=== PATIENT | female | born 1950 | race African-American/Black ===

== ENCOUNTER → 2018-06-29 | Outpatient (CLI) | payer MEDICARE, MEDICAID ==
[~2018-06-29] MED LIST: AMLO-511 PO; ASPI-825 PO; ATOR40TA28 PO; BENZ0.5T44 PO; BRIM15DR8 OU; BRINOS OU; DSS100 PO; GADOBUTROL 1 MMOL/ML 10 ML VIAL IVP ONE; HALO5TAB2 PO; LATA2.5D2 OU; LISI-662 PO; METO50 PO; OMEP20 PO; SUCR1TAB PO
== END | disposition home or self-care (01) ==
LOC: RADMN 09:57
PROVIDERS: ATTEND Legal Medicine
DX: I67.82 Cerebral ischemia (principal); J34.81 Nasal mucositis (ulcerative); J34.1 Cyst and mucocele of nose and nasal sinus; R90.82 White matter disease, unspecified; I70.0 Atherosclerosis of aorta; R76.11 Nonspecific reaction to tuberculin skin test without active tuberculosis; G93.40 Encephalopathy, unspecified
CPT/HCPCS: 70553; 71045; A9585

== ENCOUNTER 2018-08-16 13:02 | Emergency (ER) | payer MEDICARE, MEDICAID ==
[~2018-08-16] VITALS: Ht 160 cm; Wt 60.7 kg
[~2018-08-16 13:02] MED LIST changes: -GADOBUTROL 1 MMOL/ML 10 ML VIAL IVP ONE
[2018-08-16 13:38] LABS: GLUCOSE,POINT OF CARE 86 MG/DL (70-110)
[2018-08-16] MEDS ORDERED: AMOX25TA PO (13:43)
[2018-08-16] MEDS ORDERED: BUSP15 PO (13:43)
[2018-08-16] MEDS ORDERED: BENZ0.5T44 PO (13:43)
[2018-08-16] MEDS ORDERED: HALO5TAB2 PO (13:43)
[2018-08-16] MEDS ORDERED: KETOROLAC TROMETHAMINE 30 MG/ML VIAL IVP ONE (15:30)
[2018-08-16 15:52] LABS: BASOPHILS % (AUTO) 0.5 % (0.0-2.0); EOSINOPHILS % (AUTO) 0.3 % (1.0-6.0); HEMATOCRIT 34.1 % (36-46); HEMOGLOBIN 10.9 g/dL (12.0-16.0); LYMPHOCYTES # (AUTO) 1.3 K/uL (1.0-4.8); LYMPHOCYTES % (AUTO) 24.6 % (22.0-44.0); MEAN CORPUSCULAR HEMOGLOBIN 22.8 pg (26.0-34.0); MEAN CORPUSCULAR HGB CONC 31.9 G/dL (31.0-37.0); MEAN CORPUSCULAR VOLUME 71 fL (80-100); MONOCYTES # (AUTO) 0.7 K/uL (0.1-1.0); MONOCYTES % (AUTO) 13.6 % (2.0-9.0); NEUTROPHILS # (AUTO) 3.3 K/uL (1.8-7.7); PLATELET COUNT (AUTO) 393 K/uL (150-450); RED BLOOD CELL COUNT(AUTO) 4.77 MIL/uL (4.00-5.20); RED CELL DISTRIBUTION WIDTH 14.3 % (11.5-14.5)
[2018-08-16 16:01] LABS: ANION GAP 6 mmol/L (8-16); CALCIUM, TOTAL 9.3 mg/dL (8.8-10.5); CARBON DIOXIDE 29 mmol/L (22-29); CHLORIDE 103 mmol/L (98-107); CREATININE 0.74 mg/dL (0.60-1.30); GLOMERULAR FILTR. RATE CALC > 60 mL/min (>60); GLUCOSE,RANDOM 85 mg/dL (70-110); POTASSIUM 3.5 mmol/L (3.5-5.1); SODIUM SERUM 138 mmol/L (136-145); UREA NITROGEN, BLOOD 21 mg/dL (7-18)
[2018-08-16 16:06] LABS: PROTHROMBIN TIME 10.2 SEC (9.4-11.6)
[2018-08-16 16:24] LABS: ALANINE AMINOTRANSFERASE 26 U/L (12-78); ALBUMIN 3.1 g/dL (3.4-5.0); ALKALINE PHOSPHATASE 113 U/L (46-116); ASPARTATE AMINOTRANSFERASE 19 U/L (15-37); BILIRUBIN,TOTAL 0.3 mg/dL (0.1-1.0); CREATINE KINASE, TOTAL ONLY 75 U/L (26-192); LIPASE 140 U/L (73-393); TOTAL PROTEIN, SERUM 7.8 g/dL (6.4-8.2)
[2018-08-16 16:33] LABS: B-TYPE NATRIURETIC PEPTIDE 15 pg/mL (0-100)
[2018-08-16] MEDS ORDERED: SODIUM CHLORIDE 0.9% 1,000 ML IV ONE (16:45)
[2018-08-16] MEDS ORDERED: CloNIDine HCL 0.2 MG TABLET PO ONE (18:00)
[2018-08-16 19:08] LABS: APPEARANCE,URINE CLEAR (CLEAR); BILIRUBIN,URINE NEGATIVE (NEGATIVE); GLUCOSE, URINE (UA) NEGATIVE (NEGATIVE); KETONES,URINE NEGATIVE (NEGATIVE); LEUKOCYTE ESTERASE ,URINE NEGATIVE (NEGATIVE); NITRATE,URINE NEGATIVE (NEGATIVE); OCCULT BLOOD,URINE NEGATIVE (NEGATIVE); PROTEIN,URINE NEGATIVE (NEGATIVE); UROBILINOGEN,URINE 0.2 mg/dL (<=1.0)
[2018-08-16 20:11] VITALS: BP 158/97
== END 2018-08-16 20:36 | disposition home or self-care (01) ==
LOC: EMS 13:03
DX: E86.0 Dehydration (principal); J45.909 Unspecified asthma, uncomplicated; E11.9 Type 2 diabetes mellitus without complications; K21.9 Gastro-esophageal reflux disease without esophagitis; F32.9 Major depressive disorder, single episode, unspecified; I10 Essential (primary) hypertension; F20.9 Schizophrenia, unspecified; Z90.49 Acquired absence of other specified parts of digestive tract
CPT/HCPCS: 36415; 71045; 80053; 81003; 82550; 82962; 83690; 83880; 84484; 85025; 85610; 85730; 93005; 96361; 96374; 99285; J1885; J7030

== ENCOUNTER 2018-11-19 16:03 | Emergency (ER) | payer MEDICARE, OTHER ==
[~2018-11-19] VITALS: Ht 160 cm; Wt 68.2 kg
[~2018-11-19 16:03] MED LIST changes: -AMLO-511 PO; +AMOX25TA PO; -ASPI-825 PO; -ATOR40TA28 PO; -BRIM15DR8 OU; -BRINOS OU; +BUSP15 PO; -DSS100 PO; -LATA2.5D2 OU; -LISI-662 PO; -METO50 PO; -OMEP20 PO; -SUCR1TAB PO
[2018-11-19 16:29] LABS: GLUCOSE,POINT OF CARE 95 MG/DL (70-110)
[2018-11-19 18:22] LABS: BASOPHILS % (AUTO) 1.1 % (0.0-2.0); EOSINOPHILS % (AUTO) 2.5 % (1.0-6.0); HEMATOCRIT 33.9 % (36-46); HEMOGLOBIN 10.6 g/dL (12.0-16.0); LYMPHOCYTES # (AUTO) 1.6 K/uL (1.0-4.8); LYMPHOCYTES % (AUTO) 33.5 % (22.0-44.0); MEAN CORPUSCULAR HEMOGLOBIN 22.9 pg (26.0-34.0); MEAN CORPUSCULAR HGB CONC 31.1 G/dL (31.0-37.0); MEAN CORPUSCULAR VOLUME 74 fL (80-100); MONOCYTES # (AUTO) 0.5 K/uL (0.1-1.0); NEUTROPHILS # (AUTO) 2.5 K/uL (1.8-7.7); NEUTROPHILS % (AUTO) 51.9 % (40.0-70.0); PLATELET COUNT (AUTO) 326 K/uL (150-450); RED CELL DISTRIBUTION WIDTH 15.2 % (11.5-14.5)
[2018-11-19 18:36] LABS: ANION GAP 8 mmol/L (8-16); CALCIUM, TOTAL 9.2 mg/dL (8.8-10.5); CARBON DIOXIDE 27 mmol/L (22-29); CHLORIDE 106 mmol/L (98-107); CREATININE 0.83 mg/dL (0.60-1.30); GLOMERULAR FILTR. RATE CALC > 60 mL/min (>60); GLUCOSE,RANDOM 88 mg/dL (70-110); POTASSIUM 3.7 mmol/L (3.5-5.1); SODIUM SERUM 141 mmol/L (136-145); UREA NITROGEN, BLOOD 27 mg/dL (7-18)
[2018-11-19 18:41] LABS: ALANINE AMINOTRANSFERASE 17 U/L (12-78); ALBUMIN 3.4 g/dL (3.4-5.0); ALKALINE PHOSPHATASE 109 U/L (46-116); ASPARTATE AMINOTRANSFERASE 18 U/L (15-37); BILIRUBIN,TOTAL 0.2 mg/dL (0.1-1.0); TOTAL PROTEIN, SERUM 7.5 g/dL (6.4-8.2)
[2018-11-19] MEDS ORDERED: HALOPERIDOL 5 MG TABLET PO ONE (20:15)
[2018-11-19] MEDS ORDERED: BENZTROPINE MESYLATE 0.5 MG TABLET PO ONE (20:15)
[2018-11-19] MEDS ORDERED: KETOROLAC TROMETHAMINE 30 MG/ML VIAL IM ONE (20:15)
[2018-11-19 21:12] VITALS: BP 149/89
== END 2018-11-19 21:15 | disposition home or self-care (01) ==
LOC: EMS 16:06
DX: F32.9 Major depressive disorder, single episode, unspecified (principal); I11.9 Hypertensive heart disease without heart failure; F20.9 Schizophrenia, unspecified; F31.9 Bipolar disorder, unspecified; E11.9 Type 2 diabetes mellitus without complications; I20.9 Angina pectoris, unspecified; Z90.49 Acquired absence of other specified parts of digestive tract; Z90.89 Acquired absence of other organs; Z79.899 Other long term (current) drug therapy
CPT/HCPCS: 36415; 80053; 82962; 85025; 96372; 99284; G0480; J1885

== ENCOUNTER 2018-12-04 19:39 | Emergency (ER) | payer MEDICARE, OTHER ==
[~2018-12-04] VITALS: Ht 160 cm; Wt 58.6 kg
[2018-12-04] MEDS ORDERED: SODIUM CHLORIDE 0.9% 100 ML ONE (20:36)
[2018-12-04] MEDS ORDERED: IOVERSOL 350 MG/ML 150 ML VIAL ONE (20:37)
[2018-12-04 21:01] LABS: BASOPHILS % (AUTO) 1.1 % (0.0-2.0); EOSINOPHILS % (AUTO) 3.1 % (1.0-6.0); HEMATOCRIT 34.8 % (36-46); LYMPHOCYTES # (AUTO) 1.3 K/uL (1.0-4.8); LYMPHOCYTES % (AUTO) 20.5 % (22.0-44.0); MEAN CORPUSCULAR HEMOGLOBIN 23.3 pg (26.0-34.0); MEAN CORPUSCULAR HGB CONC 31.8 G/dL (31.0-37.0); MEAN CORPUSCULAR VOLUME 73 fL (80-100); MONOCYTES # (AUTO) 0.9 K/uL (0.1-1.0); MONOCYTES % (AUTO) 14.7 % (2.0-9.0); NEUTROPHILS # (AUTO) 3.8 K/uL (1.8-7.7); NEUTROPHILS % (AUTO) 60.6 % (40.0-70.0); PLATELET COUNT (AUTO) 310 K/uL (150-450); RED BLOOD CELL COUNT(AUTO) 4.74 MIL/uL (4.00-5.20); RED CELL DISTRIBUTION WIDTH 14.8 % (11.5-14.5)
[2018-12-04 21:09] LABS: ANION GAP 13 mmol/L (8-16); CALCIUM, TOTAL 9.6 mg/dL (8.8-10.5); CARBON DIOXIDE 25 mmol/L (22-29); CHLORIDE 104 mmol/L (98-107); CREATININE 0.83 mg/dL (0.60-1.30); GLOMERULAR FILTR. RATE CALC > 60 mL/min (>60); GLUCOSE,RANDOM 93 mg/dL (70-110); POTASSIUM 3.5 mmol/L (3.5-5.1); SODIUM SERUM 142 mmol/L (136-145); UREA NITROGEN, BLOOD 19 mg/dL (7-18)
[2018-12-04 21:13] LABS: PROTHROMBIN TIME 10.1 SEC (9.4-11.6)
[2018-12-04 21:17] LABS: ALANINE AMINOTRANSFERASE 18 U/L (12-78); ALBUMIN 3.3 g/dL (3.4-5.0); ALKALINE PHOSPHATASE 113 U/L (46-116); ASPARTATE AMINOTRANSFERASE 16 U/L (15-37); BILIRUBIN,TOTAL 0.4 mg/dL (0.1-1.0); CREATINE KINASE, TOTAL ONLY 75 U/L (26-192); TOTAL PROTEIN, SERUM 7.9 g/dL (6.4-8.2)
[2018-12-04 21:41] LABS: B-TYPE NATRIURETIC PEPTIDE 18 pg/mL (0-100)
[2018-12-04 21:58] LABS: D-DIMER 0.8 mg/L FEU (0.00-0.50)
[2018-12-04 23:15] VITALS: BP 163/85
== END 2018-12-04 23:34 | disposition home or self-care (01) ==
LOC: EMS 19:39
DX: M79.602 Pain in left arm (principal); F20.9 Schizophrenia, unspecified; J45.909 Unspecified asthma, uncomplicated; E11.9 Type 2 diabetes mellitus without complications; K21.9 Gastro-esophageal reflux disease without esophagitis; I10 Essential (primary) hypertension; Z85.3 Personal history of malignant neoplasm of breast; Z88.0 Allergy status to penicillin; Z90.49 Acquired absence of other specified parts of digestive tract
CPT/HCPCS: 36415; 71045; 71275; 80053; 82550; 83880; 84484; 85025; 85379; 85610; 93005; 99285; J7050; Q9967

== ENCOUNTER 2019-08-27 11:41 | Inpatient (IN) | payer MEDICARE, OTHER ==
[~2019-08-27] VITALS: Ht 160 cm; Wt 61.7 kg
[~2019-08-27 11:41] MED LIST changes: -AMOX25TA PO; -BUSP15 PO
[2019-08-27] MEDS ORDERED: UNABLE TO ASSESS PO (12:12)
[2019-08-27] MEDS ORDERED: IOVERSOL 320 MG/ML 100 ML VIAL ONE (12:16)
[2019-08-27] MEDS ORDERED: SODIUM CHLORIDE 0.9% 0 ML ONE (12:16)
[2019-08-27 12:43] LABS: BASOPHILS % (AUTO) 1.7 % (0.0-2.0); EOSINOPHILS % (AUTO) 1.2 % (1.0-6.0); HEMATOCRIT 37.3 % (36-46); HEMOGLOBIN 11.6 g/dL (12.0-16.0); LYMPHOCYTES # (AUTO) 1.2 K/uL (1.0-4.8); LYMPHOCYTES % (AUTO) 29.9 % (22.0-44.0); MEAN CORPUSCULAR HEMOGLOBIN 22.9 pg (26.0-34.0); MEAN CORPUSCULAR VOLUME 74 fL (80-100); MONOCYTES # (AUTO) 0.3 K/uL (0.1-1.0); NEUTROPHILS # (AUTO) 2.3 K/uL (1.8-7.7); NEUTROPHILS % (AUTO) 59.2 % (40.0-70.0); PLATELET COUNT (AUTO) 329 K/uL (150-450); RED BLOOD CELL COUNT(AUTO) 5.05 MIL/uL (4.00-5.20); RED CELL DISTRIBUTION WIDTH 15.1 % (11.5-14.5)
[2019-08-27] MEDS ORDERED: ASPIRIN 325 MG TABLET PO ONE (12:45)
[2019-08-27 12:55] LABS: ANION GAP 9 mmol/L (8-16); CARBON DIOXIDE 28 mmol/L (22-29); CHLORIDE 104 mmol/L (98-107); CREATININE 0.71 mg/dL (0.60-1.30); GLOMERULAR FILTR. RATE CALC > 60 mL/min (>60); GLUCOSE,RANDOM 95 mg/dL (70-110); POTASSIUM 3.6 mmol/L (3.5-5.1); SODIUM SERUM 141 mmol/L (136-145); UREA NITROGEN, BLOOD 25 mg/dL (7-18)
[2019-08-27 13:02] LABS: ALANINE AMINOTRANSFERASE 27 U/L (12-78); ALBUMIN 4.2 g/dL (3.4-5.0); ALKALINE PHOSPHATASE 140 U/L (46-116); ASPARTATE AMINOTRANSFERASE 24 U/L (15-37); BILIRUBIN,TOTAL 0.4 mg/dL (0.1-1.0); PROTHROMBIN TIME 9.9 SEC (9.4-11.6); TOTAL PROTEIN, SERUM 8.8 g/dL (6.4-8.2)
[2019-08-27] MEDS ORDERED: ONDANSETRON HCL 4 MG/2 ML VIAL IVP PRN ×2 (14:45→22:00)
[2019-08-27] MEDS ORDERED: ACETAMINOPHEN 325 MG TABLET PO PRN ×2 (14:45→22:00)
[2019-08-27] MEDS ORDERED: 0.9% SODIUM CHLORIDE 10 ML SYRINGE IVP PRN ×2 (14:45→22:00)
[2019-08-27 16:31] LABS: PLATELET MORPHOLOGY COMMENT LARGE PLTS PRESENT
[2019-08-27 18:21] LABS: APPEARANCE,URINE CLEAR (CLEAR); BILIRUBIN,URINE NEGATIVE (NEGATIVE); GLUCOSE, URINE (UA) NEGATIVE (NEGATIVE); KETONES,URINE NEGATIVE (NEGATIVE); LEUKOCYTE ESTERASE ,URINE NEGATIVE (NEGATIVE); NITRATE,URINE NEGATIVE (NEGATIVE); OCCULT BLOOD,URINE NEGATIVE (NEGATIVE); PROTEIN,URINE NEGATIVE (NEGATIVE); UROBILINOGEN,URINE 0.2 mg/dL (<=1.0)
[2019-08-27 18:27] LABS: AMPHET/METH SCREEN,URINE NEGATIVE (NEGATIVE); BARBITURATE SCREEN, URINE NEGATIVE (NEGATIVE); BENZODIAZEPINES SCREEN,URINE NEGATIVE (NEGATIVE); CANNABINOID SCREEN,URINE NEGATIVE (NEGATIVE); COCAINE SCREEN,URINE NEGATIVE (NEGATIVE); METHADONE SCREEN, URINE NEGATIVE (NEGATIVE); OPIATE SCREEN,URINE NEGATIVE (NEGATIVE)
[2019-08-27 18:31] LABS: PHENCYCLIDINE SCREEN,URINE NEGATIVE (NEGATIVE)
[2019-08-27 18:40] LABS: BACTERIA,URINE Rare /HPF (None Seen); RBC,URINE 0-2 /HPF (0-2); SQUAMOUS EPITHELIAL CELL,UR Few /LPF (None Seen); WBC,URINE 0-2 /HPF (0-5)
[2019-08-27] MEDS ORDERED: MAGNESIUM OXIDE 400 MG TABLET PO PRN (22:00)
[2019-08-27] MEDS: BENZTROPINE MESYLATE 0.5 MG TABLET PO SCH (22:00)
[2019-08-27] MEDS ORDERED: POTASSIUM CHLORIDE 20 MEQ ER TABLET PO PRN (22:00)
[2019-08-27] MEDS ORDERED: MAGNESIUM SULFATE 4 GM/WATER 100 ML IV PRN (22:00)
[2019-08-27] MEDS ORDERED: POTASSIUM CHL 10 MEQ/WATER 50 ML IV PRN (22:00)
[2019-08-27] MEDS ORDERED: ZOLPIDEM TARTRATE 5 MG TABLET PO PRN (22:00)
[2019-08-27] MEDS ORDERED: DEXTROSE 50%-WATER 25 GM/50 ML SYRINGE IVP PRN (22:00)
[2019-08-27] MEDS ORDERED: MAGNESIUM SULFATE 2 GM/WATER 50 ML IV PRN (22:00)
[2019-08-27] MEDS: HALOPERIDOL 5 MG TABLET PO SCH (22:00)
[2019-08-27 23:34] LABS: GLUCOSE,POINT OF CARE 102 MG/DL (70-110)
[2019-08-27] MEDS: HEPARIN SODIUM,PORCINE 5,000 UNITS/ML VIAL SQ SCH (23:54)
[2019-08-28 07:05] LABS: BASOPHILS % (AUTO) 1.4 % (0.0-2.0); EOSINOPHILS % (AUTO) 1.2 % (1.0-6.0); HEMATOCRIT 32.7 % (36-46); HEMOGLOBIN 10.7 g/dL (12.0-16.0); LYMPHOCYTES # (AUTO) 1.5 K/uL (1.0-4.8); LYMPHOCYTES % (AUTO) 36.1 % (22.0-44.0); MEAN CORPUSCULAR HEMOGLOBIN 23.8 pg (26.0-34.0); MEAN CORPUSCULAR HGB CONC 32.6 G/dL (31.0-37.0); MEAN CORPUSCULAR VOLUME 73 fL (80-100); MONOCYTES # (AUTO) 0.4 K/uL (0.1-1.0); MONOCYTES % (AUTO) 8.6 % (2.0-9.0); NEUTROPHILS # (AUTO) 2.2 K/uL (1.8-7.7); NEUTROPHILS % (AUTO) 52.7 % (40.0-70.0); PLATELET COUNT (AUTO) 296 K/uL (150-450); RED BLOOD CELL COUNT(AUTO) 4.48 MIL/uL (4.00-5.20); RED CELL DISTRIBUTION WIDTH 14.9 % (11.5-14.5)
[2019-08-28 07:07] LABS: ALANINE AMINOTRANSFERASE 21 U/L (12-78); ALBUMIN 3.5 g/dL (3.4-5.0); ALKALINE PHOSPHATASE 121 U/L (46-116); ANION GAP 8 mmol/L (8-16); ASPARTATE AMINOTRANSFERASE 19 U/L (15-37); BILIRUBIN,TOTAL 0.4 mg/dL (0.1-1.0); CALCIUM, TOTAL 9.1 mg/dL (8.8-10.5); CARBON DIOXIDE 28 mmol/L (22-29); CHLORIDE 107 mmol/L (98-107); CHOL/HDL RATIO 3.5 (3.9-5.7); CHOLESTEROL 205 mg/dL (131-200); CREATININE 0.64 mg/dL (0.60-1.30); GLOMERULAR FILTR. RATE CALC > 60 mL/min (>60); GLUCOSE,RANDOM 98 mg/dL (70-110); HDL CHOLESTEROL 58 mg/dL (40-60); LDL CHOL (CALC.) 123 mg/dL (0-130); POTASSIUM 3.7 mmol/L (3.5-5.1); SODIUM SERUM 143 mmol/L (136-145); TOTAL PROTEIN, SERUM 7.5 g/dL (6.4-8.2); TRIGLYCERIDES 121 mg/dL (15-150); UREA NITROGEN, BLOOD 19 mg/dL (7-18)
[2019-08-28 07:29] LABS: GLUCOSE,POINT OF CARE 87 MG/DL (70-110)
[2019-08-28 07:54] LABS: HEMOGLOBIN A1C 6.1 % (4.5-6.2)
[2019-08-28 09:29] VITALS: BP 157/91
[2019-08-28] MEDS: HEPARIN SODIUM,PORCINE 5,000 UNITS/ML VIAL SQ SCH ×2 (09:32→16:21)
[2019-08-28] MEDS: HALOPERIDOL 5 MG TABLET PO SCH ×2 (09:32→21:11)
[2019-08-28] MEDS: PANTOPRAZOLE SODIUM 40 MG DR TABLET PO SCH (09:32)
[2019-08-28] MEDS: DOCUSATE SODIUM 100 MG CAPSULE PO SCH ×2 (09:32→21:11)
[2019-08-28] MEDS: BENZTROPINE MESYLATE 0.5 MG TABLET PO SCH ×2 (09:32→21:11)
[2019-08-28 12:02] VITALS: BP 161/94
[2019-08-28 16:05] VITALS: BP 144/96
[2019-08-28 16:11] LABS: GLUCOMETER DEV NAME(LOC) 5S.1; GLUCOSE,POINT OF CARE 89 MG/DL (70-110)
[2019-08-28 18:27] LABS: GLUCOMETER DEV NAME(LOC) 5N.1; GLUCOSE,POINT OF CARE 101 MG/DL (70-110)
[2019-08-28 19:45] VITALS: BP 133/77
[2019-08-28] MEDS: INSULIN LISPRO 100 UNITS/ML SQ PRN (21:21)
[2019-08-29 00:05] VITALS: BP 129/64
[2019-08-29] MEDS: HEPARIN SODIUM,PORCINE 5,000 UNITS/ML VIAL SQ SCH ×4 (00:14→23:11)
[2019-08-29 04:30] VITALS: BP 117/74
[2019-08-29 06:36] LABS: BASOPHILS % (AUTO) 1.1 % (0.0-2.0); EOSINOPHILS % (AUTO) 1.8 % (1.0-6.0); HEMATOCRIT 32.6 % (36-46); HEMOGLOBIN 10.3 g/dL (12.0-16.0); LYMPHOCYTES # (AUTO) 1.6 K/uL (1.0-4.8); LYMPHOCYTES % (AUTO) 46.5 % (22.0-44.0); MEAN CORPUSCULAR HEMOGLOBIN 23.2 pg (26.0-34.0); MEAN CORPUSCULAR HGB CONC 31.7 G/dL (31.0-37.0); MEAN CORPUSCULAR VOLUME 73 fL (80-100); MONOCYTES # (AUTO) 0.4 K/uL (0.1-1.0); MONOCYTES % (AUTO) 10.5 % (2.0-9.0); NEUTROPHILS # (AUTO) 1.4 K/uL (1.8-7.7); NEUTROPHILS % (AUTO) 40.1 % (40.0-70.0); PLATELET COUNT (AUTO) 291 K/uL (150-450); RED BLOOD CELL COUNT(AUTO) 4.44 MIL/uL (4.00-5.20); RED CELL DISTRIBUTION WIDTH 14.7 % (11.5-14.5)
[2019-08-29 07:11] LABS: ANION GAP 10 mmol/L (8-16); CALCIUM, TOTAL 9.6 mg/dL (8.8-10.5); CARBON DIOXIDE 25 mmol/L (22-29); CHLORIDE 106 mmol/L (98-107); CREATININE 0.87 mg/dL (0.60-1.30); GLOMERULAR FILTR. RATE CALC > 60 mL/min (>60); GLUCOSE,RANDOM 92 mg/dL (70-110); POTASSIUM 3.5 mmol/L (3.5-5.1); SODIUM SERUM 141 mmol/L (136-145); UREA NITROGEN, BLOOD 22 mg/dL (7-18)
[2019-08-29 08:03] VITALS: BP 144/75
[2019-08-29] MEDS: PANTOPRAZOLE SODIUM 40 MG DR TABLET PO SCH (08:30)
[2019-08-29] MEDS: BENZTROPINE MESYLATE 0.5 MG TABLET PO SCH ×2 (08:30→20:03)
[2019-08-29] MEDS: HALOPERIDOL 5 MG TABLET PO SCH ×2 (08:30→20:03)
[2019-08-29] MEDS: DOCUSATE SODIUM 100 MG CAPSULE PO SCH ×2 (08:30→20:03)
[2019-08-29 08:39] LABS: GLUCOMETER DEV NAME(LOC) 5N.1; GLUCOSE,POINT OF CARE 113 MG/DL (70-110)
[2019-08-29 08:39] LABS: GLUCOMETER DEV NAME(LOC) 5S.1; GLUCOSE,POINT OF CARE 93 MG/DL (70-110)
[2019-08-29 11:26] VITALS: BP 134/87
[2019-08-29 15:32] LABS: GLUCOMETER DEV NAME(LOC) 5S.1; GLUCOSE,POINT OF CARE 96 MG/DL (70-110)
[2019-08-29 19:16] LABS: GLUCOMETER DEV NAME(LOC) 5N.1; GLUCOSE,POINT OF CARE 106 MG/DL (70-110)
[2019-08-29] MEDS: INSULIN LISPRO 100 UNITS/ML SQ PRN (20:11)
[2019-08-29 20:50] VITALS: BP 142/99
[2019-08-29 22:36] LABS: GLUCOMETER DEV NAME(LOC) 5S.1; GLUCOSE,POINT OF CARE 152 MG/DL (70-110)
[2019-08-30 00:25] VITALS: BP 115/72
[2019-08-30 04:32] VITALS: BP 142/93
[2019-08-30 07:07] VITALS: BP 132/82
[2019-08-30 09:00] VITALS: BP 132/82
[2019-08-30] MEDS: PANTOPRAZOLE SODIUM 40 MG DR TABLET PO SCH (09:00)
[2019-08-30] MEDS: DOCUSATE SODIUM 100 MG CAPSULE PO SCH (09:00)
[2019-08-30] MEDS: BENZTROPINE MESYLATE 0.5 MG TABLET PO SCH (09:00)
[2019-08-30] MEDS: HEPARIN SODIUM,PORCINE 5,000 UNITS/ML VIAL SQ SCH ×2 (09:00→16:00)
[2019-08-30] MEDS: HALOPERIDOL 5 MG TABLET PO SCH (09:00)
[2019-08-30] MEDS ORDERED: SIMV-259 PO (10:40)
[2019-08-30 11:32] VITALS: BP 138/75
[2019-08-30 12:27] LABS: GLUCOMETER DEV NAME(LOC) 5S.1; GLUCOSE,POINT OF CARE 101 MG/DL (70-110)
[2019-08-30 15:40] VITALS: BP 134/79
[2019-08-30 21:35] LABS: GLUCOMETER DEV NAME(LOC) 5S.1; GLUCOSE,POINT OF CARE 122 MG/DL (70-110)
== END 2019-08-30 18:05 | disposition home or self-care (01) | DRG 71 ==
LOC: EMS 11:42 → 5N 08-28 07:28
PROVIDERS: ADMIT Internal Medicine; ATTEND Internal Medicine
DX: G93.49 Other encephalopathy (principal); K92.2 Gastrointestinal hemorrhage, unspecified; E11.9 Type 2 diabetes mellitus without complications; F20.9 Schizophrenia, unspecified; J45.909 Unspecified asthma, uncomplicated; I20.9 Angina pectoris, unspecified; I10 Essential (primary) hypertension; K21.9 Gastro-esophageal reflux disease without esophagitis; F41.9 Anxiety disorder, unspecified; F32.9 Major depressive disorder, single episode, unspecified; D64.9 Anemia, unspecified; E78.5 Hyperlipidemia, unspecified; Z87.11 Personal history of peptic ulcer disease; Z90.49 Acquired absence of other specified parts of digestive tract; Z83.3 Family history of diabetes mellitus; Z82.49 Family history of ischemic heart disease and other diseases of the circulatory system; Z88.0 Allergy status to penicillin; Z98.51 Tubal ligation status; Z85.3 Personal history of malignant neoplasm of breast; Z98.41 Cataract extraction status, right eye
CPT/HCPCS: 70551; 83036; 83735; 86850; 86900; 86901; 93005; 93306; 93880; 97116; 97162; 97165; 97530; 97535; J1644; J7050

== ENCOUNTER 2019-08-31 15:26 | Emergency (ER) | payer MEDICARE, OTHER ==
[~2019-08-31] VITALS: Ht 162.6 cm; Wt 68.2 kg
[~2019-08-31 15:26] MED LIST changes: +SIMV-259 PO; +UNABLE TO ASSESS PO
[2019-08-31 17:49] LABS: BASOPHILS % (AUTO) 0.7 % (0.0-2.0); EOSINOPHILS % (AUTO) 1.8 % (1.0-6.0); HEMATOCRIT 32.7 % (36-46); HEMOGLOBIN 10.3 g/dL (12.0-16.0); LYMPHOCYTES # (AUTO) 1.5 K/uL (1.0-4.8); LYMPHOCYTES % (AUTO) 25.6 % (22.0-44.0); MEAN CORPUSCULAR HGB CONC 31.5 G/dL (31.0-37.0); MEAN CORPUSCULAR VOLUME 73 fL (80-100); MONOCYTES # (AUTO) 0.5 K/uL (0.1-1.0); NEUTROPHILS # (AUTO) 3.7 K/uL (1.8-7.7); NEUTROPHILS % (AUTO) 62.9 % (40.0-70.0); PLATELET COUNT (AUTO) 284 K/uL (150-450); RED BLOOD CELL COUNT(AUTO) 4.46 MIL/uL (4.00-5.20); RED CELL DISTRIBUTION WIDTH 14.8 % (11.5-14.5)
[2019-08-31 18:07] LABS: ANION GAP 5 mmol/L (8-16); CALCIUM, TOTAL 9.7 mg/dL (8.8-10.5); CARBON DIOXIDE 29 mmol/L (22-29); CHLORIDE 109 mmol/L (98-107); CREATININE 0.93 mg/dL (0.60-1.30); GLOMERULAR FILTR. RATE CALC > 60 mL/min (>60); GLUCOSE,RANDOM 108 mg/dL (70-110); POTASSIUM 4.2 mmol/L (3.5-5.1); SODIUM SERUM 143 mmol/L (136-145); UREA NITROGEN, BLOOD 26 mg/dL (7-18)
[2019-08-31 18:12] LABS: ALANINE AMINOTRANSFERASE 20 U/L (12-78); ALBUMIN 3.4 g/dL (3.4-5.0); ALKALINE PHOSPHATASE 121 U/L (46-116); ASPARTATE AMINOTRANSFERASE 16 U/L (15-37); BILIRUBIN,TOTAL 0.1 mg/dL (0.1-1.0); TOTAL PROTEIN, SERUM 7.3 g/dL (6.4-8.2)
[2019-08-31 18:43] VITALS: BP 140/90
[2019-08-31] MEDS ORDERED: BENZTROPINE MESYLATE 2 MG TABLET PO ONE (19:30)
[2019-08-31] MEDS ORDERED: LORazepam 2 MG TABLET PO ONE (19:30)
[2019-08-31] MEDS ORDERED: HALOPERIDOL 5 MG TABLET PO ONE (19:30)
== END 2019-08-31 20:56 | disposition home or self-care (01) ==
LOC: EMS 15:26
DX: F69 Unspecified disorder of adult personality and behavior (principal); E11.36 Type 2 diabetes mellitus with diabetic cataract; I10 Essential (primary) hypertension; I25.10 Atherosclerotic heart disease of native coronary artery without angina pectoris; J45.909 Unspecified asthma, uncomplicated; K21.9 Gastro-esophageal reflux disease without esophagitis; F32.9 Major depressive disorder, single episode, unspecified; F20.9 Schizophrenia, unspecified; F41.9 Anxiety disorder, unspecified; Z90.49 Acquired absence of other specified parts of digestive tract; Z98.890 Other specified postprocedural states; Z88.0 Allergy status to penicillin; Z88.8 Allergy status to other drugs, medicaments and biological substances; Z85.3 Personal history of malignant neoplasm of breast
CPT/HCPCS: 36415; 80053; 85025; 99284; G0480

== ENCOUNTER 2019-12-08 12:17 | Inpatient (IN) | payer MEDICARE, MEDICAID ==
[~2019-12-08] VITALS: Ht 160 cm; Wt 5.9 kg
[~2019-12-08 12:17] MED LIST changes: +AMLO5TAB9 PO; +ANAS1TAB50 PO; +AZIT-84 PO; -BENZ0.5T44 PO; +BUSP5TAB20 PO; +FERR-89 PO; -HALO5TAB2 PO; +LISI-662 PO; +QUET200T PO; -SIMV-259 PO; -UNABLE TO ASSESS PO
[2019-12-08 14:12] LABS: BASOPHILS % (AUTO) 1.7 % (0.0-2.0); EOSINOPHILS % (AUTO) 1.8 % (1.0-6.0); HEMATOCRIT 34.4 % (36-46); HEMOGLOBIN 10.9 g/dL (12.0-16.0); LYMPHOCYTES # (AUTO) 1.4 K/uL (1.0-4.8); LYMPHOCYTES % (AUTO) 32.1 % (22.0-44.0); MEAN CORPUSCULAR HEMOGLOBIN 23.2 pg (26.0-34.0); MEAN CORPUSCULAR HGB CONC 31.6 G/dL (31.0-37.0); MEAN CORPUSCULAR VOLUME 73 fL (80-100); MONOCYTES # (AUTO) 0.4 K/uL (0.1-1.0); MONOCYTES % (AUTO) 9.3 % (2.0-9.0); NEUTROPHILS # (AUTO) 2.3 K/uL (1.8-7.7); NEUTROPHILS % (AUTO) 55.1 % (40.0-70.0); PLATELET COUNT (AUTO) 299 K/uL (150-450); RED BLOOD CELL COUNT(AUTO) 4.69 MIL/uL (4.00-5.20); RED CELL DISTRIBUTION WIDTH 15.8 % (11.5-14.5)
[2019-12-08 14:49] LABS: ANION GAP 13 mmol/L (8-16); CALCIUM, TOTAL 9.8 mg/dL (8.8-10.5); CARBON DIOXIDE 21 mmol/L (22-29); CHLORIDE 103 mmol/L (98-107); CREATININE 0.84 mg/dL (0.60-1.30); GLOMERULAR FILTR. RATE CALC > 60 mL/min (>60); GLUCOSE,RANDOM 85 mg/dL (70-110); POTASSIUM 3.9 mmol/L (3.5-5.1); SODIUM SERUM 137 mmol/L (136-145); UREA NITROGEN, BLOOD 21 mg/dL (7-18)
[2019-12-08 14:56] LABS: ALANINE AMINOTRANSFERASE 17 U/L (12-78); ALBUMIN 4.1 g/dL (3.4-5.0); ALKALINE PHOSPHATASE 125 U/L (46-116); ASPARTATE AMINOTRANSFERASE 27 U/L (15-37); BILIRUBIN,TOTAL 0.6 mg/dL (0.1-1.0); TOTAL PROTEIN, SERUM 8.3 g/dL (6.4-8.2)
[2019-12-08] MEDS ORDERED: LORazepam 1 MG TABLET PO ONE (17:45)
[2019-12-08] MEDS ORDERED: QUEtiapine FUMARATE 100 MG TABLET PO PRN (18:30)
[2019-12-08] MEDS ORDERED: ZOLPIDEM TARTRATE 10 MG TABLET PO PRN (18:30)
[2019-12-08 19:21] LABS: AMPHET/METH SCREEN,URINE NEGATIVE (NEGATIVE); BARBITURATE SCREEN, URINE NEGATIVE (NEGATIVE); BENZODIAZEPINES SCREEN,URINE NEGATIVE (NEGATIVE); CANNABINOID SCREEN,URINE NEGATIVE (NEGATIVE); COCAINE SCREEN,URINE NEGATIVE (NEGATIVE); METHADONE SCREEN, URINE NEGATIVE (NEGATIVE); OPIATE SCREEN,URINE NEGATIVE (NEGATIVE)
[2019-12-08 19:23] LABS: APPEARANCE,URINE CLEAR (CLEAR); BILIRUBIN,URINE NEGATIVE (NEGATIVE); GLUCOSE, URINE (UA) NEGATIVE (NEGATIVE); KETONES,URINE TRACE mg/dL (NEGATIVE); LEUKOCYTE ESTERASE ,URINE SMALL (NEGATIVE); NITRATE,URINE NEGATIVE (NEGATIVE); OCCULT BLOOD,URINE NEGATIVE (NEGATIVE); PROTEIN,URINE NEGATIVE (NEGATIVE)
[2019-12-08 19:31] LABS: BACTERIA,URINE Many /HPF (None Seen); PHENCYCLIDINE SCREEN,URINE NEGATIVE (NEGATIVE); RBC,URINE None Seen /HPF (0-2); WBC,URINE 0-2 /HPF (0-5)
[2019-12-08 19:32] LABS: SQUAMOUS EPITHELIAL CELL,UR Few /LPF (None Seen)
[2019-12-08] MEDS: ARIPiprazole 5 MG TABLET PO SCH (20:52)
[2019-12-08] MEDS: TraZODone HCL 50 MG TABLET PO SCH (20:52)
[2019-12-08] MEDS: BusPIRone HCL 5 MG TABLET PO SCH (20:52)
[2019-12-08] MEDS: QUEtiapine FUMARATE 200 MG TABLET PO SCH (20:52)
[2019-12-08 21:53] VITALS: BP 153/100
[2019-12-09] MEDS: FERROUS SULFATE 325 MG EC TABLET PO SCH ×2 (06:45→16:34)
[2019-12-09] MEDS: TraZODone HCL 50 MG TABLET PO SCH (08:26)
[2019-12-09] MEDS: LISINOPRIL 20 MG TABLET PO SCH (08:26)
[2019-12-09] MEDS: BusPIRone HCL 5 MG TABLET PO SCH ×2 (08:26→16:06)
[2019-12-09] MEDS: ANASTROZOLE 1 MG TABLET PO SCH (08:27)
[2019-12-09] MEDS: AmLODIPine BESYLATE 5 MG TABLET PO SCH (08:29)
[2019-12-09 09:00] VITALS: BP 146/94
[2019-12-09] MEDS ORDERED: CloNIDine HCL 0.1 MG TABLET PO PRN (12:30)
[2019-12-09] MEDS ORDERED: ONDANSETRON HCL 4 MG TABLET PO PRN (12:30)
[2019-12-09] MEDS ORDERED: GuaiFENesin/D-METHORPHAN [SUGAR-FREE] 200-20MG/10 ML SYRUP UDCUP PO PRN (12:30)
[2019-12-09] MEDS ORDERED: MAGNESIUM HYDROXIDE SUSPENSION 30 ML UDCUP PO PRN (12:30)
[2019-12-09] MEDS ORDERED: DOCUSATE SODIUM 100 MG CAPSULE PO PRN (12:30)
[2019-12-09] MEDS ORDERED: LOPERAMIDE HCL 2 MG CAPSULE PO PRN (12:30)
[2019-12-09] MEDS ORDERED: NICOTINE 14 MG/24 HOUR PATCH TD PRN (12:30)
[2019-12-09] MEDS ORDERED: PETROLATUM,WHITE 28 GM JELLY TP PRN (12:30)
[2019-12-09] MEDS ORDERED: MAG HYDROX/AL HYDROX/SIMETH ES 30 ML SUSPENSION UDCUP PO PRN (12:30)
[2019-12-09] MEDS: LORazepam 1 MG TABLET PO PRN (14:33)
[2019-12-09] MEDS: CIPROFLOXACIN HCL 500 MG TABLET PO SCH (16:06)
[2019-12-09 16:45] VITALS: BP 125/87
[2019-12-09] MEDS: QUEtiapine FUMARATE 200 MG TABLET PO SCH (20:42)
[2019-12-09] MEDS: ARIPiprazole 5 MG TABLET PO SCH (20:42)
[2019-12-10] MEDS: FERROUS SULFATE 325 MG EC TABLET PO SCH ×2 (06:47→17:39)
[2019-12-10] MEDS: AmLODIPine BESYLATE 5 MG TABLET PO SCH (08:12)
[2019-12-10] MEDS: BusPIRone HCL 5 MG TABLET PO SCH ×2 (08:12→17:09)
[2019-12-10] MEDS: CIPROFLOXACIN HCL 500 MG TABLET PO SCH ×2 (08:13→17:08)
[2019-12-10] MEDS: ANASTROZOLE 1 MG TABLET PO SCH (08:13)
[2019-12-10] MEDS: LISINOPRIL 20 MG TABLET PO SCH (08:17)
[2019-12-10 09:00] VITALS: BP 144/93
[2019-12-10] MEDS: LORazepam 1 MG TABLET PO PRN (13:00)
[2019-12-10] MEDS: PHENAZOPYRIDINE HCL 200 MG TABLET PO SCH ×2 (13:26→17:09)
[2019-12-10 16:12] VITALS: BP 148/92
[2019-12-10] MEDS: ARIPiprazole 5 MG TABLET PO SCH (20:40)
[2019-12-10] MEDS: QUEtiapine FUMARATE 200 MG TABLET PO SCH (20:41)
[2019-12-10] MEDS: TraZODone HCL 50 MG TABLET PO SCH (20:41)
[2019-12-11] MEDS: FERROUS SULFATE 325 MG EC TABLET PO SCH ×2 (06:32→16:53)
[2019-12-11] MEDS: BusPIRone HCL 5 MG TABLET PO SCH ×2 (08:35→16:18)
[2019-12-11] MEDS: CIPROFLOXACIN HCL 500 MG TABLET PO SCH ×2 (08:35→16:18)
[2019-12-11] MEDS: PHENAZOPYRIDINE HCL 200 MG TABLET PO SCH ×2 (08:35→16:18)
[2019-12-11] MEDS: LISINOPRIL 20 MG TABLET PO SCH (08:35)
[2019-12-11] MEDS: ANASTROZOLE 1 MG TABLET PO SCH (08:36)
[2019-12-11] MEDS: AmLODIPine BESYLATE 5 MG TABLET PO SCH (08:36)
[2019-12-11 10:18] VITALS: BP 133/83
[2019-12-11 19:23] VITALS: BP 132/75
[2019-12-11] MEDS: ARIPiprazole 10 MG TABLET PO SCH (20:19)
[2019-12-11] MEDS: TraZODone HCL 50 MG TABLET PO SCH (20:19)
[2019-12-11] MEDS: QUEtiapine FUMARATE 100 MG TABLET PO SCH (20:20)
[2019-12-12 04:47] VITALS: BP 143/92
[2019-12-12] MEDS: FERROUS SULFATE 325 MG EC TABLET PO SCH ×2 (06:42→16:26)
[2019-12-12] MEDS: BusPIRone HCL 5 MG TABLET PO SCH ×2 (09:27→16:25)
[2019-12-12] MEDS: LISINOPRIL 20 MG TABLET PO SCH (09:27)
[2019-12-12] MEDS: PHENAZOPYRIDINE HCL 200 MG TABLET PO SCH ×2 (09:27→16:25)
[2019-12-12] MEDS: ANASTROZOLE 1 MG TABLET PO SCH (09:27)
[2019-12-12] MEDS: CIPROFLOXACIN HCL 500 MG TABLET PO SCH ×2 (09:27→16:25)
[2019-12-12] MEDS: AmLODIPine BESYLATE 5 MG TABLET PO SCH (09:27)
[2019-12-12 09:34] VITALS: BP 137/78
[2019-12-12 16:54] VITALS: BP 141/60
[2019-12-12] MEDS: QUEtiapine FUMARATE 100 MG TABLET PO SCH (20:08)
[2019-12-12] MEDS: ARIPiprazole 10 MG TABLET PO SCH (20:08)
[2019-12-12] MEDS: TraZODone HCL 50 MG TABLET PO SCH (20:08)
[2019-12-13 04:05] VITALS: BP 121/83
[2019-12-13] MEDS: IBUPROFEN 400 MG TABLET PO PRN (04:08)
[2019-12-13] MEDS: FERROUS SULFATE 325 MG EC TABLET PO SCH ×2 (06:47→18:47)
[2019-12-13 08:00] VITALS: BP 145/90
[2019-12-13] MEDS: CIPROFLOXACIN HCL 500 MG TABLET PO SCH ×2 (08:25→16:28)
[2019-12-13] MEDS: ANASTROZOLE 1 MG TABLET PO SCH (08:25)
[2019-12-13] MEDS: AmLODIPine BESYLATE 5 MG TABLET PO SCH (08:25)
[2019-12-13] MEDS: BusPIRone HCL 5 MG TABLET PO SCH ×2 (08:25→16:28)
[2019-12-13] MEDS: PHENAZOPYRIDINE HCL 200 MG TABLET PO SCH ×2 (08:25→16:28)
[2019-12-13] MEDS: LISINOPRIL 20 MG TABLET PO SCH (08:26)
[2019-12-13 19:25] VITALS: BP 139/78
[2019-12-13] MEDS: QUEtiapine FUMARATE 100 MG TABLET PO SCH (20:01)
[2019-12-13] MEDS: TraZODone HCL 50 MG TABLET PO SCH (20:01)
[2019-12-13] MEDS: ARIPiprazole 10 MG TABLET PO SCH (20:01)
[2019-12-14] MEDS: IBUPROFEN 400 MG TABLET PO PRN ×2 (02:08→23:48)
[2019-12-14 02:16] VITALS: BP 131/83
[2019-12-14] MEDS: FERROUS SULFATE 325 MG EC TABLET PO SCH ×2 (06:53→16:00)
[2019-12-14 08:00] VITALS: BP 142/91
[2019-12-14] MEDS: CIPROFLOXACIN HCL 500 MG TABLET PO SCH (08:08)
[2019-12-14] MEDS: AmLODIPine BESYLATE 5 MG TABLET PO SCH (08:08)
[2019-12-14] MEDS: BusPIRone HCL 5 MG TABLET PO SCH ×2 (08:08→16:00)
[2019-12-14] MEDS: PHENAZOPYRIDINE HCL 200 MG TABLET PO SCH ×2 (08:08→16:00)
[2019-12-14] MEDS: ANASTROZOLE 1 MG TABLET PO SCH (08:08)
[2019-12-14] MEDS: LISINOPRIL 20 MG TABLET PO SCH (08:09)
[2019-12-14] MEDS: ALBUTEROL SULFATE HFA 90 MCG/PUFF 8 GM INHALER IH PRN (11:41)
[2019-12-14 16:00] VITALS: BP 151/82
[2019-12-14] MEDS: TraZODone HCL 50 MG TABLET PO SCH (20:01)
[2019-12-14] MEDS: QUEtiapine FUMARATE 100 MG TABLET PO SCH (20:02)
[2019-12-14] MEDS: ARIPiprazole 10 MG TABLET PO SCH (20:02)
[2019-12-14 23:48] VITALS: BP 107/71
[2019-12-15] MEDS: FERROUS SULFATE 325 MG EC TABLET PO SCH ×2 (06:42→16:34)
[2019-12-15] MEDS: BusPIRone HCL 5 MG TABLET PO SCH ×2 (08:11→16:07)
[2019-12-15] MEDS: LISINOPRIL 20 MG TABLET PO SCH (08:11)
[2019-12-15] MEDS: AmLODIPine BESYLATE 5 MG TABLET PO SCH (08:11)
[2019-12-15] MEDS: PHENAZOPYRIDINE HCL 200 MG TABLET PO SCH (09:00)
[2019-12-15] MEDS: ANASTROZOLE 1 MG TABLET PO SCH (09:00)
[2019-12-15 09:23] VITALS: BP 158/89
[2019-12-15 16:00] VITALS: BP 149/86
[2019-12-15] MEDS: QUEtiapine FUMARATE 100 MG TABLET PO SCH (20:35)
[2019-12-15] MEDS: TraZODone HCL 50 MG TABLET PO SCH (20:35)
[2019-12-16 00:35] VITALS: BP 133/73
[2019-12-16] MEDS: IBUPROFEN 400 MG TABLET PO PRN ×2 (00:39→23:33)
[2019-12-16] MEDS: FERROUS SULFATE 325 MG EC TABLET PO SCH ×2 (06:52→16:45)
[2019-12-16 08:40] VITALS: BP 128/88
[2019-12-16] MEDS: ANASTROZOLE 1 MG TABLET PO SCH (08:44)
[2019-12-16] MEDS: LISINOPRIL 20 MG TABLET PO SCH (08:44)
[2019-12-16] MEDS: AmLODIPine BESYLATE 5 MG TABLET PO SCH (08:44)
[2019-12-16] MEDS: ARIPiprazole 15 MG TABLET PO SCH (08:44)
[2019-12-16] MEDS: BusPIRone HCL 5 MG TABLET PO SCH ×2 (08:44→16:45)
[2019-12-16 16:56] VITALS: BP 149/59
[2019-12-16] MEDS: TraZODone HCL 50 MG TABLET PO SCH (20:12)
[2019-12-16] MEDS: QUEtiapine FUMARATE 100 MG TABLET PO SCH (20:12)
[2019-12-17 00:05] VITALS: BP 132/66
[2019-12-17] MEDS: FERROUS SULFATE 325 MG EC TABLET PO SCH ×2 (06:47→16:35)
[2019-12-17 08:00] VITALS: BP 143/85
[2019-12-17] MEDS: ANASTROZOLE 1 MG TABLET PO SCH (08:19)
[2019-12-17] MEDS: AmLODIPine BESYLATE 5 MG TABLET PO SCH (08:19)
[2019-12-17] MEDS: LISINOPRIL 20 MG TABLET PO SCH (08:19)
[2019-12-17] MEDS: BusPIRone HCL 5 MG TABLET PO SCH ×2 (08:20→16:35)
[2019-12-17] MEDS: ARIPiprazole 15 MG TABLET PO SCH (08:20)
[2019-12-17] MEDS: ALBUTEROL SULFATE HFA 90 MCG/PUFF 8 GM INHALER IH PRN (14:45)
[2019-12-17 18:53] VITALS: BP 137/82
[2019-12-17] MEDS: QUEtiapine FUMARATE 100 MG TABLET PO SCH (20:11)
[2019-12-17] MEDS: TraZODone HCL 50 MG TABLET PO SCH (20:11)
[2019-12-18] MEDS: FERROUS SULFATE 325 MG EC TABLET PO SCH ×2 (06:35→16:59)
[2019-12-18] MEDS: LISINOPRIL 20 MG TABLET PO SCH (08:38)
[2019-12-18] MEDS: AmLODIPine BESYLATE 5 MG TABLET PO SCH (08:38)
[2019-12-18] MEDS: BusPIRone HCL 5 MG TABLET PO SCH ×2 (08:39→16:02)
[2019-12-18] MEDS: ARIPiprazole 15 MG TABLET PO SCH (08:39)
[2019-12-18] MEDS: ANASTROZOLE 1 MG TABLET PO SCH (08:40)
[2019-12-18 09:00] VITALS: BP 153/108
[2019-12-18] MEDS ORDERED: ARIPiprazole LAUROXIL ER SUSPENSION 662 MG/2.4 ML SYRINGE IM SCH (10:45)
[2019-12-18] MEDS ORDERED: ARIPiprazole LAUROXIL,SUBMICR. ER SUSPENSION 675 MG/2.4 ML SYRINGE IM ONE (10:45)
[2019-12-18 15:00] VITALS: BP 142/82
[2019-12-18 19:33] VITALS: BP 145/89
[2019-12-18] MEDS: TraZODone HCL 50 MG TABLET PO SCH (20:07)
[2019-12-19 00:42] VITALS: BP 146/94
[2019-12-19] MEDS: IBUPROFEN 400 MG TABLET PO PRN ×2 (00:46→21:11)
[2019-12-19] MEDS: FERROUS SULFATE 325 MG EC TABLET PO SCH ×2 (06:52→16:30)
[2019-12-19] MEDS: LISINOPRIL 20 MG TABLET PO SCH (08:39)
[2019-12-19] MEDS: BusPIRone HCL 5 MG TABLET PO SCH ×2 (08:39→16:30)
[2019-12-19] MEDS: AmLODIPine BESYLATE 5 MG TABLET PO SCH (08:39)
[2019-12-19] MEDS: ANASTROZOLE 1 MG TABLET PO SCH (08:40)
[2019-12-19] MEDS: ARIPiprazole 15 MG TABLET PO SCH (08:41)
[2019-12-19 09:34] VITALS: BP 134/98
[2019-12-19 16:24] VITALS: BP 102/65
[2019-12-19] MEDS: TraZODone HCL 50 MG TABLET PO SCH (20:20)
[2019-12-19 21:11] VITALS: BP 112/86
[2019-12-20 00:25] VITALS: BP 134/71
[2019-12-20] MEDS: ACETAMINOPHEN 325 MG TABLET PO PRN (00:28)
[2019-12-20] MEDS: FERROUS SULFATE 325 MG EC TABLET PO SCH ×2 (07:02→16:09)
[2019-12-20 08:00] VITALS: BP 139/93
[2019-12-20] MEDS: AmLODIPine BESYLATE 5 MG TABLET PO SCH (08:55)
[2019-12-20] MEDS: ANASTROZOLE 1 MG TABLET PO SCH (08:56)
[2019-12-20] MEDS: ARIPiprazole 15 MG TABLET PO SCH (08:56)
[2019-12-20] MEDS: BusPIRone HCL 5 MG TABLET PO SCH ×2 (08:56→16:09)
[2019-12-20] MEDS: LISINOPRIL 20 MG TABLET PO SCH (08:56)
[2019-12-20] MEDS: TraZODone HCL 50 MG TABLET PO SCH (20:17)
[2019-12-20 22:02] VITALS: BP 137/78
[2019-12-21] MEDS: ACETAMINOPHEN 325 MG TABLET PO PRN (05:11)
[2019-12-21 05:12] VITALS: BP 147/77
[2019-12-21] MEDS: FERROUS SULFATE 325 MG EC TABLET PO SCH ×2 (06:38→17:36)
[2019-12-21] MEDS: AmLODIPine BESYLATE 5 MG TABLET PO SCH (08:27)
[2019-12-21] MEDS: LISINOPRIL 20 MG TABLET PO SCH (08:27)
[2019-12-21] MEDS: BusPIRone HCL 5 MG TABLET PO SCH ×2 (08:27→17:36)
[2019-12-21] MEDS: ANASTROZOLE 1 MG TABLET PO SCH (08:27)
[2019-12-21 08:33] VITALS: BP 150/72
[2019-12-21] MEDS ORDERED: DENTURE ADHESIVE 68 GM CREAM DT PRN (14:30)
[2019-12-21 17:14] VITALS: BP 146/58
[2019-12-21] MEDS: TraZODone HCL 50 MG TABLET PO SCH (21:25)
[2019-12-22 02:09] VITALS: BP 139/89
[2019-12-22] MEDS: ACETAMINOPHEN 325 MG TABLET PO PRN (04:26)
[2019-12-22] MEDS: FERROUS SULFATE 325 MG EC TABLET PO SCH (07:24)
[2019-12-22 08:00] VITALS: BP 153/87
[2019-12-22 08:51] VITALS: BP 153/87
[2019-12-22] MEDS: AmLODIPine BESYLATE 5 MG TABLET PO SCH (10:34)
[2019-12-22] MEDS: LISINOPRIL 20 MG TABLET PO SCH (10:34)
[2019-12-22] MEDS: ANASTROZOLE 1 MG TABLET PO SCH (10:34)
[2019-12-22] MEDS: BusPIRone HCL 5 MG TABLET PO SCH (10:34)
[2019-12-22] MEDS ORDERED: ARIP662S IM (11:27)
[2019-12-22] MEDS ORDERED: BUSP5TAB20 PO (12:11)
[2019-12-22] MEDS ORDERED: TRAZ-252 PO (12:11)
== END 2019-12-22 13:00 | disposition home or self-care (01) | DRG 885 ==
LOC: EMS 15:07 → 3EX 18:22
DX: F20.0 Paranoid schizophrenia (principal); N39.0 Urinary tract infection, site not specified; D64.9 Anemia, unspecified; J44.9 Chronic obstructive pulmonary disease, unspecified; I10 Essential (primary) hypertension; M19.90 Unspecified osteoarthritis, unspecified site; F10.10 Alcohol abuse, uncomplicated; F12.10 Cannabis abuse, uncomplicated; E78.5 Hyperlipidemia, unspecified; H40.9 Unspecified glaucoma; F03.90 Unspecified dementia, unspecified severity, without behavioral disturbance, psychotic disturbance, mood disturbance, and anxiety; K21.9 Gastro-esophageal reflux disease without esophagitis; M81.0 Age-related osteoporosis without current pathological fracture; D72.819 Decreased white blood cell count, unspecified; Z79.899 Other long term (current) drug therapy; Z86.73 Personal history of transient ischemic attack (TIA), and cerebral infarction without residual deficits; Z88.0 Allergy status to penicillin; Z79.891 Long term (current) use of opiate analgesic
CPT/HCPCS: 87081; 87086; G0378; G0480; J3535

== ENCOUNTER 2020-01-05 19:39 | Emergency (ER) | payer MEDICARE, OTHER ==
[~2020-01-05] VITALS: Ht 160 cm; Wt 55.9 kg
[~2020-01-05 19:39] MED LIST changes: +ARIP662S IM; -AZIT-84 PO; -QUET200T PO; +TRAZ-252 PO
[2020-01-06 00:05] LABS: BASOPHILS % (AUTO) 2.4 % (0.0-2.0); EOSINOPHILS % (AUTO) 2.9 % (1.0-6.0); HEMATOCRIT 29.8 % (36-46); HEMOGLOBIN 9.3 g/dL (12.0-16.0); LYMPHOCYTES # (AUTO) 1.6 K/uL (1.0-4.8); LYMPHOCYTES % (AUTO) 30.1 % (22.0-44.0); MEAN CORPUSCULAR HEMOGLOBIN 23.3 pg (26.0-34.0); MEAN CORPUSCULAR HGB CONC 31.3 G/dL (31.0-37.0); MEAN CORPUSCULAR VOLUME 74 fL (80-100); MONOCYTES # (AUTO) 0.6 K/uL (0.1-1.0); MONOCYTES % (AUTO) 11.1 % (2.0-9.0); NEUTROPHILS # (AUTO) 2.9 K/uL (1.8-7.7); NEUTROPHILS % (AUTO) 53.5 % (40.0-70.0); PLATELET COUNT (AUTO) 299 K/uL (150-450); RED CELL DISTRIBUTION WIDTH 16.6 % (11.5-14.5)
[2020-01-06 00:23] LABS: ANION GAP 7 mmol/L (8-16); CARBON DIOXIDE 28 mmol/L (22-29); CHLORIDE 108 mmol/L (98-107); CREATININE 0.89 mg/dL (0.60-1.30); GLOMERULAR FILTR. RATE CALC > 60 mL/min (>60); GLUCOSE,RANDOM 103 mg/dL (70-110); POTASSIUM 3.3 mmol/L (3.5-5.1); SODIUM SERUM 143 mmol/L (136-145); UREA NITROGEN, BLOOD 25 mg/dL (7-18)
[2020-01-06 00:32] LABS: ALANINE AMINOTRANSFERASE 41 U/L (12-78); ALBUMIN 3.6 g/dL (3.4-5.0); ALKALINE PHOSPHATASE 121 U/L (46-116); ASPARTATE AMINOTRANSFERASE 28 U/L (15-37); BILIRUBIN,TOTAL 0.3 mg/dL (0.1-1.0); CREATINE KINASE, TOTAL ONLY 122 U/L (26-192); TOTAL PROTEIN, SERUM 7.5 g/dL (6.4-8.2)
[2020-01-06 00:46] LABS: APPEARANCE,URINE CLEAR (CLEAR); BILIRUBIN,URINE NEGATIVE (NEGATIVE); GLUCOSE, URINE (UA) NEGATIVE (NEGATIVE); KETONES,URINE NEGATIVE (NEGATIVE); LEUKOCYTE ESTERASE ,URINE MODERATE (NEGATIVE); NITRATE,URINE NEGATIVE (NEGATIVE); OCCULT BLOOD,URINE NEGATIVE (NEGATIVE); PH,URINE 5.5 (5.0-8.0); PROTEIN,URINE TRACE (NEGATIVE); UROBILINOGEN,URINE 0.2 mg/dL (<=1.0)
[2020-01-06 00:51] LABS: AMPHET/METH SCREEN,URINE NEGATIVE (NEGATIVE); BARBITURATE SCREEN, URINE NEGATIVE (NEGATIVE); BENZODIAZEPINES SCREEN,URINE NEGATIVE (NEGATIVE); CANNABINOID SCREEN,URINE NEGATIVE (NEGATIVE); COCAINE SCREEN,URINE NEGATIVE (NEGATIVE); METHADONE SCREEN, URINE NEGATIVE (NEGATIVE); OPIATE SCREEN,URINE NEGATIVE (NEGATIVE); PHENCYCLIDINE SCREEN,URINE NEGATIVE (NEGATIVE)
[2020-01-06 01:00] LABS: RBC,URINE None Seen /HPF (0-2)
[2020-01-06 01:01] LABS: BACTERIA,URINE Few /HPF (None Seen); SQUAMOUS EPITHELIAL CELL,UR Few /LPF (None Seen)
[2020-01-06] MEDS ORDERED: LORazepam 1 MG TABLET PO ONE (01:15)
[2020-01-06] MEDS ORDERED: NITROFURANTOIN/NITROFURAN MAC 100 MG CAPSULE [MACROBID] PO ONE (01:15)
[2020-01-06 01:45] VITALS: BP 132/90
[2020-01-06 02:57] LABS: GLUCOSE,POINT OF CARE 151 MG/DL (70-110)
== END 2020-01-06 02:02 | disposition home or self-care (01) ==
LOC: EMS 19:40
DX: F41.9 Anxiety disorder, unspecified (principal); N39.0 Urinary tract infection, site not specified; J45.909 Unspecified asthma, uncomplicated; F32.9 Major depressive disorder, single episode, unspecified; E11.9 Type 2 diabetes mellitus without complications; K21.9 Gastro-esophageal reflux disease without esophagitis; F20.9 Schizophrenia, unspecified; I10 Essential (primary) hypertension; Z90.89 Acquired absence of other organs; Z88.0 Allergy status to penicillin; Z88.8 Allergy status to other drugs, medicaments and biological substances; Z79.899 Other long term (current) drug therapy
CPT/HCPCS: 36415; 80053; 80307; 81001; 82550; 82962; 84484; 85025; 93005; 99284; G0480

== ENCOUNTER 2020-01-10 15:20 | Emergency (ER) | payer MEDICARE, OTHER ==
[~2020-01-10] VITALS: Ht 167.6 cm; Wt 72.7 kg
[2020-01-10 15:22] VITALS: BP 147/97
[2020-01-10 15:38] LABS: GLUCOSE,POINT OF CARE 118 MG/DL (70-110)
== END 2020-01-10 16:09 | disposition home or self-care (01) ==
LOC: EMS 15:25
DX: Z20.828 Contact with and (suspected) exposure to other viral communicable diseases (principal); I10 Essential (primary) hypertension; E11.9 Type 2 diabetes mellitus without complications; K21.9 Gastro-esophageal reflux disease without esophagitis; J45.909 Unspecified asthma, uncomplicated; F32.9 Major depressive disorder, single episode, unspecified; Z88.0 Allergy status to penicillin; Z88.8 Allergy status to other drugs, medicaments and biological substances; Z79.899 Other long term (current) drug therapy
CPT/HCPCS: 82962; 99283; U0003

== ENCOUNTER 2020-02-24 07:23 | Emergency (ER) | payer MEDICARE, OTHER ==
[~2020-02-24] VITALS: Ht 160 cm; Wt 54.5 kg
[~2020-02-24 07:23] MED LIST changes: +AMLO-257 PO; -AMLO5TAB9 PO
[2020-02-24 07:27] VITALS: BP 144/98
== END 2020-02-24 08:06 | disposition home or self-care (01) ==
LOC: EMS 07:25
DX: J40 Bronchitis, not specified as acute or chronic (principal); B34.9 Viral infection, unspecified; F41.9 Anxiety disorder, unspecified; J45.909 Unspecified asthma, uncomplicated; F32.9 Major depressive disorder, single episode, unspecified; E11.9 Type 2 diabetes mellitus without complications; K21.9 Gastro-esophageal reflux disease without esophagitis; I10 Essential (primary) hypertension; Z20.828 Contact with and (suspected) exposure to other viral communicable diseases; Z90.89 Acquired absence of other organs; Z88.0 Allergy status to penicillin; Z88.8 Allergy status to other drugs, medicaments and biological substances; Z79.899 Other long term (current) drug therapy
CPT/HCPCS: 99283; U0003

== ENCOUNTER 2020-02-26 08:37 | Emergency (ER) | payer MEDICARE, OTHER ==
[~2020-02-26] VITALS: Ht 157.5 cm; Wt 56.8 kg
[2020-02-26 08:39] VITALS: BP 140/85
[2020-02-26] MEDS ORDERED: IBUPROFEN 600 MG TABLET PO ONE (09:30)
== END 2020-02-26 10:00 | disposition home or self-care (01) ==
LOC: EMS 08:41
DX: N64.4 Mastodynia (principal); G89.29 Other chronic pain; J45.909 Unspecified asthma, uncomplicated; F41.9 Anxiety disorder, unspecified; F32.9 Major depressive disorder, single episode, unspecified; E11.9 Type 2 diabetes mellitus without complications; K21.9 Gastro-esophageal reflux disease without esophagitis; F20.9 Schizophrenia, unspecified; Z90.89 Acquired absence of other organs; Z85.3 Personal history of malignant neoplasm of breast; Z79.899 Other long term (current) drug therapy; Z88.0 Allergy status to penicillin; Z88.8 Allergy status to other drugs, medicaments and biological substances
CPT/HCPCS: Z7502; Z7610

== ENCOUNTER 2020-03-27 17:01 | Emergency (ER) | payer MEDICARE, OTHER ==
[~2020-03-27] VITALS: Ht 160 cm; Wt 60.2 kg
[2020-03-27 17:27] LABS: GLUCOSE,POINT OF CARE 113 MG/DL (70-110)
[2020-03-27 18:14] LABS: BASOPHILS % (AUTO) 1.4 % (0.0-2.0); EOSINOPHILS % (AUTO) 1.5 % (1.0-6.0); HEMATOCRIT 32.8 % (36-46); HEMOGLOBIN 10.2 g/dL (12.0-16.0); LYMPHOCYTES # (AUTO) 1.2 K/uL (1.0-4.8); LYMPHOCYTES % (AUTO) 24.2 % (22.0-44.0); MEAN CORPUSCULAR HGB CONC 31.2 G/dL (31.0-37.0); MEAN CORPUSCULAR VOLUME 74 fL (80-100); MONOCYTES # (AUTO) 0.6 K/uL (0.1-1.0); MONOCYTES % (AUTO) 12.9 % (2.0-9.0); NEUTROPHILS # (AUTO) 2.9 K/uL (1.8-7.7); PLATELET COUNT (AUTO) 310 K/uL (150-450); RED BLOOD CELL COUNT(AUTO) 4.46 MIL/uL (4.00-5.20); RED CELL DISTRIBUTION WIDTH 14.7 % (11.5-14.5)
[2020-03-27 18:40] LABS: PROTHROMBIN TIME 10.3 SEC (9.4-11.6)
[2020-03-27 18:56] LABS: ANION GAP 3 mmol/L (8-16); CALCIUM, TOTAL 8.9 mg/dL (8.8-10.5); CARBON DIOXIDE 31 mmol/L (22-29); CHLORIDE 108 mmol/L (98-107); CREATININE 0.93 mg/dL (0.60-1.30); GLOMERULAR FILTR. RATE CALC > 60 mL/min (>60); GLUCOSE,RANDOM 106 mg/dL (70-110); POTASSIUM 3.2 mmol/L (3.5-5.1); SODIUM SERUM 142 mmol/L (136-145); UREA NITROGEN, BLOOD 23 mg/dL (7-18)
[2020-03-27 18:58] LABS: B-TYPE NATRIURETIC PEPTIDE 56 pg/mL (0-100)
[2020-03-27] MEDS ORDERED: POTASSIUM CHLORIDE 20 MEQ ER TABLET PO ONE (19:15)
[2020-03-27] MEDS ORDERED: SODIUM CHLORIDE 0.9% 1,000 ML IV ONE (19:15)
[2020-03-27 19:18] LABS: ALANINE AMINOTRANSFERASE 63 U/L (12-78); ALBUMIN 3.1 g/dL (3.4-5.0); ALKALINE PHOSPHATASE 126 U/L (46-116); ASPARTATE AMINOTRANSFERASE 24 U/L (15-37); BILIRUBIN,TOTAL 0.4 mg/dL (0.1-1.0); CREATINE KINASE, TOTAL ONLY 204 U/L (26-192); TOTAL PROTEIN, SERUM 7.1 g/dL (6.4-8.2)
[2020-03-27 20:49] VITALS: BP 140/80
== END 2020-03-27 20:59 | disposition home or self-care (01) ==
LOC: EMS 17:03
DX: E86.0 Dehydration (principal); E87.6 Hypokalemia; J45.909 Unspecified asthma, uncomplicated; F32.9 Major depressive disorder, single episode, unspecified; E11.9 Type 2 diabetes mellitus without complications; K21.9 Gastro-esophageal reflux disease without esophagitis; Z88.0 Allergy status to penicillin; Z88.8 Allergy status to other drugs, medicaments and biological substances; Z79.899 Other long term (current) drug therapy
CPT/HCPCS: 36415; 71045; 80053; 82550; 82962; 83880; 84484; 85025; 85610; 85730; 93005; 99285; J7030

== ENCOUNTER 2020-04-22 10:11 | Emergency (ER) | payer MEDICARE, OTHER ==
[~2020-04-22] VITALS: Ht 165.1 cm; Wt 68.2 kg
[2020-04-22] MEDS ORDERED: ACETAMINOPHEN 500 MG TABLET PO ONE (11:15)
[2020-04-22 13:57] VITALS: BP 154/74
== END 2020-04-22 13:59 | disposition home or self-care (01) ==
LOC: EMS 10:16
DX: S30.0XXA Contusion of lower back and pelvis, initial encounter (principal); F41.9 Anxiety disorder, unspecified; F32.9 Major depressive disorder, single episode, unspecified; J45.909 Unspecified asthma, uncomplicated; E11.9 Type 2 diabetes mellitus without complications; K21.9 Gastro-esophageal reflux disease without esophagitis; I10 Essential (primary) hypertension; F20.9 Schizophrenia, unspecified; Z20.828 Contact with and (suspected) exposure to other viral communicable diseases; Z90.89 Acquired absence of other organs; Z88.0 Allergy status to penicillin; Z88.8 Allergy status to other drugs, medicaments and biological substances; Z79.899 Other long term (current) drug therapy; W10.9XXA Fall (on) (from) unspecified stairs and steps, initial encounter; Y93.89 Activity, other specified; Y92.89 Other specified places as the place of occurrence of the external cause; Y99.8 Other external cause status
CPT/HCPCS: 72100; 99284; U0003; Z7502; Z7610

== ENCOUNTER 2020-04-30 13:50 | Emergency (ER) | payer MEDICARE, OTHER ==
[~2020-04-30] VITALS: Ht 165.1 cm; Wt 63.6 kg
[2020-04-30 15:17] LABS: BASOPHILS % (AUTO) 1.2 % (0.0-2.0); EOSINOPHILS % (AUTO) 2.7 % (1.0-6.0); HEMATOCRIT 29.6 % (36-46); HEMOGLOBIN 9.2 g/dL (12.0-16.0); LYMPHOCYTES # (AUTO) 0.9 K/uL (1.0-4.8); MEAN CORPUSCULAR HEMOGLOBIN 23.1 pg (26.0-34.0); MEAN CORPUSCULAR HGB CONC 31.1 G/dL (31.0-37.0); MEAN CORPUSCULAR VOLUME 74 fL (80-100); MONOCYTES # (AUTO) 0.5 K/uL (0.1-1.0); MONOCYTES % (AUTO) 14.3 % (2.0-9.0); NEUTROPHILS # (AUTO) 2.2 K/uL (1.8-7.7); NEUTROPHILS % (AUTO) 57.8 % (40.0-70.0); PLATELET COUNT (AUTO) 311 K/uL (150-450); RED BLOOD CELL COUNT(AUTO) 3.98 MIL/uL (4.00-5.20); RED CELL DISTRIBUTION WIDTH 15.5 % (11.5-14.5)
[2020-04-30 15:34] LABS: ANION GAP 9 mmol/L (8-16); CALCIUM, TOTAL 8.8 mg/dL (8.8-10.5); CARBON DIOXIDE 28 mmol/L (22-29); CHLORIDE 107 mmol/L (98-107); CREATININE 0.74 mg/dL (0.60-1.30); GLOMERULAR FILTR. RATE CALC > 60 mL/min (>60); GLUCOSE,RANDOM 113 mg/dL (70-110); SODIUM SERUM 144 mmol/L (136-145); UREA NITROGEN, BLOOD 22 mg/dL (7-18)
[2020-04-30 15:40] LABS: ALANINE AMINOTRANSFERASE 59 U/L (12-78); ALBUMIN 3.1 g/dL (3.4-5.0); ALKALINE PHOSPHATASE 160 U/L (46-116); ASPARTATE AMINOTRANSFERASE 41 U/L (15-37); BILIRUBIN,TOTAL 0.3 mg/dL (0.1-1.0); TOTAL PROTEIN, SERUM 6.3 g/dL (6.4-8.2)
[2020-04-30] MEDS ORDERED: POTASSIUM CHLORIDE 20 MEQ ER TABLET PO ONE (17:00)
[2020-04-30 19:55] VITALS: BP 135/69
[2020-04-30 19:59] LABS: APPEARANCE,URINE CLEAR (CLEAR); BILIRUBIN,URINE NEGATIVE (NEGATIVE); GLUCOSE, URINE (UA) NEGATIVE (NEGATIVE); KETONES,URINE NEGATIVE (NEGATIVE); LEUKOCYTE ESTERASE ,URINE NEGATIVE (NEGATIVE); NITRATE,URINE NEGATIVE (NEGATIVE); OCCULT BLOOD,URINE NEGATIVE (NEGATIVE); PH,URINE 6.5 (5.0-8.0); PROTEIN,URINE TRACE (NEGATIVE)
[2020-04-30 20:08] LABS: AMPHET/METH SCREEN,URINE NEGATIVE (NEGATIVE); BARBITURATE SCREEN, URINE NEGATIVE (NEGATIVE); BENZODIAZEPINES SCREEN,URINE NEGATIVE (NEGATIVE); CANNABINOID SCREEN,URINE NEGATIVE (NEGATIVE); COCAINE SCREEN,URINE NEGATIVE (NEGATIVE); METHADONE SCREEN, URINE NEGATIVE (NEGATIVE); OPIATE SCREEN,URINE NEGATIVE (NEGATIVE)
[2020-04-30 20:16] LABS: PHENCYCLIDINE SCREEN,URINE NEGATIVE (NEGATIVE)
== END 2020-04-30 21:08 | disposition home or self-care (01) ==
LOC: EMS 13:53
DX: F41.9 Anxiety disorder, unspecified (principal); E11.9 Type 2 diabetes mellitus without complications; J45.909 Unspecified asthma, uncomplicated; I10 Essential (primary) hypertension; Z88.0 Allergy status to penicillin; Z88.8 Allergy status to other drugs, medicaments and biological substances; Z79.899 Other long term (current) drug therapy
CPT/HCPCS: 70450; 72125

== ENCOUNTER 2020-05-08 05:42 | Emergency (ER) | payer MEDICARE, OTHER ==
[~2020-05-08] VITALS: Ht 157.5 cm; Wt 58.1 kg
[2020-05-08] MEDS ORDERED: SODIUM CHLORIDE 0.9% 1,000 ML IV ONE (06:15)
[2020-05-08] MEDS ORDERED: ONDANSETRON HCL 4 MG/2 ML VIAL IVP ONE (06:15)
[2020-05-08] MEDS ORDERED: KETOROLAC TROMETHAMINE 30 MG/ML VIAL IVP ONE (06:15)
[2020-05-08] MEDS ORDERED: ACETAMINOPHEN 500 MG TABLET PO ONE (06:15)
[2020-05-08 06:34] LABS: BASOPHILS % (AUTO) 1.2 % (0.0-2.0); EOSINOPHILS % (AUTO) 1.1 % (1.0-6.0); HEMATOCRIT 37.3 % (36-46); HEMOGLOBIN 11.7 g/dL (12.0-16.0); LYMPHOCYTES % (AUTO) 17.8 % (22.0-44.0); MEAN CORPUSCULAR HEMOGLOBIN 23.4 pg (26.0-34.0); MEAN CORPUSCULAR HGB CONC 31.4 G/dL (31.0-37.0); MEAN CORPUSCULAR VOLUME 75 fL (80-100); MONOCYTES # (AUTO) 0.6 K/uL (0.1-1.0); MONOCYTES % (AUTO) 10.2 % (2.0-9.0); NEUTROPHILS % (AUTO) 69.7 % (40.0-70.0); PLATELET COUNT (AUTO) 350 K/uL (150-450); RED CELL DISTRIBUTION WIDTH 15.5 % (11.5-14.5)
[2020-05-08 06:46] LABS: ANION GAP 8 mmol/L (8-16); CALCIUM, TOTAL 9.5 mg/dL (8.8-10.5); CARBON DIOXIDE 27 mmol/L (22-29); CHLORIDE 107 mmol/L (98-107); CREATININE 0.65 mg/dL (0.60-1.30); GLOMERULAR FILTR. RATE CALC > 60 mL/min (>60); GLUCOSE,RANDOM 106 mg/dL (70-110); POTASSIUM 3.7 mmol/L (3.5-5.1); SODIUM SERUM 142 mmol/L (136-145); UREA NITROGEN, BLOOD 20 mg/dL (7-18)
[2020-05-08 06:53] LABS: ALANINE AMINOTRANSFERASE 43 U/L (12-78); ALKALINE PHOSPHATASE 177 U/L (46-116); ASPARTATE AMINOTRANSFERASE 32 U/L (15-37); BILIRUBIN,TOTAL 0.6 mg/dL (0.1-1.0); LIPASE 164 U/L (73-393); TOTAL PROTEIN, SERUM 7.3 g/dL (6.4-8.2)
[2020-05-08 08:22] LABS: APPEARANCE,URINE CLEAR (CLEAR); BILIRUBIN,URINE NEGATIVE (NEGATIVE); GLUCOSE, URINE (UA) NEGATIVE (NEGATIVE); KETONES,URINE NEGATIVE (NEGATIVE); LEUKOCYTE ESTERASE ,URINE NEGATIVE (NEGATIVE); NITRATE,URINE NEGATIVE (NEGATIVE); OCCULT BLOOD,URINE NEGATIVE (NEGATIVE); PROTEIN,URINE TRACE (NEGATIVE); UROBILINOGEN,URINE 0.2 mg/dL (<=1.0)
[2020-05-08 08:29] LABS: AMPHET/METH SCREEN,URINE NEGATIVE (NEGATIVE); BACTERIA,URINE None Seen /HPF (None Seen); BARBITURATE SCREEN, URINE NEGATIVE (NEGATIVE); BENZODIAZEPINES SCREEN,URINE NEGATIVE (NEGATIVE); CANNABINOID SCREEN,URINE NEGATIVE (NEGATIVE); COCAINE SCREEN,URINE NEGATIVE (NEGATIVE); METHADONE SCREEN, URINE NEGATIVE (NEGATIVE); OPIATE SCREEN,URINE NEGATIVE (NEGATIVE); RBC,URINE None Seen /HPF (0-2); WBC,URINE None Seen /HPF (0-5)
[2020-05-08 08:35] LABS: PHENCYCLIDINE SCREEN,URINE NEGATIVE (NEGATIVE)
[2020-05-08 10:10] VITALS: BP 170/93
== END 2020-05-08 10:23 | disposition home or self-care (01) ==
LOC: EMS 05:42
DX: R42 Dizziness and giddiness (principal); R53.1 Weakness; F32.9 Major depressive disorder, single episode, unspecified; E11.9 Type 2 diabetes mellitus without complications; I10 Essential (primary) hypertension; Z88.0 Allergy status to penicillin; Z88.8 Allergy status to other drugs, medicaments and biological substances; Z79.899 Other long term (current) drug therapy
CPT/HCPCS: 36415; 80053; 80307; 81001; 83690; 84484; 85025; 93005; 96361; 96374; 96375; 99285; G0480; J1885; J2405; J7030

== ENCOUNTER 2020-05-10 15:19 | Emergency (ER) | payer MEDICARE, OTHER ==
[~2020-05-10] VITALS: Ht 161.3 cm; Wt 54.5 kg
[2020-05-10 17:25] LABS: BASOPHILS % (AUTO) 1.1 % (0.0-2.0); EOSINOPHILS % (AUTO) 1.1 % (1.0-6.0); HEMATOCRIT 32.1 % (36-46); LYMPHOCYTES # (AUTO) 1.2 K/uL (1.0-4.8); LYMPHOCYTES % (AUTO) 23.3 % (22.0-44.0); MEAN CORPUSCULAR HEMOGLOBIN 22.9 pg (26.0-34.0); MEAN CORPUSCULAR HGB CONC 31.1 G/dL (31.0-37.0); MEAN CORPUSCULAR VOLUME 74 fL (80-100); MONOCYTES # (AUTO) 0.6 K/uL (0.1-1.0); MONOCYTES % (AUTO) 11.4 % (2.0-9.0); NEUTROPHILS # (AUTO) 3.2 K/uL (1.8-7.7); NEUTROPHILS % (AUTO) 63.1 % (40.0-70.0); PLATELET COUNT (AUTO) 360 K/uL (150-450); RED BLOOD CELL COUNT(AUTO) 4.36 MIL/uL (4.00-5.20); RED CELL DISTRIBUTION WIDTH 15.6 % (11.5-14.5)
[2020-05-10 17:41] LABS: ANION GAP 11 mmol/L (8-16); CALCIUM, TOTAL 9.3 mg/dL (8.8-10.5); CARBON DIOXIDE 25 mmol/L (22-29); CHLORIDE 112 mmol/L (98-107); CREATININE 0.89 mg/dL (0.60-1.30); GLOMERULAR FILTR. RATE CALC > 60 mL/min (>60); GLUCOSE,RANDOM 109 mg/dL (70-110); POTASSIUM 3.3 mmol/L (3.5-5.1); SODIUM SERUM 148 mmol/L (136-145); UREA NITROGEN, BLOOD 33 mg/dL (7-18)
[2020-05-10 17:46] LABS: ALANINE AMINOTRANSFERASE 38 U/L (12-78); ALBUMIN 3.5 g/dL (3.4-5.0); ALKALINE PHOSPHATASE 151 U/L (46-116); ASPARTATE AMINOTRANSFERASE 27 U/L (15-37); BILIRUBIN,TOTAL 0.5 mg/dL (0.1-1.0); LIPASE 189 U/L (73-393); TOTAL PROTEIN, SERUM 6.3 g/dL (6.4-8.2)
[2020-05-10] MEDS ORDERED: POTASSIUM CHLORIDE 20 MEQ ER TABLET PO ONE (18:00)
[2020-05-10 20:03] VITALS: BP 127/68
== END 2020-05-10 20:05 | disposition home or self-care (01) ==
LOC: EMS 15:19
DX: F25.9 Schizoaffective disorder, unspecified (principal); E87.6 Hypokalemia; F41.9 Anxiety disorder, unspecified; J45.909 Unspecified asthma, uncomplicated; F32.9 Major depressive disorder, single episode, unspecified; K21.9 Gastro-esophageal reflux disease without esophagitis; Z90.89 Acquired absence of other organs; Z88.0 Allergy status to penicillin; Z88.8 Allergy status to other drugs, medicaments and biological substances; Z79.899 Other long term (current) drug therapy
CPT/HCPCS: 36415; 80053; 82140; 82962; 83690; 85025; 99283; G0480; 82948

== ENCOUNTER 2020-05-12 14:26 | Emergency (ER) | payer MEDICARE, OTHER ==
[~2020-05-12] VITALS: Ht 161.3 cm; Wt 57.7 kg
[2020-05-12 15:21] LABS: BASOPHILS % (AUTO) 1.2 % (0.0-2.0); HEMATOCRIT 30.9 % (36-46); HEMOGLOBIN 9.9 g/dL (12.0-16.0); LYMPHOCYTES % (AUTO) 22.9 % (22.0-44.0); MEAN CORPUSCULAR HEMOGLOBIN 23.7 pg (26.0-34.0); MEAN CORPUSCULAR VOLUME 74 fL (80-100); MONOCYTES # (AUTO) 0.4 K/uL (0.1-1.0); MONOCYTES % (AUTO) 9.7 % (2.0-9.0); NEUTROPHILS # (AUTO) 2.8 K/uL (1.8-7.7); NEUTROPHILS % (AUTO) 64.2 % (40.0-70.0); PLATELET COUNT (AUTO) 361 K/uL (150-450); RED BLOOD CELL COUNT(AUTO) 4.17 MIL/uL (4.00-5.20); RED CELL DISTRIBUTION WIDTH 15.6 % (11.5-14.5)
[2020-05-12 15:31] LABS: ANION GAP 5 mmol/L (8-16); CALCIUM, TOTAL 8.9 mg/dL (8.8-10.5); CARBON DIOXIDE 29 mmol/L (22-29); CHLORIDE 112 mmol/L (98-107); CREATININE 0.81 mg/dL (0.60-1.30); GLOMERULAR FILTR. RATE CALC > 60 mL/min (>60); GLUCOSE,RANDOM 125 mg/dL (70-110); POTASSIUM 3.5 mmol/L (3.5-5.1); SODIUM SERUM 146 mmol/L (136-145); UREA NITROGEN, BLOOD 26 mg/dL (7-18)
[2020-05-12 15:37] LABS: ALANINE AMINOTRANSFERASE 49 U/L (12-78); ALBUMIN 3.2 g/dL (3.4-5.0); ALKALINE PHOSPHATASE 147 U/L (46-116); ASPARTATE AMINOTRANSFERASE 28 U/L (15-37); BILIRUBIN,TOTAL 0.3 mg/dL (0.1-1.0); TOTAL PROTEIN, SERUM 6.8 g/dL (6.4-8.2)
[2020-05-12] MEDS ORDERED: HydrOXYzine HCL 25 MG TABLET PO ONE (20:45)
[2020-05-12 21:04] LABS: APPEARANCE,URINE CLOUDY (CLEAR); BILIRUBIN,URINE NEGATIVE (NEGATIVE); GLUCOSE, URINE (UA) NEGATIVE (NEGATIVE); KETONES,URINE NEGATIVE (NEGATIVE); LEUKOCYTE ESTERASE ,URINE LARGE (NEGATIVE); NITRATE,URINE NEGATIVE (NEGATIVE); OCCULT BLOOD,URINE NEGATIVE (NEGATIVE); PH,URINE 5.5 (5.0-8.0); PROTEIN,URINE TRACE (NEGATIVE); UROBILINOGEN,URINE 0.2 mg/dL (<=1.0)
[2020-05-12 21:13] LABS: BACTERIA,URINE Moderate /HPF (None Seen); RBC,URINE None Seen /HPF (0-2)
[2020-05-12 21:14] LABS: CALCIUM OXALATE CRYSTALS,UR Moderate /LPF (None Seen); SQUAMOUS EPITHELIAL CELL,UR Few /LPF (None Seen)
[2020-05-12 21:37] VITALS: BP 148/107
== END 2020-05-12 21:37 | disposition home or self-care (01) ==
LOC: EMS 14:28
DX: R44.0 Auditory hallucinations (principal); N39.0 Urinary tract infection, site not specified; F41.9 Anxiety disorder, unspecified; F32.9 Major depressive disorder, single episode, unspecified; I20.9 Angina pectoris, unspecified; E11.9 Type 2 diabetes mellitus without complications; I10 Essential (primary) hypertension; Z88.0 Allergy status to penicillin; Z88.8 Allergy status to other drugs, medicaments and biological substances; Z79.899 Other long term (current) drug therapy
CPT/HCPCS: 36415; 80053; 81001; 85025; 87086; 99284; G0480

== ENCOUNTER 2020-05-29 12:16 | Emergency (ER) | payer MEDICARE, OTHER ==
[~2020-05-29] VITALS: Ht 157.5 cm; Wt 55.9 kg
[~2020-05-29 12:16] MED LIST changes: -ANAS1TAB50 PO; -ARIP662S IM; -BUSP5TAB20 PO; -TRAZ-252 PO
[2020-05-29 13:31] LABS: BASOPHILS % (AUTO) 0.6 % (0.0-2.0); EOSINOPHILS % (AUTO) 1.2 % (1.0-6.0); HEMATOCRIT 31.7 % (36-46); HEMOGLOBIN 9.8 g/dL (12.0-16.0); LYMPHOCYTES # (AUTO) 1.2 K/uL (1.0-4.8); LYMPHOCYTES % (AUTO) 15.8 % (22.0-44.0); MEAN CORPUSCULAR HEMOGLOBIN 22.6 pg (26.0-34.0); MEAN CORPUSCULAR HGB CONC 30.9 G/dL (31.0-37.0); MEAN CORPUSCULAR VOLUME 73 fL (80-100); MONOCYTES # (AUTO) 0.8 K/uL (0.1-1.0); MONOCYTES % (AUTO) 11.2 % (2.0-9.0); NEUTROPHILS # (AUTO) 5.4 K/uL (1.8-7.7); NEUTROPHILS % (AUTO) 71.2 % (40.0-70.0); PLATELET COUNT (AUTO) 361 K/uL (150-450); RED BLOOD CELL COUNT(AUTO) 4.33 MIL/uL (4.00-5.20); RED CELL DISTRIBUTION WIDTH 15.3 % (11.5-14.5)
[2020-05-29 13:41] LABS: ANION GAP 8 mmol/L (8-16); CALCIUM, TOTAL 9.3 mg/dL (8.8-10.5); CARBON DIOXIDE 28 mmol/L (22-29); CHLORIDE 105 mmol/L (98-107); CREATININE 0.69 mg/dL (0.60-1.30); GLOMERULAR FILTR. RATE CALC > 60 mL/min (>60); GLUCOSE,RANDOM 95 mg/dL (70-110); POTASSIUM 3.8 mmol/L (3.5-5.1); SODIUM SERUM 141 mmol/L (136-145); UREA NITROGEN, BLOOD 28 mg/dL (7-18)
[2020-05-29 13:47] LABS: ALANINE AMINOTRANSFERASE 27 U/L (12-78); ALBUMIN 3.4 g/dL (3.4-5.0); ALKALINE PHOSPHATASE 133 U/L (46-116); ASPARTATE AMINOTRANSFERASE 23 U/L (15-37); BILIRUBIN,TOTAL 0.4 mg/dL (0.1-1.0); TOTAL PROTEIN, SERUM 7.5 g/dL (6.4-8.2)
[2020-05-29] MEDS ORDERED: MORPHINE SULFATE 4 MG/ML SYRINGE IVP ONE (15:00)
[2020-05-29 16:27] LABS: AMPHET/METH SCREEN,URINE NEGATIVE (NEGATIVE); BARBITURATE SCREEN, URINE NEGATIVE (NEGATIVE); BENZODIAZEPINES SCREEN,URINE NEGATIVE (NEGATIVE); CANNABINOID SCREEN,URINE NEGATIVE (NEGATIVE); COCAINE SCREEN,URINE NEGATIVE (NEGATIVE); METHADONE SCREEN, URINE NEGATIVE (NEGATIVE); OPIATE SCREEN,URINE NEGATIVE (NEGATIVE)
[2020-05-29 16:28] LABS: PHENCYCLIDINE SCREEN,URINE NEGATIVE (NEGATIVE)
[2020-05-29] MEDS ORDERED: ARIPiprazole 10 MG TABLET PO ONE (17:15)
[2020-05-29 17:36] VITALS: BP 148/90
== END 2020-05-29 18:03 | disposition home or self-care (01) ==
LOC: EMS 12:24
DX: F32.9 Major depressive disorder, single episode, unspecified (principal); R44.0 Auditory hallucinations; F41.9 Anxiety disorder, unspecified; E11.9 Type 2 diabetes mellitus without complications; I20.9 Angina pectoris, unspecified; Z90.49 Acquired absence of other specified parts of digestive tract; Z88.0 Allergy status to penicillin; Z79.899 Other long term (current) drug therapy
CPT/HCPCS: 36415; 80053; 80307; 85025; 99284; G0480

== ENCOUNTER 2020-06-06 11:24 | Emergency (ER) | payer MEDICARE, OTHER ==
[~2020-06-06] VITALS: Ht 157.5 cm; Wt 56.8 kg
[2020-06-06 12:34] LABS: BASOPHILS % (AUTO) 1.1 % (0.0-2.0); EOSINOPHILS % (AUTO) 1.4 % (1.0-6.0); HEMATOCRIT 31.6 % (36-46); HEMOGLOBIN 9.9 g/dL (12.0-16.0); LYMPHOCYTES # (AUTO) 1.3 K/uL (1.0-4.8); LYMPHOCYTES % (AUTO) 21.2 % (22.0-44.0); MEAN CORPUSCULAR HGB CONC 31.2 G/dL (31.0-37.0); MEAN CORPUSCULAR VOLUME 74 fL (80-100); MONOCYTES # (AUTO) 0.7 K/uL (0.1-1.0); MONOCYTES % (AUTO) 10.7 % (2.0-9.0); NEUTROPHILS # (AUTO) 4.1 K/uL (1.8-7.7); NEUTROPHILS % (AUTO) 65.6 % (40.0-70.0); PLATELET COUNT (AUTO) 440 K/uL (150-450); RED BLOOD CELL COUNT(AUTO) 4.29 MIL/uL (4.00-5.20); RED CELL DISTRIBUTION WIDTH 15.3 % (11.5-14.5)
[2020-06-06 12:44] LABS: ANION GAP 6 mmol/L (8-16); CALCIUM, TOTAL 9.6 mg/dL (8.8-10.5); CARBON DIOXIDE 29 mmol/L (22-29); CHLORIDE 103 mmol/L (98-107); CREATININE 0.53 mg/dL (0.60-1.30); GLOMERULAR FILTR. RATE CALC > 60 mL/min (>60); GLUCOSE,RANDOM 95 mg/dL (70-110); POTASSIUM 3.4 mmol/L (3.5-5.1); SODIUM SERUM 138 mmol/L (136-145); UREA NITROGEN, BLOOD 20 mg/dL (7-18)
[2020-06-06 12:56] LABS: ALANINE AMINOTRANSFERASE 48 U/L (12-78); ALBUMIN 3.3 g/dL (3.4-5.0); ALKALINE PHOSPHATASE 128 U/L (46-116); ASPARTATE AMINOTRANSFERASE 31 U/L (15-37); BILIRUBIN,TOTAL 0.4 mg/dL (0.1-1.0); TOTAL PROTEIN, SERUM 7.5 g/dL (6.4-8.2)
[2020-06-06 16:30] VITALS: BP 138/88
== END 2020-06-06 17:51 | disposition left against medical advice (07) ==
LOC: EMS 11:49
DX: F25.9 Schizoaffective disorder, unspecified (principal); F41.9 Anxiety disorder, unspecified; F32.9 Major depressive disorder, single episode, unspecified; J45.909 Unspecified asthma, uncomplicated; E11.9 Type 2 diabetes mellitus without complications; K21.9 Gastro-esophageal reflux disease without esophagitis; I10 Essential (primary) hypertension; Z90.89 Acquired absence of other organs; Z88.0 Allergy status to penicillin; Z88.8 Allergy status to other drugs, medicaments and biological substances
CPT/HCPCS: 36415; 80053; 85025; 99283; G0480

== ENCOUNTER 2020-06-10 15:07 | Emergency (ER) | payer MEDICARE, OTHER ==
[~2020-06-10] VITALS: Ht 160 cm; Wt 56.8 kg
[2020-06-10 18:35] VITALS: BP 141/73
== END 2020-06-10 19:01 | disposition home or self-care (01) ==
LOC: EMS 15:07
DX: F25.9 Schizoaffective disorder, unspecified (principal); F32.9 Major depressive disorder, single episode, unspecified; E11.9 Type 2 diabetes mellitus without complications; I10 Essential (primary) hypertension
CPT/HCPCS: Z7502

== ENCOUNTER 2020-06-11 00:02 | Inpatient (IN) | payer MEDICARE, MEDICAID ==
[~2020-06-11] VITALS: Ht 160 cm; Wt 58.1 kg
[2020-06-11 00:51] LABS: BASOPHILS % (AUTO) 0.8 % (0.0-2.0); EOSINOPHILS % (AUTO) 3.3 % (1.0-6.0); HEMATOCRIT 32.7 % (36-46); HEMOGLOBIN 10.1 g/dL (12.0-16.0); LYMPHOCYTES # (AUTO) 1.1 K/uL (1.0-4.8); LYMPHOCYTES % (AUTO) 18.6 % (22.0-44.0); MEAN CORPUSCULAR HEMOGLOBIN 22.9 pg (26.0-34.0); MEAN CORPUSCULAR HGB CONC 30.9 G/dL (31.0-37.0); MEAN CORPUSCULAR VOLUME 74 fL (80-100); MONOCYTES # (AUTO) 0.5 K/uL (0.1-1.0); MONOCYTES % (AUTO) 7.7 % (2.0-9.0); NEUTROPHILS # (AUTO) 4.2 K/uL (1.8-7.7); NEUTROPHILS % (AUTO) 69.6 % (40.0-70.0); PLATELET COUNT (AUTO) 501 K/uL (150-450); RED CELL DISTRIBUTION WIDTH 15.5 % (11.5-14.5)
[2020-06-11 00:54] LABS: ANION GAP 6 mmol/L (8-16); CALCIUM, TOTAL 9.3 mg/dL (8.8-10.5); CARBON DIOXIDE 27 mmol/L (22-29); CHLORIDE 105 mmol/L (98-107); CREATININE 0.83 mg/dL (0.60-1.30); GLOMERULAR FILTR. RATE CALC > 60 mL/min (>60); GLUCOSE,RANDOM 100 mg/dL (70-110); POTASSIUM 3.6 mmol/L (3.5-5.1); SODIUM SERUM 138 mmol/L (136-145); UREA NITROGEN, BLOOD 27 mg/dL (7-18)
[2020-06-11 01:00] LABS: ALANINE AMINOTRANSFERASE 38 U/L (12-78); ALBUMIN 3.4 g/dL (3.4-5.0); ALKALINE PHOSPHATASE 138 U/L (46-116); ASPARTATE AMINOTRANSFERASE 28 U/L (15-37); BILIRUBIN,TOTAL 0.3 mg/dL (0.1-1.0); TOTAL PROTEIN, SERUM 7.7 g/dL (6.4-8.2)
[2020-06-11] MEDS ORDERED: ZOLPIDEM TARTRATE 10 MG TABLET PO PRN (01:15)
[2020-06-11 01:19] LABS: COVID AG,FIA SOURCE NASOPHARYNGEAL
[2020-06-11 01:48] LABS: PLATELET MORPHOLOGY COMMENT LARGE PLTS PRESENT
[2020-06-11 03:10] VITALS: BP 182/87
[2020-06-11] MEDS ORDERED: PNEUMOCOCCAL VACCINE POLYVALENT 0.5 ML VIAL [PPSV23] IM ONE (04:15)
[2020-06-11] MEDS ORDERED: INFLUENZA VIRUS VACCINE QVS 2020-21 (6MO+)/PF 60 MCG/0.5 ML SYRINGE IM ONE (04:15)
[2020-06-11 06:43] VITALS: BP 146/75
[2020-06-11] MEDS ORDERED: CloNIDine HCL 0.1 MG TABLET PO PRN (06:45)
[2020-06-11] MEDS: FERROUS SULFATE 325 MG EC TABLET PO SCH (07:10)
[2020-06-11] MEDS ORDERED: IBUPROFEN 400 MG TABLET PO PRN (07:15)
[2020-06-11] MEDS ORDERED: MAG HYDROX/AL HYDROX/SIMETH ES 30 ML SUSPENSION UDCUP PO PRN (07:15)
[2020-06-11] MEDS ORDERED: LOPERAMIDE HCL 2 MG CAPSULE PO PRN (07:15)
[2020-06-11] MEDS ORDERED: ALBUTEROL SULFATE HFA 90 MCG/PUFF 8 GM INHALER IH PRN (07:15)
[2020-06-11] MEDS ORDERED: DOCUSATE SODIUM 100 MG CAPSULE PO PRN (07:15)
[2020-06-11] MEDS ORDERED: NICOTINE 14 MG/24 HOUR PATCH TD PRN (07:15)
[2020-06-11] MEDS ORDERED: MAGNESIUM HYDROXIDE SUSPENSION 30 ML UDCUP PO PRN (07:15)
[2020-06-11] MEDS ORDERED: ACETAMINOPHEN 325 MG TABLET PO PRN (07:15)
[2020-06-11] MEDS ORDERED: PETROLATUM,WHITE 28 GM JELLY TP PRN (07:15)
[2020-06-11] MEDS ORDERED: ONDANSETRON HCL 4 MG TABLET PO PRN (07:15)
[2020-06-11] MEDS ORDERED: GuaiFENesin/D-METHORPHAN [SUGAR-FREE] 200-20MG/10 ML SYRUP UDCUP PO PRN (07:15)
[2020-06-11 08:00] VITALS: BP 158/84
[2020-06-11] MEDS: AmLODIPine BESYLATE 5 MG TABLET PO SCH (11:14)
[2020-06-11] MEDS: LISINOPRIL 20 MG TABLET PO SCH (11:15)
[2020-06-11 16:00] VITALS: BP 137/74
[2020-06-11] MEDS: BusPIRone HCL 5 MG TABLET PO SCH (16:20)
[2020-06-11] MEDS: TraZODone HCL 50 MG TABLET PO SCH (20:14)
[2020-06-12 02:19] VITALS: BP 141/84
[2020-06-12] MEDS: LORazepam 2 MG TABLET PO PRN (06:24)
[2020-06-12 06:25] VITALS: BP 148/103
[2020-06-12] MEDS: FERROUS SULFATE 325 MG EC TABLET PO SCH (07:04)
[2020-06-12 08:03] LABS: CHOL/HDL RATIO 2.3 (3.9-5.7)
[2020-06-12 08:25] VITALS: BP 143/71
[2020-06-12] MEDS: BusPIRone HCL 5 MG TABLET PO SCH ×2 (08:52→16:25)
[2020-06-12] MEDS: LISINOPRIL 20 MG TABLET PO SCH (08:52)
[2020-06-12] MEDS: AmLODIPine BESYLATE 5 MG TABLET PO SCH (08:52)
[2020-06-12] MEDS ORDERED: ARIPiprazole 10 MG TABLET PO SCH (09:00)
[2020-06-12 16:00] VITALS: BP 153/91
[2020-06-12] MEDS ORDERED: DENTURE ADHESIVE 68 GM CREAM DT PRN (18:30)
[2020-06-12] MEDS: TraZODone HCL 50 MG TABLET PO SCH (20:09)
[2020-06-13 02:21] VITALS: BP 155/86
[2020-06-13] MEDS: FERROUS SULFATE 325 MG EC TABLET PO SCH (06:36)
[2020-06-13] MEDS: QUEtiapine FUMARATE 100 MG TABLET PO PRN ×2 (06:43→12:27)
[2020-06-13 09:02] VITALS: BP 150/91
[2020-06-13] MEDS: AmLODIPine BESYLATE 5 MG TABLET PO SCH (10:00)
[2020-06-13] MEDS: BusPIRone HCL 5 MG TABLET PO SCH ×2 (10:00→16:46)
[2020-06-13] MEDS: LISINOPRIL 20 MG TABLET PO SCH (10:00)
[2020-06-13] MEDS: LORazepam 2 MG TABLET PO PRN (14:24)
[2020-06-13 16:00] VITALS: BP 119/67
[2020-06-13] MEDS: TraZODone HCL 50 MG TABLET PO SCH (21:06)
[2020-06-14] MEDS: QUEtiapine FUMARATE 100 MG TABLET PO PRN ×3 (00:08→02:48)
[2020-06-14 05:48] VITALS: BP 135/80
[2020-06-14] MEDS: FERROUS SULFATE 325 MG EC TABLET PO SCH (07:01)
[2020-06-14] MEDS: AmLODIPine BESYLATE 5 MG TABLET PO SCH (08:25)
[2020-06-14] MEDS: LISINOPRIL 20 MG TABLET PO SCH (08:25)
[2020-06-14] MEDS: BusPIRone HCL 5 MG TABLET PO SCH ×2 (08:26→16:49)
[2020-06-14 12:00] VITALS: BP 118/72
[2020-06-14 16:00] VITALS: BP 140/93
[2020-06-14] MEDS: TraZODone HCL 50 MG TABLET PO SCH (20:18)
[2020-06-15] MEDS: QUEtiapine FUMARATE 100 MG TABLET PO PRN (01:54)
[2020-06-15 05:46] VITALS: BP 135/80
[2020-06-15] MEDS: FERROUS SULFATE 325 MG EC TABLET PO SCH (06:37)
[2020-06-15 08:50] VITALS: BP 158/88
[2020-06-15] MEDS: LISINOPRIL 20 MG TABLET PO SCH (09:32)
[2020-06-15] MEDS: BusPIRone HCL 5 MG TABLET PO SCH ×2 (09:32→16:08)
[2020-06-15] MEDS: AmLODIPine BESYLATE 5 MG TABLET PO SCH (09:32)
[2020-06-15 16:00] VITALS: BP 150/83
[2020-06-15] MEDS: TraZODone HCL 50 MG TABLET PO SCH (20:46)
[2020-06-16 06:19] VITALS: BP 140/80
[2020-06-16] MEDS: FERROUS SULFATE 325 MG EC TABLET PO SCH (07:00)
[2020-06-16 08:00] VITALS: BP 152/90
[2020-06-16] MEDS: BusPIRone HCL 5 MG TABLET PO SCH ×2 (08:16→16:05)
[2020-06-16] MEDS: AmLODIPine BESYLATE 5 MG TABLET PO SCH (08:16)
[2020-06-16] MEDS: LISINOPRIL 20 MG TABLET PO SCH (08:17)
[2020-06-16] MEDS: LORazepam 2 MG TABLET PO PRN (12:32)
[2020-06-16 16:00] VITALS: BP 137/72
[2020-06-16] MEDS: TraZODone HCL 50 MG TABLET PO SCH (20:21)
[2020-06-17 06:32] VITALS: BP 138/75
[2020-06-17] MEDS: FERROUS SULFATE 325 MG EC TABLET PO SCH (06:36)
[2020-06-17 08:00] VITALS: BP 124/80
[2020-06-17] MEDS: BusPIRone HCL 5 MG TABLET PO SCH ×2 (08:23→16:14)
[2020-06-17] MEDS: AmLODIPine BESYLATE 5 MG TABLET PO SCH (08:28)
[2020-06-17] MEDS: LISINOPRIL 20 MG TABLET PO SCH (08:28)
[2020-06-17] MEDS ORDERED: ARIP1064 IM (09:37)
[2020-06-17] MEDS ORDERED: TRAZ-252 PO (09:37)
[2020-06-17] MEDS ORDERED: BUSP5TAB20 PO (09:37)
[2020-06-17] MEDS: LORazepam 2 MG TABLET PO PRN (15:50)
[2020-06-17 16:00] VITALS: BP 126/84
[2020-06-17] MEDS ORDERED: AMLO5TAB66 PO (16:24)
[2020-06-17] MEDS ORDERED: FERR-89 PO (16:27)
[2020-06-17] MEDS ORDERED: LISI-662 PO (16:29)
[2020-06-17] MEDS: TraZODone HCL 50 MG TABLET PO SCH (20:04)
[2020-06-18 06:18] VITALS: BP 138/86
[2020-06-18] MEDS: FERROUS SULFATE 325 MG EC TABLET PO SCH (06:31)
[2020-06-18 08:00] VITALS: BP 148/85
[2020-06-18] MEDS: BusPIRone HCL 5 MG TABLET PO SCH (08:56)
[2020-06-18] MEDS: AmLODIPine BESYLATE 5 MG TABLET PO SCH (08:57)
[2020-06-18] MEDS: LISINOPRIL 20 MG TABLET PO SCH (08:57)
[2020-07-17] MEDS ORDERED: ARIPiprazole LAUROXIL ER SUSPENSION 1064 MG/3.9 ML SYRINGE IM SCH (09:00)
[2020-07-22] MEDS ORDERED: ARIPiprazole LAUROXIL ER SUSPENSION 1064 MG/3.9 ML SYRINGE IM SCH (09:00)
== END 2020-06-18 15:00 | disposition home or self-care (01) | DRG 885 ==
LOC: EMS 00:04 → 3EI 02:00
DX: F25.1 Schizoaffective disorder, depressive type (principal); R45.851 Suicidal ideations; E11.9 Type 2 diabetes mellitus without complications; I10 Essential (primary) hypertension; Z91.14 Patient's other noncompliance with medication regimen; F32.9 Major depressive disorder, single episode, unspecified; D64.9 Anemia, unspecified; I20.9 Angina pectoris, unspecified; F41.9 Anxiety disorder, unspecified; J44.9 Chronic obstructive pulmonary disease, unspecified; K21.9 Gastro-esophageal reflux disease without esophagitis; E78.5 Hyperlipidemia, unspecified; Z20.828 Contact with and (suspected) exposure to other viral communicable diseases; Z85.3 Personal history of malignant neoplasm of breast; Z90.49 Acquired absence of other specified parts of digestive tract; Z87.820 Personal history of traumatic brain injury; Z90.11 Acquired absence of right breast and nipple; Z88.0 Allergy status to penicillin; D47.3 Essential (hemorrhagic) thrombocythemia; Z28.21 Immunization not carried out because of patient refusal; F03.90 Unspecified dementia, unspecified severity, without behavioral disturbance, psychotic disturbance, mood disturbance, and anxiety; Z87.11 Personal history of peptic ulcer disease
CPT/HCPCS: 87081; 87426; 97162; 97166; G0480

== ENCOUNTER 2020-06-22 13:13 | Emergency (ER) | payer MEDICARE, OTHER ==
[~2020-06-22] VITALS: Ht 160 cm; Wt 58.6 kg
[~2020-06-22 13:13] MED LIST changes: -AMLO-257 PO; +AMLO5TAB66 PO; +ARIP1064 IM; +BUSP5TAB20 PO; +TRAZ-252 PO
[2020-06-22 13:39] LABS: GLUCOSE,POINT OF CARE 162 MG/DL (70-110)
[2020-06-22 14:40] LABS: BASOPHILS % (AUTO) 0.8 % (0.0-2.0); EOSINOPHILS % (AUTO) 2.1 % (1.0-6.0); HEMOGLOBIN 9.3 g/dL (12.0-16.0); LYMPHOCYTES # (AUTO) 0.8 K/uL (1.0-4.8); LYMPHOCYTES % (AUTO) 13.4 % (22.0-44.0); MEAN CORPUSCULAR HEMOGLOBIN 23.1 pg (26.0-34.0); MEAN CORPUSCULAR HGB CONC 31.1 G/dL (31.0-37.0); MEAN CORPUSCULAR VOLUME 74 fL (80-100); MONOCYTES # (AUTO) 0.6 K/uL (0.1-1.0); MONOCYTES % (AUTO) 9.6 % (2.0-9.0); NEUTROPHILS # (AUTO) 4.4 K/uL (1.8-7.7); NEUTROPHILS % (AUTO) 74.1 % (40.0-70.0); PLATELET COUNT (AUTO) 399 K/uL (150-450); RED BLOOD CELL COUNT(AUTO) 4.04 MIL/uL (4.00-5.20)
[2020-06-22 14:56] LABS: ANION GAP 6 mmol/L (8-16); CALCIUM, TOTAL 9.1 mg/dL (8.8-10.5); CARBON DIOXIDE 29 mmol/L (22-29); CHLORIDE 107 mmol/L (98-107); CREATININE 0.84 mg/dL (0.60-1.30); GLOMERULAR FILTR. RATE CALC > 60 mL/min (>60); GLUCOSE,RANDOM 103 mg/dL (70-110); POTASSIUM 3.6 mmol/L (3.5-5.1); SODIUM SERUM 142 mmol/L (136-145); UREA NITROGEN, BLOOD 26 mg/dL (7-18)
[2020-06-22 15:03] LABS: ALANINE AMINOTRANSFERASE 49 U/L (12-78); ALBUMIN 3.2 g/dL (3.4-5.0); ALKALINE PHOSPHATASE 145 U/L (46-116); ASPARTATE AMINOTRANSFERASE 34 U/L (15-37); BILIRUBIN,TOTAL 0.2 mg/dL (0.1-1.0); TOTAL PROTEIN, SERUM 7.7 g/dL (6.4-8.2)
[2020-06-22 15:55] VITALS: BP 145/83
== END 2020-06-22 16:02 | disposition home or self-care (01) ==
LOC: EMS 13:13
DX: F20.9 Schizophrenia, unspecified (principal); F41.9 Anxiety disorder, unspecified; F32.9 Major depressive disorder, single episode, unspecified; E11.9 Type 2 diabetes mellitus without complications; K21.9 Gastro-esophageal reflux disease without esophagitis; I10 Essential (primary) hypertension; J45.909 Unspecified asthma, uncomplicated; Z90.89 Acquired absence of other organs; Z88.0 Allergy status to penicillin; Z88.8 Allergy status to other drugs, medicaments and biological substances; Z79.899 Other long term (current) drug therapy
CPT/HCPCS: 36415; 80053; 82962; 85025; 99284; G0480

== ENCOUNTER 2020-07-15 13:58 | Inpatient (IN) | payer MEDICARE, MEDICAID ==
[~2020-07-15] VITALS: Ht 165.1 cm; Wt 55.7 kg
[2020-07-15] MEDS ORDERED: KETOROLAC TROMETHAMINE 30 MG/ML VIAL IM ONE (16:30)
[2020-07-15 19:19] LABS: BASOPHILS % (AUTO) 1.3 % (0.0-2.0); EOSINOPHILS % (AUTO) 1.4 % (1.0-6.0); HEMATOCRIT 28.7 % (36-46); HEMOGLOBIN 8.9 g/dL (12.0-16.0); LYMPHOCYTES # (AUTO) 1.3 K/uL (1.0-4.8); LYMPHOCYTES % (AUTO) 20.4 % (22.0-44.0); MEAN CORPUSCULAR HEMOGLOBIN 22.9 pg (26.0-34.0); MEAN CORPUSCULAR VOLUME 74 fL (80-100); MONOCYTES # (AUTO) 0.7 K/uL (0.1-1.0); MONOCYTES % (AUTO) 10.4 % (2.0-9.0); NEUTROPHILS # (AUTO) 4.3 K/uL (1.8-7.7); NEUTROPHILS % (AUTO) 66.5 % (40.0-70.0); PLATELET COUNT (AUTO) 286 K/uL (150-450); RED BLOOD CELL COUNT(AUTO) 3.87 MIL/uL (4.00-5.20); RED CELL DISTRIBUTION WIDTH 15.8 % (11.5-14.5)
[2020-07-15 19:30] LABS: ANION GAP 4 mmol/L (8-16); CALCIUM, TOTAL 8.8 mg/dL (8.8-10.5); CARBON DIOXIDE 27 mmol/L (22-29); CHLORIDE 107 mmol/L (98-107); CREATININE 0.69 mg/dL (0.60-1.30); GLOMERULAR FILTR. RATE CALC > 60 mL/min (>60); GLUCOSE,RANDOM 99 mg/dL (70-110); POTASSIUM 3.5 mmol/L (3.5-5.1); SODIUM SERUM 138 mmol/L (136-145); UREA NITROGEN, BLOOD 24 mg/dL (7-18)
[2020-07-15 19:36] LABS: ALANINE AMINOTRANSFERASE 31 U/L (12-78); ALBUMIN 2.8 g/dL (3.4-5.0); ALKALINE PHOSPHATASE 132 U/L (46-116); ASPARTATE AMINOTRANSFERASE 18 U/L (15-37); BILIRUBIN,TOTAL 0.3 mg/dL (0.1-1.0); TOTAL PROTEIN, SERUM 6.7 g/dL (6.4-8.2)
[2020-07-15] MEDS ORDERED: ZOLPIDEM TARTRATE 10 MG TABLET PO PRN (20:00)
[2020-07-15] MEDS ORDERED: HALOPERIDOL 5 MG TABLET PO PRN (20:00)
[2020-07-15 20:05] LABS: COVID AG,FIA SOURCE NASOPHARYNGEAL
[2020-07-16] MEDS ORDERED: LOPERAMIDE HCL 2 MG CAPSULE PO PRN (07:00)
[2020-07-16] MEDS ORDERED: CloNIDine HCL 0.1 MG TABLET PO PRN (07:00)
[2020-07-16] MEDS ORDERED: OMEPRAZOLE 20 MG CAPSULE PO PRN (07:00)
[2020-07-16] MEDS ORDERED: BACITRACIN 28 GM OINTMENT TP PRN (07:00)
[2020-07-16] MEDS ORDERED: ONDANSETRON HCL 4 MG TABLET PO PRN (07:00)
[2020-07-16] MEDS ORDERED: BENZOCAINE/MENTHOL LOZENGE PO PRN (07:00)
[2020-07-16] MEDS ORDERED: MAGNESIUM HYDROXIDE SUSPENSION 30 ML UDCUP PO PRN (07:00)
[2020-07-16] MEDS ORDERED: MAG HYDROX/AL HYDROX/SIMETH ES 30 ML SUSPENSION UDCUP PO PRN (07:00)
[2020-07-16] MEDS ORDERED: ALBUTEROL SULFATE HFA 90 MCG/PUFF 8 GM INHALER IH PRN (07:00)
[2020-07-16] MEDS ORDERED: PETROLATUM,WHITE 28 GM JELLY TP PRN (07:00)
[2020-07-16 08:33] VITALS: BP 150/68
[2020-07-16 16:05] VITALS: BP 140/68
[2020-07-16] MEDS: IBUPROFEN 600 MG TABLET PO PRN (16:24)
[2020-07-16] MEDS: DOCUSATE SODIUM 100 MG CAPSULE PO PRN (19:56)
[2020-07-17 01:17] VITALS: BP 142/71
[2020-07-17 08:05] VITALS: BP 165/93
[2020-07-17] MEDS: IBUPROFEN 600 MG TABLET PO PRN (11:28)
[2020-07-17] MEDS: ACETAMINOPHEN 325 MG TABLET PO PRN (17:06)
[2020-07-17 17:41] VITALS: BP 129/74
[2020-07-18 00:10] VITALS: BP 126/71
[2020-07-18 08:05] VITALS: BP 145/73
[2020-07-18] MEDS: LISINOPRIL 20 MG TABLET PO SCH (09:00)
[2020-07-18] MEDS: MUPIROCIN CALCIUM 2% 22 GM OINTMENT NASAL SCH ×2 (09:01→17:07)
[2020-07-18] MEDS: AmLODIPine BESYLATE 5 MG TABLET PO SCH (10:05)
[2020-07-18] MEDS: MULTIVITAMINS WITH IRON TABLET PO SCH (10:05)
[2020-07-18] MEDS: ARIPiprazole 15 MG TABLET PO SCH (11:50)
[2020-07-18 16:24] VITALS: BP 136/79
[2020-07-19] VITALS (9 sets, daily range): BP systolic 112–197; BP diastolic 58–100
[2020-07-19] MEDS: LORazepam 2 MG TABLET PO PRN (00:06)
[2020-07-19] MEDS: IBUPROFEN 600 MG TABLET PO PRN (05:42)
[2020-07-19] MEDS: MUPIROCIN CALCIUM 2% 22 GM OINTMENT NASAL SCH ×2 (14:19→15:55)
[2020-07-19] MEDS: MULTIVITAMINS WITH IRON TABLET PO SCH (14:19)
[2020-07-19] MEDS: ARIPiprazole 15 MG TABLET PO SCH (14:19)
[2020-07-19] MEDS: LISINOPRIL 20 MG TABLET PO SCH (14:19)
[2020-07-19] MEDS: AmLODIPine BESYLATE 5 MG TABLET PO SCH (14:19)
[2020-07-19] MEDS: ACETAMINOPHEN 325 MG TABLET PO PRN (15:56)
[2020-07-20 05:24] VITALS: BP 132/77
[2020-07-20] MEDS: ARIPiprazole 15 MG TABLET PO SCH (08:13)
[2020-07-20] MEDS: MUPIROCIN CALCIUM 2% 22 GM OINTMENT NASAL SCH ×2 (08:13→16:30)
[2020-07-20] MEDS: LISINOPRIL 20 MG TABLET PO SCH (08:13)
[2020-07-20] MEDS: MULTIVITAMINS WITH IRON TABLET PO SCH (08:13)
[2020-07-20] MEDS: AmLODIPine BESYLATE 5 MG TABLET PO SCH (08:13)
[2020-07-20 08:17] VITALS: BP 144/77
[2020-07-20 16:06] VITALS: BP 133/95
[2020-07-21 01:00] VITALS: BP 137/81
[2020-07-21 08:14] VITALS: BP 159/71
[2020-07-21] MEDS: LISINOPRIL 20 MG TABLET PO SCH (08:18)
[2020-07-21] MEDS: MULTIVITAMINS WITH IRON TABLET PO SCH (08:18)
[2020-07-21] MEDS: ARIPiprazole 15 MG TABLET PO SCH (08:18)
[2020-07-21] MEDS: AmLODIPine BESYLATE 5 MG TABLET PO SCH (08:18)
[2020-07-21] MEDS: MUPIROCIN CALCIUM 2% 22 GM OINTMENT NASAL SCH ×2 (08:19→16:39)
[2020-07-21] MEDS: DOCUSATE SODIUM 100 MG CAPSULE PO PRN (13:33)
[2020-07-21 16:04] VITALS: BP 121/62
[2020-07-22 00:16] VITALS: BP 130/73
[2020-07-22 08:05] VITALS: BP 164/85
[2020-07-22] MEDS: ARIPiprazole 15 MG TABLET PO SCH (08:56)
[2020-07-22] MEDS: MULTIVITAMINS WITH IRON TABLET PO SCH (08:56)
[2020-07-22] MEDS: LISINOPRIL 20 MG TABLET PO SCH (08:56)
[2020-07-22] MEDS: AmLODIPine BESYLATE 5 MG TABLET PO SCH (08:56)
[2020-07-22] MEDS: MUPIROCIN CALCIUM 2% 22 GM OINTMENT NASAL SCH ×2 (11:49→17:38)
[2020-07-22 16:13] VITALS: BP 111/69
[2020-07-22] MEDS: ACETAMINOPHEN 325 MG TABLET PO PRN (17:44)
[2020-07-22 18:51] VITALS: BP 115/65
[2020-07-22] MEDS: LORazepam 2 MG TABLET PO PRN (18:56)
[2020-07-23 04:25] VITALS: BP 132/86
[2020-07-23 07:32] LABS: COVID AG,FIA SOURCE NASAL SWAB
[2020-07-23] MEDS: LISINOPRIL 20 MG TABLET PO SCH (08:01)
[2020-07-23] MEDS: MULTIVITAMINS WITH IRON TABLET PO SCH (08:01)
[2020-07-23] MEDS: ARIPiprazole 15 MG TABLET PO SCH (08:01)
[2020-07-23] MEDS: AmLODIPine BESYLATE 5 MG TABLET PO SCH (08:01)
[2020-07-23 08:37] VITALS: BP 140/80
[2020-07-23 16:05] VITALS: BP 136/60
[2020-07-23] MEDS: ACETAMINOPHEN 325 MG TABLET PO PRN (17:36)
[2020-07-23] MEDS: DOCUSATE SODIUM 100 MG CAPSULE PO PRN (19:41)
[2020-07-23] MEDS: IBUPROFEN 600 MG TABLET PO PRN (21:20)
[2020-07-24 00:04] VITALS: BP 145/78
[2020-07-24 08:06] VITALS: BP 142/72
[2020-07-24] MEDS: ARIPiprazole 15 MG TABLET PO SCH (08:07)
[2020-07-24] MEDS: MULTIVITAMINS WITH IRON TABLET PO SCH (08:07)
[2020-07-24] MEDS: LISINOPRIL 20 MG TABLET PO SCH (08:07)
[2020-07-24] MEDS: AmLODIPine BESYLATE 5 MG TABLET PO SCH (08:07)
[2020-07-24] MEDS ORDERED: ARIP15TA2 PO (09:15)
[2020-07-24] MEDS ORDERED: LISI-662 PO (09:16)
[2020-07-24] MEDS ORDERED: AMLO-257 PO (09:18)
[2020-07-24] MEDS ORDERED: AMLO2.5T96 PO (09:18)
== END 2020-07-24 16:30 | disposition home or self-care (01) | DRG 885 ==
LOC: EMS 14:06 → B2S 22:46
PROVIDERS: ADMIT Psychiatry & Neurology Psychiatry; ATTEND Psychiatry & Neurology Psychiatry
DX: F25.9 Schizoaffective disorder, unspecified (principal); E44.0 Moderate protein-calorie malnutrition; E11.9 Type 2 diabetes mellitus without complications; I10 Essential (primary) hypertension; J45.909 Unspecified asthma, uncomplicated; K21.9 Gastro-esophageal reflux disease without esophagitis; M19.90 Unspecified osteoarthritis, unspecified site; D53.9 Nutritional anemia, unspecified; K59.00 Constipation, unspecified; Z20.822 Contact with and (suspected) exposure to COVID-19; W19.XXXA Unspecified fall, initial encounter; Z85.3 Personal history of malignant neoplasm of breast; Y92.89 Other specified places as the place of occurrence of the external cause; Z90.49 Acquired absence of other specified parts of digestive tract; Z68.20 Body mass index [BMI] 20.0-20.9, adult; Z88.0 Allergy status to penicillin; Z88.8 Allergy status to other drugs, medicaments and biological substances
CPT/HCPCS: 87081; 87147; 87426; G0480; J1885

== ENCOUNTER 2020-07-19 07:11 | Emergency (ER) | payer MEDICARE, OTHER ==
[~2020-07-19] VITALS: Ht 160 cm; Wt 55.0 kg
[2020-07-19 09:47] VITALS: BP 124/89
== END 2020-07-19 19:28 | disposition home or self-care (01) ==
LOC: EMS 07:11
DX: S09.90XA Unspecified injury of head, initial encounter (principal); F41.9 Anxiety disorder, unspecified; F32.9 Major depressive disorder, single episode, unspecified; E11.9 Type 2 diabetes mellitus without complications; I10 Essential (primary) hypertension; Z88.0 Allergy status to penicillin; Z79.899 Other long term (current) drug therapy; W19.XXXA Unspecified fall, initial encounter; Y93.89 Activity, other specified; Y92.89 Other specified places as the place of occurrence of the external cause; Y99.8 Other external cause status
CPT/HCPCS: 70450; 72125

== ENCOUNTER 2020-08-23 12:39 | Emergency (ER) | payer MEDICARE, OTHER ==
[~2020-08-23] VITALS: Ht 160 cm; Wt 56.8 kg
[~2020-08-23 12:39] MED LIST changes: -ARIP1064 IM; +ARIP15TA2 PO; -BUSP5TAB20 PO; -LISI-662 PO; +LISI-894 PO; +TIMO10DR28 OU; -TRAZ-252 PO
[2020-08-23 12:41] VITALS: BP 123/74
[2020-08-23] MEDS ORDERED: ACETAMINOPHEN 500 MG TABLET PO ONE (13:15)
[2020-08-23] MEDS ORDERED: LORazepam 1 MG TABLET PO ONE (13:15)
== END 2020-08-23 14:38 | disposition home or self-care (01) ==
LOC: EMS 12:39
DX: F20.9 Schizophrenia, unspecified (principal); F11.90 Opioid use, unspecified, uncomplicated; F15.90 Other stimulant use, unspecified, uncomplicated; Z90.49 Acquired absence of other specified parts of digestive tract
CPT/HCPCS: 93005; 99284; Z7502; Z7610

== ENCOUNTER 2020-08-27 12:20 | Emergency (ER) | payer MEDICARE, OTHER ==
[~2020-08-27] VITALS: Ht 165.1 cm; Wt 63.6 kg
[2020-08-27] MEDS ORDERED: QUET200T PO (12:24)
[2020-08-27] MEDS ORDERED: ANAS1TAB50 PO (12:24)
[2020-08-27 12:36] LABS: GLUCOSE,POINT OF CARE 131 MG/DL (70-110)
[2020-08-27 13:36] LABS: BASOPHILS % (AUTO) 0.8 % (0.0-2.0); EOSINOPHILS % (AUTO) 1.2 % (1.0-6.0); HEMATOCRIT 30.9 % (36-46); HEMOGLOBIN 9.5 g/dL (12.0-16.0); LYMPHOCYTES # (AUTO) 1.1 K/uL (1.0-4.8); LYMPHOCYTES % (AUTO) 20.2 % (22.0-44.0); MEAN CORPUSCULAR HEMOGLOBIN 22.5 pg (26.0-34.0); MEAN CORPUSCULAR HGB CONC 30.6 G/dL (31.0-37.0); MEAN CORPUSCULAR VOLUME 73 fL (80-100); MONOCYTES # (AUTO) 0.6 K/uL (0.1-1.0); MONOCYTES % (AUTO) 9.8 % (2.0-9.0); NEUTROPHILS # (AUTO) 3.9 K/uL (1.8-7.7); PLATELET COUNT (AUTO) 320 K/uL (150-450); RED BLOOD CELL COUNT(AUTO) 4.21 MIL/uL (4.00-5.20); RED CELL DISTRIBUTION WIDTH 15.2 % (11.5-14.5)
[2020-08-27 13:53] LABS: ANION GAP 10 mmol/L (8-16); CARBON DIOXIDE 26 mmol/L (22-29); CHLORIDE 107 mmol/L (98-107); CREATININE 0.81 mg/dL (0.60-1.30); GLOMERULAR FILTR. RATE CALC > 60 mL/min (>60); GLUCOSE,RANDOM 114 mg/dL (70-110); POTASSIUM 3.8 mmol/L (3.5-5.1); SODIUM SERUM 143 mmol/L (136-145); UREA NITROGEN, BLOOD 31 mg/dL (7-18)
[2020-08-27 14:00] LABS: ALANINE AMINOTRANSFERASE 45 U/L (12-78); ALBUMIN 3.1 g/dL (3.4-5.0); ALKALINE PHOSPHATASE 132 U/L (46-116); ASPARTATE AMINOTRANSFERASE 24 U/L (15-37); BILIRUBIN,TOTAL 0.1 mg/dL (0.1-1.0); TOTAL PROTEIN, SERUM 7.2 g/dL (6.4-8.2)
[2020-08-27 14:33] LABS: COVID AG,FIA SOURCE NASOPHARYNGEAL
[2020-08-27 14:54] LABS: AMPHET/METH SCREEN,URINE NEGATIVE (NEGATIVE); BARBITURATE SCREEN, URINE NEGATIVE (NEGATIVE); BENZODIAZEPINES SCREEN,URINE NEGATIVE (NEGATIVE); CANNABINOID SCREEN,URINE NEGATIVE (NEGATIVE); COCAINE SCREEN,URINE NEGATIVE (NEGATIVE); METHADONE SCREEN, URINE NEGATIVE (NEGATIVE); OPIATE SCREEN,URINE NEGATIVE (NEGATIVE)
[2020-08-27 15:03] LABS: APPEARANCE,URINE CLEAR (CLEAR); BILIRUBIN,URINE NEGATIVE (NEGATIVE); GLUCOSE, URINE (UA) NEGATIVE (NEGATIVE); KETONES,URINE NEGATIVE (NEGATIVE); LEUKOCYTE ESTERASE ,URINE SMALL (NEGATIVE); NITRATE,URINE NEGATIVE (NEGATIVE); OCCULT BLOOD,URINE NEGATIVE (NEGATIVE); PROTEIN,URINE TRACE (NEGATIVE)
[2020-08-27 15:04] LABS: PHENCYCLIDINE SCREEN,URINE NEGATIVE (NEGATIVE)
[2020-08-27 15:27] LABS: RBC,URINE None Seen /HPF (0-2)
[2020-08-27 15:34] LABS: SQUAMOUS EPITHELIAL CELL,UR Few /LPF (None Seen)
[2020-08-27 15:35] LABS: BACTERIA,URINE Few /HPF (None Seen); CALCIUM OXALATE CRYSTALS,UR Many /LPF (None Seen)
[2020-08-27] MEDS ORDERED: SULFAMETHOX/TRIMETH DS 800-160 MG/TABLET PO ONE (16:00)
[2020-08-27 16:07] VITALS: BP 152/80
== END 2020-08-27 16:33 | disposition home or self-care (01) ==
LOC: EMS 12:22
DX: F20.9 Schizophrenia, unspecified (principal); N39.0 Urinary tract infection, site not specified; F41.9 Anxiety disorder, unspecified; J45.909 Unspecified asthma, uncomplicated; F32.9 Major depressive disorder, single episode, unspecified; E11.9 Type 2 diabetes mellitus without complications; K21.9 Gastro-esophageal reflux disease without esophagitis; I10 Essential (primary) hypertension; F11.90 Opioid use, unspecified, uncomplicated; F19.90 Other psychoactive substance use, unspecified, uncomplicated; Z20.822 Contact with and (suspected) exposure to COVID-19; Z90.89 Acquired absence of other organs; Z79.899 Other long term (current) drug therapy; Z88.0 Allergy status to penicillin; Z88.8 Allergy status to other drugs, medicaments and biological substances
CPT/HCPCS: 36415; 80053; 80307; 81001; 82962; 85025; 87086; 87426; 99284; G0480

== ENCOUNTER 2020-09-06 11:07 | Inpatient (IN) | payer MEDICARE, MEDICAID ==
[~2020-09-06] VITALS: Ht 157.5 cm; Wt 56.7 kg
[~2020-09-06 11:07] MED LIST changes: +ANAS1TAB50 PO; +QUET200T PO
[2020-09-06 12:12] LABS: BASOPHILS % (AUTO) 0.7 % (0.0-2.0); EOSINOPHILS % (AUTO) 1.8 % (1.0-6.0); HEMATOCRIT 28.2 % (36-46); HEMOGLOBIN 8.7 g/dL (12.0-16.0); LYMPHOCYTES # (AUTO) 1.1 K/uL (1.0-4.8); LYMPHOCYTES % (AUTO) 23.1 % (22.0-44.0); MEAN CORPUSCULAR HEMOGLOBIN 22.6 pg (26.0-34.0); MEAN CORPUSCULAR HGB CONC 30.9 G/dL (31.0-37.0); MEAN CORPUSCULAR VOLUME 73 fL (80-100); MONOCYTES # (AUTO) 0.6 K/uL (0.1-1.0); MONOCYTES % (AUTO) 11.7 % (2.0-9.0); NEUTROPHILS # (AUTO) 3.1 K/uL (1.8-7.7); NEUTROPHILS % (AUTO) 62.7 % (40.0-70.0); PLATELET COUNT (AUTO) 336 K/uL (150-450); RED BLOOD CELL COUNT(AUTO) 3.87 MIL/uL (4.00-5.20); RED CELL DISTRIBUTION WIDTH 15.4 % (11.5-14.5)
[2020-09-06 12:43] LABS: ANION GAP 10 mmol/L (8-16); CALCIUM, TOTAL 9.4 mg/dL (8.8-10.5); CARBON DIOXIDE 25 mmol/L (22-29); CHLORIDE 106 mmol/L (98-107); CREATININE 0.73 mg/dL (0.60-1.30); GLOMERULAR FILTR. RATE CALC > 60 mL/min (>60); GLUCOSE,RANDOM 102 mg/dL (70-110); SODIUM SERUM 141 mmol/L (136-145); UREA NITROGEN, BLOOD 26 mg/dL (7-18)
[2020-09-06] MEDS ORDERED: ARIPiprazole 15 MG TABLET PO ONE (12:45)
[2020-09-06 12:49] LABS: ALANINE AMINOTRANSFERASE 56 U/L (12-78); ALBUMIN 3.2 g/dL (3.4-5.0); ALKALINE PHOSPHATASE 166 U/L (46-116); ASPARTATE AMINOTRANSFERASE 31 U/L (15-37); BILIRUBIN,TOTAL 0.2 mg/dL (0.1-1.0); TOTAL PROTEIN, SERUM 7.6 g/dL (6.4-8.2)
[2020-09-06 12:59] LABS: AMPHET/METH SCREEN,URINE NEGATIVE (NEGATIVE); BARBITURATE SCREEN, URINE NEGATIVE (NEGATIVE); BENZODIAZEPINES SCREEN,URINE NEGATIVE (NEGATIVE); CANNABINOID SCREEN,URINE NEGATIVE (NEGATIVE); COCAINE SCREEN,URINE NEGATIVE (NEGATIVE); METHADONE SCREEN, URINE NEGATIVE (NEGATIVE); OPIATE SCREEN,URINE NEGATIVE (NEGATIVE)
[2020-09-06 13:03] LABS: PHENCYCLIDINE SCREEN,URINE NEGATIVE (NEGATIVE)
[2020-09-06 14:06] LABS: COVID AG,FIA SOURCE NASOPHARYNGEAL
[2020-09-06 15:00] LABS: SALICYLATE 0.7 mg/dL (2.8-20.0)
[2020-09-06 15:10] LABS: ACETAMINOPHEN < 2 mcg/mL (10-30)
[2020-09-06 19:49] VITALS: BP 106/62
[2020-09-06] MEDS ORDERED: ZOLPIDEM TARTRATE 10 MG TABLET PO PRN (20:00)
[2020-09-06] MEDS ORDERED: INFLUENZA VIRUS VACCINE QVS 2020-21 (6MO+)/PF 60 MCG/0.5 ML SYRINGE IM ONE (21:45)
[2020-09-07 07:11] VITALS: BP 131/78
[2020-09-07 08:53] VITALS: BP 135/74
[2020-09-07] MEDS ORDERED: CloNIDine HCL 0.1 MG TABLET PO PRN (09:15)
[2020-09-07] MEDS ORDERED: LOPERAMIDE HCL 2 MG CAPSULE PO PRN (09:15)
[2020-09-07] MEDS ORDERED: BACITRACIN 28 GM OINTMENT TP PRN (09:15)
[2020-09-07] MEDS ORDERED: PETROLATUM,WHITE 28 GM JELLY TP PRN (09:15)
[2020-09-07] MEDS ORDERED: DOCUSATE SODIUM 100 MG CAPSULE PO PRN (09:15)
[2020-09-07] MEDS ORDERED: BENZOCAINE/MENTHOL LOZENGE PO PRN (09:15)
[2020-09-07] MEDS ORDERED: MAGNESIUM HYDROXIDE SUSPENSION 30 ML UDCUP PO PRN (09:15)
[2020-09-07] MEDS ORDERED: ONDANSETRON HCL 4 MG TABLET PO PRN (09:15)
[2020-09-07] MEDS ORDERED: OMEPRAZOLE 20 MG CAPSULE PO PRN (09:15)
[2020-09-07 09:25] LABS: EOSINOPHILS % (AUTO) 2.7 % (1.0-6.0); HEMATOCRIT 29.6 % (36-46); HEMOGLOBIN 9.1 g/dL (12.0-16.0); LYMPHOCYTES # (AUTO) 1.1 K/uL (1.0-4.8); LYMPHOCYTES % (AUTO) 26.5 % (22.0-44.0); MEAN CORPUSCULAR HEMOGLOBIN 22.5 pg (26.0-34.0); MEAN CORPUSCULAR HGB CONC 30.7 G/dL (31.0-37.0); MEAN CORPUSCULAR VOLUME 73 fL (80-100); MONOCYTES # (AUTO) 0.3 K/uL (0.1-1.0); MONOCYTES % (AUTO) 8.3 % (2.0-9.0); NEUTROPHILS # (AUTO) 2.6 K/uL (1.8-7.7); NEUTROPHILS % (AUTO) 61.5 % (40.0-70.0); PLATELET COUNT (AUTO) 362 K/uL (150-450); RED BLOOD CELL COUNT(AUTO) 4.03 MIL/uL (4.00-5.20); RED CELL DISTRIBUTION WIDTH 15.3 % (11.5-14.5)
[2020-09-07 09:55] LABS: ALANINE AMINOTRANSFERASE 70 U/L (12-78); ALBUMIN 3.1 g/dL (3.4-5.0); ALKALINE PHOSPHATASE 168 U/L (46-116); ANION GAP 9 mmol/L (8-16); ASPARTATE AMINOTRANSFERASE 42 U/L (15-37); BILIRUBIN,TOTAL 0.2 mg/dL (0.1-1.0); CALCIUM, TOTAL 9.2 mg/dL (8.8-10.5); CARBON DIOXIDE 27 mmol/L (22-29); CHLORIDE 103 mmol/L (98-107); CREATININE 0.76 mg/dL (0.60-1.30); FREE T4 (FREE THYROXINE) 1.25 ng/dL (0.76-1.46); GLOMERULAR FILTR. RATE CALC > 60 mL/min (>60); GLUCOSE,RANDOM 151 mg/dL (70-110); POTASSIUM 3.7 mmol/L (3.5-5.1); SODIUM SERUM 139 mmol/L (136-145); THYROID STIMULATING HORMONE 1.29 uIU/mL (0.36-3.74); TOTAL PROTEIN, SERUM 7.3 g/dL (6.4-8.2); UREA NITROGEN, BLOOD 23 mg/dL (7-18)
[2020-09-07] MEDS: AmLODIPine BESYLATE 5 MG TABLET PO SCH (09:59)
[2020-09-07] MEDS: LISINOPRIL 20 MG TABLET PO SCH (09:59)
[2020-09-07] MEDS: ALBUTEROL SULFATE HFA 90 MCG/PUFF 8 GM INHALER IH PRN (12:44)
[2020-09-07 16:23] VITALS: BP 139/79
[2020-09-07] MEDS: TIMOLOL MALEATE 0.25% 5 ML OPHTHALMIC SOLUTION OU SCH (16:29)
[2020-09-07] MEDS: FERROUS SULFATE 325 MG EC TABLET PO SCH (16:29)
[2020-09-07] MEDS: QUEtiapine FUMARATE 300 MG TABLET PO SCH (20:02)
[2020-09-08 01:00] VITALS: BP 141/79
[2020-09-08] MEDS: FERROUS SULFATE 325 MG EC TABLET PO SCH ×2 (06:41→16:49)
[2020-09-08 08:13] LABS: APPEARANCE,URINE CLOUDY (CLEAR); BILIRUBIN,URINE NEGATIVE (NEGATIVE); GLUCOSE, URINE (UA) NEGATIVE (NEGATIVE); KETONES,URINE NEGATIVE (NEGATIVE); LEUKOCYTE ESTERASE ,URINE MODERATE (NEGATIVE); NITRATE,URINE NEGATIVE (NEGATIVE); OCCULT BLOOD,URINE NEGATIVE (NEGATIVE); PROTEIN,URINE NEGATIVE (NEGATIVE); UROBILINOGEN,URINE 0.2 mg/dL (<=1.0)
[2020-09-08] MEDS: LISINOPRIL 20 MG TABLET PO SCH (08:13)
[2020-09-08] MEDS: AmLODIPine BESYLATE 5 MG TABLET PO SCH (08:13)
[2020-09-08] MEDS: TIMOLOL MALEATE 0.25% 5 ML OPHTHALMIC SOLUTION OU SCH ×2 (08:15→16:49)
[2020-09-08 08:20] VITALS: BP 122/75
[2020-09-08 08:20] LABS: AMPHET/METH SCREEN,URINE NEGATIVE (NEGATIVE); BARBITURATE SCREEN, URINE NEGATIVE (NEGATIVE); BENZODIAZEPINES SCREEN,URINE NEGATIVE (NEGATIVE); CANNABINOID SCREEN,URINE NEGATIVE (NEGATIVE); COCAINE SCREEN,URINE NEGATIVE (NEGATIVE); METHADONE SCREEN, URINE NEGATIVE (NEGATIVE); OPIATE SCREEN,URINE NEGATIVE (NEGATIVE)
[2020-09-08 08:34] LABS: RBC,URINE 0-2 /HPF (0-2)
[2020-09-08 08:35] LABS: BACTERIA,URINE Few /HPF (None Seen); CALCIUM OXALATE CRYSTALS,UR Moderate /LPF (None Seen); SQUAMOUS EPITHELIAL CELL,UR Few /LPF (None Seen)
[2020-09-08 08:38] LABS: PHENCYCLIDINE SCREEN,URINE NEGATIVE (NEGATIVE)
[2020-09-08 16:22] VITALS: BP 148/90
[2020-09-08] MEDS: QUEtiapine FUMARATE 300 MG TABLET PO SCH (20:59)
[2020-09-09 05:19] VITALS: BP 159/97
[2020-09-09] MEDS: FERROUS SULFATE 325 MG EC TABLET PO SCH ×2 (07:00→16:51)
[2020-09-09] MEDS: LORazepam 2 MG TABLET PO PRN (08:12)
[2020-09-09 08:30] VITALS: BP 112/66
[2020-09-09] MEDS: AmLODIPine BESYLATE 5 MG TABLET PO SCH (09:16)
[2020-09-09] MEDS: LISINOPRIL 20 MG TABLET PO SCH (09:16)
[2020-09-09] MEDS: TIMOLOL MALEATE 0.25% 5 ML OPHTHALMIC SOLUTION OU SCH ×2 (09:17→16:51)
[2020-09-09] MEDS: ACETAMINOPHEN 325 MG TABLET PO PRN (09:37)
[2020-09-09 16:15] VITALS: BP 112/60
[2020-09-09] MEDS: QUEtiapine FUMARATE 300 MG TABLET PO SCH (20:07)
[2020-09-10 04:28] VITALS: BP 115/72
[2020-09-10] MEDS: FERROUS SULFATE 325 MG EC TABLET PO SCH ×2 (07:05→16:01)
[2020-09-10] MEDS: LISINOPRIL 20 MG TABLET PO SCH (08:24)
[2020-09-10] MEDS: AmLODIPine BESYLATE 10 MG TABLET PO SCH (08:24)
[2020-09-10] MEDS: TIMOLOL MALEATE 0.25% 5 ML OPHTHALMIC SOLUTION OU SCH ×2 (08:25→16:01)
[2020-09-10 08:41] VITALS: BP 120/64
[2020-09-10 16:44] VITALS: BP 139/89
[2020-09-10] MEDS: QUEtiapine FUMARATE 300 MG TABLET PO SCH (20:09)
[2020-09-11 00:51] VITALS: BP 132/78
[2020-09-11] MEDS: FERROUS SULFATE 325 MG EC TABLET PO SCH ×2 (06:22→16:51)
[2020-09-11] MEDS: AmLODIPine BESYLATE 10 MG TABLET PO SCH (08:17)
[2020-09-11] MEDS: LISINOPRIL 20 MG TABLET PO SCH (08:17)
[2020-09-11] MEDS: TIMOLOL MALEATE 0.25% 5 ML OPHTHALMIC SOLUTION OU SCH ×2 (08:18→16:51)
[2020-09-11 08:31] LABS: COVID AG,FIA SOURCE NASAL SWAB
[2020-09-11 08:54] VITALS: BP 119/74
[2020-09-11 16:28] VITALS: BP 136/73
[2020-09-11] MEDS: QUEtiapine FUMARATE 300 MG TABLET PO SCH (20:05)
[2020-09-12] VITALS (8 sets, daily range): BP systolic 109–141; BP diastolic 60–91
[2020-09-12] MEDS: FERROUS SULFATE 325 MG EC TABLET PO SCH ×2 (07:01→17:17)
[2020-09-12] MEDS: LISINOPRIL 20 MG TABLET PO SCH (08:06)
[2020-09-12] MEDS: AmLODIPine BESYLATE 10 MG TABLET PO SCH (08:07)
[2020-09-12] MEDS: TIMOLOL MALEATE 0.25% 5 ML OPHTHALMIC SOLUTION OU SCH ×2 (08:07→17:17)
[2020-09-12] MEDS: LORazepam 2 MG TABLET PO PRN (12:50)
[2020-09-12] MEDS: QUEtiapine FUMARATE 300 MG TABLET PO SCH (23:06)
[2020-09-13] MEDS: LORazepam 2 MG TABLET PO PRN (02:59)
[2020-09-13 03:11] VITALS: BP 147/79
[2020-09-13] MEDS: FERROUS SULFATE 325 MG EC TABLET PO SCH ×2 (06:25→17:59)
[2020-09-13] MEDS: AmLODIPine BESYLATE 10 MG TABLET PO SCH (08:31)
[2020-09-13] MEDS: NITROFURANTOIN MACROCRYSTAL 100 MG CAPSULE PO SCH ×2 (08:31→17:59)
[2020-09-13] MEDS: LISINOPRIL 20 MG TABLET PO SCH (08:31)
[2020-09-13] MEDS: TIMOLOL MALEATE 0.25% 5 ML OPHTHALMIC SOLUTION OU SCH ×2 (08:31→18:00)
[2020-09-13 08:52] VITALS: BP 129/77
[2020-09-13 16:22] VITALS: BP 115/66
[2020-09-13] MEDS: QUEtiapine FUMARATE 300 MG TABLET PO SCH (20:00)
[2020-09-14 06:07] VITALS: BP 154/82
[2020-09-14] MEDS: FERROUS SULFATE 325 MG EC TABLET PO SCH ×2 (06:34→16:29)
[2020-09-14] MEDS: AmLODIPine BESYLATE 10 MG TABLET PO SCH (08:28)
[2020-09-14] MEDS: LISINOPRIL 20 MG TABLET PO SCH (08:28)
[2020-09-14] MEDS: NITROFURANTOIN MACROCRYSTAL 100 MG CAPSULE PO SCH ×2 (08:28→16:29)
[2020-09-14 08:29] VITALS: BP 108/60
[2020-09-14] MEDS: TIMOLOL MALEATE 0.25% 5 ML OPHTHALMIC SOLUTION OU SCH ×2 (08:29→16:30)
[2020-09-14] MEDS: ALBUTEROL SULFATE HFA 90 MCG/PUFF 8 GM INHALER IH PRN ×2 (09:08→20:06)
[2020-09-14 16:18] VITALS: BP 114/77
[2020-09-14] MEDS: QUEtiapine FUMARATE 300 MG TABLET PO SCH (20:06)
[2020-09-15 06:50] VITALS: BP 118/78
[2020-09-15] MEDS: FERROUS SULFATE 325 MG EC TABLET PO SCH ×2 (07:01→16:22)
[2020-09-15] MEDS: NITROFURANTOIN MACROCRYSTAL 100 MG CAPSULE PO SCH ×2 (08:21→16:21)
[2020-09-15] MEDS: LISINOPRIL 20 MG TABLET PO SCH (08:21)
[2020-09-15] MEDS: TIMOLOL MALEATE 0.25% 5 ML OPHTHALMIC SOLUTION OU SCH ×2 (08:21→16:21)
[2020-09-15] MEDS: AmLODIPine BESYLATE 10 MG TABLET PO SCH (08:21)
[2020-09-15 08:56] VITALS: BP 120/69
[2020-09-15] MEDS: ALBUTEROL SULFATE HFA 90 MCG/PUFF 8 GM INHALER IH PRN (14:45)
[2020-09-15 16:13] VITALS: BP 130/75
[2020-09-15] MEDS: QUEtiapine FUMARATE 300 MG TABLET PO SCH (20:05)
[2020-09-16 03:19] VITALS: BP 108/74
[2020-09-16] MEDS: FERROUS SULFATE 325 MG EC TABLET PO SCH ×2 (06:02→16:40)
[2020-09-16 08:18] VITALS: BP 122/78
[2020-09-16] MEDS: NITROFURANTOIN MACROCRYSTAL 100 MG CAPSULE PO SCH ×2 (08:24→16:40)
[2020-09-16] MEDS: LISINOPRIL 20 MG TABLET PO SCH (08:25)
[2020-09-16] MEDS: TIMOLOL MALEATE 0.25% 5 ML OPHTHALMIC SOLUTION OU SCH ×2 (08:26→16:38)
[2020-09-16] MEDS: AmLODIPine BESYLATE 10 MG TABLET PO SCH (08:26)
[2020-09-16] MEDS: ALBUTEROL SULFATE HFA 90 MCG/PUFF 8 GM INHALER IH PRN (14:18)
[2020-09-16 16:34] VITALS: BP 129/74
[2020-09-16] MEDS: QUEtiapine FUMARATE 300 MG TABLET PO SCH (20:50)
[2020-09-17 02:58] VITALS: BP 133/68
[2020-09-17] MEDS: FERROUS SULFATE 325 MG EC TABLET PO SCH ×2 (07:13→16:19)
[2020-09-17 08:15] VITALS: BP 114/60
[2020-09-17] MEDS: TIMOLOL MALEATE 0.25% 5 ML OPHTHALMIC SOLUTION OU SCH ×2 (08:47→16:18)
[2020-09-17] MEDS: AmLODIPine BESYLATE 10 MG TABLET PO SCH (08:47)
[2020-09-17] MEDS: LISINOPRIL 20 MG TABLET PO SCH (08:47)
[2020-09-17] MEDS: NITROFURANTOIN MACROCRYSTAL 100 MG CAPSULE PO SCH ×2 (08:47→16:18)
[2020-09-17 16:16] VITALS: BP 126/80
[2020-09-17] MEDS: QUEtiapine FUMARATE 300 MG TABLET PO SCH (21:52)
[2020-09-18 05:16] VITALS: BP 118/70
[2020-09-18] MEDS: FERROUS SULFATE 325 MG EC TABLET PO SCH ×2 (07:03→16:45)
[2020-09-18] MEDS: NITROFURANTOIN MACROCRYSTAL 100 MG CAPSULE PO SCH ×2 (08:17→16:45)
[2020-09-18] MEDS: TIMOLOL MALEATE 0.25% 5 ML OPHTHALMIC SOLUTION OU SCH ×2 (08:18→17:32)
[2020-09-18] MEDS: AmLODIPine BESYLATE 10 MG TABLET PO SCH (08:19)
[2020-09-18] MEDS: LISINOPRIL 20 MG TABLET PO SCH (08:20)
[2020-09-18 08:43] LABS: COVID AG,FIA SOURCE NASOPHARYNGEAL
[2020-09-18 09:18] VITALS: BP 103/59
[2020-09-18 16:42] VITALS: BP 122/80
[2020-09-18] MEDS: QUEtiapine FUMARATE 300 MG TABLET PO SCH (20:56)
[2020-09-19 00:47] VITALS: BP 139/80
[2020-09-19] MEDS: FERROUS SULFATE 325 MG EC TABLET PO SCH ×2 (07:28→17:00)
[2020-09-19] MEDS: NITROFURANTOIN MACROCRYSTAL 100 MG CAPSULE PO SCH ×2 (08:13→17:00)
[2020-09-19] MEDS: AmLODIPine BESYLATE 10 MG TABLET PO SCH (08:13)
[2020-09-19] MEDS: TIMOLOL MALEATE 0.25% 5 ML OPHTHALMIC SOLUTION OU SCH ×2 (08:14→17:01)
[2020-09-19] MEDS: LISINOPRIL 20 MG TABLET PO SCH (08:14)
[2020-09-19 08:35] VITALS: BP 137/77
[2020-09-19] MEDS: MAG HYDROX/AL HYDROX/SIMETH ES 30 ML SUSPENSION UDCUP PO PRN (15:02)
[2020-09-19 16:14] VITALS: BP 127/74
[2020-09-19] MEDS: ACETAMINOPHEN 325 MG TABLET PO PRN (17:00)
[2020-09-19] MEDS: QUEtiapine FUMARATE 300 MG TABLET PO SCH (20:06)
[2020-09-20 06:38] VITALS: BP 125/79
[2020-09-20] MEDS: FERROUS SULFATE 325 MG EC TABLET PO SCH ×2 (06:49→17:15)
[2020-09-20 08:18] VITALS: BP 132/68
[2020-09-20] MEDS: LISINOPRIL 20 MG TABLET PO SCH (08:22)
[2020-09-20] MEDS: AmLODIPine BESYLATE 10 MG TABLET PO SCH (08:22)
[2020-09-20] MEDS: TIMOLOL MALEATE 0.25% 5 ML OPHTHALMIC SOLUTION OU SCH ×2 (08:26→17:17)
[2020-09-20] MEDS: ALBUTEROL SULFATE HFA 90 MCG/PUFF 8 GM INHALER IH PRN (08:37)
[2020-09-20 16:21] VITALS: BP 114/67
[2020-09-20] MEDS: QUEtiapine FUMARATE 300 MG TABLET PO SCH (20:13)
[2020-09-21 06:06] VITALS: BP 118/77
[2020-09-21] MEDS: FERROUS SULFATE 325 MG EC TABLET PO SCH ×2 (06:58→17:09)
[2020-09-21] MEDS: LISINOPRIL 20 MG TABLET PO SCH (08:12)
[2020-09-21] MEDS: AmLODIPine BESYLATE 10 MG TABLET PO SCH (08:12)
[2020-09-21] MEDS: OMEGA-3/DHA/EPA/FISH OIL 1,000 MG CAPSULE PO SCH (08:12)
[2020-09-21] MEDS: TIMOLOL MALEATE 0.25% 5 ML OPHTHALMIC SOLUTION OU SCH ×2 (08:13→17:09)
[2020-09-21 08:44] VITALS: BP 133/90
[2020-09-21 17:35] VITALS: BP 126/85
[2020-09-21] MEDS: QUEtiapine FUMARATE 300 MG TABLET PO SCH (20:05)
[2020-09-21] MEDS: ACETAMINOPHEN 325 MG TABLET PO PRN (20:06)
[2020-09-21] MEDS: ALBUTEROL SULFATE HFA 90 MCG/PUFF 8 GM INHALER IH PRN (20:52)
[2020-09-22 00:45] VITALS: BP 140/71
[2020-09-22] MEDS: FERROUS SULFATE 325 MG EC TABLET PO SCH ×2 (06:24→16:09)
[2020-09-22] MEDS: TIMOLOL MALEATE 0.25% 5 ML OPHTHALMIC SOLUTION OU SCH ×2 (08:11→16:09)
[2020-09-22] MEDS: OMEGA-3/DHA/EPA/FISH OIL 1,000 MG CAPSULE PO SCH (08:11)
[2020-09-22] MEDS: AmLODIPine BESYLATE 10 MG TABLET PO SCH (08:11)
[2020-09-22] MEDS: LISINOPRIL 20 MG TABLET PO SCH (08:11)
[2020-09-22] MEDS: ACETAMINOPHEN 325 MG TABLET PO PRN (08:12)
[2020-09-22 08:15] VITALS: BP 140/85
[2020-09-22 16:17] VITALS: BP 143/79
[2020-09-22] MEDS: IBUPROFEN 600 MG TABLET PO PRN (16:31)
[2020-09-22] MEDS: QUEtiapine FUMARATE 300 MG TABLET PO SCH (20:18)
[2020-09-22] MEDS: ALBUTEROL SULFATE HFA 90 MCG/PUFF 8 GM INHALER IH PRN (20:28)
[2020-09-23 01:57] VITALS: BP 148/76
[2020-09-23] MEDS: FERROUS SULFATE 325 MG EC TABLET PO SCH ×2 (06:47→16:31)
[2020-09-23 08:19] VITALS: BP 145/85
[2020-09-23] MEDS: AmLODIPine BESYLATE 10 MG TABLET PO SCH (08:19)
[2020-09-23] MEDS: OMEGA-3/DHA/EPA/FISH OIL 1,000 MG CAPSULE PO SCH (08:19)
[2020-09-23] MEDS: LISINOPRIL 20 MG TABLET PO SCH (08:19)
[2020-09-23] MEDS: TIMOLOL MALEATE 0.25% 5 ML OPHTHALMIC SOLUTION OU SCH ×2 (08:20→16:31)
[2020-09-23 09:38] LABS: BAND NEUTROPHILS % (MANUAL) 0 % (0-5)
[2020-09-23 09:44] LABS: HEMOGLOBIN 10.4 g/dL (12.0-16.0); MEAN CORPUSCULAR HEMOGLOBIN 22.5 pg (26.0-34.0); MEAN CORPUSCULAR HGB CONC 29.7 G/dL (31.0-37.0); MEAN CORPUSCULAR VOLUME 76 fL (80-100); PLATELET COUNT (AUTO) 324 K/uL (150-450); RED BLOOD CELL COUNT(AUTO) 4.62 MIL/uL (4.00-5.20); RED CELL DISTRIBUTION WIDTH 15.8 % (11.5-14.5)
[2020-09-23 10:35] LABS: ANION GAP 13 mmol/L (8-16); CALCIUM, TOTAL 9.5 mg/dL (8.8-10.5); CARBON DIOXIDE 24 mmol/L (22-29); CHLORIDE 101 mmol/L (98-107); CHOL/HDL RATIO 2.3 (3.9-5.7); CHOLESTEROL 181 mg/dL (131-200); CREATININE 0.76 mg/dL (0.60-1.30); GLOMERULAR FILTR. RATE CALC > 60 mL/min (>60); GLUCOSE,RANDOM 122 mg/dL (70-110); HDL CHOLESTEROL 79 mg/dL (40-60); LDL CHOL (CALC.) 90 mg/dL (0-130); PHOSPHORUS 4.7 mg/dL (2.5-4.9); POTASSIUM 4.1 mmol/L (3.5-5.1); SODIUM SERUM 138 mmol/L (136-145); THYROID STIMULATING HORMONE 1.78 uIU/mL (0.36-3.74); TRIGLYCERIDES 58 mg/dL (15-150); UREA NITROGEN, BLOOD 33 mg/dL (7-18)
[2020-09-23 11:10] LABS: LYMPHOCYTES % (MANUAL) 28 % (22-44); MONOCYTES % (MANUAL) 5 % (2-9); SEGMENTED NEUTROPHILS % 67 % (40-70)
[2020-09-23] MEDS ORDERED: ARIPiprazole ER SUSPENSION 400 MG VIAL IM SCH (12:00)
[2020-09-23 16:12] VITALS: BP 103/60
[2020-09-23] MEDS: LORazepam 1 MG TABLET PO PRN (18:50)
[2020-09-24 03:27] VITALS: BP 149/65
[2020-09-24] MEDS: FERROUS SULFATE 325 MG EC TABLET PO SCH ×2 (06:56→16:22)
[2020-09-24 08:07] VITALS: BP 144/86
[2020-09-24] MEDS: AmLODIPine BESYLATE 10 MG TABLET PO SCH (09:34)
[2020-09-24] MEDS: OMEGA-3/DHA/EPA/FISH OIL 1,000 MG CAPSULE PO SCH (09:34)
[2020-09-24] MEDS: TIMOLOL MALEATE 0.25% 5 ML OPHTHALMIC SOLUTION OU SCH ×2 (09:34→16:20)
[2020-09-24] MEDS: ARIPiprazole 10 MG TABLET PO SCH (09:35)
[2020-09-24] MEDS: LISINOPRIL 20 MG TABLET PO SCH (09:35)
[2020-09-24] MEDS: MAG HYDROX/AL HYDROX/SIMETH ES 30 ML SUSPENSION UDCUP PO PRN (14:38)
[2020-09-24 16:17] VITALS: BP 127/80
[2020-09-25 00:37] VITALS: BP 147/71
[2020-09-25] MEDS: FERROUS SULFATE 325 MG EC TABLET PO SCH ×2 (06:59→17:09)
[2020-09-25] MEDS: OMEGA-3/DHA/EPA/FISH OIL 1,000 MG CAPSULE PO SCH (08:11)
[2020-09-25] MEDS: LISINOPRIL 20 MG TABLET PO SCH (08:12)
[2020-09-25] MEDS: ARIPiprazole 10 MG TABLET PO SCH (08:12)
[2020-09-25] MEDS: AmLODIPine BESYLATE 10 MG TABLET PO SCH (08:12)
[2020-09-25] MEDS: TIMOLOL MALEATE 0.25% 5 ML OPHTHALMIC SOLUTION OU SCH ×2 (08:12→17:09)
[2020-09-25 08:29] VITALS: BP 146/94
[2020-09-25 08:38] LABS: COVID AG,FIA SOURCE NASOPHARYNGEAL
[2020-09-25] MEDS: ALBUTEROL SULFATE HFA 90 MCG/PUFF 8 GM INHALER IH PRN (09:53)
[2020-09-25 16:04] VITALS: BP 132/61
[2020-09-26 01:02] VITALS: BP 157/88
[2020-09-26] MEDS: FERROUS SULFATE 325 MG EC TABLET PO SCH ×2 (06:57→16:10)
[2020-09-26 08:12] VITALS: BP 131/82
[2020-09-26] MEDS: TIMOLOL MALEATE 0.25% 5 ML OPHTHALMIC SOLUTION OU SCH ×2 (08:39→16:10)
[2020-09-26] MEDS: ARIPiprazole 10 MG TABLET PO SCH (08:40)
[2020-09-26] MEDS: OMEGA-3/DHA/EPA/FISH OIL 1,000 MG CAPSULE PO SCH (08:40)
[2020-09-26] MEDS: LISINOPRIL 20 MG TABLET PO SCH (08:40)
[2020-09-26] MEDS: AmLODIPine BESYLATE 10 MG TABLET PO SCH (08:40)
[2020-09-26 16:22] VITALS: BP 115/85
[2020-09-26] MEDS: ACETAMINOPHEN 325 MG TABLET PO PRN (20:31)
[2020-09-27 03:19] VITALS: BP 132/76
[2020-09-27] MEDS: FERROUS SULFATE 325 MG EC TABLET PO SCH ×2 (06:49→16:29)
[2020-09-27] MEDS: OMEGA-3/DHA/EPA/FISH OIL 1,000 MG CAPSULE PO SCH (08:07)
[2020-09-27] MEDS: AmLODIPine BESYLATE 10 MG TABLET PO SCH (08:07)
[2020-09-27] MEDS: TIMOLOL MALEATE 0.25% 5 ML OPHTHALMIC SOLUTION OU SCH ×2 (08:07→16:29)
[2020-09-27] MEDS: ARIPiprazole 10 MG TABLET PO SCH (08:07)
[2020-09-27] MEDS: LISINOPRIL 20 MG TABLET PO SCH (08:07)
[2020-09-27 08:22] VITALS: BP 114/60
[2020-09-27] MEDS: ALBUTEROL SULFATE HFA 90 MCG/PUFF 8 GM INHALER IH PRN (10:48)
[2020-09-27 16:02] VITALS: BP 105/65
[2020-09-28 00:30] VITALS: BP 126/72
[2020-09-28] MEDS: FERROUS SULFATE 325 MG EC TABLET PO SCH ×2 (07:11→16:06)
[2020-09-28 08:30] VITALS: BP 120/89
[2020-09-28] MEDS: AmLODIPine BESYLATE 10 MG TABLET PO SCH (09:24)
[2020-09-28] MEDS: OMEGA-3/DHA/EPA/FISH OIL 1,000 MG CAPSULE PO SCH (09:24)
[2020-09-28] MEDS: LISINOPRIL 20 MG TABLET PO SCH (09:24)
[2020-09-28] MEDS: MULTIVITAMINS WITH MINERALS, THERAPEUTIC TABLET PO SCH (09:24)
[2020-09-28] MEDS: ARIPiprazole 10 MG TABLET PO SCH (09:24)
[2020-09-28] MEDS: TIMOLOL MALEATE 0.25% 5 ML OPHTHALMIC SOLUTION OU SCH ×2 (09:25→16:06)
[2020-09-28] MEDS: MAG HYDROX/AL HYDROX/SIMETH ES 30 ML SUSPENSION UDCUP PO PRN (12:19)
[2020-09-28 16:05] VITALS: BP 118/73
[2020-09-28] MEDS: LORazepam 1 MG TABLET PO PRN (20:11)
[2020-09-29] MEDS: FERROUS SULFATE 325 MG EC TABLET PO SCH ×2 (06:35→16:38)
[2020-09-29 07:09] VITALS: BP 119/77
[2020-09-29 08:06] VITALS: BP 144/85
[2020-09-29] MEDS: OMEGA-3/DHA/EPA/FISH OIL 1,000 MG CAPSULE PO SCH (08:30)
[2020-09-29] MEDS: ARIPiprazole 10 MG TABLET PO SCH (08:30)
[2020-09-29] MEDS: TIMOLOL MALEATE 0.25% 5 ML OPHTHALMIC SOLUTION OU SCH ×2 (08:30→16:39)
[2020-09-29] MEDS: LISINOPRIL 20 MG TABLET PO SCH (08:30)
[2020-09-29] MEDS: AmLODIPine BESYLATE 10 MG TABLET PO SCH (08:30)
[2020-09-29] MEDS: MULTIVITAMINS WITH MINERALS, THERAPEUTIC TABLET PO SCH (08:30)
[2020-09-29 08:43] LABS: APPEARANCE,URINE CLOUDY (CLEAR); BILIRUBIN,URINE NEGATIVE (NEGATIVE); GLUCOSE, URINE (UA) NEGATIVE (NEGATIVE); KETONES,URINE NEGATIVE (NEGATIVE); LEUKOCYTE ESTERASE ,URINE LARGE (NEGATIVE); NITRATE,URINE NEGATIVE (NEGATIVE); OCCULT BLOOD,URINE NEGATIVE (NEGATIVE); PROTEIN,URINE NEGATIVE (NEGATIVE); UROBILINOGEN,URINE 0.2 mg/dL (<=1.0)
[2020-09-29 09:47] LABS: BACTERIA,URINE None Seen /HPF (None Seen); CALCIUM OXALATE CRYSTALS,UR Few /LPF (None Seen); RBC,URINE None Seen /HPF (0-2); SQUAMOUS EPITHELIAL CELL,UR Few /LPF (None Seen)
[2020-09-29 16:03] VITALS: BP 134/82
[2020-09-30 00:22] VITALS: BP 127/60
[2020-09-30] MEDS: IBUPROFEN 600 MG TABLET PO PRN (01:11)
[2020-09-30] MEDS: FERROUS SULFATE 325 MG EC TABLET PO SCH ×2 (06:03→16:21)
[2020-09-30 08:20] VITALS: BP 128/76
[2020-09-30] MEDS: MULTIVITAMINS WITH MINERALS, THERAPEUTIC TABLET PO SCH (09:35)
[2020-09-30] MEDS: AmLODIPine BESYLATE 10 MG TABLET PO SCH (09:35)
[2020-09-30] MEDS: OMEGA-3/DHA/EPA/FISH OIL 1,000 MG CAPSULE PO SCH (09:35)
[2020-09-30] MEDS: LISINOPRIL 20 MG TABLET PO SCH (09:35)
[2020-09-30] MEDS: ARIPiprazole 10 MG TABLET PO SCH (09:35)
[2020-09-30] MEDS: TIMOLOL MALEATE 0.25% 5 ML OPHTHALMIC SOLUTION OU SCH ×2 (09:36→16:21)
[2020-09-30] MEDS: LORazepam 1 MG TABLET PO PRN (10:11)
[2020-09-30 16:16] VITALS: BP 116/60
[2020-10-01 00:29] VITALS: BP 121/70
[2020-10-01] MEDS: FERROUS SULFATE 325 MG EC TABLET PO SCH (07:28)
[2020-10-01 08:24] VITALS: BP 151/83
[2020-10-01] MEDS: OMEGA-3/DHA/EPA/FISH OIL 1,000 MG CAPSULE PO SCH (08:48)
[2020-10-01] MEDS: AmLODIPine BESYLATE 10 MG TABLET PO SCH (08:48)
[2020-10-01] MEDS: LISINOPRIL 20 MG TABLET PO SCH (08:48)
[2020-10-01] MEDS: MULTIVITAMINS WITH MINERALS, THERAPEUTIC TABLET PO SCH (08:48)
[2020-10-01] MEDS: TIMOLOL MALEATE 0.25% 5 ML OPHTHALMIC SOLUTION OU SCH (08:49)
[2020-10-01] MEDS ORDERED: NITROFURANTOIN/NITROFURAN MAC 100 MG CAPSULE [MACROBID] PO SCH (09:00)
[2020-10-01] MEDS ORDERED: ARIP300S3 IM (09:21)
[2020-10-01] MEDS ORDERED: FERR-89 PO (09:40)
[2020-10-01] MEDS ORDERED: MACR100 PO (09:41)
[2020-10-01] MEDS ORDERED: OMEG-135 PO (09:41)
[2020-10-01] MEDS ORDERED: AMLO-258 PO (09:42)
[2020-10-01] MEDS ORDERED: LISI-894 PO (09:45)
[2020-10-01] MEDS ORDERED: TIMO.25OS OU (09:46)
== END 2020-10-01 12:00 | disposition home or self-care (01) | DRG 885 ==
LOC: EMS 11:11 → B2S 15:12
PROVIDERS: ADMIT Psychiatry & Neurology Psychiatry; ATTEND Psychiatry & Neurology Psychiatry
DX: F20.0 Paranoid schizophrenia (principal); F05 Delirium due to known physiological condition; E44.0 Moderate protein-calorie malnutrition; Z20.822 Contact with and (suspected) exposure to COVID-19; E11.9 Type 2 diabetes mellitus without complications; J45.909 Unspecified asthma, uncomplicated; I10 Essential (primary) hypertension; F11.90 Opioid use, unspecified, uncomplicated; K21.9 Gastro-esophageal reflux disease without esophagitis; F41.8 Other specified anxiety disorders; M19.90 Unspecified osteoarthritis, unspecified site; R26.9 Unspecified abnormalities of gait and mobility; D64.9 Anemia, unspecified; K59.00 Constipation, unspecified; F15.90 Other stimulant use, unspecified, uncomplicated; Z90.49 Acquired absence of other specified parts of digestive tract; Z68.22 Body mass index [BMI] 22.0-22.9, adult; Z59.0 Homelessness; Z90.11 Acquired absence of right breast and nipple; Z85.3 Personal history of malignant neoplasm of breast; Z91.14 Patient's other noncompliance with medication regimen; Z91.81 History of falling; Z88.8 Allergy status to other drugs, medicaments and biological substances; Z88.0 Allergy status to penicillin
CPT/HCPCS: 80307; 83036; 83735; 84100; 84439; 84443; 85007; 86592; 87081; 87086; 87426; 99285; G0480; G0481; J0401; J3535

== ENCOUNTER 2020-09-12 20:06 | Emergency (ER) | payer MEDICARE, OTHER ==
[~2020-09-12] VITALS: Ht 160 cm; Wt 56.8 kg
[2020-09-12 21:25] LABS: APPEARANCE,URINE CLOUDY (CLEAR); BILIRUBIN,URINE NEGATIVE (NEGATIVE); GLUCOSE, URINE (UA) NEGATIVE (NEGATIVE); KETONES,URINE NEGATIVE (NEGATIVE); LEUKOCYTE ESTERASE ,URINE MODERATE (NEGATIVE); NITRATE,URINE NEGATIVE (NEGATIVE); OCCULT BLOOD,URINE TRACE (NEGATIVE); PH,URINE 7.5 (5.0-8.0); PROTEIN,URINE NEGATIVE (NEGATIVE); UROBILINOGEN,URINE 0.2 mg/dL (<=1.0)
[2020-09-12 21:36] LABS: AMPHET/METH SCREEN,URINE NEGATIVE (NEGATIVE); BARBITURATE SCREEN, URINE NEGATIVE (NEGATIVE); BENZODIAZEPINES SCREEN,URINE NEGATIVE (NEGATIVE); CANNABINOID SCREEN,URINE NEGATIVE (NEGATIVE); COCAINE SCREEN,URINE NEGATIVE (NEGATIVE); METHADONE SCREEN, URINE NEGATIVE (NEGATIVE); OPIATE SCREEN,URINE NEGATIVE (NEGATIVE)
[2020-09-12 21:37] LABS: PHENCYCLIDINE SCREEN,URINE NEGATIVE (NEGATIVE)
[2020-09-12 21:45] LABS: BACTERIA,URINE Few /HPF (None Seen); RBC,URINE 0-2 /HPF (0-2); SQUAMOUS EPITHELIAL CELL,UR Few /LPF (None Seen); WBC,URINE 26-50 /HPF (0-5)
[2020-09-12] MEDS ORDERED: NITROFURANTOIN/NITROFURAN MAC 100 MG CAPSULE [MACROBID] PO ONE (22:00)
[2020-09-12 22:45] VITALS: BP 135/74
== END 2020-09-12 23:07 | disposition home or self-care (01) ==
LOC: EMS 20:06
DX: S09.90XA Unspecified injury of head, initial encounter (principal); N39.0 Urinary tract infection, site not specified; F11.90 Opioid use, unspecified, uncomplicated; F15.90 Other stimulant use, unspecified, uncomplicated; J45.909 Unspecified asthma, uncomplicated; I10 Essential (primary) hypertension; Z88.0 Allergy status to penicillin; Z88.8 Allergy status to other drugs, medicaments and biological substances; W01.0XXA Fall on same level from slipping, tripping and stumbling without subsequent striking against object, initial encounter; Y93.89 Activity, other specified; Y92.89 Other specified places as the place of occurrence of the external cause; Y99.8 Other external cause status
CPT/HCPCS: 70450; 72125; 87086; 99285

== ENCOUNTER 2020-10-05 06:41 | Emergency (ER) | payer MEDICARE, OTHER ==
[~2020-10-05] VITALS: Ht 160 cm; Wt 56.8 kg
[~2020-10-05 06:41] MED LIST changes: +AMLO-258 PO; -AMLO5TAB66 PO; -ANAS1TAB50 PO; -ARIP15TA2 PO; +ARIP300S3 IM; +MACR100 PO; +OMEG-135 PO; -QUET200T PO; +TIMO.25OS OU; -TIMO10DR28 OU
[2020-10-05 07:11] VITALS: BP 136/79
[2020-10-05 08:00] LABS: BASOPHILS % (AUTO) 1.3 % (0.0-2.0); EOSINOPHILS % (AUTO) 1.7 % (1.0-6.0); HEMATOCRIT 35.2 % (36-46); HEMOGLOBIN 10.9 g/dL (12.0-16.0); LYMPHOCYTES % (AUTO) 19.4 % (22.0-44.0); MEAN CORPUSCULAR HEMOGLOBIN 22.5 pg (26.0-34.0); MEAN CORPUSCULAR VOLUME 73 fL (80-100); MONOCYTES # (AUTO) 0.5 K/uL (0.1-1.0); MONOCYTES % (AUTO) 8.9 % (2.0-9.0); NEUTROPHILS # (AUTO) 3.6 K/uL (1.8-7.7); NEUTROPHILS % (AUTO) 68.7 % (40.0-70.0); PLATELET COUNT (AUTO) 330 K/uL (150-450); RED BLOOD CELL COUNT(AUTO) 4.85 MIL/uL (4.00-5.20); RED CELL DISTRIBUTION WIDTH 15.5 % (11.5-14.5)
[2020-10-05 08:13] LABS: ANION GAP 12 mmol/L (8-16); CALCIUM, TOTAL 9.7 mg/dL (8.8-10.5); CARBON DIOXIDE 26 mmol/L (22-29); CHLORIDE 103 mmol/L (98-107); CREATININE 0.61 mg/dL (0.60-1.30); GLOMERULAR FILTR. RATE CALC > 60 mL/min (>60); GLUCOSE,RANDOM 89 mg/dL (70-110); POTASSIUM 3.5 mmol/L (3.5-5.1); SODIUM SERUM 141 mmol/L (136-145); UREA NITROGEN, BLOOD 23 mg/dL (7-18)
[2020-10-05 08:15] LABS: ALANINE AMINOTRANSFERASE 45 U/L (12-78); ALBUMIN 3.6 g/dL (3.4-5.0); ALKALINE PHOSPHATASE 171 U/L (46-116); ASPARTATE AMINOTRANSFERASE 29 U/L (15-37); BILIRUBIN,TOTAL 0.4 mg/dL (0.1-1.0); TOTAL PROTEIN, SERUM 8.7 g/dL (6.4-8.2)
[2020-10-05] MEDS ORDERED: ACETAMINOPHEN 325 MG TABLET PO ONE (08:30)
[2020-10-05] MEDS ORDERED: QUEtiapine FUMARATE 100 MG TABLET PO ONE (08:30)
== END 2020-10-05 09:18 | disposition home or self-care (01) ==
LOC: EMS 06:44
DX: F20.9 Schizophrenia, unspecified (principal); F11.90 Opioid use, unspecified, uncomplicated; F15.90 Other stimulant use, unspecified, uncomplicated; F32.9 Major depressive disorder, single episode, unspecified; E11.9 Type 2 diabetes mellitus without complications; I10 Essential (primary) hypertension; Z79.899 Other long term (current) drug therapy
CPT/HCPCS: 36415; 80053; 82962; 85025; 99284; G0480

== ENCOUNTER 2020-10-12 05:58 | Emergency (ER) | payer MEDICARE, OTHER ==
[~2020-10-12] VITALS: Ht 160 cm; Wt 56.8 kg
[2020-10-12 06:29] LABS: BASOPHILS % (AUTO) 0.8 % (0.0-2.0); EOSINOPHILS % (AUTO) 1.7 % (1.0-6.0); HEMATOCRIT 31.4 % (36-46); HEMOGLOBIN 9.7 g/dL (12.0-16.0); LYMPHOCYTES # (AUTO) 1.3 K/uL (1.0-4.8); LYMPHOCYTES % (AUTO) 20.4 % (22.0-44.0); MEAN CORPUSCULAR HEMOGLOBIN 22.5 pg (26.0-34.0); MEAN CORPUSCULAR HGB CONC 30.9 G/dL (31.0-37.0); MEAN CORPUSCULAR VOLUME 73 fL (80-100); MONOCYTES # (AUTO) 0.6 K/uL (0.1-1.0); NEUTROPHILS # (AUTO) 4.4 K/uL (1.8-7.7); NEUTROPHILS % (AUTO) 68.1 % (40.0-70.0); PLATELET COUNT (AUTO) 328 K/uL (150-450); RED BLOOD CELL COUNT(AUTO) 4.32 MIL/uL (4.00-5.20); RED CELL DISTRIBUTION WIDTH 15.7 % (11.5-14.5)
[2020-10-12 06:48] LABS: ANION GAP 10 mmol/L (8-16); CALCIUM, TOTAL 9.4 mg/dL (8.8-10.5); CARBON DIOXIDE 26 mmol/L (22-29); CHLORIDE 110 mmol/L (98-107); CREATININE 0.78 mg/dL (0.60-1.30); GLOMERULAR FILTR. RATE CALC > 60 mL/min (>60); GLUCOSE,RANDOM 106 mg/dL (70-110); POTASSIUM 3.8 mmol/L (3.5-5.1); SODIUM SERUM 146 mmol/L (136-145); UREA NITROGEN, BLOOD 30 mg/dL (7-18)
[2020-10-12 06:51] LABS: ALANINE AMINOTRANSFERASE 77 U/L (12-78); ALBUMIN 3.2 g/dL (3.4-5.0); ALKALINE PHOSPHATASE 162 U/L (46-116); ASPARTATE AMINOTRANSFERASE 28 U/L (15-37); BILIRUBIN,TOTAL 0.2 mg/dL (0.1-1.0); TOTAL PROTEIN, SERUM 7.7 g/dL (6.4-8.2)
[2020-10-12] MEDS ORDERED: AmLODIPine BESYLATE 5 MG TABLET PO ONE (07:00)
[2020-10-12] MEDS ORDERED: PredniSONE 20 MG TABLET PO ONE (07:15)
[2020-10-12] MEDS ORDERED: ALBUTEROL SULFATE HFA 90 MCG/PUFF 8 GM INHALER IH ONE (07:15)
[2020-10-12 08:50] VITALS: BP 180/90
== END 2020-10-12 08:55 | disposition home or self-care (01) ==
LOC: EMS 06:03
DX: J45.909 Unspecified asthma, uncomplicated (principal); F41.9 Anxiety disorder, unspecified; F32.9 Major depressive disorder, single episode, unspecified; E11.9 Type 2 diabetes mellitus without complications; K21.9 Gastro-esophageal reflux disease without esophagitis; I10 Essential (primary) hypertension; F11.90 Opioid use, unspecified, uncomplicated; F19.90 Other psychoactive substance use, unspecified, uncomplicated; Z90.89 Acquired absence of other organs; Z88.0 Allergy status to penicillin; Z88.8 Allergy status to other drugs, medicaments and biological substances; Z79.899 Other long term (current) drug therapy
CPT/HCPCS: 36415; 71045; 80053; 82962; 83880; 84484; 85025; 93005; 94640; 99285; J7512; J3535

== ENCOUNTER 2020-10-26 16:07 | Emergency (ER) | payer MEDICARE, OTHER ==
[~2020-10-26] VITALS: Ht 157.5 cm; Wt 56.8 kg
[2020-10-26] MEDS ORDERED: ASPIRIN 81 MG CHEWABLE TABLET PO ONE (17:00)
[2020-10-26 17:09] LABS: EOSINOPHILS % (AUTO) 2.4 % (1.0-6.0); HEMATOCRIT 30.2 % (36-46); HEMOGLOBIN 9.5 g/dL (12.0-16.0); LYMPHOCYTES % (AUTO) 23.1 % (22.0-44.0); MEAN CORPUSCULAR HEMOGLOBIN 22.9 pg (26.0-34.0); MEAN CORPUSCULAR HGB CONC 31.3 G/dL (31.0-37.0); MEAN CORPUSCULAR VOLUME 73 fL (80-100); MONOCYTES # (AUTO) 0.5 K/uL (0.1-1.0); MONOCYTES % (AUTO) 12.4 % (2.0-9.0); NEUTROPHILS # (AUTO) 2.5 K/uL (1.8-7.7); NEUTROPHILS % (AUTO) 61.1 % (40.0-70.0); PLATELET COUNT (AUTO) 314 K/uL (150-450); RED BLOOD CELL COUNT(AUTO) 4.14 MIL/uL (4.00-5.20); RED CELL DISTRIBUTION WIDTH 16.3 % (11.5-14.5)
[2020-10-26 17:20] LABS: ANION GAP 9 mmol/L (8-16); CARBON DIOXIDE 28 mmol/L (22-29); CHLORIDE 108 mmol/L (98-107); CREATININE 0.71 mg/dL (0.60-1.30); GLOMERULAR FILTR. RATE CALC > 60 mL/min (>60); GLUCOSE,RANDOM 103 mg/dL (70-110); POTASSIUM 3.8 mmol/L (3.5-5.1); SODIUM SERUM 145 mmol/L (136-145); UREA NITROGEN, BLOOD 27 mg/dL (7-18)
[2020-10-26 17:25] LABS: ALANINE AMINOTRANSFERASE 45 U/L (12-78); ALBUMIN 3.4 g/dL (3.4-5.0); ALKALINE PHOSPHATASE 172 U/L (46-116); ASPARTATE AMINOTRANSFERASE 30 U/L (15-37); BILIRUBIN,TOTAL 0.3 mg/dL (0.1-1.0); LIPASE 187 U/L (73-393); TOTAL PROTEIN, SERUM 7.1 g/dL (6.4-8.2)
[2020-10-26 17:51] LABS: APPEARANCE,URINE CLEAR (CLEAR); BILIRUBIN,URINE NEGATIVE (NEGATIVE); GLUCOSE, URINE (UA) NEGATIVE (NEGATIVE); KETONES,URINE NEGATIVE (NEGATIVE); LEUKOCYTE ESTERASE ,URINE NEGATIVE (NEGATIVE); NITRATE,URINE NEGATIVE (NEGATIVE); OCCULT BLOOD,URINE NEGATIVE (NEGATIVE); PROTEIN,URINE NEGATIVE (NEGATIVE)
[2020-10-26 18:49] LABS: AMPHET/METH SCREEN,URINE NEGATIVE (NEGATIVE); BARBITURATE SCREEN, URINE NEGATIVE (NEGATIVE); BENZODIAZEPINES SCREEN,URINE NEGATIVE (NEGATIVE); CANNABINOID SCREEN,URINE NEGATIVE (NEGATIVE); COCAINE SCREEN,URINE NEGATIVE (NEGATIVE); METHADONE SCREEN, URINE NEGATIVE (NEGATIVE); OPIATE SCREEN,URINE NEGATIVE (NEGATIVE)
[2020-10-26 18:50] LABS: PHENCYCLIDINE SCREEN,URINE NEGATIVE (NEGATIVE)
[2020-10-26] MEDS ORDERED: LORazepam 1 MG TABLET PO ONE (19:00)
[2020-10-26 21:40] VITALS: BP 126/76
== END 2020-10-26 21:42 | disposition home or self-care (01) ==
LOC: EMS 16:07
DX: R10.11 Right upper quadrant pain (principal); R06.02 Shortness of breath; I20.9 Angina pectoris, unspecified; F41.9 Anxiety disorder, unspecified; J45.909 Unspecified asthma, uncomplicated; F32.9 Major depressive disorder, single episode, unspecified; E11.9 Type 2 diabetes mellitus without complications; F20.9 Schizophrenia, unspecified; F15.90 Other stimulant use, unspecified, uncomplicated; F11.90 Opioid use, unspecified, uncomplicated; Z88.0 Allergy status to penicillin; Z88.8 Allergy status to other drugs, medicaments and biological substances; Z79.899 Other long term (current) drug therapy; Z86.73 Personal history of transient ischemic attack (TIA), and cerebral infarction without residual deficits; Z90.49 Acquired absence of other specified parts of digestive tract
CPT/HCPCS: 36415; 71045; 80053; 80307; 81003; 83690; 83880; 84484; 85025; 93005; 99285; G0480

== ENCOUNTER 2020-10-30 13:28 | Emergency (ER) | payer MEDICARE, OTHER ==
[~2020-10-30] VITALS: Ht 172.7 cm; Wt 56.8 kg
[2020-10-30 14:56] VITALS: BP 125/86
[2020-10-30 15:07] LABS: BASOPHILS % (AUTO) 1.5 % (0.0-2.0); EOSINOPHILS % (AUTO) 3.6 % (1.0-6.0); HEMATOCRIT 34.5 % (36-46); HEMOGLOBIN 10.8 g/dL (12.0-16.0); LYMPHOCYTES # (AUTO) 1.5 K/uL (1.0-4.8); LYMPHOCYTES % (AUTO) 30.9 % (22.0-44.0); MEAN CORPUSCULAR HEMOGLOBIN 22.9 pg (26.0-34.0); MEAN CORPUSCULAR HGB CONC 31.2 G/dL (31.0-37.0); MEAN CORPUSCULAR VOLUME 74 fL (80-100); MONOCYTES # (AUTO) 0.5 K/uL (0.1-1.0); MONOCYTES % (AUTO) 9.7 % (2.0-9.0); NEUTROPHILS # (AUTO) 2.6 K/uL (1.8-7.7); NEUTROPHILS % (AUTO) 54.3 % (40.0-70.0); PLATELET COUNT (AUTO) 324 K/uL (150-450); RED BLOOD CELL COUNT(AUTO) 4.69 MIL/uL (4.00-5.20); RED CELL DISTRIBUTION WIDTH 16.1 % (11.5-14.5)
[2020-10-30] MEDS ORDERED: LORazepam 1 MG TABLET PO ONE (15:15)
[2020-10-30 15:18] LABS: ANION GAP 8 mmol/L (8-16); CALCIUM, TOTAL 9.1 mg/dL (8.8-10.5); CARBON DIOXIDE 26 mmol/L (22-29); CHLORIDE 105 mmol/L (98-107); CREATININE 0.67 mg/dL (0.60-1.30); GLOMERULAR FILTR. RATE CALC > 60 mL/min (>60); GLUCOSE,RANDOM 95 mg/dL (70-110); POTASSIUM 3.5 mmol/L (3.5-5.1); SODIUM SERUM 139 mmol/L (136-145); UREA NITROGEN, BLOOD 26 mg/dL (7-18)
[2020-10-30 15:25] LABS: ALANINE AMINOTRANSFERASE 48 U/L (12-78); ALBUMIN 3.9 g/dL (3.4-5.0); ALKALINE PHOSPHATASE 199 U/L (46-116); ASPARTATE AMINOTRANSFERASE 26 U/L (15-37); BILIRUBIN,TOTAL 0.2 mg/dL (0.1-1.0); TOTAL PROTEIN, SERUM 8.1 g/dL (6.4-8.2)
== END 2020-10-30 16:36 | disposition home or self-care (01) ==
LOC: EMS 13:37
DX: F41.9 Anxiety disorder, unspecified (principal); F22 Delusional disorders; J45.909 Unspecified asthma, uncomplicated; F32.9 Major depressive disorder, single episode, unspecified; E11.9 Type 2 diabetes mellitus without complications; F20.9 Schizophrenia, unspecified; D64.9 Anemia, unspecified
CPT/HCPCS: 36415; 80053; 85025; 99283; G0480

== ENCOUNTER 2020-11-03 16:33 | Emergency (ER) | payer MEDICARE, OTHER ==
[~2020-11-03] VITALS: Ht 162.6 cm; Wt 63.6 kg
[2020-11-03 17:31] LABS: BASOPHILS % (AUTO) 1.4 % (0.0-2.0); EOSINOPHILS % (AUTO) 1.2 % (1.0-6.0); HEMATOCRIT 32.5 % (36-46); HEMOGLOBIN 10.1 g/dL (12.0-16.0); LYMPHOCYTES # (AUTO) 1.2 K/uL (1.0-4.8); LYMPHOCYTES % (AUTO) 28.6 % (22.0-44.0); MEAN CORPUSCULAR HEMOGLOBIN 22.8 pg (26.0-34.0); MEAN CORPUSCULAR HGB CONC 31.1 G/dL (31.0-37.0); MEAN CORPUSCULAR VOLUME 73 fL (80-100); MONOCYTES # (AUTO) 0.4 K/uL (0.1-1.0); MONOCYTES % (AUTO) 8.9 % (2.0-9.0); NEUTROPHILS # (AUTO) 2.5 K/uL (1.8-7.7); NEUTROPHILS % (AUTO) 59.9 % (40.0-70.0); PLATELET COUNT (AUTO) 310 K/uL (150-450); RED BLOOD CELL COUNT(AUTO) 4.44 MIL/uL (4.00-5.20); RED CELL DISTRIBUTION WIDTH 16.6 % (11.5-14.5)
[2020-11-03 17:51] LABS: ANION GAP 9 mmol/L (8-16); CALCIUM, TOTAL 8.9 mg/dL (8.8-10.5); CARBON DIOXIDE 27 mmol/L (22-29); CHLORIDE 110 mmol/L (98-107); CREATININE 0.97 mg/dL (0.60-1.30); GLOMERULAR FILTR. RATE CALC > 60 mL/min (>60); GLUCOSE,RANDOM 106 mg/dL (70-110); POTASSIUM 3.9 mmol/L (3.5-5.1); SODIUM SERUM 146 mmol/L (136-145); UREA NITROGEN, BLOOD 28 mg/dL (7-18)
[2020-11-03 17:52] LABS: PLATELET MORPHOLOGY COMMENT LARGE PLTS PRESENT
[2020-11-03 17:57] LABS: ALANINE AMINOTRANSFERASE 42 U/L (12-78); ALBUMIN 3.3 g/dL (3.4-5.0); ALKALINE PHOSPHATASE 169 U/L (46-116); ASPARTATE AMINOTRANSFERASE 26 U/L (15-37); BILIRUBIN,TOTAL 0.2 mg/dL (0.1-1.0); TOTAL PROTEIN, SERUM 6.7 g/dL (6.4-8.2)
[2020-11-03 19:22] LABS: APPEARANCE,URINE CLEAR (CLEAR); BILIRUBIN,URINE NEGATIVE (NEGATIVE); GLUCOSE, URINE (UA) NEGATIVE (NEGATIVE); KETONES,URINE NEGATIVE (NEGATIVE); LEUKOCYTE ESTERASE ,URINE NEGATIVE (NEGATIVE); NITRATE,URINE NEGATIVE (NEGATIVE); OCCULT BLOOD,URINE NEGATIVE (NEGATIVE); PH,URINE 6.5 (5.0-8.0); PROTEIN,URINE NEGATIVE (NEGATIVE); UROBILINOGEN,URINE 0.2 mg/dL (<=1.0)
[2020-11-03 19:28] LABS: AMPHET/METH SCREEN,URINE NEGATIVE (NEGATIVE); BARBITURATE SCREEN, URINE NEGATIVE (NEGATIVE); BENZODIAZEPINES SCREEN,URINE NEGATIVE (NEGATIVE); CANNABINOID SCREEN,URINE NEGATIVE (NEGATIVE); COCAINE SCREEN,URINE NEGATIVE (NEGATIVE); METHADONE SCREEN, URINE NEGATIVE (NEGATIVE); OPIATE SCREEN,URINE NEGATIVE (NEGATIVE)
[2020-11-03 19:30] LABS: PHENCYCLIDINE SCREEN,URINE NEGATIVE (NEGATIVE)
[2020-11-03] MEDS ORDERED: LORazepam 1 MG TABLET PO ONE (19:45)
[2020-11-03 21:00] VITALS: BP 151/83
== END 2020-11-03 21:27 | disposition home or self-care (01) ==
LOC: EMS 16:46
DX: F41.9 Anxiety disorder, unspecified (principal)
CPT/HCPCS: 36415; 80053; 80307; 81003; 84484; 85025; 93005; 99284; G0480; 16000; 16020

== ENCOUNTER 2020-11-05 16:05 | Emergency (ER) | payer MEDICARE, OTHER ==
[~2020-11-05] VITALS: Ht 157.5 cm; Wt 54.5 kg
[~2020-11-05 16:05] MED LIST changes: -MACR100 PO
[2020-11-05 16:11] VITALS: BP 137/76
[2020-11-05] MEDS ORDERED: LORazepam 1 MG TABLET PO ONE (17:30)
== END 2020-11-05 18:17 | disposition home or self-care (01) ==
LOC: EMS 16:07
DX: F41.9 Anxiety disorder, unspecified (principal)
CPT/HCPCS: 99283

== ENCOUNTER 2020-11-09 06:20 | Inpatient (IN) | payer MEDICARE, MEDICAID ==
[~2020-11-09] VITALS: Ht 157.5 cm; Wt 56.3 kg
[2020-11-09 08:11] LABS: EOSINOPHILS % (AUTO) 0.3 % (1.0-6.0); HEMATOCRIT 35.7 % (36-46); HEMOGLOBIN 10.9 g/dL (12.0-16.0); LYMPHOCYTES % (AUTO) 12.4 % (22.0-44.0); MEAN CORPUSCULAR HEMOGLOBIN 22.6 pg (26.0-34.0); MEAN CORPUSCULAR HGB CONC 30.5 G/dL (31.0-37.0); MEAN CORPUSCULAR VOLUME 74 fL (80-100); MONOCYTES # (AUTO) 0.7 K/uL (0.1-1.0); MONOCYTES % (AUTO) 8.9 % (2.0-9.0); NEUTROPHILS # (AUTO) 6.1 K/uL (1.8-7.7); NEUTROPHILS % (AUTO) 77.4 % (40.0-70.0); PLATELET COUNT (AUTO) 345 K/uL (150-450); RED BLOOD CELL COUNT(AUTO) 4.81 MIL/uL (4.00-5.20); RED CELL DISTRIBUTION WIDTH 16.3 % (11.5-14.5)
[2020-11-09 08:23] LABS: ANION GAP 9 mmol/L (8-16); CALCIUM, TOTAL 9.4 mg/dL (8.8-10.5); CARBON DIOXIDE 27 mmol/L (22-29); CHLORIDE 109 mmol/L (98-107); CREATININE 0.79 mg/dL (0.60-1.30); GLOMERULAR FILTR. RATE CALC > 60 mL/min (>60); GLUCOSE,RANDOM 105 mg/dL (70-110); POTASSIUM 3.6 mmol/L (3.5-5.1); SODIUM SERUM 145 mmol/L (136-145); UREA NITROGEN, BLOOD 29 mg/dL (7-18)
[2020-11-09 08:29] LABS: ALANINE AMINOTRANSFERASE 46 U/L (12-78); ALBUMIN 3.9 g/dL (3.4-5.0); ALKALINE PHOSPHATASE 167 U/L (46-116); ASPARTATE AMINOTRANSFERASE 45 U/L (15-37); BILIRUBIN,TOTAL 0.4 mg/dL (0.1-1.0); TOTAL PROTEIN, SERUM 7.8 g/dL (6.4-8.2)
[2020-11-09 08:57] LABS: COVID AG,FIA SOURCE NASOPHARYNGEAL
[2020-11-09] MEDS: AmLODIPine BESYLATE 10 MG TABLET PO SCH (09:00)
[2020-11-09 11:57] LABS: APPEARANCE,URINE CLEAR (CLEAR); BILIRUBIN,URINE NEGATIVE (NEGATIVE); GLUCOSE, URINE (UA) NEGATIVE (NEGATIVE); KETONES,URINE NEGATIVE (NEGATIVE); LEUKOCYTE ESTERASE ,URINE NEGATIVE (NEGATIVE); NITRATE,URINE NEGATIVE (NEGATIVE); OCCULT BLOOD,URINE NEGATIVE (NEGATIVE); PROTEIN,URINE TRACE (NEGATIVE)
[2020-11-09 12:03] LABS: AMPHET/METH SCREEN,URINE NEGATIVE (NEGATIVE); BARBITURATE SCREEN, URINE NEGATIVE (NEGATIVE); BENZODIAZEPINES SCREEN,URINE NEGATIVE (NEGATIVE); CANNABINOID SCREEN,URINE NEGATIVE (NEGATIVE); COCAINE SCREEN,URINE NEGATIVE (NEGATIVE); METHADONE SCREEN, URINE NEGATIVE (NEGATIVE); OPIATE SCREEN,URINE NEGATIVE (NEGATIVE); PHENCYCLIDINE SCREEN,URINE NEGATIVE (NEGATIVE)
[2020-11-09 12:09] LABS: BACTERIA,URINE None Seen /HPF (None Seen); RBC,URINE None Seen /HPF (0-2); SQUAMOUS EPITHELIAL CELL,UR Few /LPF (None Seen); WBC,URINE 0-2 /HPF (0-5)
[2020-11-09 17:02] VITALS: BP 163/70
[2020-11-09] MEDS: QUEtiapine FUMARATE 300 MG TABLET PO SCH (22:43)
[2020-11-09] MEDS: ZOLPIDEM TARTRATE 10 MG TABLET PO PRN (22:43)
[2020-11-10 06:39] LABS: CHOL/HDL RATIO 2.2 (3.9-5.7)
[2020-11-10] MEDS: FERROUS SULFATE 325 MG EC TABLET PO SCH ×2 (06:41→16:54)
[2020-11-10 08:56] VITALS: BP 118/53
[2020-11-10] MEDS: AmLODIPine BESYLATE 10 MG TABLET PO SCH (09:00)
[2020-11-10] MEDS: ARIPiprazole 10 MG TABLET PO SCH (09:07)
[2020-11-10] MEDS: LISINOPRIL 20 MG TABLET PO SCH (09:07)
[2020-11-10] MEDS: TIMOLOL MALEATE 0.25% 5 ML OPHTHALMIC SOLUTION OU SCH ×2 (09:14→16:54)
[2020-11-10] MEDS: LORazepam 2 MG TABLET PO PRN (09:55)
[2020-11-10 16:13] VITALS: BP 144/77
[2020-11-10] MEDS ORDERED: ONDANSETRON HCL 4 MG TABLET PO PRN (19:15)
[2020-11-10] MEDS ORDERED: MAGNESIUM HYDROXIDE SUSPENSION 30 ML UDCUP PO PRN (19:15)
[2020-11-10] MEDS ORDERED: ACETAMINOPHEN 325 MG TABLET PO PRN (19:15)
[2020-11-10] MEDS ORDERED: BACITRACIN 28 GM OINTMENT TP PRN (19:15)
[2020-11-10] MEDS ORDERED: DOCUSATE SODIUM 100 MG CAPSULE PO PRN (19:15)
[2020-11-10] MEDS ORDERED: CloNIDine HCL 0.1 MG TABLET PO PRN (19:15)
[2020-11-10] MEDS ORDERED: OMEPRAZOLE 20 MG CAPSULE PO PRN (19:15)
[2020-11-10] MEDS ORDERED: LOPERAMIDE HCL 2 MG CAPSULE PO PRN (19:15)
[2020-11-10] MEDS ORDERED: PETROLATUM,WHITE 28 GM JELLY TP PRN (19:15)
[2020-11-10] MEDS ORDERED: BENZOCAINE/MENTHOL LOZENGE PO PRN (19:15)
[2020-11-10] MEDS: QUEtiapine FUMARATE 300 MG TABLET PO SCH (20:50)
[2020-11-10] MEDS: ZOLPIDEM TARTRATE 10 MG TABLET PO PRN (20:50)
[2020-11-11] MEDS: FERROUS SULFATE 325 MG EC TABLET PO SCH ×2 (07:00→16:33)
[2020-11-11 08:07] VITALS: BP 137/87
[2020-11-11] MEDS: ARIPiprazole 10 MG TABLET PO SCH (08:33)
[2020-11-11] MEDS: TIMOLOL MALEATE 0.25% 5 ML OPHTHALMIC SOLUTION OU SCH ×2 (08:34→16:33)
[2020-11-11] MEDS: AmLODIPine BESYLATE 10 MG TABLET PO SCH (08:34)
[2020-11-11] MEDS: LISINOPRIL 20 MG TABLET PO SCH (08:35)
[2020-11-11 16:37] VITALS: BP 136/78
[2020-11-11] MEDS: QUEtiapine FUMARATE 300 MG TABLET PO SCH (20:42)
[2020-11-12] MEDS: ZOLPIDEM TARTRATE 10 MG TABLET PO PRN ×2 (02:10→20:13)
[2020-11-12] MEDS: FERROUS SULFATE 325 MG EC TABLET PO SCH ×2 (06:50→16:24)
[2020-11-12 08:12] VITALS: BP 135/83
[2020-11-12] MEDS: LISINOPRIL 20 MG TABLET PO SCH (09:00)
[2020-11-12] MEDS: AmLODIPine BESYLATE 10 MG TABLET PO SCH (09:00)
[2020-11-12] MEDS: ARIPiprazole 10 MG TABLET PO SCH (09:00)
[2020-11-12] MEDS: TIMOLOL MALEATE 0.25% 5 ML OPHTHALMIC SOLUTION OU SCH ×2 (09:00→17:00)
[2020-11-12] MEDS: LORazepam 2 MG TABLET PO PRN (13:14)
[2020-11-12] MEDS: MAG HYDROX/AL HYDROX/SIMETH ES 30 ML SUSPENSION UDCUP PO PRN (13:24)
[2020-11-12 16:12] VITALS: BP 99/66
[2020-11-12] MEDS: QUEtiapine FUMARATE 300 MG TABLET PO SCH (20:13)
[2020-11-12] MEDS: ALBUTEROL SULFATE HFA 90 MCG/PUFF 8 GM INHALER IH PRN (20:14)
[2020-11-13] MEDS: FERROUS SULFATE 325 MG EC TABLET PO SCH ×2 (07:02→16:28)
[2020-11-13] MEDS: ARIPiprazole 10 MG TABLET PO SCH (08:12)
[2020-11-13] MEDS: AmLODIPine BESYLATE 10 MG TABLET PO SCH (08:12)
[2020-11-13] MEDS: TIMOLOL MALEATE 0.25% 5 ML OPHTHALMIC SOLUTION OU SCH ×2 (08:12→16:28)
[2020-11-13] MEDS: LISINOPRIL 20 MG TABLET PO SCH (08:12)
[2020-11-13 08:18] VITALS: BP 122/73
[2020-11-13] MEDS: MAG HYDROX/AL HYDROX/SIMETH ES 30 ML SUSPENSION UDCUP PO PRN (12:26)
[2020-11-13 16:11] VITALS: BP 128/80
[2020-11-13] MEDS: QUEtiapine FUMARATE 300 MG TABLET PO SCH (20:52)
[2020-11-14 05:19] VITALS: BP 123/86
[2020-11-14 08:40] VITALS: BP 148/82
[2020-11-14] MEDS: ARIPiprazole 10 MG TABLET PO SCH (08:50)
[2020-11-14] MEDS: AmLODIPine BESYLATE 10 MG TABLET PO SCH (08:50)
[2020-11-14] MEDS: LISINOPRIL 20 MG TABLET PO SCH (08:50)
[2020-11-14] MEDS: FERROUS SULFATE 325 MG EC TABLET PO SCH ×2 (08:50→16:46)
[2020-11-14] MEDS: TIMOLOL MALEATE 0.25% 5 ML OPHTHALMIC SOLUTION OU SCH ×2 (08:50→16:46)
[2020-11-14] MEDS: MAG HYDROX/AL HYDROX/SIMETH ES 30 ML SUSPENSION UDCUP PO PRN (14:08)
[2020-11-14 16:10] VITALS: BP 123/76
[2020-11-14] MEDS: ALBUTEROL SULFATE HFA 90 MCG/PUFF 8 GM INHALER IH PRN (16:48)
[2020-11-14] MEDS: QUEtiapine FUMARATE 300 MG TABLET PO SCH (20:21)
[2020-11-15] VITALS (8 sets, daily range): BP systolic 126–161; BP diastolic 68–92
[2020-11-15] MEDS: FERROUS SULFATE 325 MG EC TABLET PO SCH ×2 (06:56→16:21)
[2020-11-15] MEDS: ARIPiprazole 10 MG TABLET PO SCH (08:40)
[2020-11-15] MEDS: TIMOLOL MALEATE 0.25% 5 ML OPHTHALMIC SOLUTION OU SCH ×2 (08:40→16:21)
[2020-11-15] MEDS: LISINOPRIL 20 MG TABLET PO SCH (08:40)
[2020-11-15] MEDS: AmLODIPine BESYLATE 10 MG TABLET PO SCH (08:40)
[2020-11-15] MEDS: ALBUTEROL SULFATE HFA 90 MCG/PUFF 8 GM INHALER IH PRN (11:23)
[2020-11-15 16:08] LABS: COVID AG,FIA SOURCE NASOPHARYNGEAL
[2020-11-15] MEDS: LORazepam 2 MG TABLET PO PRN (17:40)
[2020-11-15] MEDS: QUEtiapine FUMARATE 300 MG TABLET PO SCH (20:37)
[2020-11-16 04:30] VITALS: BP 137/87
[2020-11-16] MEDS: FERROUS SULFATE 325 MG EC TABLET PO SCH ×2 (06:42→16:42)
[2020-11-16] MEDS: TIMOLOL MALEATE 0.25% 5 ML OPHTHALMIC SOLUTION OU SCH ×2 (08:20→16:42)
[2020-11-16] MEDS: AmLODIPine BESYLATE 10 MG TABLET PO SCH (08:20)
[2020-11-16] MEDS: ARIPiprazole 10 MG TABLET PO SCH (08:20)
[2020-11-16] MEDS: LISINOPRIL 20 MG TABLET PO SCH (08:20)
[2020-11-16 08:40] VITALS: BP 144/85
[2020-11-16 16:10] VITALS: BP 131/67
[2020-11-16] MEDS: LORazepam 2 MG TABLET PO PRN (16:42)
[2020-11-16] MEDS: QUEtiapine FUMARATE 300 MG TABLET PO SCH (20:19)
[2020-11-17 05:05] VITALS: BP 122/65
[2020-11-17] MEDS: FERROUS SULFATE 325 MG EC TABLET PO SCH ×2 (06:46→16:28)
[2020-11-17 08:26] VITALS: BP 142/81
[2020-11-17] MEDS: ARIPiprazole 10 MG TABLET PO SCH (08:30)
[2020-11-17] MEDS: LISINOPRIL 20 MG TABLET PO SCH (08:30)
[2020-11-17] MEDS: AmLODIPine BESYLATE 10 MG TABLET PO SCH (08:30)
[2020-11-17] MEDS: TIMOLOL MALEATE 0.25% 5 ML OPHTHALMIC SOLUTION OU SCH ×2 (08:30→16:28)
[2020-11-17] MEDS: OLANZapine 5 MG RAPDIS TABLET PO PRN (14:05)
[2020-11-17 16:26] VITALS: BP 134/89
[2020-11-17] MEDS: QUEtiapine FUMARATE 300 MG TABLET PO SCH (20:14)
[2020-11-17] MEDS: FluPHENAZine HCL 5 MG TABLET PO SCH (20:14)
[2020-11-18] MEDS: LORazepam 2 MG TABLET PO PRN (02:53)
[2020-11-18 02:54] VITALS: BP 127/69
[2020-11-18] MEDS: FERROUS SULFATE 325 MG EC TABLET PO SCH ×2 (06:43→16:35)
[2020-11-18] MEDS: AmLODIPine BESYLATE 10 MG TABLET PO SCH (08:22)
[2020-11-18] MEDS: ARIPiprazole 10 MG TABLET PO SCH (08:24)
[2020-11-18] MEDS: LISINOPRIL 20 MG TABLET PO SCH (08:24)
[2020-11-18] MEDS: TIMOLOL MALEATE 0.25% 5 ML OPHTHALMIC SOLUTION OU SCH ×2 (08:25→16:34)
[2020-11-18 10:04] VITALS: BP 152/83
[2020-11-18 16:30] VITALS: BP 136/82
[2020-11-18] MEDS: FluPHENAZine HCL 5 MG TABLET PO SCH (20:36)
[2020-11-18] MEDS: QUEtiapine FUMARATE 300 MG TABLET PO SCH (20:36)
[2020-11-19] MEDS: ZOLPIDEM TARTRATE 10 MG TABLET PO PRN ×2 (00:40→20:44)
[2020-11-19 00:46] VITALS: BP 140/80
[2020-11-19] MEDS: FERROUS SULFATE 325 MG EC TABLET PO SCH ×2 (06:38→16:52)
[2020-11-19] MEDS: ARIPiprazole 10 MG TABLET PO SCH (08:33)
[2020-11-19] MEDS: AmLODIPine BESYLATE 10 MG TABLET PO SCH (08:34)
[2020-11-19] MEDS: LISINOPRIL 20 MG TABLET PO SCH (08:34)
[2020-11-19] MEDS: TIMOLOL MALEATE 0.25% 5 ML OPHTHALMIC SOLUTION OU SCH ×2 (08:35→16:54)
[2020-11-19] MEDS: LORazepam 2 MG TABLET PO PRN ×2 (10:31→16:52)
[2020-11-19 10:34] VITALS: BP 146/77
[2020-11-19 16:50] VITALS: BP 113/80
[2020-11-19] MEDS: QUEtiapine FUMARATE 300 MG TABLET PO SCH (20:45)
[2020-11-19] MEDS: FluPHENAZine HCL 5 MG TABLET PO SCH (20:45)
[2020-11-20 04:06] VITALS: BP 122/74
[2020-11-20] MEDS: FERROUS SULFATE 325 MG EC TABLET PO SCH ×2 (07:04→16:46)
[2020-11-20] MEDS: AmLODIPine BESYLATE 10 MG TABLET PO SCH (08:20)
[2020-11-20] MEDS: ARIPiprazole 10 MG TABLET PO SCH (08:20)
[2020-11-20] MEDS: TIMOLOL MALEATE 0.25% 5 ML OPHTHALMIC SOLUTION OU SCH ×2 (08:20→16:45)
[2020-11-20] MEDS: LISINOPRIL 20 MG TABLET PO SCH (08:20)
[2020-11-20 08:43] VITALS: BP 144/84
[2020-11-20 16:30] VITALS: BP 151/78
[2020-11-20] MEDS: QUEtiapine FUMARATE 300 MG TABLET PO SCH (20:17)
[2020-11-20] MEDS: FluPHENAZine HCL 5 MG TABLET PO SCH (20:18)
[2020-11-20] MEDS ORDERED: LISINOPRIL 5 MG TABLET PO SCH (21:00)
[2020-11-20 21:49] VITALS: BP 104/57
[2020-11-21] MEDS: LORazepam 2 MG TABLET PO PRN (03:24)
[2020-11-21 04:20] VITALS: BP 107/71
[2020-11-21] MEDS: FERROUS SULFATE 325 MG EC TABLET PO SCH ×2 (06:54→16:53)
[2020-11-21] MEDS: AmLODIPine BESYLATE 10 MG TABLET PO SCH (08:14)
[2020-11-21] MEDS: LISINOPRIL 20 MG TABLET PO SCH (08:14)
[2020-11-21] MEDS: TIMOLOL MALEATE 0.25% 5 ML OPHTHALMIC SOLUTION OU SCH ×2 (08:14→16:54)
[2020-11-21] MEDS: ARIPiprazole 10 MG TABLET PO SCH (08:14)
[2020-11-21 08:48] VITALS: BP 118/87
[2020-11-21 16:51] VITALS: BP 113/64
[2020-11-21] MEDS: QUEtiapine FUMARATE 300 MG TABLET PO SCH (21:05)
[2020-11-21] MEDS: FluPHENAZine HCL 5 MG TABLET PO SCH (21:05)
[2020-11-22 02:20] VITALS: BP 125/81
[2020-11-22 02:35] VITALS: BP 125/81
[2020-11-22] MEDS: ZOLPIDEM TARTRATE 10 MG TABLET PO PRN ×2 (02:35→20:22)
[2020-11-22] MEDS: FERROUS SULFATE 325 MG EC TABLET PO SCH ×2 (07:02→16:30)
[2020-11-22 08:36] VITALS: BP 123/74
[2020-11-22] MEDS: TIMOLOL MALEATE 0.25% 5 ML OPHTHALMIC SOLUTION OU SCH ×2 (09:11→17:00)
[2020-11-22] MEDS: AmLODIPine BESYLATE 10 MG TABLET PO SCH (09:11)
[2020-11-22] MEDS: LISINOPRIL 20 MG TABLET PO SCH (09:11)
[2020-11-22] MEDS: ARIPiprazole 10 MG TABLET PO SCH (09:11)
[2020-11-22 15:01] LABS: COVID AG,FIA SOURCE NASOPHARYNGEAL
[2020-11-22] MEDS: LORazepam 2 MG TABLET PO PRN (16:30)
[2020-11-22 16:50] VITALS: BP 108/64
[2020-11-22] MEDS: FluPHENAZine HCL 5 MG TABLET PO SCH (20:22)
[2020-11-22] MEDS: QUEtiapine FUMARATE 300 MG TABLET PO SCH (20:22)
[2020-11-23 02:42] VITALS: BP 123/76
[2020-11-23] MEDS: FERROUS SULFATE 325 MG EC TABLET PO SCH ×2 (07:00→16:05)
[2020-11-23] MEDS: AmLODIPine BESYLATE 10 MG TABLET PO SCH (08:14)
[2020-11-23] MEDS: ARIPiprazole 10 MG TABLET PO SCH (08:14)
[2020-11-23] MEDS: LISINOPRIL 20 MG TABLET PO SCH (08:16)
[2020-11-23 08:21] VITALS: BP 118/68
[2020-11-23] MEDS: TIMOLOL MALEATE 0.25% 5 ML OPHTHALMIC SOLUTION OU SCH ×2 (11:15→16:06)
[2020-11-23] MEDS: LORazepam 2 MG TABLET PO PRN (16:05)
[2020-11-23 16:12] VITALS: BP 135/81
[2020-11-23] MEDS: ZOLPIDEM TARTRATE 10 MG TABLET PO PRN (20:17)
[2020-11-23] MEDS: QUEtiapine FUMARATE 300 MG TABLET PO SCH (20:17)
[2020-11-23] MEDS: FluPHENAZine HCL 5 MG TABLET PO SCH (20:17)
[2020-11-24 04:00] VITALS: BP 137/76
[2020-11-24] MEDS: LORazepam 2 MG TABLET PO PRN ×2 (05:09→16:10)
[2020-11-24] MEDS: FERROUS SULFATE 325 MG EC TABLET PO SCH ×2 (06:32→16:10)
[2020-11-24] MEDS: ARIPiprazole 10 MG TABLET PO SCH (08:32)
[2020-11-24] MEDS: AmLODIPine BESYLATE 10 MG TABLET PO SCH (08:33)
[2020-11-24] MEDS: LISINOPRIL 20 MG TABLET PO SCH (08:33)
[2020-11-24 09:10] VITALS: BP 143/90
[2020-11-24] MEDS: TIMOLOL MALEATE 0.25% 5 ML OPHTHALMIC SOLUTION OU SCH ×2 (11:51→16:10)
[2020-11-24 16:38] VITALS: BP 110/65
[2020-11-24] MEDS: FluPHENAZine HCL 5 MG TABLET PO SCH (20:24)
[2020-11-24] MEDS: QUEtiapine FUMARATE 300 MG TABLET PO SCH (20:24)
[2020-11-24] MEDS: ZOLPIDEM TARTRATE 10 MG TABLET PO PRN (20:24)
[2020-11-25 06:03] VITALS: BP 115/73
[2020-11-25] MEDS: FERROUS SULFATE 325 MG EC TABLET PO SCH ×2 (06:34→16:44)
[2020-11-25] MEDS: AmLODIPine BESYLATE 10 MG TABLET PO SCH (08:16)
[2020-11-25] MEDS: ARIPiprazole 10 MG TABLET PO SCH (08:16)
[2020-11-25] MEDS: LISINOPRIL 20 MG TABLET PO SCH (08:16)
[2020-11-25] MEDS: TIMOLOL MALEATE 0.25% 5 ML OPHTHALMIC SOLUTION OU SCH ×2 (08:16→16:44)
[2020-11-25 08:17] VITALS: BP 121/71
[2020-11-25 16:00] VITALS: BP 125/81
[2020-11-25] MEDS: QUEtiapine FUMARATE 300 MG TABLET PO SCH (20:05)
[2020-11-25] MEDS: FluPHENAZine HCL 5 MG TABLET PO SCH (20:05)
[2020-11-26 00:20] VITALS: BP 97/66
[2020-11-26] MEDS: OLANZapine 5 MG RAPDIS TABLET PO PRN (00:20)
[2020-11-26] MEDS: ZOLPIDEM TARTRATE 10 MG TABLET PO PRN ×2 (00:20→20:15)
[2020-11-26] MEDS: FERROUS SULFATE 325 MG EC TABLET PO SCH ×2 (06:59→16:25)
[2020-11-26 08:00] VITALS: BP 114/72
[2020-11-26] MEDS: AmLODIPine BESYLATE 10 MG TABLET PO SCH (08:18)
[2020-11-26] MEDS: TIMOLOL MALEATE 0.25% 5 ML OPHTHALMIC SOLUTION OU SCH ×2 (08:18→16:26)
[2020-11-26] MEDS: ARIPiprazole 10 MG TABLET PO SCH (08:18)
[2020-11-26] MEDS: LISINOPRIL 20 MG TABLET PO SCH (08:18)
[2020-11-26] MEDS: IBUPROFEN 600 MG TABLET PO PRN (08:33)
[2020-11-26 16:08] VITALS: BP 111/75
[2020-11-26] MEDS: LORazepam 2 MG TABLET PO PRN (16:25)
[2020-11-26] MEDS: QUEtiapine FUMARATE 300 MG TABLET PO SCH (20:15)
[2020-11-27 03:32] VITALS: BP 110/73
[2020-11-27] MEDS: FERROUS SULFATE 325 MG EC TABLET PO SCH (06:52)
[2020-11-27] MEDS: IBUPROFEN 600 MG TABLET PO PRN (08:00)
[2020-11-27] MEDS: AmLODIPine BESYLATE 10 MG TABLET PO SCH (08:01)
[2020-11-27] MEDS: ARIPiprazole 10 MG TABLET PO SCH (08:01)
[2020-11-27] MEDS: TIMOLOL MALEATE 0.25% 5 ML OPHTHALMIC SOLUTION OU SCH ×2 (08:01→16:25)
[2020-11-27] MEDS: LISINOPRIL 20 MG TABLET PO SCH (08:01)
[2020-11-27 08:03] VITALS: BP 142/86
[2020-11-27] MEDS ORDERED: FLUP5TAB15 PO (13:01)
[2020-11-27] MEDS ORDERED: ARIP10TA38 PO (13:01)
[2020-11-27] MEDS ORDERED: QUET300T2 PO (13:01)
[2020-11-27 16:15] VITALS: BP 131/80
== END 2020-11-27 16:45 | disposition home or self-care (01) | DRG 885 ==
LOC: EMS 06:34 → 3EI 08:54
PROVIDERS: ADMIT Psychiatry & Neurology Psychiatry; ATTEND Psychiatry & Neurology Psychiatry
DX: F20.0 Paranoid schizophrenia (principal); R45.851 Suicidal ideations; F12.90 Cannabis use, unspecified, uncomplicated; E11.9 Type 2 diabetes mellitus without complications; J44.9 Chronic obstructive pulmonary disease, unspecified; I10 Essential (primary) hypertension; G47.00 Insomnia, unspecified; K59.00 Constipation, unspecified; K21.9 Gastro-esophageal reflux disease without esophagitis; Z85.3 Personal history of malignant neoplasm of breast; Z90.11 Acquired absence of right breast and nipple; D50.9 Iron deficiency anemia, unspecified; C50.919 Malignant neoplasm of unspecified site of unspecified female breast; D64.9 Anemia, unspecified; F11.90 Opioid use, unspecified, uncomplicated; F32.9 Major depressive disorder, single episode, unspecified; H40.9 Unspecified glaucoma; Z88.0 Allergy status to penicillin; Z88.8 Allergy status to other drugs, medicaments and biological substances; Z90.49 Acquired absence of other specified parts of digestive tract; Z20.822 Contact with and (suspected) exposure to COVID-19
CPT/HCPCS: 70140; 80053; 80061; 81001; 85025; 87426; 99285; G0480; J3535

== ENCOUNTER 2020-12-01 13:06 | Emergency (ER) | payer MEDICARE, MEDICAID ==
[~2020-12-01] VITALS: Ht 154.9 cm; Wt 56.8 kg
[~2020-12-01 13:06] MED LIST changes: +ARIP10TA38 PO; -ARIP300S3 IM; +FLUP5TAB15 PO; -OMEG-135 PO; +QUET300T2 PO
[2020-12-01 13:40] LABS: GLUCOSE,POINT OF CARE 103 MG/DL (70-110)
[2020-12-01 14:38] LABS: BASOPHILS % (AUTO) 1.2 % (0.0-2.0); EOSINOPHILS % (AUTO) 2.7 % (1.0-6.0); HEMATOCRIT 33.7 % (36-46); HEMOGLOBIN 10.5 g/dL (12.0-16.0); LYMPHOCYTES # (AUTO) 1.4 K/uL (1.0-4.8); LYMPHOCYTES % (AUTO) 31.6 % (22.0-44.0); MEAN CORPUSCULAR HEMOGLOBIN 22.7 pg (26.0-34.0); MEAN CORPUSCULAR HGB CONC 31.1 G/dL (31.0-37.0); MEAN CORPUSCULAR VOLUME 73 fL (80-100); MONOCYTES # (AUTO) 0.5 K/uL (0.1-1.0); MONOCYTES % (AUTO) 12.5 % (2.0-9.0); NEUTROPHILS # (AUTO) 2.2 K/uL (1.8-7.7); PLATELET COUNT (AUTO) 281 K/uL (150-450); RED BLOOD CELL COUNT(AUTO) 4.62 MIL/uL (4.00-5.20); RED CELL DISTRIBUTION WIDTH 15.7 % (11.5-14.5)
[2020-12-01 15:09] LABS: COVID AG,FIA SOURCE NASOPHARYNGEAL
[2020-12-01 15:14] LABS: APPEARANCE,URINE CLEAR (CLEAR); BILIRUBIN,URINE NEGATIVE (NEGATIVE); GLUCOSE, URINE (UA) NEGATIVE (NEGATIVE); KETONES,URINE NEGATIVE (NEGATIVE); LEUKOCYTE ESTERASE ,URINE NEGATIVE (NEGATIVE); NITRATE,URINE NEGATIVE (NEGATIVE); OCCULT BLOOD,URINE NEGATIVE (NEGATIVE); PROTEIN,URINE NEGATIVE (NEGATIVE)
[2020-12-01 15:23] LABS: AMPHET/METH SCREEN,URINE NEGATIVE (NEGATIVE); BARBITURATE SCREEN, URINE NEGATIVE (NEGATIVE); BENZODIAZEPINES SCREEN,URINE NEGATIVE (NEGATIVE); CANNABINOID SCREEN,URINE NEGATIVE (NEGATIVE); COCAINE SCREEN,URINE NEGATIVE (NEGATIVE); METHADONE SCREEN, URINE NEGATIVE (NEGATIVE); OPIATE SCREEN,URINE NEGATIVE (NEGATIVE)
[2020-12-01 15:24] LABS: PHENCYCLIDINE SCREEN,URINE NEGATIVE (NEGATIVE)
[2020-12-01 15:52] LABS: ANION GAP 11 mmol/L (8-16); CALCIUM, TOTAL 9.8 mg/dL (8.8-10.5); CARBON DIOXIDE 27 mmol/L (22-29); CHLORIDE 109 mmol/L (98-107); CREATININE 0.73 mg/dL (0.60-1.30); GLOMERULAR FILTR. RATE CALC > 60 mL/min (>60); GLUCOSE,RANDOM 99 mg/dL (70-110); POTASSIUM 3.8 mmol/L (3.5-5.1); SODIUM SERUM 147 mmol/L (136-145); UREA NITROGEN, BLOOD 23 mg/dL (7-18)
[2020-12-01 15:57] LABS: ALANINE AMINOTRANSFERASE 27 U/L (12-78); ALBUMIN 3.7 g/dL (3.4-5.0); ALKALINE PHOSPHATASE 169 U/L (46-116); ASPARTATE AMINOTRANSFERASE 21 U/L (15-37); BILIRUBIN,TOTAL 0.3 mg/dL (0.1-1.0); LIPASE 150 U/L (73-393); TOTAL PROTEIN, SERUM 7.5 g/dL (6.4-8.2)
[2020-12-01 21:22] VITALS: BP 169/96
== END 2020-12-01 21:24 | disposition home or self-care (01) ==
LOC: EMS 13:09
DX: F20.9 Schizophrenia, unspecified (principal); F41.9 Anxiety disorder, unspecified; J45.909 Unspecified asthma, uncomplicated; F32.9 Major depressive disorder, single episode, unspecified; E11.9 Type 2 diabetes mellitus without complications; Z90.49 Acquired absence of other specified parts of digestive tract; Z20.822 Contact with and (suspected) exposure to COVID-19
CPT/HCPCS: 36415; 80053; 80307; 81003; 82962; 83690; 84484; 85025; 87426; 93005; 99285; G0480

== ENCOUNTER 2020-12-17 22:41 | Emergency (ER) | payer MEDICARE, OTHER ==
[~2020-12-17] VITALS: Ht 165.1 cm; Wt 61.4 kg
[~2020-12-17 22:41] MED LIST changes: -FERR-89 PO; -QUET300T2 PO; -TIMO.25OS OU
[2020-12-18 00:22] LABS: BASOPHILS % (AUTO) 0.8 % (0.0-2.0); EOSINOPHILS % (AUTO) 0.3 % (1.0-6.0); HEMATOCRIT 28.3 % (36-46); HEMOGLOBIN 8.9 g/dL (12.0-16.0); LYMPHOCYTES # (AUTO) 0.8 K/uL (1.0-4.8); LYMPHOCYTES % (AUTO) 17.3 % (22.0-44.0); MEAN CORPUSCULAR HEMOGLOBIN 22.6 pg (26.0-34.0); MEAN CORPUSCULAR HGB CONC 31.5 G/dL (31.0-37.0); MEAN CORPUSCULAR VOLUME 72 fL (80-100); MONOCYTES # (AUTO) 0.5 K/uL (0.1-1.0); MONOCYTES % (AUTO) 11.1 % (2.0-9.0); NEUTROPHILS # (AUTO) 3.2 K/uL (1.8-7.7); NEUTROPHILS % (AUTO) 70.5 % (40.0-70.0); PLATELET COUNT (AUTO) 261 K/uL (150-450); RED BLOOD CELL COUNT(AUTO) 3.94 MIL/uL (4.00-5.20); RED CELL DISTRIBUTION WIDTH 15.2 % (11.5-14.5)
[2020-12-18 00:32] LABS: ANION GAP 9 mmol/L (8-16); CALCIUM, TOTAL 8.7 mg/dL (8.8-10.5); CARBON DIOXIDE 26 mmol/L (22-29); CHLORIDE 105 mmol/L (98-107); CREATININE 0.79 mg/dL (0.60-1.30); GLUCOSE,RANDOM 97 mg/dL (70-110); POTASSIUM 3.3 mmol/L (3.5-5.1); SODIUM SERUM 140 mmol/L (136-145); UREA NITROGEN, BLOOD 23 mg/dL (7-18)
[2020-12-18 00:35] LABS: GLOMERULAR FILTR. RATE CALC > 60 mL/min (>60)
[2020-12-18 00:38] LABS: COVID AG,FIA SOURCE NASOPHARYNGEAL
[2020-12-18 00:40] LABS: LACTIC ACID 0.6 mmol/L (0.4-2.0); PROTHROMBIN TIME 10.9 SEC (9.4-11.6)
[2020-12-18 01:00] LABS: ALANINE AMINOTRANSFERASE 21 U/L (12-78); ALKALINE PHOSPHATASE 125 U/L (46-116); ASPARTATE AMINOTRANSFERASE 18 U/L (15-37); BILIRUBIN,TOTAL 0.4 mg/dL (0.1-1.0); CREATINE KINASE, TOTAL ONLY 79 U/L (26-192); LIPASE 187 U/L (73-393); TOTAL PROTEIN, SERUM 6.5 g/dL (6.4-8.2)
[2020-12-18 01:12] LABS: INFLUENZA TYPE A NEGATIVE FOR TYPE A (NEGATIVE); INFLUENZA TYPE B NEGATIVE FOR TYPE B (NEGATIVE)
[2020-12-18 02:03] LABS: AMPHET/METH SCREEN,URINE NEGATIVE (NEGATIVE); APPEARANCE,URINE CLEAR (CLEAR); BARBITURATE SCREEN, URINE NEGATIVE (NEGATIVE); BENZODIAZEPINES SCREEN,URINE NEGATIVE (NEGATIVE); BILIRUBIN,URINE NEGATIVE (NEGATIVE); CANNABINOID SCREEN,URINE NEGATIVE (NEGATIVE); COCAINE SCREEN,URINE NEGATIVE (NEGATIVE); GLUCOSE, URINE (UA) NEGATIVE (NEGATIVE); KETONES,URINE NEGATIVE (NEGATIVE); LEUKOCYTE ESTERASE ,URINE NEGATIVE (NEGATIVE); METHADONE SCREEN, URINE NEGATIVE (NEGATIVE); NITRATE,URINE NEGATIVE (NEGATIVE); OCCULT BLOOD,URINE NEGATIVE (NEGATIVE); OPIATE SCREEN,URINE NEGATIVE (NEGATIVE); PROTEIN,URINE TRACE (NEGATIVE)
[2020-12-18 02:04] LABS: PHENCYCLIDINE SCREEN,URINE NEGATIVE (NEGATIVE)
[2020-12-18 02:16] LABS: BACTERIA,URINE Rare /HPF (None Seen); RBC,URINE 0-2 /HPF (0-2); WBC,URINE 0-2 /HPF (0-5)
[2020-12-18] MEDS ORDERED: POTASSIUM CHLORIDE 20 MEQ ER TABLET PO ONE (03:00)
[2020-12-18] MEDS ORDERED: FERROUS SULFATE 325 MG EC TABLET PO ONE (03:00)
[2020-12-18 03:33] VITALS: BP 127/71
== END 2020-12-18 03:41 | disposition home or self-care (01) ==
LOC: EMS 22:41
DX: D50.9 Iron deficiency anemia, unspecified (principal); Z20.822 Contact with and (suspected) exposure to COVID-19; Z79.899 Other long term (current) drug therapy
CPT/HCPCS: 36415; 71045; 80053; 80307; 81001; 82271; 82550; 83605; 83690; 83880; 84484; 85025; 85610; 87426; 87804; 93005; 99285; G0480

== ENCOUNTER 2020-12-23 16:32 | Emergency (ER) | payer MEDICARE, OTHER ==
[~2020-12-23] VITALS: Ht 167.6 cm; Wt 56.3 kg
[2020-12-23 17:06] LABS: BASOPHILS % (AUTO) 0.5 % (0.0-2.0); EOSINOPHILS % (AUTO) 2.5 % (1.0-6.0); HEMATOCRIT 28.9 % (36-46); HEMOGLOBIN 9.1 g/dL (12.0-16.0); LYMPHOCYTES # (AUTO) 1.1 K/uL (1.0-4.8); MEAN CORPUSCULAR HEMOGLOBIN 22.8 pg (26.0-34.0); MEAN CORPUSCULAR HGB CONC 31.5 G/dL (31.0-37.0); MEAN CORPUSCULAR VOLUME 72 fL (80-100); MONOCYTES # (AUTO) 0.4 K/uL (0.1-1.0); MONOCYTES % (AUTO) 9.8 % (2.0-9.0); NEUTROPHILS # (AUTO) 2.6 K/uL (1.8-7.7); NEUTROPHILS % (AUTO) 60.2 % (40.0-70.0); PLATELET COUNT (AUTO) 321 K/uL (150-450); RED CELL DISTRIBUTION WIDTH 15.4 % (11.5-14.5)
[2020-12-23 17:17] LABS: ANION GAP 5 mmol/L (8-16); CALCIUM, TOTAL 8.8 mg/dL (8.8-10.5); CARBON DIOXIDE 27 mmol/L (22-29); CHLORIDE 110 mmol/L (98-107); CREATININE 0.69 mg/dL (0.60-1.30); GLUCOSE,RANDOM 103 mg/dL (70-110); POTASSIUM 3.4 mmol/L (3.5-5.1); SODIUM SERUM 142 mmol/L (136-145); UREA NITROGEN, BLOOD 30 mg/dL (7-18)
[2020-12-23 17:18] LABS: GLOMERULAR FILTR. RATE CALC > 60 mL/min (>60)
[2020-12-23 17:19] LABS: PROTHROMBIN TIME 10.5 SEC (9.4-11.6)
[2020-12-23 17:24] LABS: B-TYPE NATRIURETIC PEPTIDE 39 pg/mL (0-100)
[2020-12-23 17:43] LABS: ALANINE AMINOTRANSFERASE 31 U/L (12-78); ALBUMIN 3.3 g/dL (3.4-5.0); ALKALINE PHOSPHATASE 162 U/L (46-116); ASPARTATE AMINOTRANSFERASE 21 U/L (15-37); BILIRUBIN,TOTAL 0.2 mg/dL (0.1-1.0); CREATINE KINASE, TOTAL ONLY 93 U/L (26-192); TOTAL PROTEIN, SERUM 6.8 g/dL (6.4-8.2)
[2020-12-23 18:26] LABS: APPEARANCE,URINE CLEAR (CLEAR); BILIRUBIN,URINE NEGATIVE (NEGATIVE); GLUCOSE, URINE (UA) NEGATIVE (NEGATIVE); KETONES,URINE NEGATIVE (NEGATIVE); LEUKOCYTE ESTERASE ,URINE NEGATIVE (NEGATIVE); NITRATE,URINE NEGATIVE (NEGATIVE); OCCULT BLOOD,URINE NEGATIVE (NEGATIVE); PH,URINE 6.5 (5.0-8.0); PROTEIN,URINE NEGATIVE (NEGATIVE); UROBILINOGEN,URINE 0.2 mg/dL (<=1.0)
[2020-12-23 18:34] LABS: AMPHET/METH SCREEN,URINE NEGATIVE (NEGATIVE); BARBITURATE SCREEN, URINE NEGATIVE (NEGATIVE); BENZODIAZEPINES SCREEN,URINE NEGATIVE (NEGATIVE); CANNABINOID SCREEN,URINE NEGATIVE (NEGATIVE); COCAINE SCREEN,URINE NEGATIVE (NEGATIVE); METHADONE SCREEN, URINE NEGATIVE (NEGATIVE); OPIATE SCREEN,URINE NEGATIVE (NEGATIVE)
[2020-12-23 18:36] LABS: PHENCYCLIDINE SCREEN,URINE NEGATIVE (NEGATIVE)
[2020-12-23] MEDS ORDERED: ACETAMINOPHEN 325 MG TABLET PO ONE (20:30)
[2020-12-23 21:53] VITALS: BP 140/72
== END 2020-12-24 02:40 | disposition home or self-care (01) ==
LOC: EMS 16:32
DX: F41.9 Anxiety disorder, unspecified (principal); R20.2 Paresthesia of skin
CPT/HCPCS: 36415; 80053; 80307; 81003; 82550; 83880; 84484; 85025; 85610; 85730; 93005; 99284; G0480

== ENCOUNTER 2020-12-27 01:11 | Emergency (ER) | payer MEDICARE, OTHER ==
[~2020-12-27] VITALS: Ht 160 cm; Wt 56.4 kg
[2020-12-27 02:50] VITALS: BP 111/68
== END 2020-12-27 03:54 | disposition home or self-care (01) ==
LOC: EMS 01:13
DX: F25.9 Schizoaffective disorder, unspecified (principal); F31.9 Bipolar disorder, unspecified; F41.9 Anxiety disorder, unspecified; J45.909 Unspecified asthma, uncomplicated; E11.9 Type 2 diabetes mellitus without complications; K21.9 Gastro-esophageal reflux disease without esophagitis; I10 Essential (primary) hypertension; F11.90 Opioid use, unspecified, uncomplicated; F19.90 Other psychoactive substance use, unspecified, uncomplicated; Z90.89 Acquired absence of other organs; Z88.8 Allergy status to other drugs, medicaments and biological substances; Z79.899 Other long term (current) drug therapy
CPT/HCPCS: 99284; Z7502

== ENCOUNTER 2021-02-01 21:56 | Emergency (ER) | payer MEDICARE, OTHER ==
[~2021-02-01] VITALS: Ht 167.6 cm; Wt 79.1 kg
[~2021-02-01 21:56] MED LIST changes: +FERR-89 PO; -FLUP5TAB15 PO; +HALO10 PO; +MULT-1239 PO; +THIA100T80 PO
[2021-02-02 01:15] VITALS: BP 141/79
== END 2021-02-02 02:18 | disposition home or self-care (01) ==
LOC: EMS 21:58
DX: F20.9 Schizophrenia, unspecified (principal); R51.9 Headache, unspecified; M79.10 Myalgia, unspecified site; F41.9 Anxiety disorder, unspecified; F32.9 Major depressive disorder, single episode, unspecified; J45.909 Unspecified asthma, uncomplicated; E11.9 Type 2 diabetes mellitus without complications; K21.9 Gastro-esophageal reflux disease without esophagitis; I10 Essential (primary) hypertension; F11.90 Opioid use, unspecified, uncomplicated; F19.90 Other psychoactive substance use, unspecified, uncomplicated; Z90.89 Acquired absence of other organs; Z88.0 Allergy status to penicillin; Z79.899 Other long term (current) drug therapy
CPT/HCPCS: 99281; Z7502

== ENCOUNTER 2021-03-05 19:26 | Inpatient (IN) | payer MEDICARE, MEDICAID ==
[~2021-03-05] VITALS: Ht 157.5 cm; Wt 59.4 kg
[2021-03-05] MEDS ORDERED: ZOLPIDEM TARTRATE 10 MG TABLET PO PRN (20:30)
[2021-03-05] MEDS ORDERED: LORazepam 2 MG TABLET PO PRN (20:30)
[2021-03-05 20:46] LABS: COVID AG,FIA SOURCE NASOPHARYNGEAL
[2021-03-05 20:52] LABS: HEMATOCRIT 32.1 % (36-46); HEMOGLOBIN 9.9 g/dL (12.0-16.0); LYMPHOCYTES # (AUTO) 1.4 K/uL (1.0-4.8); MEAN CORPUSCULAR HEMOGLOBIN 22.9 pg (26.0-34.0); MEAN CORPUSCULAR HGB CONC 30.9 G/dL (31.0-37.0); MEAN CORPUSCULAR VOLUME 74 fL (80-100); MONOCYTES # (AUTO) 0.8 K/uL (0.1-1.0); MONOCYTES % (AUTO) 14.5 % (2.0-9.0); NEUTROPHILS # (AUTO) 3.2 K/uL (1.8-7.7); NEUTROPHILS % (AUTO) 58.5 % (40.0-70.0); PLATELET COUNT (AUTO) 258 K/uL (150-450); RED BLOOD CELL COUNT(AUTO) 4.33 MIL/uL (4.00-5.20); RED CELL DISTRIBUTION WIDTH 16.5 % (11.5-14.5)
[2021-03-05 21:06] LABS: APPEARANCE,URINE CLEAR (CLEAR); BILIRUBIN,URINE NEGATIVE (NEGATIVE); GLUCOSE, URINE (UA) NEGATIVE (NEGATIVE); KETONES,URINE NEGATIVE (NEGATIVE); LEUKOCYTE ESTERASE ,URINE SMALL (NEGATIVE); NITRATE,URINE NEGATIVE (NEGATIVE); OCCULT BLOOD,URINE NEGATIVE (NEGATIVE); PH,URINE 6.5 (5.0-8.0); PROTEIN,URINE TRACE (NEGATIVE)
[2021-03-05 21:09] LABS: AMPHET/METH SCREEN,URINE NEGATIVE (NEGATIVE); BARBITURATE SCREEN, URINE NEGATIVE (NEGATIVE); BENZODIAZEPINES SCREEN,URINE NEGATIVE (NEGATIVE); CANNABINOID SCREEN,URINE NEGATIVE (NEGATIVE); COCAINE SCREEN,URINE NEGATIVE (NEGATIVE); METHADONE SCREEN, URINE NEGATIVE (NEGATIVE); OPIATE SCREEN,URINE NEGATIVE (NEGATIVE)
[2021-03-05 21:15] LABS: ANION GAP -8 mmol/L (8-16); CALCIUM, TOTAL 8.4 mg/dL (8.8-10.5); CARBON DIOXIDE 26 mmol/L (22-29); CHLORIDE 112 mmol/L (98-107); CREATININE 0.61 mg/dL (0.60-1.30); GLUCOSE,RANDOM 92 mg/dL (70-110); POTASSIUM 3.1 mmol/L (3.5-5.1); SODIUM SERUM 130 mmol/L (136-145); UREA NITROGEN, BLOOD 23 mg/dL (7-18)
[2021-03-05] MEDS ORDERED: ONDANSETRON HCL 4 MG TABLET PO ONE (21:15)
[2021-03-05 21:21] LABS: ALANINE AMINOTRANSFERASE 75 U/L (12-78); ALBUMIN 3.4 g/dL (3.4-5.0); ALKALINE PHOSPHATASE 229 U/L (46-116); ASPARTATE AMINOTRANSFERASE 44 U/L (15-37); BILIRUBIN,TOTAL 0.2 mg/dL (0.1-1.0); TOTAL PROTEIN, SERUM 7.3 g/dL (6.4-8.2)
[2021-03-05 21:23] LABS: GLOMERULAR FILTR. RATE CALC > 60 mL/min (>60)
[2021-03-05 21:24] LABS: PHENCYCLIDINE SCREEN,URINE NEGATIVE (NEGATIVE)
[2021-03-05 22:35] LABS: SQUAMOUS EPITHELIAL CELL,UR Few /LPF (None Seen)
[2021-03-05 22:36] LABS: BACTERIA,URINE Few /HPF (None Seen); RBC,URINE 0-2 /HPF (0-2)
[2021-03-05] MEDS ORDERED: ACETAMINOPHEN 500 MG TABLET PO ONE (23:45)
[2021-03-06 00:19] VITALS: BP 151/80
[2021-03-06 06:10] VITALS: BP 145/76
[2021-03-06 08:30] VITALS: BP 165/114
[2021-03-06] MEDS ORDERED: ALBUTEROL SULFATE HFA 90 MCG/PUFF 8 GM INHALER IH PRN (10:00)
[2021-03-06] MEDS ORDERED: OMEPRAZOLE 20 MG CAPSULE PO PRN (10:00)
[2021-03-06] MEDS ORDERED: CloNIDine HCL 0.1 MG TABLET PO PRN (10:00)
[2021-03-06] MEDS ORDERED: POTASSIUM CHLORIDE 20 MEQ ER TABLET PO ONE (10:00)
[2021-03-06] MEDS ORDERED: MAGNESIUM HYDROXIDE SUSPENSION 30 ML UDCUP PO PRN (10:00)
[2021-03-06] MEDS ORDERED: BACITRACIN 28 GM OINTMENT TP PRN (10:00)
[2021-03-06] MEDS ORDERED: MAG HYDROX/AL HYDROX/SIMETH ES 30 ML SUSPENSION UDCUP PO PRN (10:00)
[2021-03-06] MEDS ORDERED: DOCUSATE SODIUM 100 MG CAPSULE PO PRN (10:00)
[2021-03-06] MEDS ORDERED: LOPERAMIDE HCL 2 MG CAPSULE PO PRN (10:00)
[2021-03-06] MEDS ORDERED: PETROLATUM,WHITE 28 GM JELLY TP PRN (10:00)
[2021-03-06] MEDS ORDERED: ONDANSETRON HCL 4 MG TABLET PO PRN (10:00)
[2021-03-06] MEDS ORDERED: BENZOCAINE/MENTHOL LOZENGE PO PRN (10:00)
[2021-03-06] MEDS: AmLODIPine BESYLATE 10 MG TABLET PO SCH (11:32)
[2021-03-06] MEDS: LISINOPRIL 20 MG TABLET PO SCH (11:32)
[2021-03-06 15:46] LABS: CHOL/HDL RATIO 1.7 (3.9-5.7)
[2021-03-06 16:00] VITALS: BP 140/72
[2021-03-06] MEDS: HALOPERIDOL 10 MG TABLET PO SCH (20:34)
[2021-03-07 01:49] VITALS: BP 140/77
[2021-03-07] MEDS: FERROUS SULFATE 325 MG EC TABLET PO SCH (06:44)
[2021-03-07 08:23] VITALS: BP 150/88
[2021-03-07] MEDS: ARIPiprazole 10 MG TABLET PO SCH (09:03)
[2021-03-07] MEDS: MULTIVITAMINS WITH MINERALS, THERAPEUTIC TABLET PO SCH (09:03)
[2021-03-07] MEDS: LISINOPRIL 20 MG TABLET PO SCH (09:03)
[2021-03-07] MEDS: AmLODIPine BESYLATE 10 MG TABLET PO SCH (09:03)
[2021-03-07 09:23] LABS: BASOPHILS % (AUTO) 1.9 % (0.0-2.0); EOSINOPHILS % (AUTO) 1.4 % (1.0-6.0); HEMATOCRIT 38.4 % (36-46); HEMOGLOBIN 11.8 g/dL (12.0-16.0); LYMPHOCYTES # (AUTO) 0.9 K/uL (1.0-4.8); LYMPHOCYTES % (AUTO) 17.4 % (22.0-44.0); MEAN CORPUSCULAR HEMOGLOBIN 23.1 pg (26.0-34.0); MEAN CORPUSCULAR HGB CONC 30.8 G/dL (31.0-37.0); MEAN CORPUSCULAR VOLUME 75 fL (80-100); MONOCYTES # (AUTO) 0.5 K/uL (0.1-1.0); MONOCYTES % (AUTO) 10.2 % (2.0-9.0); NEUTROPHILS # (AUTO) 3.7 K/uL (1.8-7.7); NEUTROPHILS % (AUTO) 69.1 % (40.0-70.0); PLATELET COUNT (AUTO) 326 K/uL (150-450); RED BLOOD CELL COUNT(AUTO) 5.13 MIL/uL (4.00-5.20); RED CELL DISTRIBUTION WIDTH 16.5 % (11.5-14.5)
[2021-03-07 09:43] LABS: ALANINE AMINOTRANSFERASE 86 U/L (12-78); ALBUMIN 3.8 g/dL (3.4-5.0); ALKALINE PHOSPHATASE 239 U/L (46-116); ANION GAP 6 mmol/L (8-16); ASPARTATE AMINOTRANSFERASE 36 U/L (15-37); BILIRUBIN,TOTAL 0.3 mg/dL (0.1-1.0); CALCIUM, TOTAL 9.3 mg/dL (8.8-10.5); CARBON DIOXIDE 27 mmol/L (22-29); CHLORIDE 104 mmol/L (98-107); CREATININE 0.75 mg/dL (0.60-1.30); GLUCOSE,RANDOM 110 mg/dL (70-110); PHOSPHORUS 3.5 mg/dL (2.5-4.9); SODIUM SERUM 137 mmol/L (136-145); TOTAL PROTEIN, SERUM 8.4 g/dL (6.4-8.2); UREA NITROGEN, BLOOD 23 mg/dL (7-18)
[2021-03-07 09:48] LABS: GLOMERULAR FILTR. RATE CALC > 60 mL/min (>60)
[2021-03-07] MEDS: HALOPERIDOL 5 MG TABLET PO PRN (14:28)
[2021-03-07 16:31] VITALS: BP 121/79
[2021-03-07] MEDS: ACETAMINOPHEN 325 MG TABLET PO PRN (19:10)
[2021-03-07] MEDS: HALOPERIDOL 10 MG TABLET PO SCH (20:29)
[2021-03-08] MEDS: FERROUS SULFATE 325 MG EC TABLET PO SCH (06:35)
[2021-03-08] MEDS: LISINOPRIL 20 MG TABLET PO SCH (09:05)
[2021-03-08] MEDS: AmLODIPine BESYLATE 10 MG TABLET PO SCH (09:05)
[2021-03-08] MEDS: MULTIVITAMINS WITH MINERALS, THERAPEUTIC TABLET PO SCH (09:05)
[2021-03-08] MEDS: ARIPiprazole 10 MG TABLET PO SCH (09:05)
[2021-03-08 09:55] VITALS: BP 145/78
[2021-03-08] MEDS: HALOPERIDOL 5 MG TABLET PO PRN ×2 (15:11→19:42)
[2021-03-08 16:00] VITALS: BP 134/74
[2021-03-08] MEDS: HALOPERIDOL 10 MG TABLET PO SCH (21:29)
[2021-03-09 00:30] VITALS: BP 119/78
[2021-03-09] MEDS: FERROUS SULFATE 325 MG EC TABLET PO SCH (06:36)
[2021-03-09 07:06] LABS: HEPATITIS C AB (EIA) <0.1 s/co ratio (0.0-0.9)
[2021-03-09] MEDS: ARIPiprazole 10 MG TABLET PO SCH (08:15)
[2021-03-09] MEDS: LISINOPRIL 20 MG TABLET PO SCH (08:15)
[2021-03-09] MEDS: AmLODIPine BESYLATE 10 MG TABLET PO SCH (08:16)
[2021-03-09] MEDS: MULTIVITAMINS WITH MINERALS, THERAPEUTIC TABLET PO SCH (08:16)
[2021-03-09 11:15] VITALS: BP 122/80
[2021-03-09 16:00] VITALS: BP 120/82
[2021-03-09] MEDS: HALOPERIDOL 5 MG TABLET PO PRN (17:19)
[2021-03-09] MEDS: HALOPERIDOL 10 MG TABLET PO SCH (21:17)
[2021-03-10 02:34] VITALS: BP 129/74
[2021-03-10] MEDS: FERROUS SULFATE 325 MG EC TABLET PO SCH (06:31)
[2021-03-10] MEDS: MULTIVITAMINS WITH MINERALS, THERAPEUTIC TABLET PO SCH (08:29)
[2021-03-10] MEDS: ARIPiprazole 10 MG TABLET PO SCH (08:29)
[2021-03-10] MEDS: AmLODIPine BESYLATE 10 MG TABLET PO SCH (08:30)
[2021-03-10 08:57] VITALS: BP 156/88
[2021-03-10] MEDS: LISINOPRIL 20 MG TABLET PO SCH (09:07)
[2021-03-10 16:00] VITALS: BP 139/76
[2021-03-10] MEDS: HALOPERIDOL 10 MG TABLET PO SCH (20:20)
[2021-03-11 03:09] VITALS: BP 135/80
[2021-03-11] MEDS: FERROUS SULFATE 325 MG EC TABLET PO SCH (06:50)
[2021-03-11 09:13] VITALS: BP 138/71
[2021-03-11] MEDS: ARIPiprazole 10 MG TABLET PO SCH (09:31)
[2021-03-11] MEDS: AmLODIPine BESYLATE 10 MG TABLET PO SCH (09:31)
[2021-03-11] MEDS: MULTIVITAMINS WITH MINERALS, THERAPEUTIC TABLET PO SCH (09:31)
[2021-03-11] MEDS: LISINOPRIL 20 MG TABLET PO SCH (09:31)
[2021-03-11 15:25] LABS: COVID AG,FIA SOURCE NASAL SWAB
[2021-03-11 16:14] VITALS: BP 108/65
[2021-03-11] MEDS: HALOPERIDOL 10 MG TABLET PO SCH (20:18)
[2021-03-12 02:30] VITALS: BP 142/80
[2021-03-12] MEDS: FERROUS SULFATE 325 MG EC TABLET PO SCH (07:03)
[2021-03-12] MEDS: ARIPiprazole 10 MG TABLET PO SCH (08:31)
[2021-03-12] MEDS: MULTIVITAMINS WITH MINERALS, THERAPEUTIC TABLET PO SCH (08:31)
[2021-03-12] MEDS: LISINOPRIL 20 MG TABLET PO SCH (08:31)
[2021-03-12] MEDS: AmLODIPine BESYLATE 10 MG TABLET PO SCH (08:31)
[2021-03-12 09:00] VITALS: BP 152/83
[2021-03-12 16:05] VITALS: BP 134/82
[2021-03-12] MEDS: HALOPERIDOL 10 MG TABLET PO SCH (20:18)
[2021-03-13 05:57] VITALS: BP 135/79
[2021-03-13] MEDS: FERROUS SULFATE 325 MG EC TABLET PO SCH (06:51)
[2021-03-13 08:00] VITALS: BP 147/83
[2021-03-13] MEDS: ARIPiprazole 10 MG TABLET PO SCH (08:13)
[2021-03-13] MEDS: AmLODIPine BESYLATE 10 MG TABLET PO SCH (08:13)
[2021-03-13] MEDS: LISINOPRIL 20 MG TABLET PO SCH (08:13)
[2021-03-13] MEDS: MULTIVITAMINS WITH MINERALS, THERAPEUTIC TABLET PO SCH (08:13)
[2021-03-13 16:00] VITALS: BP 137/80
[2021-03-13] MEDS: HALOPERIDOL 5 MG TABLET PO PRN (16:54)
[2021-03-13] MEDS: HALOPERIDOL 10 MG TABLET PO SCH (20:33)
[2021-03-14 05:15] VITALS: BP 122/74
[2021-03-14] MEDS: IBUPROFEN 600 MG TABLET PO PRN (05:21)
[2021-03-14] MEDS: FERROUS SULFATE 325 MG EC TABLET PO SCH (06:50)
[2021-03-14 08:28] VITALS: BP 129/65
[2021-03-14] MEDS: AmLODIPine BESYLATE 10 MG TABLET PO SCH (09:10)
[2021-03-14] MEDS: ARIPiprazole 10 MG TABLET PO SCH (09:10)
[2021-03-14] MEDS: MULTIVITAMINS WITH MINERALS, THERAPEUTIC TABLET PO SCH (09:10)
[2021-03-14] MEDS: LISINOPRIL 20 MG TABLET PO SCH (09:11)
[2021-03-14 16:18] VITALS: BP 151/85
[2021-03-14] MEDS: HALOPERIDOL 5 MG TABLET PO PRN (17:22)
[2021-03-14] MEDS: HALOPERIDOL 10 MG TABLET PO SCH (21:03)
[2021-03-15 03:22] VITALS: BP 127/70
[2021-03-15] MEDS: IBUPROFEN 600 MG TABLET PO PRN (03:22)
[2021-03-15] MEDS: FERROUS SULFATE 325 MG EC TABLET PO SCH (06:32)
[2021-03-15] MEDS: ARIPiprazole 10 MG TABLET PO SCH (08:55)
[2021-03-15] MEDS: MULTIVITAMINS WITH MINERALS, THERAPEUTIC TABLET PO SCH (08:55)
[2021-03-15] MEDS: LISINOPRIL 20 MG TABLET PO SCH (08:56)
[2021-03-15] MEDS: AmLODIPine BESYLATE 10 MG TABLET PO SCH (08:56)
[2021-03-15 09:10] VITALS: BP 161/78
[2021-03-15 10:25] VITALS: BP 161/78
[2021-03-15 18:18] VITALS: BP 136/75
[2021-03-15] MEDS: HALOPERIDOL 10 MG TABLET PO SCH (20:14)
[2021-03-16] MEDS: FERROUS SULFATE 325 MG EC TABLET PO SCH (06:49)
[2021-03-16 08:05] VITALS: BP 155/90
[2021-03-16 09:23] LABS: COVID AG,FIA SOURCE NASOPHARYNGEAL
[2021-03-16] MEDS: MULTIVITAMINS WITH MINERALS, THERAPEUTIC TABLET PO SCH (10:12)
[2021-03-16] MEDS: LISINOPRIL 20 MG TABLET PO SCH (10:12)
[2021-03-16] MEDS: AmLODIPine BESYLATE 10 MG TABLET PO SCH (10:12)
[2021-03-16] MEDS: ARIPiprazole 10 MG TABLET PO SCH (10:13)
[2021-03-16 17:03] VITALS: BP 155/92
[2021-03-16] MEDS: HALOPERIDOL 10 MG TABLET PO SCH (20:19)
[2021-03-17 05:27] VITALS: BP 149/83
[2021-03-17] MEDS: FERROUS SULFATE 325 MG EC TABLET PO SCH (07:03)
[2021-03-17 08:00] VITALS: BP 116/76
[2021-03-17] MEDS: ARIPiprazole 10 MG TABLET PO SCH (08:34)
[2021-03-17] MEDS: MULTIVITAMINS WITH MINERALS, THERAPEUTIC TABLET PO SCH (08:34)
[2021-03-17] MEDS: AmLODIPine BESYLATE 10 MG TABLET PO SCH (08:34)
[2021-03-17] MEDS: LISINOPRIL 20 MG TABLET PO SCH (08:35)
[2021-03-17 13:00] VITALS: BP 114/70
[2021-03-17] MEDS: ACETAMINOPHEN 325 MG TABLET PO PRN (13:12)
[2021-03-17 16:20] VITALS: BP 130/74
[2021-03-17] MEDS: HALOPERIDOL 10 MG TABLET PO SCH (20:11)
[2021-03-18 03:44] VITALS: BP 131/75
[2021-03-18] MEDS: FERROUS SULFATE 325 MG EC TABLET PO SCH (06:40)
[2021-03-18] MEDS: ARIPiprazole 10 MG TABLET PO SCH (08:18)
[2021-03-18] MEDS: MULTIVITAMINS WITH MINERALS, THERAPEUTIC TABLET PO SCH (08:18)
[2021-03-18] MEDS: AmLODIPine BESYLATE 10 MG TABLET PO SCH (08:18)
[2021-03-18] MEDS: LISINOPRIL 20 MG TABLET PO SCH (08:18)
[2021-03-18 09:23] VITALS: BP 117/68
== END 2021-03-18 17:45 | disposition home or self-care (01) | DRG 885 ==
LOC: EMS 19:46 → 3EI 22:00
PROVIDERS: ADMIT Psychiatry & Neurology Psychiatry; ATTEND Psychiatry & Neurology Psychiatry
DX: F25.1 Schizoaffective disorder, depressive type (principal); E87.1 Hypo-osmolality and hyponatremia; R45.851 Suicidal ideations; F41.9 Anxiety disorder, unspecified; G47.00 Insomnia, unspecified; I10 Essential (primary) hypertension; J44.9 Chronic obstructive pulmonary disease, unspecified; E87.6 Hypokalemia; E11.9 Type 2 diabetes mellitus without complications; D50.9 Iron deficiency anemia, unspecified; F32.9 Major depressive disorder, single episode, unspecified; K21.9 Gastro-esophageal reflux disease without esophagitis; K59.00 Constipation, unspecified; Z20.822 Contact with and (suspected) exposure to COVID-19; Z79.899 Other long term (current) drug therapy; Z90.49 Acquired absence of other specified parts of digestive tract; Z85.3 Personal history of malignant neoplasm of breast; Z90.11 Acquired absence of right breast and nipple; Z88.0 Allergy status to penicillin
CPT/HCPCS: 80053; 80061; 80074; 81001; 83735; 84100; 85025; 87081; 87086; 99285; G0480; Q0162

== ENCOUNTER 2021-06-07 10:32 | Emergency (ER) | payer MEDICARE, OTHER ==
[~2021-06-07] VITALS: Ht 157.5 cm; Wt 56.8 kg
[~2021-06-07 10:32] MED LIST changes: -THIA100T80 PO
[2021-06-07] MEDS ORDERED: LORazepam 1 MG TABLET PO ONE (11:30)
[2021-06-07] MEDS ORDERED: HALOPERIDOL 5 MG TABLET PO ONE (11:30)
[2021-06-07 11:45] LABS: BASOPHILS % (AUTO) 2.4 % (0.0-2.0); EOSINOPHILS % (AUTO) 1.4 % (1.0-6.0); HEMATOCRIT 33.1 % (36-46); HEMOGLOBIN 10.3 g/dL (12.0-16.0); LYMPHOCYTES # (AUTO) 1.3 K/uL (1.0-4.8); LYMPHOCYTES % (AUTO) 41.3 % (22.0-44.0); MEAN CORPUSCULAR HGB CONC 31.2 G/dL (31.0-37.0); MEAN CORPUSCULAR VOLUME 74 fL (80-100); MONOCYTES # (AUTO) 0.4 K/uL (0.1-1.0); MONOCYTES % (AUTO) 12.3 % (2.0-9.0); NEUTROPHILS # (AUTO) 1.3 K/uL (1.8-7.7); NEUTROPHILS % (AUTO) 42.6 % (40.0-70.0); PLATELET COUNT (AUTO) 276 K/uL (150-450); RED BLOOD CELL COUNT(AUTO) 4.49 MIL/uL (4.00-5.20); RED CELL DISTRIBUTION WIDTH 15.8 % (11.5-14.5)
[2021-06-07 11:52] LABS: ANION GAP 8 mmol/L (8-16); CALCIUM, TOTAL 8.9 mg/dL (8.8-10.5); CARBON DIOXIDE 28 mmol/L (22-29); CHLORIDE 106 mmol/L (98-107); CREATININE 0.69 mg/dL (0.60-1.30); GLOMERULAR FILTR. RATE CALC > 60 mL/min (>60); GLUCOSE,RANDOM 96 mg/dL (70-110); POTASSIUM 3.8 mmol/L (3.5-5.1); SODIUM SERUM 142 mmol/L (136-145); UREA NITROGEN, BLOOD 23 mg/dL (7-18)
[2021-06-07 11:58] LABS: ALANINE AMINOTRANSFERASE 21 U/L (12-78); ALBUMIN 3.6 g/dL (3.4-5.0); ALKALINE PHOSPHATASE 155 U/L (46-116); ASPARTATE AMINOTRANSFERASE 21 U/L (15-37); BILIRUBIN,TOTAL 0.3 mg/dL (0.1-1.0); TOTAL PROTEIN, SERUM 7.7 g/dL (6.4-8.2)
[2021-06-07 13:55] VITALS: BP 169/91
== END 2021-06-07 14:02 | disposition home or self-care (01) ==
LOC: MERGE 10:32 → EMS 10:32
DX: F20.9 Schizophrenia, unspecified (principal); I10 Essential (primary) hypertension; F17.210 Nicotine dependence, cigarettes, uncomplicated
CPT/HCPCS: 36415; 80053; 85025; 99283; G0480

== ENCOUNTER 2021-07-30 15:05 | Inpatient (IN) | payer MEDICARE, MEDICAID ==
[~2021-07-30] VITALS: Ht 157.5 cm; Wt 56.8 kg
[2021-07-30 17:05] LABS: BASOPHILS % (AUTO) 1.4 % (0.0-2.0); HEMATOCRIT 36.1 % (36-46); HEMOGLOBIN 11.3 g/dL (12.0-16.0); LYMPHOCYTES # (AUTO) 1.3 K/uL (1.0-4.8); LYMPHOCYTES % (AUTO) 27.6 % (22.0-44.0); MEAN CORPUSCULAR HEMOGLOBIN 22.9 pg (26.0-34.0); MEAN CORPUSCULAR HGB CONC 31.2 G/dL (31.0-37.0); MEAN CORPUSCULAR VOLUME 73 fL (80-100); MONOCYTES # (AUTO) 0.5 K/uL (0.1-1.0); MONOCYTES % (AUTO) 10.7 % (2.0-9.0); NEUTROPHILS # (AUTO) 2.7 K/uL (1.8-7.7); NEUTROPHILS % (AUTO) 58.3 % (40.0-70.0); PLATELET COUNT (AUTO) 304 K/uL (150-450); RED BLOOD CELL COUNT(AUTO) 4.92 MIL/uL (4.00-5.20); RED CELL DISTRIBUTION WIDTH 15.5 % (11.5-14.5)
[2021-07-30 17:15] LABS: ANION GAP 6 mmol/L (8-16); CALCIUM, TOTAL 9.3 mg/dL (8.8-10.5); CARBON DIOXIDE 27 mmol/L (22-29); CHLORIDE 108 mmol/L (98-107); CREATININE 0.72 mg/dL (0.60-1.30); GLOMERULAR FILTR. RATE CALC > 60 mL/min (>60); GLUCOSE,RANDOM 86 mg/dL (70-110); POTASSIUM 3.8 mmol/L (3.5-5.1); SODIUM SERUM 141 mmol/L (136-145); UREA NITROGEN, BLOOD 27 mg/dL (7-18)
[2021-07-30 17:20] LABS: ALANINE AMINOTRANSFERASE 28 U/L (12-78); ALBUMIN 3.6 g/dL (3.4-5.0); ALKALINE PHOSPHATASE 165 U/L (46-116); ASPARTATE AMINOTRANSFERASE 22 U/L (15-37); BILIRUBIN,TOTAL 0.4 mg/dL (0.1-1.0); TOTAL PROTEIN, SERUM 8.1 g/dL (6.4-8.2)
[2021-07-30 17:21] LABS: COVID AG,FIA SOURCE NASAL SWAB
[2021-07-30 21:04] LABS: AMPHET/METH SCREEN,URINE NEGATIVE (NEGATIVE); BARBITURATE SCREEN, URINE NEGATIVE (NEGATIVE); BENZODIAZEPINES SCREEN,URINE NEGATIVE (NEGATIVE); CANNABINOID SCREEN,URINE NEGATIVE (NEGATIVE); COCAINE SCREEN,URINE NEGATIVE (NEGATIVE); METHADONE SCREEN, URINE NEGATIVE (NEGATIVE); OPIATE SCREEN,URINE NEGATIVE (NEGATIVE)
[2021-07-30 21:08] LABS: PHENCYCLIDINE SCREEN,URINE NEGATIVE (NEGATIVE)
[2021-07-30] MEDS ORDERED: HALOPERIDOL 5 MG TABLET PO ONE (22:30)
[2021-07-31] MEDS ORDERED: HALOPERIDOL 5 MG TABLET PO PRN (00:30)
[2021-07-31 00:44] LABS: APPEARANCE,URINE CLEAR (CLEAR); BILIRUBIN,URINE NEGATIVE (NEGATIVE); GLUCOSE, URINE (UA) NEGATIVE (NEGATIVE); KETONES,URINE NEGATIVE (NEGATIVE); LEUKOCYTE ESTERASE ,URINE NEGATIVE (NEGATIVE); NITRATE,URINE NEGATIVE (NEGATIVE); OCCULT BLOOD,URINE NEGATIVE (NEGATIVE); PH,URINE 5.5 (5.0-8.0); PROTEIN,URINE TRACE (NEGATIVE); UROBILINOGEN,URINE 0.2 mg/dL (<=1.0)
[2021-07-31] MEDS: LORazepam 2 MG TABLET PO PRN (11:07)
[2021-07-31] MEDS ORDERED: INFLUENZA VIRUS VACCINE QVS 2021-22 (6MO+)/PF 60 MCG/0.5 ML SYRINGE IM. ONE (17:00)
[2021-07-31] MEDS ORDERED: -PHARMACY VACCINE NOTE- MISC ONE (17:00)
[2021-07-31 18:21] VITALS: BP 110/80
[2021-08-01 02:56] VITALS: BP 140/76
[2021-08-01 06:52] LABS: CHOL/HDL RATIO 1.6 (3.9-5.7)
[2021-08-01] MEDS ORDERED: ACETAMINOPHEN 325 MG TABLET PO PRN (07:00)
[2021-08-01] MEDS ORDERED: OMEPRAZOLE 20 MG CAPSULE PO PRN (07:00)
[2021-08-01] MEDS ORDERED: MAG HYDROX/AL HYDROX/SIMETH ES 30 ML SUSPENSION UDCUP PO PRN (07:00)
[2021-08-01] MEDS ORDERED: ALBUTEROL SULFATE HFA 90 MCG/PUFF 8 GM INHALER IH PRN (07:00)
[2021-08-01] MEDS ORDERED: CloNIDine HCL 0.1 MG TABLET PO PRN (07:00)
[2021-08-01] MEDS ORDERED: LOPERAMIDE HCL 2 MG CAPSULE PO PRN (07:00)
[2021-08-01] MEDS ORDERED: PETROLATUM,WHITE 28 GM JELLY TP PRN (07:00)
[2021-08-01] MEDS ORDERED: ONDANSETRON HCL 4 MG TABLET PO PRN (07:00)
[2021-08-01] MEDS ORDERED: BENZOCAINE/MENTHOL LOZENGE PO PRN (07:00)
[2021-08-01] MEDS ORDERED: DOCUSATE SODIUM 100 MG CAPSULE PO PRN (07:00)
[2021-08-01] MEDS ORDERED: IBUPROFEN 600 MG TABLET PO PRN (07:00)
[2021-08-01] MEDS ORDERED: BACITRACIN 28 GM OINTMENT TP PRN (07:00)
[2021-08-01] MEDS ORDERED: MAGNESIUM HYDROXIDE SUSPENSION 30 ML UDCUP PO PRN (07:00)
[2021-08-01] MEDS: FERROUS SULFATE 325 MG EC TABLET PO SCH (07:17)
[2021-08-01 08:31] VITALS: BP 159/92
[2021-08-01] MEDS: MULTIVITAMINS WITH MINERALS, THERAPEUTIC TABLET PO SCH (09:31)
[2021-08-01] MEDS: LISINOPRIL 20 MG TABLET PO SCH (09:31)
[2021-08-01] MEDS: AmLODIPine BESYLATE 10 MG TABLET PO SCH (09:31)
[2021-08-01 16:21] VITALS: BP 121/65
[2021-08-01 18:48] VITALS: BP 117/79
[2021-08-01] MEDS: LORazepam 2 MG TABLET PO PRN (18:52)
[2021-08-01] MEDS: HALOPERIDOL 10 MG TABLET PO SCH (20:11)
[2021-08-01] MEDS: BENZTROPINE MESYLATE 1 MG TABLET PO SCH (20:11)
[2021-08-02 02:21] VITALS: BP 138/82
[2021-08-02] MEDS: FERROUS SULFATE 325 MG EC TABLET PO SCH (06:51)
[2021-08-02 08:21] VITALS: BP 126/73
[2021-08-02] MEDS: LISINOPRIL 20 MG TABLET PO SCH (08:44)
[2021-08-02] MEDS: MULTIVITAMINS WITH MINERALS, THERAPEUTIC TABLET PO SCH (08:44)
[2021-08-02] MEDS: BENZTROPINE MESYLATE 1 MG TABLET PO SCH ×2 (08:45→16:21)
[2021-08-02] MEDS: AmLODIPine BESYLATE 10 MG TABLET PO SCH (08:45)
[2021-08-02 16:14] VITALS: BP 123/61
[2021-08-02] MEDS: HALOPERIDOL 10 MG TABLET PO SCH (20:36)
[2021-08-02] MEDS: ZOLPIDEM TARTRATE 10 MG TABLET PO PRN (22:25)
[2021-08-03 05:43] VITALS: BP 140/73
[2021-08-03] MEDS: FERROUS SULFATE 325 MG EC TABLET PO SCH (06:39)
[2021-08-03] MEDS: MULTIVITAMINS WITH MINERALS, THERAPEUTIC TABLET PO SCH (08:19)
[2021-08-03] MEDS: BENZTROPINE MESYLATE 1 MG TABLET PO SCH ×2 (08:19→16:37)
[2021-08-03] MEDS: LISINOPRIL 20 MG TABLET PO SCH (08:20)
[2021-08-03] MEDS: AmLODIPine BESYLATE 10 MG TABLET PO SCH (08:20)
[2021-08-03 08:37] VITALS: BP 119/78
[2021-08-03 16:10] VITALS: BP 122/71
[2021-08-03] MEDS: HALOPERIDOL 10 MG TABLET PO SCH (20:43)
[2021-08-04 03:33] VITALS: BP 122/71
[2021-08-04 05:52] LABS: GLUCOMETER DEV NAME(LOC) POC.BV
[2021-08-04] MEDS: FERROUS SULFATE 325 MG EC TABLET PO SCH (06:38)
[2021-08-04 08:29] VITALS: BP 154/80
[2021-08-04] MEDS: AmLODIPine BESYLATE 10 MG TABLET PO SCH (09:08)
[2021-08-04] MEDS: LISINOPRIL 20 MG TABLET PO SCH (09:08)
[2021-08-04] MEDS: BENZTROPINE MESYLATE 1 MG TABLET PO SCH ×2 (09:08→16:26)
[2021-08-04] MEDS: MULTIVITAMINS WITH MINERALS, THERAPEUTIC TABLET PO SCH (09:14)
[2021-08-04 16:09] VITALS: BP 138/76
[2021-08-04] MEDS: HALOPERIDOL 10 MG TABLET PO SCH (20:29)
[2021-08-05] MEDS: ZOLPIDEM TARTRATE 10 MG TABLET PO PRN (01:36)
[2021-08-05 07:09] VITALS: BP 146/86
[2021-08-05] MEDS: FERROUS SULFATE 325 MG EC TABLET PO SCH (07:33)
[2021-08-05 08:20] VITALS: BP 132/68
[2021-08-05] MEDS: LISINOPRIL 20 MG TABLET PO SCH (09:18)
[2021-08-05] MEDS: AmLODIPine BESYLATE 10 MG TABLET PO SCH (09:18)
[2021-08-05] MEDS: MULTIVITAMINS WITH MINERALS, THERAPEUTIC TABLET PO SCH (09:18)
[2021-08-05] MEDS: BENZTROPINE MESYLATE 1 MG TABLET PO SCH ×2 (09:18→16:38)
[2021-08-05] MEDS ORDERED: HALO10 PO (12:03)
[2021-08-05] MEDS ORDERED: BENZ1TAB10 PO (12:03)
[2021-08-05] MEDS ORDERED: AMLO-258 PO (15:24)
[2021-08-05] MEDS ORDERED: LISI-894 PO (15:24)
[2021-08-05] MEDS ORDERED: FERR-89 PO (15:25)
[2021-08-05 16:43] VITALS: BP 131/76
== END 2021-08-05 21:52 | disposition home health service (06) | DRG 885 ==
LOC: EMS 15:24 → B2S 07-31 11:41
PROVIDERS: ADMIT Psychiatry & Neurology Psychiatry; ATTEND Psychiatry & Neurology Psychiatry
DX: F25.0 Schizoaffective disorder, bipolar type (principal); E87.1 Hypo-osmolality and hyponatremia; F17.210 Nicotine dependence, cigarettes, uncomplicated; H40.9 Unspecified glaucoma; E87.6 Hypokalemia; F41.9 Anxiety disorder, unspecified; G47.00 Insomnia, unspecified; I10 Essential (primary) hypertension; J44.9 Chronic obstructive pulmonary disease, unspecified; K21.9 Gastro-esophageal reflux disease without esophagitis; K59.00 Constipation, unspecified; C50.919 Malignant neoplasm of unspecified site of unspecified female breast; Z20.822 Contact with and (suspected) exposure to COVID-19; D50.9 Iron deficiency anemia, unspecified; Z98.891 History of uterine scar from previous surgery; Z90.49 Acquired absence of other specified parts of digestive tract; Z90.11 Acquired absence of right breast and nipple; Z23 Encounter for immunization
CPT/HCPCS: 80053; 80061; 81003; 85025; 90686; 99285; G0480; J3535; Q0162

== ENCOUNTER 2021-08-27 15:30 | Emergency (ER) | payer MEDICARE, OTHER ==
[~2021-08-27] VITALS: Ht 157.5 cm; Wt 60.0 kg
[~2021-08-27 15:30] MED LIST changes: -ARIP10TA38 PO; +BENZ1TAB10 PO; -MULT-1239 PO
[2021-08-27 16:11] LABS: BASOPHILS % (AUTO) 0.7 % (0.0-2.0); EOSINOPHILS % (AUTO) 2.6 % (1.0-6.0); HEMATOCRIT 36.6 % (36-46); HEMOGLOBIN 11.6 g/dL (12.0-16.0); LYMPHOCYTES # (AUTO) 1.1 K/uL (1.0-4.8); LYMPHOCYTES % (AUTO) 24.5 % (22.0-44.0); MEAN CORPUSCULAR HEMOGLOBIN 22.7 pg (26.0-34.0); MEAN CORPUSCULAR HGB CONC 31.6 G/dL (31.0-37.0); MEAN CORPUSCULAR VOLUME 72 fL (80-100); MONOCYTES # (AUTO) 0.4 K/uL (0.1-1.0); MONOCYTES % (AUTO) 8.8 % (2.0-9.0); NEUTROPHILS # (AUTO) 2.9 K/uL (1.8-7.7); NEUTROPHILS % (AUTO) 63.4 % (40.0-70.0); PLATELET COUNT (AUTO) 337 K/uL (150-450); RED BLOOD CELL COUNT(AUTO) 5.09 MIL/uL (4.00-5.20); RED CELL DISTRIBUTION WIDTH 14.8 % (11.5-14.5)
[2021-08-27 16:20] LABS: ANION GAP 11 mmol/L (8-16); CALCIUM, TOTAL 9.5 mg/dL (8.8-10.5); CARBON DIOXIDE 30 mmol/L (22-29); CHLORIDE 102 mmol/L (98-107); CREATININE 0.73 mg/dL (0.60-1.30); GLUCOSE,RANDOM 106 mg/dL (70-110); POTASSIUM 3.3 mmol/L (3.5-5.1); SODIUM SERUM 143 mmol/L (136-145); UREA NITROGEN, BLOOD 19 mg/dL (7-18)
[2021-08-27 16:21] LABS: GLOMERULAR FILTR. RATE CALC > 60 mL/min (>60)
[2021-08-27 16:25] LABS: PROTHROMBIN TIME 10.3 SEC (9.4-11.6)
[2021-08-27 16:27] LABS: AMMONIA 12 umol/L (11-32)
[2021-08-27 16:33] LABS: B-TYPE NATRIURETIC PEPTIDE 45 pg/mL (0-100)
[2021-08-27 16:46] LABS: ALANINE AMINOTRANSFERASE 33 U/L (12-78); ALBUMIN 3.8 g/dL (3.4-5.0); ALKALINE PHOSPHATASE 211 U/L (46-116); ASPARTATE AMINOTRANSFERASE 20 U/L (15-37); BILIRUBIN,TOTAL 0.3 mg/dL (0.1-1.0); CREATINE KINASE, TOTAL ONLY 173 U/L (26-192); TOTAL PROTEIN, SERUM 8.6 g/dL (6.4-8.2)
[2021-08-27 16:56] LABS: COVID AG,FIA SOURCE NASOPHARYNGEAL
[2021-08-27 17:46] LABS: APPEARANCE,URINE CLEAR (CLEAR); BILIRUBIN,URINE NEGATIVE (NEGATIVE); GLUCOSE, URINE (UA) NEGATIVE (NEGATIVE); KETONES,URINE NEGATIVE (NEGATIVE); LEUKOCYTE ESTERASE ,URINE NEGATIVE (NEGATIVE); NITRATE,URINE NEGATIVE (NEGATIVE); OCCULT BLOOD,URINE NEGATIVE (NEGATIVE); PROTEIN,URINE POS 1+ (NEGATIVE)
[2021-08-27 17:52] VITALS: BP 166/83
[2021-08-27 17:52] LABS: AMPHET/METH SCREEN,URINE NEGATIVE (NEGATIVE); BARBITURATE SCREEN, URINE NEGATIVE (NEGATIVE); BENZODIAZEPINES SCREEN,URINE NEGATIVE (NEGATIVE); CANNABINOID SCREEN,URINE NEGATIVE (NEGATIVE); COCAINE SCREEN,URINE NEGATIVE (NEGATIVE); METHADONE SCREEN, URINE NEGATIVE (NEGATIVE); OPIATE SCREEN,URINE NEGATIVE (NEGATIVE)
[2021-08-27 17:53] LABS: PHENCYCLIDINE SCREEN,URINE NEGATIVE (NEGATIVE)
[2021-08-27] MEDS ORDERED: HALO5TAB23 PO (17:53)
[2021-08-27] MEDS ORDERED: BENZ1TAB10 PO (17:53)
== END 2021-08-27 18:46 | disposition home or self-care (01) ==
LOC: EMS 15:38
DX: F25.1 Schizoaffective disorder, depressive type (principal); F79 Unspecified intellectual disabilities; I10 Essential (primary) hypertension; F17.210 Nicotine dependence, cigarettes, uncomplicated; Z88.0 Allergy status to penicillin; Z79.899 Other long term (current) drug therapy; Z20.822 Contact with and (suspected) exposure to COVID-19
CPT/HCPCS: 36415; 70450; 71045; 80053; 80307; 81003; 82140; 82550; 83880; 84484; 85025; 85610; 85730; 87426; 93005; 99285; G0480

== ENCOUNTER 2021-09-13 13:56 | Emergency (ER) | payer MEDICARE, OTHER ==
[~2021-09-13] VITALS: Ht 157.5 cm; Wt 61.8 kg
[~2021-09-13 13:56] MED LIST changes: +HALO5TAB23 PO
[2021-09-13 14:32] VITALS: BP 142/99
[2021-09-13] MEDS ORDERED: HALOPERIDOL 5 MG TABLET PO ONE ×2 (16:00→16:15)
[2021-09-13] MEDS ORDERED: HALO5TAB2 PO (16:07)
[2021-09-26] MEDS ORDERED: AMLO-258 PO (12:51)
[2021-09-26] MEDS ORDERED: FERR-89 PO (12:51)
[2021-09-26] MEDS ORDERED: LISI-894 PO (12:51)
== END 2021-09-13 17:06 | disposition home or self-care (01) ==
LOC: EDUNIT# 13:56 → EMS 13:56
DX: F25.1 Schizoaffective disorder, depressive type (principal); I10 Essential (primary) hypertension; E11.9 Type 2 diabetes mellitus without complications; J45.909 Unspecified asthma, uncomplicated; F17.210 Nicotine dependence, cigarettes, uncomplicated; Z88.0 Allergy status to penicillin; Z79.899 Other long term (current) drug therapy
CPT/HCPCS: 99284; Z7502; Z7610

== ENCOUNTER 2021-09-16 15:28 | Emergency (ER) | payer MEDICARE, OTHER ==
[~2021-09-16] VITALS: Ht 162.6 cm; Wt 54.5 kg
[~2021-09-16 15:28] MED LIST changes: +HALO5TAB2 PO
[2021-09-16 17:31] VITALS: BP 135/81
[2021-09-16 19:05] LABS: BASOPHILS % (AUTO) 0.9 % (0.0-2.0); EOSINOPHILS % (AUTO) 2.5 % (1.0-6.0); HEMATOCRIT 33.4 % (36-46); HEMOGLOBIN 10.6 g/dL (12.0-16.0); LYMPHOCYTES # (AUTO) 1.5 K/uL (1.0-4.8); LYMPHOCYTES % (AUTO) 32.3 % (22.0-44.0); MEAN CORPUSCULAR HEMOGLOBIN 22.7 pg (26.0-34.0); MEAN CORPUSCULAR HGB CONC 31.8 G/dL (31.0-37.0); MEAN CORPUSCULAR VOLUME 71 fL (80-100); MONOCYTES # (AUTO) 0.6 K/uL (0.1-1.0); MONOCYTES % (AUTO) 12.7 % (2.0-9.0); NEUTROPHILS # (AUTO) 2.3 K/uL (1.8-7.7); NEUTROPHILS % (AUTO) 51.6 % (40.0-70.0); PLATELET COUNT (AUTO) 319 K/uL (150-450); RED BLOOD CELL COUNT(AUTO) 4.68 MIL/uL (4.00-5.20)
[2021-09-16 19:11] LABS: ANION GAP 9 mmol/L (8-16); CALCIUM, TOTAL 9.2 mg/dL (8.8-10.5); CARBON DIOXIDE 26 mmol/L (22-29); CHLORIDE 104 mmol/L (98-107); CREATININE 0.56 mg/dL (0.60-1.30); GLUCOSE,RANDOM 96 mg/dL (70-110); POTASSIUM 3.4 mmol/L (3.5-5.1); SODIUM SERUM 139 mmol/L (136-145); UREA NITROGEN, BLOOD 20 mg/dL (7-18)
[2021-09-16 19:16] LABS: GLOMERULAR FILTR. RATE CALC > 60 mL/min (>60)
[2021-09-16 19:17] LABS: ALANINE AMINOTRANSFERASE 16 U/L (12-78); ALBUMIN 3.2 g/dL (3.4-5.0); ALKALINE PHOSPHATASE 150 U/L (46-116); ASPARTATE AMINOTRANSFERASE 17 U/L (15-37); BILIRUBIN,TOTAL 0.5 mg/dL (0.1-1.0); TOTAL PROTEIN, SERUM 7.6 g/dL (6.4-8.2)
[2021-09-16 19:25] LABS: PLATELET MORPHOLOGY COMMENT LARGE PLTS PRESENT
[2021-09-26] MEDS ORDERED: FERR-89 PO (12:51)
[2021-09-26] MEDS ORDERED: AMLO-258 PO (12:51)
[2021-09-26] MEDS ORDERED: LISI-894 PO (12:51)
== END 2021-09-16 22:50 | disposition left against medical advice (07) ==
LOC: EMS 15:53
DX: F20.9 Schizophrenia, unspecified (principal); R53.1 Weakness; I10 Essential (primary) hypertension; E11.9 Type 2 diabetes mellitus without complications; F31.9 Bipolar disorder, unspecified; J45.909 Unspecified asthma, uncomplicated; F17.210 Nicotine dependence, cigarettes, uncomplicated; Z88.0 Allergy status to penicillin; Z79.899 Other long term (current) drug therapy
CPT/HCPCS: 71045; 80053; 84484; 85025; 93005; 99285; 36415-L1; 36415-TC

== ENCOUNTER 2021-09-19 11:57 | Inpatient (IN) | payer MEDICARE, MEDICAID ==
[~2021-09-19] VITALS: Ht 157.5 cm; Wt 59.0 kg
[2021-09-19 12:43] LABS: BASOPHILS % (AUTO) 1.4 % (0.0-2.0); EOSINOPHILS % (AUTO) 3.9 % (1.0-6.0); HEMATOCRIT 33.9 % (36-46); HEMOGLOBIN 10.5 g/dL (12.0-16.0); LYMPHOCYTES # (AUTO) 1.1 K/uL (1.0-4.8); LYMPHOCYTES % (AUTO) 27.2 % (22.0-44.0); MEAN CORPUSCULAR HEMOGLOBIN 22.4 pg (26.0-34.0); MEAN CORPUSCULAR VOLUME 72 fL (80-100); MONOCYTES # (AUTO) 0.5 K/uL (0.1-1.0); MONOCYTES % (AUTO) 13.1 % (2.0-9.0); NEUTROPHILS # (AUTO) 2.1 K/uL (1.8-7.7); NEUTROPHILS % (AUTO) 54.4 % (40.0-70.0); PLATELET COUNT (AUTO) 353 K/uL (150-450); RED BLOOD CELL COUNT(AUTO) 4.69 MIL/uL (4.00-5.20)
[2021-09-19 12:51] LABS: ANION GAP 7 mmol/L (8-16); CALCIUM, TOTAL 9.1 mg/dL (8.8-10.5); CARBON DIOXIDE 30 mmol/L (22-29); CHLORIDE 106 mmol/L (98-107); CREATININE 0.76 mg/dL (0.60-1.30); GLOMERULAR FILTR. RATE CALC > 60 mL/min (>60); GLUCOSE,RANDOM 95 mg/dL (70-110); POTASSIUM 3.3 mmol/L (3.5-5.1); SODIUM SERUM 143 mmol/L (136-145); UREA NITROGEN, BLOOD 25 mg/dL (7-18)
[2021-09-19 12:57] LABS: ALANINE AMINOTRANSFERASE 19 U/L (12-78); ALBUMIN 3.2 g/dL (3.4-5.0); ALKALINE PHOSPHATASE 172 U/L (46-116); ASPARTATE AMINOTRANSFERASE 18 U/L (15-37); BILIRUBIN,TOTAL 0.2 mg/dL (0.1-1.0); TOTAL PROTEIN, SERUM 7.6 g/dL (6.4-8.2)
[2021-09-19 13:18] LABS: COVID AG,FIA SOURCE NASOPHARYNGEAL
[2021-09-19] MEDS ORDERED: ZOLPIDEM TARTRATE 10 MG TABLET PO PRN (13:30)
[2021-09-19] MEDS: HALOPERIDOL 5 MG TABLET PO PRN (16:15)
[2021-09-19] MEDS: LORazepam 2 MG TABLET PO PRN (16:15)
[2021-09-19 16:58] LABS: APPEARANCE,URINE CLEAR (CLEAR); BILIRUBIN,URINE NEGATIVE (NEGATIVE); GLUCOSE, URINE (UA) NEGATIVE (NEGATIVE); KETONES,URINE NEGATIVE (NEGATIVE); LEUKOCYTE ESTERASE ,URINE NEGATIVE (NEGATIVE); NITRATE,URINE NEGATIVE (NEGATIVE); OCCULT BLOOD,URINE NEGATIVE (NEGATIVE); PROTEIN,URINE NEGATIVE (NEGATIVE); SPECIFIC GRAVITIY, URINE 1.016 (1.003-1.030); UROBILINOGEN,URINE <=1.0 mg/dL (<=1.0)
[2021-09-19 17:18] LABS: AMPHET/METH SCREEN,URINE NEGATIVE (NEGATIVE); BARBITURATE SCREEN, URINE NEGATIVE (NEGATIVE); BENZODIAZEPINES SCREEN,URINE NEGATIVE (NEGATIVE); CANNABINOID SCREEN,URINE NEGATIVE (NEGATIVE); COCAINE SCREEN,URINE NEGATIVE (NEGATIVE); METHADONE SCREEN, URINE NEGATIVE (NEGATIVE); OPIATE SCREEN,URINE NEGATIVE (NEGATIVE)
[2021-09-19 17:20] LABS: PHENCYCLIDINE SCREEN,URINE NEGATIVE (NEGATIVE)
[2021-09-19] MEDS ORDERED: BACITRACIN 28 GM OINTMENT TP PRN (18:00)
[2021-09-19] MEDS ORDERED: IBUPROFEN 600 MG TABLET PO PRN (18:00)
[2021-09-19] MEDS ORDERED: LOPERAMIDE HCL 2 MG CAPSULE PO PRN (18:00)
[2021-09-19] MEDS ORDERED: OMEPRAZOLE 20 MG CAPSULE PO PRN (18:00)
[2021-09-19] MEDS ORDERED: DOCUSATE SODIUM 100 MG CAPSULE PO PRN (18:00)
[2021-09-19] MEDS ORDERED: CloNIDine HCL 0.1 MG TABLET PO PRN (18:00)
[2021-09-19] MEDS ORDERED: MAGNESIUM HYDROXIDE SUSPENSION 30 ML UDCUP PO PRN (18:00)
[2021-09-19] MEDS ORDERED: PETROLATUM,WHITE 28 GM JELLY TP PRN (18:00)
[2021-09-19] MEDS ORDERED: BENZOCAINE/MENTHOL LOZENGE PO PRN (18:00)
[2021-09-19] MEDS ORDERED: ALBUTEROL SULFATE HFA 90 MCG/PUFF 8 GM INHALER IH PRN (18:00)
[2021-09-19] MEDS ORDERED: ACETAMINOPHEN 325 MG TABLET PO PRN (18:00)
[2021-09-19] MEDS ORDERED: MAG HYDROX/AL HYDROX/SIMETH ES 30 ML SUSPENSION UDCUP PO PRN (18:00)
[2021-09-19] MEDS ORDERED: ONDANSETRON HCL 4 MG TABLET PO PRN (18:00)
[2021-09-20 00:58] VITALS: BP 121/81
[2021-09-20] MEDS ORDERED: -PHARMACY VACCINE NOTE- MISC ONE (03:45)
[2021-09-20] MEDS: FERROUS SULFATE 325 MG EC TABLET PO SCH (07:05)
[2021-09-20] MEDS: LISINOPRIL 20 MG TABLET PO SCH (08:15)
[2021-09-20] MEDS: AmLODIPine BESYLATE 10 MG TABLET PO SCH (08:15)
[2021-09-20 09:50] VITALS: BP 135/75
[2021-09-20 16:00] VITALS: BP 140/81
[2021-09-20] MEDS: LORazepam 2 MG TABLET PO PRN (16:50)
[2021-09-21 05:13] VITALS: BP 140/87
[2021-09-21] MEDS: FERROUS SULFATE 325 MG EC TABLET PO SCH (07:04)
[2021-09-21 07:34] LABS: EOSINOPHILS % (AUTO) 3.2 % (1.0-6.0); HEMOGLOBIN 10.5 g/dL (12.0-16.0); LYMPHOCYTES # (AUTO) 0.8 K/uL (1.0-4.8); LYMPHOCYTES % (AUTO) 19.1 % (22.0-44.0); MEAN CORPUSCULAR HEMOGLOBIN 22.7 pg (26.0-34.0); MEAN CORPUSCULAR HGB CONC 31.8 G/dL (31.0-37.0); MEAN CORPUSCULAR VOLUME 72 fL (80-100); MONOCYTES # (AUTO) 0.5 K/uL (0.1-1.0); MONOCYTES % (AUTO) 11.2 % (2.0-9.0); NEUTROPHILS # (AUTO) 2.9 K/uL (1.8-7.7); NEUTROPHILS % (AUTO) 64.5 % (40.0-70.0); PLATELET COUNT (AUTO) 350 K/uL (150-450); RED BLOOD CELL COUNT(AUTO) 4.61 MIL/uL (4.00-5.20); RED CELL DISTRIBUTION WIDTH 14.9 % (11.5-14.5)
[2021-09-21 07:54] LABS: % IRON SATURATION 16.4 % (22-44); IRON, SERUM 43 mcg/dL (50-175); TOTAL IRON BINDING CAPACITY 261 mcg/dL (250-450)
[2021-09-21] MEDS: LISINOPRIL 20 MG TABLET PO SCH (08:01)
[2021-09-21] MEDS: AmLODIPine BESYLATE 10 MG TABLET PO SCH (08:01)
[2021-09-21 08:02] LABS: ALANINE AMINOTRANSFERASE 15 U/L (12-78); ALBUMIN 2.8 g/dL (3.4-5.0); ALKALINE PHOSPHATASE 146 U/L (46-116); ANION GAP 10 mmol/L (8-16); ASPARTATE AMINOTRANSFERASE 14 U/L (15-37); BILIRUBIN,TOTAL 0.2 mg/dL (0.1-1.0); CALCIUM, TOTAL 8.8 mg/dL (8.8-10.5); CARBON DIOXIDE 26 mmol/L (22-29); CHLORIDE 105 mmol/L (98-107); CREATININE 0.57 mg/dL (0.60-1.30); GLUCOSE,RANDOM 94 mg/dL (70-110); PHOSPHORUS 3.3 mg/dL (2.5-4.9); POTASSIUM 4.2 mmol/L (3.5-5.1); SODIUM SERUM 141 mmol/L (136-145); TOTAL PROTEIN, SERUM 6.9 g/dL (6.4-8.2); UREA NITROGEN, BLOOD 19 mg/dL (7-18)
[2021-09-21 08:05] LABS: GLOMERULAR FILTR. RATE CALC > 60 mL/min (>60)
[2021-09-21 08:06] VITALS: BP 150/86
[2021-09-21 10:10] VITALS: BP 134/75
[2021-09-21] MEDS: HALOPERIDOL 5 MG TABLET PO PRN (15:45)
[2021-09-21 16:08] VITALS: BP 114/67
[2021-09-22 03:58] VITALS: BP 127/70
[2021-09-22] MEDS: FERROUS SULFATE 325 MG EC TABLET PO SCH (07:03)
[2021-09-22] MEDS: AmLODIPine BESYLATE 10 MG TABLET PO SCH (08:09)
[2021-09-22] MEDS: LISINOPRIL 20 MG TABLET PO SCH (08:09)
[2021-09-22 08:18] VITALS: BP 146/94
[2021-09-22] MEDS: HALOPERIDOL 5 MG TABLET PO PRN (08:18)
[2021-09-22] MEDS: LORazepam 2 MG TABLET PO PRN (08:18)
[2021-09-22 16:03] VITALS: BP 138/76
[2021-09-22] MEDS: HALOPERIDOL 10 MG TABLET PO SCH (20:12)
[2021-09-23 04:30] VITALS: BP 131/79
[2021-09-23] MEDS: FERROUS SULFATE 325 MG EC TABLET PO SCH (06:31)
[2021-09-23] MEDS: AmLODIPine BESYLATE 10 MG TABLET PO SCH (08:35)
[2021-09-23] MEDS: LISINOPRIL 20 MG TABLET PO SCH (08:35)
[2021-09-23 08:53] VITALS: BP 128/78
[2021-09-23 16:01] VITALS: BP 126/86
[2021-09-23] MEDS: HALOPERIDOL 10 MG TABLET PO SCH (20:04)
[2021-09-24 01:10] VITALS: BP 127/80
[2021-09-24] MEDS: FERROUS SULFATE 325 MG EC TABLET PO SCH (06:54)
[2021-09-24 07:46] LABS: GLUCOMETER DEV NAME(LOC) POC.BV
[2021-09-24 08:01] VITALS: BP 146/82
[2021-09-24] MEDS: AmLODIPine BESYLATE 10 MG TABLET PO SCH (08:17)
[2021-09-24] MEDS: LISINOPRIL 20 MG TABLET PO SCH (08:26)
[2021-09-24] MEDS ORDERED: HALO10 PO (11:56)
[2021-09-26] MEDS ORDERED: AMLO-258 PO (12:51)
[2021-09-26] MEDS ORDERED: LISI-894 PO (12:51)
[2021-09-26] MEDS ORDERED: FERR-89 PO (12:51)
== END 2021-09-24 15:20 | disposition home or self-care (01) | DRG 885 ==
LOC: EMS 11:57 → B2S 15:54
PROVIDERS: ADMIT Psychiatry & Neurology Psychiatry; ATTEND Psychiatry & Neurology Psychiatry
DX: F20.0 Paranoid schizophrenia (principal); C50.919 Malignant neoplasm of unspecified site of unspecified female breast; D50.9 Iron deficiency anemia, unspecified; E11.9 Type 2 diabetes mellitus without complications; E87.6 Hypokalemia; G47.00 Insomnia, unspecified; I10 Essential (primary) hypertension; J44.9 Chronic obstructive pulmonary disease, unspecified; K21.9 Gastro-esophageal reflux disease without esophagitis; K59.00 Constipation, unspecified; Z20.822 Contact with and (suspected) exposure to COVID-19; Z85.3 Personal history of malignant neoplasm of breast; Z86.73 Personal history of transient ischemic attack (TIA), and cerebral infarction without residual deficits; Z87.891 Personal history of nicotine dependence; Z90.11 Acquired absence of right breast and nipple; Z90.49 Acquired absence of other specified parts of digestive tract; Z88.0 Allergy status to penicillin; Z79.899 Other long term (current) drug therapy
CPT/HCPCS: 80053; 81003; 83540; 83550; 83735; 84100; 85025; 99285; G0480

== ENCOUNTER 2021-10-11 14:42 | Emergency (ER) | payer MEDICARE, MEDICAID ==
[~2021-10-11] VITALS: Ht 157.5 cm; Wt 56.8 kg
[~2021-10-11 14:42] MED LIST changes: -BENZ1TAB10 PO; -HALO5TAB2 PO; -HALO5TAB23 PO
[2021-10-11] MEDS ORDERED: DiphenhydrAMINE HCL 50 MG/ML VIAL IM ONE (15:15)
[2021-10-11] MEDS ORDERED: HALOPERIDOL LACTATE 5 MG/ML VIAL IM ONE (15:15)
[2021-10-11 16:36] VITALS: BP 139/79
[2021-10-11] MEDS ORDERED: HALOPERIDOL 5 MG TABLET PO ONE (17:15)
[2021-10-11] MEDS ORDERED: DIPH50CA38 PO (17:19)
[2021-10-11] MEDS ORDERED: TRAZ-257 PO (17:19)
[2021-10-11] MEDS ORDERED: HALO5TAB2 PO (17:19)
[2021-10-11] MEDS ORDERED: AMLO-258 PO (17:19)
== END 2021-10-11 17:43 | disposition home or self-care (01) ==
LOC: EMS 14:58
DX: G47.00 Insomnia, unspecified (principal); F25.1 Schizoaffective disorder, depressive type; I10 Essential (primary) hypertension; E11.9 Type 2 diabetes mellitus without complications; F31.9 Bipolar disorder, unspecified; J45.909 Unspecified asthma, uncomplicated; F17.210 Nicotine dependence, cigarettes, uncomplicated; Z88.0 Allergy status to penicillin; Z79.899 Other long term (current) drug therapy
CPT/HCPCS: 99283; J1200; J1630

== ENCOUNTER 2021-11-11 12:43 | Emergency (ER) | payer MEDICARE, MEDICAID ==
[~2021-11-11] VITALS: Ht 157.5 cm; Wt 54.5 kg
[~2021-11-11 12:43] MED LIST changes: +DIPH50CA38 PO; -FERR-89 PO; +FERR325T27 PO; -HALO10 PO; +HALO5TAB2 PO; +TRAZ-257 PO
[2021-11-11 14:16] LABS: GLUCOSE,POINT OF CARE 51 MG/DL (70-110)
[2021-11-11] MEDS ORDERED: SODIUM CHLORIDE 0.9% 1,000 ML IV ONE (14:45)
[2021-11-11 15:09] LABS: BASOPHILS % (AUTO) 0.6 % (0.0-2.0); EOSINOPHILS % (AUTO) 1.5 % (1.0-6.0); HEMATOCRIT 34.3 % (36-46); HEMOGLOBIN 10.5 g/dL (12.0-16.0); LYMPHOCYTES # (AUTO) 1.1 K/uL (1.0-4.8); LYMPHOCYTES % (AUTO) 19.9 % (22.0-44.0); MEAN CORPUSCULAR HEMOGLOBIN 22.9 pg (26.0-34.0); MEAN CORPUSCULAR HGB CONC 30.7 G/dL (31.0-37.0); MEAN CORPUSCULAR VOLUME 75 fL (80-100); MONOCYTES # (AUTO) 0.4 K/uL (0.1-1.0); MONOCYTES % (AUTO) 8.1 % (2.0-9.0); NEUTROPHILS # (AUTO) 3.8 K/uL (1.8-7.7); NEUTROPHILS % (AUTO) 69.9 % (40.0-70.0); PLATELET COUNT (AUTO) 211 K/uL (150-450); RED CELL DISTRIBUTION WIDTH 15.9 % (11.5-14.5)
[2021-11-11 15:19] LABS: ANION GAP 7 mmol/L (8-16); CALCIUM, TOTAL 9.1 mg/dL (8.8-10.5); CARBON DIOXIDE 28 mmol/L (22-29); CHLORIDE 106 mmol/L (98-107); CREATININE 0.77 mg/dL (0.60-1.30); GLOMERULAR FILTR. RATE CALC > 60 mL/min (>60); GLUCOSE,RANDOM 84 mg/dL (70-110); POTASSIUM 3.9 mmol/L (3.5-5.1); SODIUM SERUM 141 mmol/L (136-145); UREA NITROGEN, BLOOD 23 mg/dL (7-18)
[2021-11-11 15:33] LABS: ALANINE AMINOTRANSFERASE 30 U/L (12-78); ALBUMIN 3.2 g/dL (3.4-5.0); ALKALINE PHOSPHATASE 180 U/L (46-116); ASPARTATE AMINOTRANSFERASE 21 U/L (15-37); BILIRUBIN,TOTAL 0.3 mg/dL (0.1-1.0); THYROID STIMULATING HORMONE 0.63 uIU/mL (0.36-3.74)
[2021-11-11 17:22] VITALS: BP 115/68
== END 2021-11-11 17:49 | disposition home or self-care (01) ==
LOC: EMS 12:52
DX: E11.649 Type 2 diabetes mellitus with hypoglycemia without coma (principal); R00.2 Palpitations; R53.1 Weakness; J45.909 Unspecified asthma, uncomplicated; I11.9 Hypertensive heart disease without heart failure; F20.9 Schizophrenia, unspecified; F17.210 Nicotine dependence, cigarettes, uncomplicated; Z86.73 Personal history of transient ischemic attack (TIA), and cerebral infarction without residual deficits; Z88.0 Allergy status to penicillin; Z79.899 Other long term (current) drug therapy
CPT/HCPCS: 36415; 71045; 80053; 82962; 84443; 85025; 93005; 96360; 99285; G0480; J7030

== ENCOUNTER 2022-01-07 21:13 | Emergency (ER) | payer MEDICARE, OTHER ==
[~2022-01-07] VITALS: Ht 157.5 cm; Wt 60.5 kg
[2022-01-07] MEDS ORDERED: FAMOTIDINE 20 MG TABLET PO ONE (22:30)
[2022-01-07] MEDS ORDERED: ONDANSETRON HCL 4 MG TABLET PO ONE (22:30)
[2022-01-07] MEDS ORDERED: MAG HYDROX/AL HYDROX/SIMETH 30 ML SUSP UDCUP PO ONE (22:30)
[2022-01-07] MEDS ORDERED: ACETAMINOPHEN 500 MG TABLET PO ONE (22:30)
[2022-01-07 22:54] VITALS: BP 143/84
[2022-01-07 23:11] LABS: COVID AG,FIA SOURCE NASOPHARYNGEAL
[2022-01-07 23:24] LABS: BASOPHILS % (AUTO) 1.2 % (0.0-2.0); EOSINOPHILS % (AUTO) 1.9 % (1.0-6.0); HEMATOCRIT 32.7 % (36-46); HEMOGLOBIN 10.3 g/dL (12.0-16.0); LYMPHOCYTES # (AUTO) 1.6 K/uL (1.0-4.8); LYMPHOCYTES % (AUTO) 33.8 % (22.0-44.0); MEAN CORPUSCULAR HEMOGLOBIN 22.6 pg (26.0-34.0); MEAN CORPUSCULAR HGB CONC 31.4 G/dL (31.0-37.0); MEAN CORPUSCULAR VOLUME 72 fL (80-100); MONOCYTES # (AUTO) 0.6 K/uL (0.1-1.0); NEUTROPHILS # (AUTO) 2.4 K/uL (1.8-7.7); NEUTROPHILS % (AUTO) 51.1 % (40.0-70.0); PLATELET COUNT (AUTO) 257 K/uL (150-450); RED BLOOD CELL COUNT(AUTO) 4.54 MIL/uL (4.00-5.20); RED CELL DISTRIBUTION WIDTH 15.6 % (11.5-14.5)
[2022-01-07 23:33] LABS: ANION GAP 8 mmol/L (8-16); CALCIUM, TOTAL 9.2 mg/dL (8.8-10.5); CARBON DIOXIDE 26 mmol/L (22-29); CHLORIDE 107 mmol/L (98-107); CREATININE 0.64 mg/dL (0.60-1.30); GLUCOSE,RANDOM 95 mg/dL (70-110); POTASSIUM 3.4 mmol/L (3.5-5.1); SODIUM SERUM 141 mmol/L (136-145); UREA NITROGEN, BLOOD 22 mg/dL (7-18)
[2022-01-07 23:35] LABS: GLOMERULAR FILTR. RATE CALC > 60 mL/min (>60)
[2022-01-07 23:36] LABS: ALANINE AMINOTRANSFERASE 23 U/L (12-78); ALBUMIN 3.5 g/dL (3.4-5.0); ALKALINE PHOSPHATASE 156 U/L (46-116); ASPARTATE AMINOTRANSFERASE 17 U/L (15-37); BILIRUBIN,TOTAL 0.4 mg/dL (0.1-1.0); CREATINE KINASE, TOTAL ONLY 116 U/L (26-192); LIPASE 151 U/L (73-393); TOTAL PROTEIN, SERUM 6.9 g/dL (6.4-8.2)
[2022-01-07 23:50] LABS: B-TYPE NATRIURETIC PEPTIDE 27 pg/mL (0-100)
== END 2022-01-08 01:03 | disposition home or self-care (01) ==
LOC: EMS 21:17
DX: R53.1 Weakness (principal); I10 Essential (primary) hypertension; E11.9 Type 2 diabetes mellitus without complications; J45.909 Unspecified asthma, uncomplicated; F17.210 Nicotine dependence, cigarettes, uncomplicated; Z88.0 Allergy status to penicillin; Z79.899 Other long term (current) drug therapy; Z20.822 Contact with and (suspected) exposure to COVID-19
CPT/HCPCS: 36415; 80053; 82550; 83690; 83880; 84484; 85025; 87426; 93005; 99285; Q0162

== ENCOUNTER 2022-02-02 12:54 | Emergency (ER) | payer MEDICARE, OTHER ==
[~2022-02-02] VITALS: Ht 157.5 cm; Wt 55.0 kg
[2022-02-02 16:00] LABS: COVID AG,FIA SOURCE NASOPHARYNGEAL
[2022-02-02 17:26] VITALS: BP 120/59
[2022-02-02] MEDS ORDERED: ACET-3385 PO (18:17)
== END 2022-02-02 19:07 | disposition home or self-care (01) ==
LOC: EMS 12:54
DX: U07.1 COVID-19 (principal); I10 Essential (primary) hypertension; E11.9 Type 2 diabetes mellitus without complications; J45.909 Unspecified asthma, uncomplicated; F20.9 Schizophrenia, unspecified; F17.210 Nicotine dependence, cigarettes, uncomplicated; Z88.0 Allergy status to penicillin; Z79.899 Other long term (current) drug therapy
CPT/HCPCS: 99283

== ENCOUNTER 2022-02-21 10:06 | Emergency (ER) | payer MEDICARE, OTHER ==
[~2022-02-21] VITALS: Ht 162.6 cm; Wt 59.0 kg
[~2022-02-21 10:06] MED LIST changes: +ACET-3385 PO
[2022-02-21] MEDS ORDERED: HALOPERIDOL 5 MG TABLET PO ONE (10:30)
[2022-02-21 10:36] LABS: BASOPHILS % (AUTO) 1.4 % (0.0-2.0); EOSINOPHILS % (AUTO) 3.2 % (1.0-6.0); HEMATOCRIT 34.7 % (36-46); HEMOGLOBIN 10.9 g/dL (12.0-16.0); LYMPHOCYTES # (AUTO) 1.6 K/uL (1.0-4.8); LYMPHOCYTES % (AUTO) 33.7 % (22.0-44.0); MEAN CORPUSCULAR HEMOGLOBIN 22.8 pg (26.0-34.0); MEAN CORPUSCULAR HGB CONC 31.4 G/dL (31.0-37.0); MEAN CORPUSCULAR VOLUME 73 fL (80-100); MONOCYTES # (AUTO) 0.5 K/uL (0.1-1.0); MONOCYTES % (AUTO) 10.7 % (2.0-9.0); NEUTROPHILS # (AUTO) 2.5 K/uL (1.8-7.7); PLATELET COUNT (AUTO) 284 K/uL (150-450); RED BLOOD CELL COUNT(AUTO) 4.77 MIL/uL (4.00-5.20); RED CELL DISTRIBUTION WIDTH 16.3 % (11.5-14.5)
[2022-02-21 10:46] LABS: ANION GAP 7 mmol/L (8-16); CALCIUM, TOTAL 8.6 mg/dL (8.8-10.5); CARBON DIOXIDE 25 mmol/L (22-29); CHLORIDE 108 mmol/L (98-107); CREATININE 0.72 mg/dL (0.60-1.30); GLUCOSE,RANDOM 104 mg/dL (70-110); POTASSIUM 3.7 mmol/L (3.5-5.1); SODIUM SERUM 140 mmol/L (136-145); UREA NITROGEN, BLOOD 23 mg/dL (7-18)
[2022-02-21 10:47] LABS: COVID AG,FIA SOURCE NASOPHARYNGEAL
[2022-02-21 10:49] LABS: GLOMERULAR FILTR. RATE CALC > 60 mL/min (>60)
[2022-02-21 10:51] LABS: ALANINE AMINOTRANSFERASE 18 U/L (12-78); ALBUMIN 3.7 g/dL (3.4-5.0); ALKALINE PHOSPHATASE 165 U/L (46-116); ASPARTATE AMINOTRANSFERASE 14 U/L (15-37); BILIRUBIN,TOTAL 0.2 mg/dL (0.1-1.0); TOTAL PROTEIN, SERUM 7.4 g/dL (6.4-8.2)
[2022-02-21 11:17] LABS: AMPHET/METH SCREEN,URINE NEGATIVE (NEGATIVE); BARBITURATE SCREEN, URINE NEGATIVE (NEGATIVE); BENZODIAZEPINES SCREEN,URINE NEGATIVE (NEGATIVE); CANNABINOID SCREEN,URINE NEGATIVE (NEGATIVE); COCAINE SCREEN,URINE NEGATIVE (NEGATIVE); METHADONE SCREEN, URINE NEGATIVE (NEGATIVE); OPIATE SCREEN,URINE NEGATIVE (NEGATIVE)
[2022-02-21 11:36] LABS: PHENCYCLIDINE SCREEN,URINE NEGATIVE (NEGATIVE)
[2022-02-21] MEDS ORDERED: LISI-894 PO (11:58)
[2022-02-21] MEDS ORDERED: HALO5TAB2 PO (11:58)
[2022-02-21] MEDS ORDERED: AMLO-258 PO (11:58)
[2022-02-21 12:14] VITALS: BP 127/71
== END 2022-02-21 12:31 | disposition home or self-care (01) ==
LOC: EMS 10:09
DX: F20.9 Schizophrenia, unspecified (principal); I10 Essential (primary) hypertension; E11.9 Type 2 diabetes mellitus without complications; F31.9 Bipolar disorder, unspecified; J45.909 Unspecified asthma, uncomplicated; F17.210 Nicotine dependence, cigarettes, uncomplicated; Z88.0 Allergy status to penicillin; Z79.899 Other long term (current) drug therapy; Z20.822 Contact with and (suspected) exposure to COVID-19
CPT/HCPCS: 99284; 87426; 80053; 85025; 36415; 80307; G0480

== ENCOUNTER 2022-02-28 12:06 | Emergency (ER) | payer MEDICARE, OTHER ==
[~2022-02-28] VITALS: Ht 157.5 cm; Wt 56.8 kg
[~2022-02-28 12:06] MED LIST changes: -DIPH50CA38 PO; -FERR325T27 PO; -TRAZ-257 PO
[2022-02-28 12:28] VITALS: BP 148/89
[2022-02-28] MEDS ORDERED: KETOROLAC TROMETHAMINE 30 MG/ML VIAL IM ONE (13:00)
== END 2022-02-28 13:18 | disposition home or self-care (01) ==
LOC: EMS 12:36
DX: R10.84 Generalized abdominal pain (principal); I10 Essential (primary) hypertension; E11.9 Type 2 diabetes mellitus without complications; F20.9 Schizophrenia, unspecified; F31.9 Bipolar disorder, unspecified; J45.909 Unspecified asthma, uncomplicated; F17.210 Nicotine dependence, cigarettes, uncomplicated; Z88.0 Allergy status to penicillin; Z79.899 Other long term (current) drug therapy
CPT/HCPCS: 99283; 93005; 96372; J1885

== ENCOUNTER 2022-03-25 14:52 | Emergency (ER) | payer MEDICARE, OTHER ==
[~2022-03-25] VITALS: Ht 165.1 cm; Wt 65.9 kg
[2022-03-25 14:59] VITALS: BP 149/75
[2022-03-25] MEDS ORDERED: HALOPERIDOL 5 MG TABLET PO ONE (18:00)
[2022-03-25] MEDS ORDERED: AMLO-258 PO (18:04)
[2022-03-25] MEDS ORDERED: HALO5TAB2 PO (18:04)
[2022-03-25] MEDS ORDERED: LISI-894 PO (18:04)
== END 2022-03-25 18:38 | disposition home or self-care (01) ==
LOC: EMS 14:56
DX: F20.9 Schizophrenia, unspecified (principal); J45.909 Unspecified asthma, uncomplicated; F31.9 Bipolar disorder, unspecified; E11.9 Type 2 diabetes mellitus without complications; I10 Essential (primary) hypertension; F17.210 Nicotine dependence, cigarettes, uncomplicated; Z86.73 Personal history of transient ischemic attack (TIA), and cerebral infarction without residual deficits; Z86.79 Personal history of other diseases of the circulatory system; Z90.11 Acquired absence of right breast and nipple; Z98.890 Other specified postprocedural states; Z88.0 Allergy status to penicillin
CPT/HCPCS: 99283; 99284

== ENCOUNTER 2022-05-10 17:19 | Emergency (ER) | payer MEDICARE, OTHER ==
[~2022-05-10] VITALS: Ht 157.5 cm; Wt 54.5 kg
[2022-05-10 17:29] VITALS: BP 122/76
[2022-05-10] MEDS ORDERED: KETOROLAC TROMETHAMINE 30 MG/ML VIAL IM ONE (18:30)
[2022-05-10] MEDS ORDERED: LISI-894 PO (18:31)
[2022-05-10] MEDS ORDERED: AMLO-258 PO (18:31)
[2022-05-10] MEDS ORDERED: HALO5TAB2 PO (18:31)
[2022-05-10] MEDS ORDERED: ACET-3385 PO (18:31)
== END 2022-05-10 18:46 | disposition home or self-care (01) ==
LOC: EMS 17:45
DX: R52 Pain, unspecified (principal); Z76.0 Encounter for issue of repeat prescription; J45.909 Unspecified asthma, uncomplicated; E11.9 Type 2 diabetes mellitus without complications; F31.9 Bipolar disorder, unspecified; I11.9 Hypertensive heart disease without heart failure; F20.9 Schizophrenia, unspecified; F17.210 Nicotine dependence, cigarettes, uncomplicated; Z90.49 Acquired absence of other specified parts of digestive tract; Z98.890 Other specified postprocedural states
CPT/HCPCS: 99283; 96372; J1885

== ENCOUNTER 2022-05-15 19:05 | Emergency (ER) | payer MEDICARE, OTHER ==
[~2022-05-15] VITALS: Ht 157.5 cm; Wt 55.0 kg
[2022-05-15 21:11] LABS: EOSINOPHILS % (AUTO) 1.2 % (1.0-6.0); HEMATOCRIT 35.6 % (36-46); HEMOGLOBIN 11.2 g/dL (12.0-16.0); LYMPHOCYTES # (AUTO) 1.9 K/uL (1.0-4.8); LYMPHOCYTES % (AUTO) 34.6 % (22.0-44.0); MEAN CORPUSCULAR HEMOGLOBIN 23.4 pg (26.0-34.0); MEAN CORPUSCULAR HGB CONC 31.4 G/dL (31.0-37.0); MEAN CORPUSCULAR VOLUME 75 fL (80-100); MONOCYTES # (AUTO) 0.6 K/uL (0.1-1.0); MONOCYTES % (AUTO) 11.5 % (2.0-9.0); NEUTROPHILS # (AUTO) 2.8 K/uL (1.8-7.7); NEUTROPHILS % (AUTO) 51.7 % (40.0-70.0); PLATELET COUNT (AUTO) 325 K/uL (150-450); RED BLOOD CELL COUNT(AUTO) 4.77 MIL/uL (4.00-5.20); RED CELL DISTRIBUTION WIDTH 16.1 % (11.5-14.5)
[2022-05-15 21:22] LABS: ANION GAP 7 mmol/L (8-16); CALCIUM, TOTAL 9.9 mg/dL (8.8-10.5); CARBON DIOXIDE 28 mmol/L (22-29); CHLORIDE 102 mmol/L (98-107); CREATININE 0.72 mg/dL (0.60-1.30); GLUCOSE,RANDOM 104 mg/dL (70-110); POTASSIUM 3.8 mmol/L (3.5-5.1); SODIUM SERUM 137 mmol/L (136-145); UREA NITROGEN, BLOOD 25 mg/dL (7-18)
[2022-05-15 21:25] LABS: GLOMERULAR FILTR. RATE CALC > 60 mL/min (>60)
[2022-05-15 21:29] LABS: ALANINE AMINOTRANSFERASE 15 U/L (12-78); ALBUMIN 3.9 g/dL (3.4-5.0); ALKALINE PHOSPHATASE 149 U/L (46-116); ASPARTATE AMINOTRANSFERASE 18 U/L (15-37); BILIRUBIN,TOTAL 0.2 mg/dL (0.1-1.0); LIPASE 295 U/L (73-393)
[2022-05-16] MEDS ORDERED: IBUPROFEN 600 MG TABLET PO ONE (00:45)
[2022-05-16] MEDS ORDERED: BENZTROPINE MESYLATE 1 MG/ML 2 ML VIAL IM ONE (00:45)
[2022-05-16] MEDS ORDERED: ACETAMINOPHEN 500 MG TABLET PO ONE (00:45)
[2022-05-16] MEDS ORDERED: BENZ1TAB96 PO (02:11)
[2022-05-16] MEDS ORDERED: IBUP-1554 PO (02:13)
[2022-05-16 02:30] VITALS: BP 139/79
== END 2022-05-16 03:42 | disposition home or self-care (01) ==
LOC: EMS 05-16 01:04
DX: F25.9 Schizoaffective disorder, unspecified (principal); M17.9 Osteoarthritis of knee, unspecified; E11.9 Type 2 diabetes mellitus without complications; F31.9 Bipolar disorder, unspecified; F10.20 Alcohol dependence, uncomplicated; F12.90 Cannabis use, unspecified, uncomplicated; F17.210 Nicotine dependence, cigarettes, uncomplicated; J45.909 Unspecified asthma, uncomplicated; I10 Essential (primary) hypertension; Z86.73 Personal history of transient ischemic attack (TIA), and cerebral infarction without residual deficits; Z90.89 Acquired absence of other organs; Z88.0 Allergy status to penicillin
CPT/HCPCS: 99283; 80053; 83690; 84484; 85025; 36415; 96372; J0515

== ENCOUNTER 2022-09-12 19:39 | Emergency (ER) | payer MEDICARE, OTHER ==
[~2022-09-12] VITALS: Ht 167.6 cm; Wt 52.3 kg
[~2022-09-12 19:39] MED LIST changes: +AMLO-257 PO; -AMLO-258 PO; -HALO5TAB2 PO; -LISI-894 PO
[2022-09-12 20:50] LABS: COVID AG,FIA SOURCE NASOPHARYNGEAL
[2022-09-12 20:59] LABS: BASOPHILS % (AUTO) 1.4 % (0.0-2.0); EOSINOPHILS % (AUTO) 0.6 % (1.0-6.0); HEMATOCRIT 34.5 % (36-46); HEMOGLOBIN 10.9 g/dL (12.0-16.0); LYMPHOCYTES # (AUTO) 0.5 K/uL (1.0-4.8); LYMPHOCYTES % (AUTO) 13.9 % (22.0-44.0); MEAN CORPUSCULAR HEMOGLOBIN 23.3 pg (26.0-34.0); MEAN CORPUSCULAR HGB CONC 31.6 G/dL (31.0-37.0); MEAN CORPUSCULAR VOLUME 74 fL (80-100); MONOCYTES # (AUTO) 0.4 K/uL (0.1-1.0); MONOCYTES % (AUTO) 9.9 % (2.0-9.0); NEUTROPHILS # (AUTO) 2.8 K/uL (1.8-7.7); NEUTROPHILS % (AUTO) 74.2 % (40.0-70.0); PLATELET COUNT (AUTO) 289 K/uL (150-450); RED BLOOD CELL COUNT(AUTO) 4.68 MIL/uL (4.00-5.20); RED CELL DISTRIBUTION WIDTH 15.1 % (11.5-14.5)
[2022-09-12 21:24] LABS: ALANINE AMINOTRANSFERASE 35 U/L (12-78); ALBUMIN 3.6 g/dL (3.4-5.0); ALKALINE PHOSPHATASE 151 U/L (46-116); ANION GAP 10 mmol/L (8-16); ASPARTATE AMINOTRANSFERASE 29 U/L (15-37); BILIRUBIN,TOTAL 0.3 mg/dL (0.1-1.0); CALCIUM, TOTAL 9.2 mg/dL (8.8-10.5); CARBON DIOXIDE 25 mmol/L (22-29); CHLORIDE 104 mmol/L (98-107); CREATININE 0.68 mg/dL (0.60-1.30); GLOMERULAR FILTR. RATE CALC > 60 mL/min (>60); GLUCOSE,RANDOM 87 mg/dL (70-110); SODIUM SERUM 139 mmol/L (136-145); THYROID STIMULATING HORMONE 1.16 uIU/mL (0.36-3.74); TOTAL PROTEIN, SERUM 7.4 g/dL (6.4-8.2); UREA NITROGEN, BLOOD 31 mg/dL (7-18)
[2022-09-12 21:36] LABS: POTASSIUM 2.8 mmol/L (3.5-5.1)
[2022-09-12] MEDS ORDERED: POTASSIUM CHLORIDE 20 MEQ ER TABLET PO ONE (21:45)
[2022-09-12 23:47] LABS: APPEARANCE,URINE HAZY (CLEAR); BILIRUBIN,URINE NEGATIVE (NEGATIVE); GLUCOSE, URINE (UA) NEGATIVE (NEGATIVE); KETONES,URINE NEGATIVE (NEGATIVE); LEUKOCYTE ESTERASE ,URINE TRACE (NEGATIVE); NITRATE,URINE NEGATIVE (NEGATIVE); OCCULT BLOOD,URINE TRACE (NEGATIVE); PH,URINE 5.5 (5.0-8.0); PROTEIN,URINE TRACE mg/dL (NEGATIVE); SPECIFIC GRAVITIY, URINE 1.021 (1.003-1.030); UROBILINOGEN,URINE <=1.0 mg/dL (<=1.0)
[2022-09-12 23:54] LABS: AMPHET/METH SCREEN,URINE NEGATIVE (NEGATIVE); BACTERIA,URINE Moderate /HPF (None Seen); BARBITURATE SCREEN, URINE NEGATIVE (NEGATIVE); BENZODIAZEPINES SCREEN,URINE NEGATIVE (NEGATIVE); CANNABINOID SCREEN,URINE NEGATIVE (NEGATIVE); COCAINE SCREEN,URINE NEGATIVE (NEGATIVE); METHADONE SCREEN, URINE NEGATIVE (NEGATIVE); OPIATE SCREEN,URINE NEGATIVE (NEGATIVE); PHENCYCLIDINE SCREEN,URINE NEGATIVE (NEGATIVE); RBC,URINE 0-2 /HPF (0-2); SQUAMOUS EPITHELIAL CELL,UR Rare /LPF (None Seen)
[2022-09-13] MEDS ORDERED: AMLO-386 PO (00:33)
[2022-09-13] MEDS ORDERED: PALI3TAB14 PO (00:33)
[2022-09-13] MEDS ORDERED: METO50 PO (00:33)
[2022-09-13] MEDS ORDERED: ZOLPIDEM TARTRATE 10 MG TABLET PO ONE (19:30)
[2022-09-14] MEDS ORDERED: HALOPERIDOL 5 MG TABLET PO ONE (01:30)
[2022-09-14] MEDS ORDERED: LORazepam 1 MG TABLET PO ONE (01:30)
[2022-09-14] MEDS ORDERED: POTASSIUM CHLORIDE 10% 40 MEQ/30 ML LIQUID UDCUP PO ONE ×2 (11:15→11:45)
[2022-09-14] MEDS ORDERED: VALP250S10 PO (11:16)
[2022-09-14] MEDS ORDERED: ANAS1TAB50 PO (11:16)
[2022-09-14] MEDS ORDERED: CALC-26 PO (11:16)
[2022-09-14] MEDS ORDERED: HALOPERIDOL LACTATE 5 MG/ML VIAL IM ONE (13:15)
[2022-09-14] MEDS ORDERED: LORazepam 2 MG/ML VIAL IM ONE (13:15)
[2022-09-14] MEDS ORDERED: DiphenhydrAMINE HCL 50 MG/ML VIAL IM ONE (13:15)
[2022-09-14 21:25] VITALS: BP 133/67
[2022-09-15 10:36] LABS: GLUCOMETER DEV NAME(LOC) ERT.5; GLUCOSE,POINT OF CARE 93 MG/DL (70-110)
== END 2022-09-15 00:16 | disposition short-term general hospital (02) ==
LOC: EMS 19:40
DX: F20.9 Schizophrenia, unspecified (principal); E87.6 Hypokalemia; J45.909 Unspecified asthma, uncomplicated; F31.9 Bipolar disorder, unspecified; E11.9 Type 2 diabetes mellitus without complications; I11.9 Hypertensive heart disease without heart failure; F17.210 Nicotine dependence, cigarettes, uncomplicated; F12.90 Cannabis use, unspecified, uncomplicated; Z90.49 Acquired absence of other specified parts of digestive tract; Z98.890 Other specified postprocedural states; Z90.13 Acquired absence of bilateral breasts and nipples; Z20.822 Contact with and (suspected) exposure to COVID-19; Z88.0 Allergy status to penicillin
CPT/HCPCS: 99285; 87426; 80053; 82962; 83735; 84443; 85025; 87086; 87186; 84132; 81001; 36415; 80307 ×2; U0003; G0480

== ENCOUNTER 2022-10-31 14:08 | Emergency (ER) | payer MEDICARE, OTHER ==
[~2022-10-31] VITALS: Ht 160 cm; Wt 68.2 kg
[~2022-10-31 14:08] MED LIST changes: -ACET-3385 PO; -AMLO-257 PO; +AMLO-386 PO; +ANAS1TAB50 PO; +CALC-26 PO; +METO50 PO; +PALI3TAB14 PO; +VALP250S27 PO
[2022-10-31] MEDS ORDERED: AMLO10TA55 PO (14:14)
[2022-10-31] MEDS ORDERED: VALS80TA32 PO (14:14)
[2022-10-31] MEDS ORDERED: ANAS1TAB50 PO (14:14)
[2022-10-31] MEDS ORDERED: TRAZ-252 PO (14:14)
[2022-10-31 14:59] LABS: BASOPHILS % (AUTO) 1.2 % (0.0-2.0); EOSINOPHILS % (AUTO) 1.3 % (1.0-6.0); HEMATOCRIT 31.3 % (36-46); HEMOGLOBIN 9.8 g/dL (12.0-16.0); LYMPHOCYTES # (AUTO) 1.3 K/uL (1.0-4.8); LYMPHOCYTES % (AUTO) 25.3 % (22.0-44.0); MEAN CORPUSCULAR HGB CONC 31.3 G/dL (31.0-37.0); MEAN CORPUSCULAR VOLUME 73 fL (80-100); MONOCYTES # (AUTO) 0.7 K/uL (0.1-1.0); MONOCYTES % (AUTO) 13.1 % (2.0-9.0); NEUTROPHILS % (AUTO) 59.1 % (40.0-70.0); PLATELET COUNT (AUTO) 296 K/uL (150-450); RED BLOOD CELL COUNT(AUTO) 4.27 MIL/uL (4.00-5.20); RED CELL DISTRIBUTION WIDTH 15.9 % (11.5-14.5)
[2022-10-31] MEDS ORDERED: VALS320T17 PO (15:08)
[2022-10-31 15:10] LABS: ANION GAP 8 mmol/L (8-16); CALCIUM, TOTAL 9.1 mg/dL (8.8-10.5); CARBON DIOXIDE 26 mmol/L (22-29); CHLORIDE 107 mmol/L (98-107); CREATININE 0.62 mg/dL (0.60-1.30); GLOMERULAR FILTR. RATE CALC > 60 mL/min (>60); GLUCOSE,RANDOM 124 mg/dL (70-110); POTASSIUM 3.4 mmol/L (3.5-5.1); SODIUM SERUM 141 mmol/L (136-145); UREA NITROGEN, BLOOD 29 mg/dL (7-18)
[2022-10-31] MEDS ORDERED: HALOPERIDOL 5 MG TABLET PO ONE (15:15)
[2022-10-31 15:16] LABS: ALANINE AMINOTRANSFERASE 19 U/L (12-78); ALBUMIN 3.5 g/dL (3.4-5.0); ALKALINE PHOSPHATASE 150 U/L (46-116); ASPARTATE AMINOTRANSFERASE 16 U/L (15-37); BILIRUBIN,TOTAL 0.2 mg/dL (0.1-1.0); TOTAL PROTEIN, SERUM 7.1 g/dL (6.4-8.2)
[2022-10-31 15:17] LABS: VALPROIC ACID < 3 mcg/mL (50-100)
[2022-10-31 15:49] VITALS: BP 141/79
== END 2022-10-31 16:21 | disposition home or self-care (01) ==
LOC: EMS 14:10
DX: F20.9 Schizophrenia, unspecified (principal); F41.9 Anxiety disorder, unspecified; R53.1 Weakness; D50.9 Iron deficiency anemia, unspecified; J45.909 Unspecified asthma, uncomplicated; F31.9 Bipolar disorder, unspecified; E11.9 Type 2 diabetes mellitus without complications; I10 Essential (primary) hypertension; I51.9 Heart disease, unspecified; I63.9 Cerebral infarction, unspecified; F17.210 Nicotine dependence, cigarettes, uncomplicated; F12.90 Cannabis use, unspecified, uncomplicated; Z90.49 Acquired absence of other specified parts of digestive tract; Z88.0 Allergy status to penicillin
CPT/HCPCS: 99284; 80053; 80164; 85025; 36415; G0480

== ENCOUNTER 2022-11-13 12:27 | Inpatient (IN) | payer MEDICARE, MEDICAID ==
[~2022-11-13] VITALS: Ht 157.5 cm; Wt 55.8 kg
[~2022-11-13 12:27] MED LIST changes: -AMLO-386 PO; +AMLO10TA55 PO; +TRAZ-252 PO; +VALS320T17 PO
[2022-11-13] MEDS ORDERED: ACETAMINOPHEN 325 MG TABLET PO ONE (13:15)
[2022-11-13 14:07] LABS: BASOPHILS % (AUTO) 1.8 % (0.0-2.0); HEMATOCRIT 32.6 % (36-46); HEMOGLOBIN 10.4 g/dL (12.0-16.0); LYMPHOCYTES % (AUTO) 26.5 % (22.0-44.0); MEAN CORPUSCULAR HEMOGLOBIN 23.3 pg (26.0-34.0); MEAN CORPUSCULAR VOLUME 73 fL (80-100); MONOCYTES # (AUTO) 0.9 K/uL (0.1-1.0); MONOCYTES % (AUTO) 12.6 % (2.0-9.0); NEUTROPHILS # (AUTO) 4.1 K/uL (1.8-7.7); NEUTROPHILS % (AUTO) 56.1 % (40.0-70.0); PLATELET COUNT (AUTO) 239 K/uL (150-450); RED BLOOD CELL COUNT(AUTO) 4.48 MIL/uL (4.00-5.20); RED CELL DISTRIBUTION WIDTH 15.3 % (11.5-14.5)
[2022-11-13 14:22] LABS: ALANINE AMINOTRANSFERASE 19 U/L (12-78); ALBUMIN 3.4 g/dL (3.4-5.0); ALKALINE PHOSPHATASE 141 U/L (46-116); ANION GAP 9 mmol/L (8-16); ASPARTATE AMINOTRANSFERASE 21 U/L (15-37); BILIRUBIN,TOTAL 0.4 mg/dL (0.1-1.0); CARBON DIOXIDE 27 mmol/L (22-29); CHLORIDE 105 mmol/L (98-107); CREATININE 0.65 mg/dL (0.60-1.30); GLOMERULAR FILTR. RATE CALC > 60 mL/min (>60); GLUCOSE,RANDOM 105 mg/dL (70-110); SODIUM SERUM 141 mmol/L (136-145)
[2022-11-13 14:23] LABS: POTASSIUM 2.9 mmol/L (3.5-5.1)
[2022-11-13 14:26] LABS: CALCIUM, TOTAL 8.8 mg/dL (8.8-10.5)
[2022-11-13] MEDS ORDERED: POTASSIUM CHLORIDE 20 MEQ ER TABLET PO ONE (14:30)
[2022-11-13 16:04] LABS: APPEARANCE,URINE CLEAR (CLEAR); BILIRUBIN,URINE NEGATIVE (NEGATIVE); GLUCOSE, URINE (UA) NEGATIVE (NEGATIVE); KETONES,URINE NEGATIVE (NEGATIVE); LEUKOCYTE ESTERASE ,URINE TRACE (NEGATIVE); NITRATE,URINE NEGATIVE (NEGATIVE); OCCULT BLOOD,URINE NEGATIVE (NEGATIVE); PH,URINE 6.5 (5.0-8.0); PROTEIN,URINE 30-70 mg/dL (NEGATIVE); SPECIFIC GRAVITIY, URINE 1.018 (1.003-1.030); UROBILINOGEN,URINE <=1.0 mg/dL (<=1.0)
[2022-11-13 16:12] LABS: BACTERIA,URINE None Seen /HPF (None Seen); RBC,URINE None Seen /HPF (0-2); WBC,URINE 0-2 /HPF (0-5)
[2022-11-13] MEDS ORDERED: TRAM100C2 PO (16:57)
[2022-11-13] MEDS ORDERED: ZOLPIDEM TARTRATE 10 MG TABLET PO PRN (22:30)
[2022-11-13 23:25] LABS: COVID AG,FIA SOURCE NASAL SWAB
[2022-11-14 01:46] LABS: GLUCOMETER DEV NAME(LOC) BV2S.; GLUCOSE,POINT OF CARE 130 MG/DL (70-110)
[2022-11-14 02:16] VITALS: BP 142/77
[2022-11-14] MEDS ORDERED: -PHARMACY VACCINE NOTE- MISC ONE (05:00)
[2022-11-14 08:51] VITALS: BP 146/87
[2022-11-14] MEDS ORDERED: ALBUTEROL SULFATE HFA 90 MCG/PUFF 8 GM INHALER IH PRN (09:00)
[2022-11-14] MEDS ORDERED: LOPERAMIDE HCL 2 MG CAPSULE PO PRN (09:00)
[2022-11-14] MEDS ORDERED: GuaiFENesin/D-METHORPHAN [SUGAR-FREE] 200-20MG/10 ML SYRUP UDCUP PO PRN (09:00)
[2022-11-14] MEDS ORDERED: MAGNESIUM HYDROXIDE SUSPENSION 30 ML UDCUP PO PRN (09:00)
[2022-11-14] MEDS ORDERED: ACETAMINOPHEN 325 MG TABLET PO PRN (09:00)
[2022-11-14] MEDS ORDERED: DOCUSATE SODIUM 100 MG CAPSULE PO PRN (09:00)
[2022-11-14] MEDS ORDERED: NICOTINE 14 MG/24 HOUR PATCH TD PRN (09:00)
[2022-11-14] MEDS ORDERED: CloNIDine HCL 0.1 MG TABLET PO PRN (09:00)
[2022-11-14] MEDS ORDERED: MAG HYDROX/AL HYDROX/SIMETH ES 30 ML SUSPENSION UDCUP PO PRN (09:00)
[2022-11-14] MEDS ORDERED: PETROLATUM,WHITE 28 GM JELLY TP PRN (09:00)
[2022-11-14] MEDS ORDERED: ONDANSETRON HCL 4 MG TABLET PO PRN (09:00)
[2022-11-14] MEDS: AmLODIPine BESYLATE 10 MG TABLET PO SCH (09:20)
[2022-11-14] MEDS: HALOPERIDOL 5 MG TABLET PO PRN (09:20)
[2022-11-14] MEDS: METOPROLOL TARTRATE 50 MG TABLET PO SCH ×2 (14:25→16:23)
[2022-11-14] MEDS: CALCIUM OYSTER SHELL 250 MG-VIT D3 125 UNITS[3.125MCG] TABLET PO SCH ×2 (14:26→16:23)
[2022-11-14 16:20] VITALS: BP 159/78
[2022-11-14] MEDS: PALIPERIDONE 3 MG ER TABLET PO SCH (16:23)
[2022-11-14 20:28] VITALS: BP 152/87
[2022-11-14] MEDS: TraZODone HCL 50 MG TABLET PO SCH (20:31)
[2022-11-15 09:00] VITALS: BP 140/70
[2022-11-15] MEDS: CALCIUM OYSTER SHELL 250 MG-VIT D3 125 UNITS[3.125MCG] TABLET PO SCH ×2 (09:01→17:19)
[2022-11-15] MEDS: AmLODIPine BESYLATE 10 MG TABLET PO SCH (09:01)
[2022-11-15] MEDS: METOPROLOL TARTRATE 50 MG TABLET PO SCH ×2 (09:01→17:19)
[2022-11-15] MEDS: PALIPERIDONE 3 MG ER TABLET PO SCH ×2 (09:30→17:19)
[2022-11-15 20:16] VITALS: BP 141/83
[2022-11-15] MEDS: TraZODone HCL 50 MG TABLET PO SCH (21:19)
[2022-11-16] MEDS: CALCIUM OYSTER SHELL 250 MG-VIT D3 125 UNITS[3.125MCG] TABLET PO SCH ×2 (08:35→16:42)
[2022-11-16] MEDS: PALIPERIDONE 3 MG ER TABLET PO SCH ×2 (08:35→16:42)
[2022-11-16] MEDS: METOPROLOL TARTRATE 50 MG TABLET PO SCH ×2 (08:35→16:42)
[2022-11-16] MEDS: AmLODIPine BESYLATE 10 MG TABLET PO SCH (08:35)
[2022-11-16 08:44] VITALS: BP 118/84
[2022-11-16] MEDS: TraZODone HCL 50 MG TABLET PO SCH (20:14)
[2022-11-16 20:31] VITALS: BP 135/92
[2022-11-17 08:27] VITALS: BP 139/82
[2022-11-17] MEDS: AmLODIPine BESYLATE 10 MG TABLET PO SCH (08:29)
[2022-11-17] MEDS: PALIPERIDONE 3 MG ER TABLET PO SCH ×2 (08:29→16:27)
[2022-11-17] MEDS: CALCIUM OYSTER SHELL 250 MG-VIT D3 125 UNITS[3.125MCG] TABLET PO SCH ×2 (08:29→16:27)
[2022-11-17] MEDS: METOPROLOL TARTRATE 50 MG TABLET PO SCH ×2 (08:29→16:27)
[2022-11-17] MEDS: LORazepam 2 MG TABLET PO PRN (08:29)
[2022-11-17] MEDS: HALOPERIDOL 5 MG TABLET PO PRN (08:29)
[2022-11-17 20:00] VITALS: BP 134/86
[2022-11-17] MEDS: TraZODone HCL 50 MG TABLET PO SCH (20:05)
[2022-11-18] MEDS: METOPROLOL TARTRATE 50 MG TABLET PO SCH ×2 (08:37→16:47)
[2022-11-18] MEDS: PALIPERIDONE 3 MG ER TABLET PO SCH ×2 (08:37→16:47)
[2022-11-18] MEDS: AmLODIPine BESYLATE 10 MG TABLET PO SCH (08:37)
[2022-11-18] MEDS: CALCIUM OYSTER SHELL 250 MG-VIT D3 125 UNITS[3.125MCG] TABLET PO SCH ×2 (08:37→16:47)
[2022-11-18 08:49] VITALS: BP 143/75
[2022-11-18] MEDS ORDERED: PALIPERIDONE PALMITATE 234 MG/1.5 ML SYRINGE IM ONE (09:45)
[2022-11-18] MEDS: TraZODone HCL 50 MG TABLET PO SCH (20:13)
[2022-11-18 20:42] VITALS: BP 136/74
[2022-11-19] MEDS: IBUPROFEN 400 MG TABLET PO PRN (05:38)
[2022-11-19 05:44] VITALS: BP 108/62
[2022-11-19] MEDS: PALIPERIDONE 3 MG ER TABLET PO SCH ×2 (08:37→16:55)
[2022-11-19] MEDS: AmLODIPine BESYLATE 10 MG TABLET PO SCH (08:37)
[2022-11-19] MEDS: CALCIUM OYSTER SHELL 250 MG-VIT D3 125 UNITS[3.125MCG] TABLET PO SCH ×2 (08:37→16:55)
[2022-11-19] MEDS: METOPROLOL TARTRATE 50 MG TABLET PO SCH ×2 (08:37→16:55)
[2022-11-19 09:13] VITALS: BP 144/73
[2022-11-19 20:44] VITALS: BP 142/78
[2022-11-19] MEDS: TraZODone HCL 50 MG TABLET PO SCH (21:00)
[2022-11-19] MEDS: PEG 400/HYPROMELLOSE/GLYCERIN 15 ML OPHTHALMIC SOLUTION OU PRN (21:09)
[2022-11-20] MEDS: LORazepam 2 MG TABLET PO PRN (08:15)
[2022-11-20] MEDS: AmLODIPine BESYLATE 10 MG TABLET PO SCH (08:15)
[2022-11-20] MEDS: METOPROLOL TARTRATE 50 MG TABLET PO SCH ×2 (08:15→16:12)
[2022-11-20] MEDS: CALCIUM OYSTER SHELL 250 MG-VIT D3 125 UNITS[3.125MCG] TABLET PO SCH ×2 (08:15→16:12)
[2022-11-20] MEDS: PALIPERIDONE 3 MG ER TABLET PO SCH ×2 (08:15→16:12)
[2022-11-20 08:50] VITALS: BP 130/83
[2022-11-20] MEDS: IBUPROFEN 400 MG TABLET PO PRN (16:55)
[2022-11-20] MEDS: TraZODone HCL 50 MG TABLET PO SCH (20:37)
[2022-11-20 21:02] VITALS: BP 137/89
[2022-11-21] MEDS: CALCIUM OYSTER SHELL 250 MG-VIT D3 125 UNITS[3.125MCG] TABLET PO SCH ×2 (08:27→16:52)
[2022-11-21] MEDS: PALIPERIDONE 3 MG ER TABLET PO SCH ×2 (08:27→16:51)
[2022-11-21] MEDS: AmLODIPine BESYLATE 10 MG TABLET PO SCH (08:27)
[2022-11-21] MEDS: LORazepam 2 MG TABLET PO PRN (08:27)
[2022-11-21] MEDS: METOPROLOL TARTRATE 50 MG TABLET PO SCH ×2 (08:27→16:52)
[2022-11-21 08:41] VITALS: BP 144/75
[2022-11-21] MEDS: TraZODone HCL 50 MG TABLET PO SCH (20:19)
[2022-11-21 20:32] VITALS: BP 140/83
[2022-11-22] MEDS: AmLODIPine BESYLATE 10 MG TABLET PO SCH (08:20)
[2022-11-22] MEDS: HALOPERIDOL 5 MG TABLET PO PRN (08:21)
[2022-11-22] MEDS: METOPROLOL TARTRATE 50 MG TABLET PO SCH ×2 (08:21→16:44)
[2022-11-22] MEDS: CALCIUM OYSTER SHELL 250 MG-VIT D3 125 UNITS[3.125MCG] TABLET PO SCH ×2 (08:21→16:44)
[2022-11-22] MEDS: PALIPERIDONE 3 MG ER TABLET PO SCH ×2 (08:21→16:44)
[2022-11-22 08:34] VITALS: BP 132/64
[2022-11-22] MEDS ORDERED: PALIPERIDONE PALMITATE 156 MG/ML SYRINGE IM ONE (09:00)
[2022-11-22 20:08] VITALS: BP 140/88
[2022-11-22] MEDS: TraZODone HCL 50 MG TABLET PO SCH (20:18)
[2022-11-23] MEDS: AmLODIPine BESYLATE 10 MG TABLET PO SCH (08:29)
[2022-11-23] MEDS: METOPROLOL TARTRATE 50 MG TABLET PO SCH ×2 (08:29→17:10)
[2022-11-23] MEDS: PALIPERIDONE 3 MG ER TABLET PO SCH ×2 (08:29→17:09)
[2022-11-23] MEDS: CALCIUM OYSTER SHELL 250 MG-VIT D3 125 UNITS[3.125MCG] TABLET PO SCH ×2 (08:30→17:10)
[2022-11-23 08:50] VITALS: BP 103/60
[2022-11-23 20:49] VITALS: BP 138/72
[2022-11-23] MEDS: TraZODone HCL 50 MG TABLET PO SCH (20:59)
[2022-11-24 08:45] VITALS: BP 128/73
[2022-11-24] MEDS: AmLODIPine BESYLATE 10 MG TABLET PO SCH (09:22)
[2022-11-24] MEDS: CALCIUM OYSTER SHELL 250 MG-VIT D3 125 UNITS[3.125MCG] TABLET PO SCH ×2 (09:23→16:51)
[2022-11-24] MEDS: METOPROLOL TARTRATE 50 MG TABLET PO SCH ×2 (09:23→16:51)
[2022-11-24] MEDS: PALIPERIDONE 3 MG ER TABLET PO SCH ×2 (09:23→16:51)
[2022-11-24] MEDS: PEG 400/HYPROMELLOSE/GLYCERIN 15 ML OPHTHALMIC SOLUTION OU PRN (09:31)
[2022-11-24] MEDS: TraZODone HCL 50 MG TABLET PO SCH (20:19)
[2022-11-24 20:21] VITALS: BP 135/82
[2022-11-25 08:15] VITALS: BP 127/66
[2022-11-25] MEDS: CALCIUM OYSTER SHELL 250 MG-VIT D3 125 UNITS[3.125MCG] TABLET PO SCH (08:55)
[2022-11-25] MEDS: PALIPERIDONE 3 MG ER TABLET PO SCH (08:56)
[2022-11-25] MEDS: AmLODIPine BESYLATE 10 MG TABLET PO SCH (08:56)
[2022-11-25] MEDS: METOPROLOL TARTRATE 50 MG TABLET PO SCH (08:56)
[2022-11-25] MEDS ORDERED: AMLO-258 PO (09:59)
[2022-11-25] MEDS ORDERED: CALC-1275 PO (09:59)
[2022-11-25] MEDS ORDERED: PALI156D IM (09:59)
[2022-11-25] MEDS ORDERED: PALI3TAB14 PO (09:59)
[2022-11-25] MEDS ORDERED: METO50 PO (09:59)
[2022-11-25] MEDS ORDERED: TRAZ-252 PO (09:59)
[2022-12-21] MEDS ORDERED: PALIPERIDONE PALMITATE 156 MG/ML SYRINGE IM SCH (09:00)
== END 2022-11-25 13:10 | disposition home or self-care (01) | DRG 885 ==
LOC: EMS 12:28 → B2S 11-14 00:49
PROVIDERS: ADMIT Psychiatry & Neurology Psychiatry; ATTEND Psychiatry & Neurology Psychiatry
PROC: GZHZZZZ Group Psychotherapy (ICD-10-PCS; principal; 2022-11-14)
PROC: GZ51ZZZ Individual Psychotherapy, Behavioral (ICD-10-PCS; 2022-11-14)
DX: F20.0 Paranoid schizophrenia (principal); J45.909 Unspecified asthma, uncomplicated; E11.9 Type 2 diabetes mellitus without complications; I11.9 Hypertensive heart disease without heart failure; D64.9 Anemia, unspecified; H54.7 Unspecified visual loss; G47.00 Insomnia, unspecified; Z20.822 Contact with and (suspected) exposure to COVID-19; Z90.11 Acquired absence of right breast and nipple; Z79.899 Other long term (current) drug therapy; Z86.73 Personal history of transient ischemic attack (TIA), and cerebral infarction without residual deficits; Z87.891 Personal history of nicotine dependence; Z88.0 Allergy status to penicillin
CPT/HCPCS: 70450; 80053; 81001; 82962; 84132; 84484; 85025; 93005; 99285

== ENCOUNTER 2023-01-13 15:43 | Emergency (ER) | payer MEDICARE, OTHER ==
[~2023-01-13] VITALS: Ht 157.5 cm; Wt 59.1 kg
[~2023-01-13 15:43] MED LIST changes: +AMLO-258 PO; -AMLO10TA55 PO; -ANAS1TAB50 PO; +CALC-1275 PO; -CALC-26 PO; +PALI156D IM; -VALP250S27 PO; -VALS320T17 PO
[2023-01-13 16:00] VITALS: TEMP 97.9
[2023-01-13] MEDS ORDERED: ERYTHROMYCIN 0.5% 3.5 GM TUBE OPHTHALMIC OINTMENT OU ONE (20:45)
[2023-01-13 21:50] VITALS: BP 173/95; PULSE 67; RESP 19
== END 2023-01-13 21:52 | disposition home or self-care (01) ==
LOC: EMS 15:44
DX: H10.33 Unspecified acute conjunctivitis, bilateral (principal); F41.9 Anxiety disorder, unspecified; F20.9 Schizophrenia, unspecified; J45.909 Unspecified asthma, uncomplicated; F31.9 Bipolar disorder, unspecified; E11.9 Type 2 diabetes mellitus without complications; I11.9 Hypertensive heart disease without heart failure; F17.210 Nicotine dependence, cigarettes, uncomplicated; F12.90 Cannabis use, unspecified, uncomplicated; Z90.49 Acquired absence of other specified parts of digestive tract; Z88.0 Allergy status to penicillin; Z90.11 Acquired absence of right breast and nipple
CPT/HCPCS: 99283

== ENCOUNTER 2023-02-25 18:52 | Emergency (ER) | payer OTHER ==
[~2023-02-25] VITALS: Ht 157.5 cm; Wt 61.4 kg
[2023-02-25 18:55] VITALS: BP 147/77; PULSE 86; RESP 18; TEMP 98.2
[2023-02-25 19:37] LABS: BASOPHILS % (AUTO) 1.2 % (0.0-2.0); EOSINOPHILS % (AUTO) 1.6 % (1.0-6.0); HEMATOCRIT 35.3 % (36-46); LYMPHOCYTES # (AUTO) 1.5 K/uL (1.0-4.8); LYMPHOCYTES % (AUTO) 34.8 % (22.0-44.0); MEAN CORPUSCULAR HEMOGLOBIN 22.7 pg (26.0-34.0); MEAN CORPUSCULAR HGB CONC 31.3 G/dL (31.0-37.0); MEAN CORPUSCULAR VOLUME 73 fL (80-100); MONOCYTES # (AUTO) 0.6 K/uL (0.1-1.0); MONOCYTES % (AUTO) 14.6 % (2.0-9.0); NEUTROPHILS # (AUTO) 2.1 K/uL (1.8-7.7); NEUTROPHILS % (AUTO) 47.8 % (40.0-70.0); PLATELET COUNT (AUTO) 259 K/uL (150-450); RED BLOOD CELL COUNT(AUTO) 4.85 MIL/uL (4.00-5.20); RED CELL DISTRIBUTION WIDTH 14.6 % (11.5-14.5)
[2023-02-25 19:48] LABS: ANION GAP 9 mmol/L (8-16); CALCIUM, TOTAL 9.5 mg/dL (8.8-10.5); CARBON DIOXIDE 27 mmol/L (22-29); CHLORIDE 103 mmol/L (98-107); CREATININE 0.68 mg/dL (0.60-1.30); GLOMERULAR FILTR. RATE CALC > 60 mL/min (>60); GLUCOSE,RANDOM 134 mg/dL (70-110); POTASSIUM 3.5 mmol/L (3.5-5.1); SODIUM SERUM 139 mmol/L (136-145)
[2023-02-25 19:51] LABS: ALANINE AMINOTRANSFERASE 16 U/L (12-78); ALBUMIN 3.4 g/dL (3.4-5.0); ALKALINE PHOSPHATASE 136 U/L (46-116); ASPARTATE AMINOTRANSFERASE 14 U/L (15-37); BILIRUBIN,TOTAL 0.2 mg/dL (0.1-1.0); TOTAL PROTEIN, SERUM 7.1 g/dL (6.4-8.2)
[2023-02-25] MEDS ORDERED: HALOPERIDOL 5 MG TABLET PO ONE (20:15)
[2023-02-25 21:37] LABS: APPEARANCE,URINE CLEAR (CLEAR); BILIRUBIN,URINE NEGATIVE (NEGATIVE); GLUCOSE, URINE (UA) NEGATIVE (NEGATIVE); KETONES,URINE NEGATIVE (NEGATIVE); LEUKOCYTE ESTERASE ,URINE TRACE (NEGATIVE); NITRATE,URINE NEGATIVE (NEGATIVE); OCCULT BLOOD,URINE NEGATIVE (NEGATIVE); PROTEIN,URINE TRACE mg/dL (NEGATIVE); SPECIFIC GRAVITIY, URINE 1.028 (1.003-1.030); UROBILINOGEN,URINE <=1.0 mg/dL (<=1.0)
[2023-02-25 21:48] LABS: AMPHET/METH SCREEN,URINE NEGATIVE (NEGATIVE); BARBITURATE SCREEN, URINE NEGATIVE (NEGATIVE); BENZODIAZEPINES SCREEN,URINE NEGATIVE (NEGATIVE); CANNABINOID SCREEN,URINE NEGATIVE (NEGATIVE); COCAINE SCREEN,URINE NEGATIVE (NEGATIVE); METHADONE SCREEN, URINE NEGATIVE (NEGATIVE); OPIATE SCREEN,URINE NEGATIVE (NEGATIVE); PHENCYCLIDINE SCREEN,URINE NEGATIVE (NEGATIVE)
[2023-02-25 22:03] LABS: BACTERIA,URINE None Seen /HPF (None Seen); RBC,URINE None Seen /HPF (0-2); WBC,URINE 0-2 /HPF (0-5)
== END 2023-02-25 22:52 | disposition home or self-care (01) ==
LOC: EMS 18:53
DX: F20.9 Schizophrenia, unspecified (principal); J45.909 Unspecified asthma, uncomplicated; F31.9 Bipolar disorder, unspecified; E11.9 Type 2 diabetes mellitus without complications; I11.9 Hypertensive heart disease without heart failure; F17.210 Nicotine dependence, cigarettes, uncomplicated; F12.90 Cannabis use, unspecified, uncomplicated; Z90.11 Acquired absence of right breast and nipple
CPT/HCPCS: 99284; 80053; 85025; 36415; 80307; 81001; G0480

== ENCOUNTER 2023-03-30 19:02 | Inpatient (IN) | payer MEDICARE, MEDICAID ==
[~2023-03-30] VITALS: Ht 157.5 cm; Wt 55.4 kg
[~2023-03-30 19:02] MED LIST changes: +ALBU18HF12 IH; -AMLO-258 PO; +BRIM15DR8 OS; +NETA2.5D OS; -PALI156D IM; +PALI234D IM; +XALA2.5OS OS
[2023-03-30 21:57] LABS: BASOPHILS % (AUTO) 0.5 % (0.0-2.0); EOSINOPHILS % (AUTO) 0.4 % (1.0-6.0); HEMATOCRIT 30.9 % (36-46); HEMOGLOBIN 9.8 g/dL (12.0-16.0); LYMPHOCYTES # (AUTO) 0.8 K/uL (1.0-4.8); LYMPHOCYTES % (AUTO) 15.2 % (22.0-44.0); MEAN CORPUSCULAR HEMOGLOBIN 22.7 pg (26.0-34.0); MEAN CORPUSCULAR HGB CONC 31.8 G/dL (31.0-37.0); MEAN CORPUSCULAR VOLUME 72 fL (80-100); MONOCYTES # (AUTO) 0.8 K/uL (0.1-1.0); MONOCYTES % (AUTO) 14.8 % (2.0-9.0); NEUTROPHILS # (AUTO) 3.5 K/uL (1.8-7.7); NEUTROPHILS % (AUTO) 69.1 % (40.0-70.0); PLATELET COUNT (AUTO) 330 K/uL (150-450); RED BLOOD CELL COUNT(AUTO) 4.32 MIL/uL (4.00-5.20); RED CELL DISTRIBUTION WIDTH 14.4 % (11.5-14.5); WHITE BLOOD COUNT (AUTO) 5.1 K/uL (4.5-11.0)
[2023-03-30 22:10] LABS: ALANINE AMINOTRANSFERASE 22 U/L (12-78); ALBUMIN 3.2 g/dL (3.4-5.0); ALKALINE PHOSPHATASE 97 U/L (46-116); ANION GAP 8 mmol/L (8-16); ASPARTATE AMINOTRANSFERASE 23 U/L (15-37); BILIRUBIN,TOTAL 0.2 mg/dL (0.1-1.0); CALCIUM, TOTAL 9.1 mg/dL (8.8-10.5); CARBON DIOXIDE 28 mmol/L (22-29); CHLORIDE 111 mmol/L (98-107); CREATININE 0.78 mg/dL (0.60-1.30); GLOMERULAR FILTR. RATE CALC > 60 mL/min (>60); GLUCOSE,RANDOM 135 mg/dL (70-110); LIPASE 57 U/L (16-77); SODIUM SERUM 147 mmol/L (136-145); TOTAL PROTEIN, SERUM 6.6 g/dL (6.4-8.2); UREA NITROGEN, BLOOD 21 mg/dL (7-18)
[2023-03-30 22:13] LABS: POTASSIUM 2.6 mmol/L (3.5-5.1)
[2023-03-30 22:19] LABS: ALCOHOL, BLOOD (SERUM) < 3 mg/dL (0-10)
[2023-03-30 22:20] LABS: TROPONIN I-HIGH SENSITIVITY 41 ng/L (<51)
[2023-03-30 22:21] LABS: RBC MORPHOLOGY COMMENT ABNORMAL RBC MORPH
[2023-03-30] MEDS ORDERED: HALOPERIDOL 5 MG TABLET PO PRN (23:45)
[2023-03-30] MEDS ORDERED: LORazepam 2 MG TABLET PO PRN (23:45)
[2023-03-31 01:32] LABS: COVID AG,FIA SOURCE NASAL SWAB
[2023-03-31 01:52] LABS: SARS-COV2 (COVID) ANTIGEN,FIA Negative (Negative)
[2023-03-31] MEDS ORDERED: POTASSIUM CHLORIDE 10% 40 MEQ/30 ML LIQUID UDCUP PO PRN ×2 (08:30)
[2023-03-31] MEDS ORDERED: POTASSIUM CHLORIDE 20 MEQ ER TABLET PO PRN (08:30)
[2023-03-31 10:25] LABS: APPEARANCE,URINE CLEAR (CLEAR); COLOR,URINE YELLOW (YELLOW); SPECIFIC GRAVITIY, URINE 1.027 (1.003-1.030)
[2023-03-31 10:26] LABS: BILIRUBIN,URINE NEGATIVE (NEGATIVE); GLUCOSE, URINE (UA) NEGATIVE (NEGATIVE); KETONES,URINE NEGATIVE (NEGATIVE); OCCULT BLOOD,URINE NEGATIVE (NEGATIVE); PROTEIN,URINE TRACE mg/dL (NEGATIVE)
[2023-03-31 10:27] LABS: BACTERIA,URINE None Seen /HPF (None Seen); LEUKOCYTE ESTERASE ,URINE NEGATIVE (NEGATIVE); NITRATE,URINE NEGATIVE (NEGATIVE); RBC,URINE None Seen /HPF (0-2); UROBILINOGEN,URINE <=1.0 mg/dL (<=1.0); WBC,URINE 0-2 /HPF (0-5)
[2023-03-31 10:28] LABS: SQUAMOUS EPITHELIAL CELL,UR Few /LPF (None Seen)
[2023-03-31 10:32] LABS: ALCOHOL, URINE DRUG SCREEN NEGATIVE (NEGATIVE); AMPHET/METH SCREEN,URINE NEGATIVE (NEGATIVE); BARBITURATE SCREEN, URINE NEGATIVE (NEGATIVE)
[2023-03-31 10:33] LABS: BENZODIAZEPINES SCREEN,URINE NEGATIVE (NEGATIVE); CANNABINOID SCREEN,URINE POSITIVE (NEGATIVE); COCAINE SCREEN,URINE NEGATIVE (NEGATIVE); METHADONE SCREEN, URINE NEGATIVE (NEGATIVE); OPIATE SCREEN,URINE NEGATIVE (NEGATIVE); PHENCYCLIDINE SCREEN,URINE NEGATIVE (NEGATIVE)
[2023-03-31 10:37] LABS: POTASSIUM 2.7 mmol/L (3.5-5.1)
[2023-03-31 10:38] LABS: MAGNESIUM 1.9 mg/dL (1.80-2.40)
[2023-03-31] MEDS ORDERED: POTASSIUM CHL 10 MEQ/WATER 50 ML IV PRN (11:00)
[2023-03-31] MEDS: POTASSIUM CHL 10 MEQ/WATER 50 ML IV PRN ×4 (12:11→15:17)
[2023-03-31] MEDS ORDERED: LOPERAMIDE HCL 2 MG CAPSULE PO PRN (19:00)
[2023-03-31] MEDS ORDERED: BACITRACIN 28 GM OINTMENT TP PRN (19:00)
[2023-03-31] MEDS ORDERED: CloNIDine HCL 0.1 MG TABLET PO PRN (19:00)
[2023-03-31] MEDS ORDERED: ACETAMINOPHEN 325 MG TABLET PO PRN (19:00)
[2023-03-31] MEDS ORDERED: ONDANSETRON HCL 4 MG TABLET PO PRN (19:00)
[2023-03-31] MEDS ORDERED: DOCUSATE SODIUM 100 MG CAPSULE PO PRN (19:00)
[2023-03-31] MEDS ORDERED: IBUPROFEN 600 MG TABLET PO PRN (19:00)
[2023-03-31] MEDS ORDERED: ALBUTEROL SULFATE HFA 90 MCG/PUFF 8 GM INHALER IH PRN (19:00)
[2023-03-31] MEDS ORDERED: MAGNESIUM HYDROXIDE SUSPENSION 30 ML UDCUP PO PRN (19:00)
[2023-03-31] MEDS ORDERED: MAG HYDROX/AL HYDROX/SIMETH ES 30 ML SUSPENSION UDCUP PO PRN (19:00)
[2023-03-31] MEDS ORDERED: PETROLATUM,WHITE 28 GM JELLY TP PRN (19:00)
[2023-03-31] MEDS ORDERED: OMEPRAZOLE 20 MG CAPSULE PO PRN (19:00)
[2023-03-31] MEDS ORDERED: BENZOCAINE/MENTHOL LOZENGE PO PRN (19:00)
[2023-03-31] MEDS: METOPROLOL TARTRATE 50 MG TABLET PO SCH (21:02)
[2023-03-31 23:12] VITALS: BP 152/99; PULSE 79; RESP 19; TEMP 97.9; O2SAT 100
[2023-03-31 23:56] VITALS: BP 152/99; PULSE 79; RESP 18; TEMP 97.9
[2023-04-01] MEDS: BRIMONIDINE TARTRATE 0.2% 5 ML OPHTHALMIC SOLUTION OS SCH ×3 (09:43→16:36)
[2023-04-01] MEDS: CALCIUM OYSTER SHELL 250 MG-VIT D3 125 UNITS[3.125MCG] TABLET PO SCH ×2 (09:44→16:37)
[2023-04-01] MEDS: METOPROLOL TARTRATE 50 MG TABLET PO SCH ×2 (09:54→16:42)
[2023-04-01 10:10] VITALS: BP 160/81; PULSE 80; RESP 18; TEMP 97.4; O2SAT 99
[2023-04-01 16:35] VITALS: BP 143/78; PULSE 77; RESP 18
[2023-04-01 20:08] VITALS: BP 155/80; PULSE 85; RESP 18; TEMP 97.3; O2SAT 98
[2023-04-01] MEDS: LATANOPROST 0.005% 2.5 ML OPHTHALMIC SOLUTION OS SCH ×2 (20:35→20:55)
[2023-04-01] MEDS: ZOLPIDEM TARTRATE 10 MG TABLET PO PRN (20:56)
[2023-04-02 08:47] VITALS: BP 147/77; PULSE 80; RESP 18; TEMP 98.5; O2SAT 100
[2023-04-02] MEDS: CALCIUM OYSTER SHELL 250 MG-VIT D3 125 UNITS[3.125MCG] TABLET PO SCH ×2 (09:23→16:28)
[2023-04-02] MEDS: BRIMONIDINE TARTRATE 0.2% 5 ML OPHTHALMIC SOLUTION OS SCH ×3 (09:24→16:22)
[2023-04-02] MEDS: METOPROLOL TARTRATE 50 MG TABLET PO SCH ×2 (09:29→16:27)
[2023-04-02 20:46] VITALS: BP 149/85; PULSE 81; RESP 18; TEMP 97.7; O2SAT 99
[2023-04-02] MEDS: ZOLPIDEM TARTRATE 10 MG TABLET PO PRN (22:07)
[2023-04-02] MEDS: LATANOPROST 0.005% 2.5 ML OPHTHALMIC SOLUTION OS SCH (22:08)
[2023-04-03 08:00] VITALS: BP 165/77; PULSE 83; RESP 17; TEMP 97; O2SAT 100
[2023-04-03 08:09] LABS: CHOL/HDL RATIO 2.1 (3.9-5.7)
[2023-04-03] MEDS: METOPROLOL TARTRATE 50 MG TABLET PO SCH ×2 (09:06→16:31)
[2023-04-03] MEDS: CALCIUM OYSTER SHELL 250 MG-VIT D3 125 UNITS[3.125MCG] TABLET PO SCH ×2 (09:06→16:32)
[2023-04-03] MEDS: BRIMONIDINE TARTRATE 0.2% 5 ML OPHTHALMIC SOLUTION OS SCH ×3 (09:06→16:32)
[2023-04-03 15:54] VITALS: BP 137/68; PULSE 89; RESP 18; O2SAT 98
[2023-04-03 20:43] VITALS: BP 128/70; PULSE 91; RESP 18; TEMP 97.8; O2SAT 98
[2023-04-03] MEDS: LATANOPROST 0.005% 2.5 ML OPHTHALMIC SOLUTION OS SCH (20:45)
[2023-04-03] MEDS: ZOLPIDEM TARTRATE 10 MG TABLET PO PRN (20:45)
[2023-04-04 08:44] VITALS: BP 147/77; PULSE 101; RESP 18; TEMP 97.7; O2SAT 96
[2023-04-04] MEDS: METOPROLOL TARTRATE 50 MG TABLET PO SCH ×2 (08:54→16:42)
[2023-04-04] MEDS: CALCIUM OYSTER SHELL 250 MG-VIT D3 125 UNITS[3.125MCG] TABLET PO SCH ×2 (08:55→16:43)
[2023-04-04] MEDS: BRIMONIDINE TARTRATE 0.2% 5 ML OPHTHALMIC SOLUTION OS SCH ×3 (08:57→16:43)
[2023-04-04 16:41] VITALS: BP 141/67; PULSE 87
[2023-04-04 20:27] VITALS: BP 81/64; PULSE 78; RESP 18; TEMP 97.6; O2SAT 90
[2023-04-04] MEDS: ZOLPIDEM TARTRATE 10 MG TABLET PO PRN (20:52)
[2023-04-04] MEDS: LATANOPROST 0.005% 2.5 ML OPHTHALMIC SOLUTION OS SCH (20:53)
[2023-04-05] MEDS: BRIMONIDINE TARTRATE 0.2% 5 ML OPHTHALMIC SOLUTION OS SCH ×3 (09:13→16:25)
[2023-04-05] MEDS: CALCIUM OYSTER SHELL 250 MG-VIT D3 125 UNITS[3.125MCG] TABLET PO SCH ×2 (09:14→16:25)
[2023-04-05 09:26] VITALS: BP 130/71; PULSE 82; RESP 18; TEMP 98; O2SAT 97
[2023-04-05] MEDS: METOPROLOL TARTRATE 50 MG TABLET PO SCH ×2 (09:50→17:01)
[2023-04-05] MEDS: LATANOPROST 0.005% 2.5 ML OPHTHALMIC SOLUTION OS SCH (21:32)
[2023-04-05 21:33] VITALS: BP 146/60; PULSE 63; RESP 17; TEMP 97.2; O2SAT 98
[2023-04-06] MEDS: CALCIUM OYSTER SHELL 250 MG-VIT D3 125 UNITS[3.125MCG] TABLET PO SCH ×2 (08:25→17:19)
[2023-04-06] MEDS: METOPROLOL TARTRATE 50 MG TABLET PO SCH ×2 (08:26→17:41)
[2023-04-06] MEDS: BRIMONIDINE TARTRATE 0.2% 5 ML OPHTHALMIC SOLUTION OS SCH ×3 (08:26→17:20)
[2023-04-06 08:56] VITALS: BP 152/77; PULSE 92; RESP 18; TEMP 98.2; O2SAT 100
[2023-04-06] MEDS: LATANOPROST 0.005% 2.5 ML OPHTHALMIC SOLUTION OS SCH (21:28)
[2023-04-06] MEDS: QUEtiapine FUMARATE 25 MG TABLET PO SCH (21:28)
[2023-04-06] MEDS: ZOLPIDEM TARTRATE 10 MG TABLET PO SCH (21:28)
[2023-04-06 22:37] VITALS: BP 128/73; PULSE 80; RESP 18; TEMP 98.1; O2SAT 98
[2023-04-07] MEDS: METOPROLOL TARTRATE 50 MG TABLET PO SCH ×2 (10:34→18:05)
[2023-04-07] MEDS: BRIMONIDINE TARTRATE 0.2% 5 ML OPHTHALMIC SOLUTION OS SCH ×3 (10:34→16:35)
[2023-04-07] MEDS: CALCIUM OYSTER SHELL 250 MG-VIT D3 125 UNITS[3.125MCG] TABLET PO SCH ×2 (10:35→16:35)
[2023-04-07 12:34] VITALS: BP 150/94; PULSE 81; RESP 18; TEMP 97; O2SAT 98
[2023-04-07] MEDS: ZOLPIDEM TARTRATE 10 MG TABLET PO SCH (20:10)
[2023-04-07] MEDS: QUEtiapine FUMARATE 25 MG TABLET PO SCH (20:10)
[2023-04-07] MEDS: LATANOPROST 0.005% 2.5 ML OPHTHALMIC SOLUTION OS SCH (20:10)
[2023-04-07 21:05] VITALS: BP 127/77; PULSE 64; RESP 17; TEMP 98.1; O2SAT 100
[2023-04-08] MEDS: BRIMONIDINE TARTRATE 0.2% 5 ML OPHTHALMIC SOLUTION OS SCH ×3 (08:28→16:04)
[2023-04-08] MEDS: CALCIUM OYSTER SHELL 250 MG-VIT D3 125 UNITS[3.125MCG] TABLET PO SCH ×2 (08:29→16:04)
[2023-04-08] MEDS: METOPROLOL TARTRATE 50 MG TABLET PO SCH ×2 (08:29→16:04)
[2023-04-08 13:19] VITALS: BP 155/89; PULSE 87; RESP 18; TEMP 98; O2SAT 99
[2023-04-08 20:55] VITALS: BP 123/67; PULSE 79; RESP 18; TEMP 98; O2SAT 100
[2023-04-08] MEDS: ZOLPIDEM TARTRATE 10 MG TABLET PO SCH (21:17)
[2023-04-08] MEDS: LATANOPROST 0.005% 2.5 ML OPHTHALMIC SOLUTION OS SCH (21:17)
[2023-04-08] MEDS: QUEtiapine FUMARATE 25 MG TABLET PO SCH (21:17)
[2023-04-09] MEDS: CALCIUM OYSTER SHELL 250 MG-VIT D3 125 UNITS[3.125MCG] TABLET PO SCH ×2 (08:12→16:23)
[2023-04-09] MEDS: BRIMONIDINE TARTRATE 0.2% 5 ML OPHTHALMIC SOLUTION OS SCH ×3 (08:12→16:07)
[2023-04-09] MEDS: METOPROLOL TARTRATE 50 MG TABLET PO SCH ×2 (08:12→16:07)
[2023-04-09 10:34] VITALS: BP 157/79; PULSE 93; RESP 18; TEMP 97.2; O2SAT 99
== END 2023-04-09 20:45 | disposition home or self-care (01) | DRG 885 ==
LOC: EMS 19:04 → UNDOADMIN 03-31 09:40 → B2S 03-31 09:40 → 3EI 03-31 20:00
PROVIDERS: ADMIT Psychiatry & Neurology Psychiatry; ATTEND Psychiatry & Neurology Psychiatry
DX: F20.0 Paranoid schizophrenia (principal); R45.851 Suicidal ideations; F41.9 Anxiety disorder, unspecified; I10 Essential (primary) hypertension; J44.9 Chronic obstructive pulmonary disease, unspecified; K21.9 Gastro-esophageal reflux disease without esophagitis; E87.6 Hypokalemia; K59.00 Constipation, unspecified; Z20.822 Contact with and (suspected) exposure to COVID-19; J45.909 Unspecified asthma, uncomplicated; G47.9 Sleep disorder, unspecified; E11.9 Type 2 diabetes mellitus without complications; D50.9 Iron deficiency anemia, unspecified; G47.00 Insomnia, unspecified; Z90.11 Acquired absence of right breast and nipple; Z86.73 Personal history of transient ischemic attack (TIA), and cerebral infarction without residual deficits; Z87.891 Personal history of nicotine dependence; Z90.49 Acquired absence of other specified parts of digestive tract; Z88.0 Allergy status to penicillin
CPT/HCPCS: 80053; 80061; 80307; 81001; 83036; 83690; 83735; 84132; 84484; 85025; 87081; 99285; G0480; J3480

== ENCOUNTER 2023-04-14 18:31 | Emergency (ER) | payer MEDICARE, MEDICAID ==
[~2023-04-14] VITALS: Ht 157.5 cm; Wt 54.1 kg
[~2023-04-14 18:31] MED LIST changes: -ALBU18HF12 IH; -NETA2.5D OS; -PALI234D IM; -PALI3TAB14 PO; -TRAZ-252 PO
[2023-04-14 18:53] VITALS: TEMP 98.5
[2023-04-14] MEDS: ACETAMINOPHEN 325 MG TABLET PO ONE ×2 (18:58→18:59)
[2023-04-14 19:16] LABS: BASOPHILS % (AUTO) 2.3 % (0.0-2.0); HEMATOCRIT 27.3 % (36-46); HEMOGLOBIN 8.6 g/dL (12.0-16.0); LYMPHOCYTES # (AUTO) 1.5 K/uL (1.0-4.8); LYMPHOCYTES % (AUTO) 37.7 % (22.0-44.0); MEAN CORPUSCULAR HEMOGLOBIN 22.7 pg (26.0-34.0); MEAN CORPUSCULAR HGB CONC 31.6 G/dL (31.0-37.0); MEAN CORPUSCULAR VOLUME 72 fL (80-100); MONOCYTES # (AUTO) 0.6 K/uL (0.1-1.0); NEUTROPHILS # (AUTO) 1.7 K/uL (1.8-7.7); PLATELET COUNT (AUTO) 255 K/uL (150-450); RED BLOOD CELL COUNT(AUTO) 3.81 MIL/uL (4.00-5.20); RED CELL DISTRIBUTION WIDTH 15.2 % (11.5-14.5); WHITE BLOOD COUNT (AUTO) 4.1 K/uL (4.5-11.0)
[2023-04-14 19:20] LABS: ANION GAP 9 mmol/L (8-16); CALCIUM, TOTAL 8.7 mg/dL (8.8-10.5); CARBON DIOXIDE 27 mmol/L (22-29); CHLORIDE 108 mmol/L (98-107); CREATININE 0.49 mg/dL (0.60-1.30); GLOMERULAR FILTR. RATE CALC > 60 mL/min (>60); GLUCOSE,RANDOM 128 mg/dL (70-110); POTASSIUM 3.4 mmol/L (3.5-5.1); SODIUM SERUM 144 mmol/L (136-145); UREA NITROGEN, BLOOD 26 mg/dL (7-18)
[2023-04-14 19:24] LABS: ALCOHOL, BLOOD (SERUM) < 3 mg/dL (0-10)
[2023-04-14 19:26] LABS: ALANINE AMINOTRANSFERASE 18 U/L (12-78); ALKALINE PHOSPHATASE 102 U/L (46-116); ASPARTATE AMINOTRANSFERASE 15 U/L (15-37); BILIRUBIN,TOTAL 0.2 mg/dL (0.1-1.0); TOTAL PROTEIN, SERUM 6.2 g/dL (6.4-8.2)
[2023-04-14 19:38] LABS: RBC MORPHOLOGY COMMENT ABNORMAL RBC MORPH
[2023-04-14 21:39] VITALS: BP 148/84; PULSE 77; RESP 17
== END 2023-04-14 22:13 | disposition home or self-care (01) ==
LOC: EMS 18:32
DX: F20.9 Schizophrenia, unspecified (principal); F31.9 Bipolar disorder, unspecified; I10 Essential (primary) hypertension; J45.909 Unspecified asthma, uncomplicated; F17.210 Nicotine dependence, cigarettes, uncomplicated; F12.90 Cannabis use, unspecified, uncomplicated; Z88.0 Allergy status to penicillin; Z79.899 Other long term (current) drug therapy
CPT/HCPCS: 99283; 80053; 85025; 36415; G0480

== ENCOUNTER 2023-04-28 23:54 | Emergency (ER) | payer OTHER ==
[~2023-04-28] VITALS: Ht 157.5 cm; Wt 61.4 kg
[2023-04-29 00:02] VITALS: TEMP 98.3
[2023-04-29 00:37] LABS: APPEARANCE,URINE CLEAR (CLEAR); BILIRUBIN,URINE NEGATIVE (NEGATIVE); COLOR,URINE LIGHT YELLOW (YELLOW); GLUCOSE, URINE (UA) NEGATIVE (NEGATIVE); KETONES,URINE NEGATIVE (NEGATIVE); LEUKOCYTE ESTERASE ,URINE MODERATE (NEGATIVE); NITRATE,URINE NEGATIVE (NEGATIVE); OCCULT BLOOD,URINE NEGATIVE (NEGATIVE); PH,URINE 5.5 (5.0-8.0); PROTEIN,URINE TRACE mg/dL (NEGATIVE); SPECIFIC GRAVITIY, URINE 1.026 (1.003-1.030); UROBILINOGEN,URINE <=1.0 mg/dL (<=1.0)
[2023-04-29 00:37] LABS: BASOPHILS % (AUTO) 1.2 % (0.0-2.0); EOSINOPHILS % (AUTO) 1.8 % (1.0-6.0); HEMATOCRIT 30.3 % (36-46); HEMOGLOBIN 9.6 g/dL (12.0-16.0); LYMPHOCYTES # (AUTO) 1.7 K/uL (1.0-4.8); LYMPHOCYTES % (AUTO) 49.9 % (22.0-44.0); MEAN CORPUSCULAR HEMOGLOBIN 22.7 pg (26.0-34.0); MEAN CORPUSCULAR HGB CONC 31.8 G/dL (31.0-37.0); MEAN CORPUSCULAR VOLUME 72 fL (80-100); MONOCYTES # (AUTO) 0.5 K/uL (0.1-1.0); MONOCYTES % (AUTO) 15.3 % (2.0-9.0); NEUTROPHILS # (AUTO) 1.1 K/uL (1.8-7.7); NEUTROPHILS % (AUTO) 31.8 % (40.0-70.0); PLATELET COUNT (AUTO) 271 K/uL (150-450); RED BLOOD CELL COUNT(AUTO) 4.23 MIL/uL (4.00-5.20); RED CELL DISTRIBUTION WIDTH 14.9 % (11.5-14.5); WHITE BLOOD COUNT (AUTO) 3.4 K/uL (4.5-11.0)
[2023-04-29 00:38] LABS: PH,URINE DRUG SCREEN 5.5 (5.0-8.0)
[2023-04-29 00:43] LABS: ALCOHOL, URINE DRUG SCREEN NEGATIVE (NEGATIVE); AMPHET/METH SCREEN,URINE NEGATIVE (NEGATIVE); BARBITURATE SCREEN, URINE NEGATIVE (NEGATIVE); BENZODIAZEPINES SCREEN,URINE NEGATIVE (NEGATIVE); CANNABINOID SCREEN,URINE NEGATIVE (NEGATIVE); COCAINE SCREEN,URINE NEGATIVE (NEGATIVE); METHADONE SCREEN, URINE NEGATIVE (NEGATIVE); OPIATE SCREEN,URINE NEGATIVE (NEGATIVE); PHENCYCLIDINE SCREEN,URINE NEGATIVE (NEGATIVE)
[2023-04-29 00:43] LABS: CARBON DIOXIDE 30 mmol/L (22-29); CHLORIDE 107 mmol/L (98-107); POTASSIUM 3.5 mmol/L (3.5-5.1); SODIUM SERUM 142 mmol/L (136-145)
[2023-04-29 00:44] LABS: ANION GAP 5 mmol/L (8-16); CALCIUM, TOTAL 9.5 mg/dL (8.8-10.5); GLOMERULAR FILTR. RATE CALC > 60 mL/min (>60); GLUCOSE,RANDOM 113 mg/dL (70-110); UREA NITROGEN, BLOOD 23 mg/dL (7-18)
[2023-04-29 00:49] LABS: BACTERIA,URINE None Seen /HPF (None Seen); RBC,URINE None Seen /HPF (0-2); SQUAMOUS EPITHELIAL CELL,UR Rare /LPF (None Seen)
[2023-04-29 00:51] LABS: ALANINE AMINOTRANSFERASE 22 U/L (12-78); ALBUMIN 3.3 g/dL (3.4-5.0); ALKALINE PHOSPHATASE 103 U/L (46-116); ASPARTATE AMINOTRANSFERASE 16 U/L (15-37); BILIRUBIN,TOTAL 0.4 mg/dL (0.1-1.0)
[2023-04-29 01:01] LABS: RBC MORPHOLOGY COMMENT ABNORMAL RBC MORPH
[2023-04-29] MEDS ORDERED: LORazepam 1 MG TABLET PO ONE (01:30)
[2023-04-29] MEDS ORDERED: IBUPROFEN 600 MG TABLET PO ONE (01:30)
[2023-04-29] MEDS ORDERED: PALI234D IM (07:45)
[2023-04-29 08:30] VITALS: BP 112/75; PULSE 80; RESP 18
[2023-04-30] MEDS ORDERED: DORZ10DR10 OU (18:35)
[2023-04-30] MEDS ORDERED: NETA2.5D OU (18:35)
[2023-05-03] MEDS ORDERED: AMLO-258 PO (11:21)
[2023-05-03] MEDS ORDERED: LOSA-381 PO (11:22)
== END 2023-04-29 09:02 | disposition home or self-care (01) ==
LOC: EMS 23:56
DX: F25.0 Schizoaffective disorder, bipolar type (principal); E11.9 Type 2 diabetes mellitus without complications; I11.9 Hypertensive heart disease without heart failure; Z87.891 Personal history of nicotine dependence; Z90.49 Acquired absence of other specified parts of digestive tract; Z90.11 Acquired absence of right breast and nipple; Z88.0 Allergy status to penicillin
CPT/HCPCS: 80053; 80307; 81001; 82962; 85025; 87086; 87186; 99284

== ENCOUNTER 2023-05-10 11:29 | Inpatient (IN) | payer OTHER, MEDICAID ==
[~2023-05-10] VITALS: Ht 157.5 cm; Wt 50.0 kg
[~2023-05-10 11:29] MED LIST changes: +AMLO-258 PO; -BRIM15DR8 OS; +LOSA-381 PO; -METO50 PO
[2023-05-10 12:31] LABS: HEMATOCRIT 30.8 % (36-46); HEMOGLOBIN 9.8 g/dL (12.0-16.0); MEAN CORPUSCULAR HEMOGLOBIN 22.5 pg (26.0-34.0); MEAN CORPUSCULAR HGB CONC 31.7 G/dL (31.0-37.0); MEAN CORPUSCULAR VOLUME 71 fL (80-100); PLATELET COUNT (AUTO) 321 K/uL (150-450); RED BLOOD CELL COUNT(AUTO) 4.35 MIL/uL (4.00-5.20); RED CELL DISTRIBUTION WIDTH 14.5 % (11.5-14.5); WHITE BLOOD COUNT (AUTO) 2.9 K/uL (4.5-11.0)
[2023-05-10 12:36] LABS: ANION GAP 11 mmol/L (8-16); CARBON DIOXIDE 26 mmol/L (22-29); CHLORIDE 106 mmol/L (98-107); CREATININE 0.54 mg/dL (0.60-1.30); GLOMERULAR FILTR. RATE CALC > 60 mL/min (>60); GLUCOSE,RANDOM 103 mg/dL (70-110); POTASSIUM 3.4 mmol/L (3.5-5.1); SODIUM SERUM 143 mmol/L (136-145); UREA NITROGEN, BLOOD 22 mg/dL (7-18)
[2023-05-10 12:38] LABS: ALCOHOL, BLOOD (SERUM) < 3 mg/dL (0-10)
[2023-05-10 12:42] LABS: ALANINE AMINOTRANSFERASE 17 U/L (12-78); ALBUMIN 3.3 g/dL (3.4-5.0); ALKALINE PHOSPHATASE 91 U/L (46-116); ASPARTATE AMINOTRANSFERASE 14 U/L (15-37); BILIRUBIN,TOTAL 0.3 mg/dL (0.1-1.0); TOTAL PROTEIN, SERUM 7.1 g/dL (6.4-8.2)
[2023-05-10 12:49] LABS: BAND NEUTROPHILS % (MANUAL) 0 % (0-5)
[2023-05-10 13:00] LABS: LYMPHOCYTES % (MANUAL) 30 % (22-44); MONOCYTES % (MANUAL) 8 % (2-9); SEGMENTED NEUTROPHILS % 62 % (40-70); TOTAL CELLS COUNTED 100
[2023-05-10 13:01] LABS: RBC MORPHOLOGY COMMENT ABNORMAL R
[2023-05-10] MEDS ORDERED: LORazepam 2 MG TABLET PO PRN (13:15)
[2023-05-10] MEDS ORDERED: ZOLPIDEM TARTRATE 10 MG TABLET PO PRN (13:15)
[2023-05-10] MEDS ORDERED: OLANZapine 5 MG RAPDIS TABLET PO PRN (13:15)
[2023-05-10 14:34] LABS: COVID AG,FIA SOURCE NASAL SWAB
[2023-05-10 14:40] LABS: PH,URINE DRUG SCREEN 5.5 (5.0-8.0)
[2023-05-10 14:41] LABS: APPEARANCE,URINE CLEAR (CLEAR); BILIRUBIN,URINE NEGATIVE (NEGATIVE); COLOR,URINE LIGHT YELLOW (YELLOW); GLUCOSE, URINE (UA) NEGATIVE (NEGATIVE); KETONES,URINE NEGATIVE (NEGATIVE); LEUKOCYTE ESTERASE ,URINE NEGATIVE (NEGATIVE); NITRATE,URINE NEGATIVE (NEGATIVE); OCCULT BLOOD,URINE NEGATIVE (NEGATIVE); PH,URINE 5.5 (5.0-8.0); PROTEIN,URINE TRACE mg/dL (NEGATIVE); SPECIFIC GRAVITIY, URINE 1.023 (1.003-1.030); UROBILINOGEN,URINE <=1.0 mg/dL (<=1.0)
[2023-05-10 14:46] LABS: ALCOHOL, URINE DRUG SCREEN NEGATIVE (NEGATIVE); AMPHET/METH SCREEN,URINE NEGATIVE (NEGATIVE); BARBITURATE SCREEN, URINE NEGATIVE (NEGATIVE); BENZODIAZEPINES SCREEN,URINE NEGATIVE (NEGATIVE); CANNABINOID SCREEN,URINE NEGATIVE (NEGATIVE); COCAINE SCREEN,URINE NEGATIVE (NEGATIVE); METHADONE SCREEN, URINE NEGATIVE (NEGATIVE); OPIATE SCREEN,URINE NEGATIVE (NEGATIVE); PHENCYCLIDINE SCREEN,URINE NEGATIVE (NEGATIVE)
[2023-05-10 14:58] LABS: SARS-COV2 (COVID) ANTIGEN,FIA Negative (Negative)
[2023-05-11 14:46] VITALS: BP 152/64; PULSE 94; RESP 18; TEMP 97.4; O2SAT 97
[2023-05-11 21:43] VITALS: BP 130/92; PULSE 90; RESP 18; TEMP 98; O2SAT 98
[2023-05-11] MEDS ORDERED: BACITRACIN 28 GM OINTMENT TP PRN (21:45)
[2023-05-11] MEDS ORDERED: ALBUTEROL SULFATE HFA 90 MCG/PUFF 8 GM INHALER IH PRN (21:45)
[2023-05-11] MEDS ORDERED: MAGNESIUM HYDROXIDE SUSPENSION 30 ML UDCUP PO PRN (21:45)
[2023-05-11] MEDS ORDERED: ACETAMINOPHEN 325 MG TABLET PO PRN (21:45)
[2023-05-11] MEDS ORDERED: DOCUSATE SODIUM 100 MG CAPSULE PO PRN (21:45)
[2023-05-11] MEDS ORDERED: MAG HYDROX/ALUMINUM HYD/SIMETH ES 30 ML SUSPENSION UDCUP PO PRN (21:45)
[2023-05-11] MEDS ORDERED: BENZOCAINE/MENTHOL LOZENGE PO PRN (21:45)
[2023-05-11] MEDS ORDERED: CloNIDine HCL 0.1 MG TABLET PO PRN (21:45)
[2023-05-11] MEDS ORDERED: IBUPROFEN 600 MG TABLET PO PRN (21:45)
[2023-05-11] MEDS ORDERED: POTASSIUM CHLORIDE 20 MEQ ER TABLET PO ONE (21:45)
[2023-05-11] MEDS ORDERED: ONDANSETRON HCL 4 MG TABLET PO PRN (21:45)
[2023-05-11] MEDS ORDERED: PETROLATUM,WHITE 28 GM JELLY TP PRN (21:45)
[2023-05-11] MEDS ORDERED: LOPERAMIDE HCL 2 MG CAPSULE PO PRN (21:45)
[2023-05-11] MEDS ORDERED: OMEPRAZOLE 20 MG CAPSULE PO PRN (21:45)
[2023-05-12 06:54] LABS: BASOPHILS % (AUTO) 1.3 % (0.0-2.0); EOSINOPHILS % (AUTO) 1.8 % (1.0-6.0); HEMATOCRIT 28.3 % (36-46); HEMOGLOBIN 9.1 g/dL (12.0-16.0); LYMPHOCYTES # (AUTO) 1.2 K/uL (1.0-4.8); LYMPHOCYTES % (AUTO) 37.1 % (22.0-44.0); MEAN CORPUSCULAR HEMOGLOBIN 22.9 pg (26.0-34.0); MEAN CORPUSCULAR HGB CONC 32.2 G/dL (31.0-37.0); MEAN CORPUSCULAR VOLUME 71 fL (80-100); MONOCYTES # (AUTO) 0.7 K/uL (0.1-1.0); MONOCYTES % (AUTO) 21.3 % (2.0-9.0); NEUTROPHILS # (AUTO) 1.2 K/uL (1.8-7.7); NEUTROPHILS % (AUTO) 38.5 % (40.0-70.0); PLATELET COUNT (AUTO) 297 K/uL (150-450); RED CELL DISTRIBUTION WIDTH 14.7 % (11.5-14.5); WHITE BLOOD COUNT (AUTO) 3.1 K/uL (4.5-11.0)
[2023-05-12 07:00] LABS: RBC MORPHOLOGY COMMENT ABNORMAL RBC MORPH
[2023-05-12 07:14] LABS: ALANINE AMINOTRANSFERASE 19 U/L (12-78); ALBUMIN 2.8 g/dL (3.4-5.0); ALKALINE PHOSPHATASE 83 U/L (46-116); ANION GAP 6 mmol/L (8-16); ASPARTATE AMINOTRANSFERASE 11 U/L (15-37); BILIRUBIN,TOTAL 0.2 mg/dL (0.1-1.0); CALCIUM, TOTAL 9.8 mg/dL (8.8-10.5); CARBON DIOXIDE 28 mmol/L (22-29); CHLORIDE 107 mmol/L (98-107); CHOLESTEROL 127 mg/dL (131-200); GLOMERULAR FILTR. RATE CALC > 60 mL/min (>60); GLUCOSE,RANDOM 102 mg/dL (70-110); HDL CHOLESTEROL 62 mg/dL (40-60); SODIUM SERUM 141 mmol/L (136-145); TOTAL PROTEIN, SERUM 6.1 g/dL (6.4-8.2); TRIGLYCERIDES 43 mg/dL (15-150); UREA NITROGEN, BLOOD 19 mg/dL (7-18)
[2023-05-12 07:15] LABS: LDL CHOL (CALC.) 56 mg/dL (0-130)
[2023-05-12 07:18] LABS: HEMOGLOBIN A1C 5.4 % (3.8-5.6)
[2023-05-12 07:23] LABS: % IRON SATURATION 30.3 % (22-44); IRON, SERUM 65 mcg/dL (50-175); TOTAL IRON BINDING CAPACITY 214 mcg/dL (250-450)
[2023-05-12 07:36] LABS: THYROID STIMULATING HORMONE < 0.01 uIU/mL (0.36-3.74)
[2023-05-12] MEDS: MULTIVITAMINS WITH MINERALS, THERAPEUTIC TABLET PO SCH (08:23)
[2023-05-12 10:34] VITALS: BP 159/81; PULSE 87; RESP 19; TEMP 97.3; O2SAT 98
[2023-05-12 20:10] VITALS: BP 142/80; PULSE 88; RESP 18; TEMP 97.7; O2SAT 98
[2023-05-13] MEDS: MULTIVITAMINS WITH MINERALS, THERAPEUTIC TABLET PO SCH (09:05)
[2023-05-13 10:33] VITALS: BP 158/79; PULSE 73; RESP 19; TEMP 97.6; O2SAT 99
[2023-05-13 20:05] VITALS: BP 142/77; PULSE 62; RESP 18; TEMP 97.1; O2SAT 98
[2023-05-14 09:37] VITALS: BP 144/74; PULSE 84; RESP 18; TEMP 97; O2SAT 96
[2023-05-14] MEDS: MULTIVITAMINS WITH MINERALS, THERAPEUTIC TABLET PO SCH (10:25)
[2023-05-14] MEDS: DIVALPROEX SODIUM 500 MG DR TABLET PO SCH (16:10)
[2023-05-14 20:24] VITALS: BP 139/77; PULSE 92; RESP 18; TEMP 97.5; O2SAT 96
[2023-05-15] MEDS: DIVALPROEX SODIUM 500 MG DR TABLET PO SCH ×2 (09:27→16:26)
[2023-05-15] MEDS: MULTIVITAMINS WITH MINERALS, THERAPEUTIC TABLET PO SCH (09:27)
[2023-05-15 09:51] VITALS: BP 134/80; PULSE 83; RESP 18; TEMP 98.8; O2SAT 100
[2023-05-15 21:38] VITALS: BP 136/72; PULSE 84; RESP 18; TEMP 98.3; O2SAT 98
[2023-05-16 09:17] VITALS: BP 140/91; PULSE 78; RESP 18; TEMP 98; O2SAT 98
[2023-05-16] MEDS: DIVALPROEX SODIUM 500 MG DR TABLET PO SCH ×2 (10:13→17:10)
[2023-05-16] MEDS: MULTIVITAMINS WITH MINERALS, THERAPEUTIC TABLET PO SCH (10:13)
[2023-05-16] MEDS: HALOPERIDOL 5 MG TABLET PO SCH (20:24)
[2023-05-16 21:26] VITALS: BP 143/64; PULSE 92; RESP 18; TEMP 98; O2SAT 100
[2023-05-17 09:38] VITALS: BP 146/74; PULSE 104; RESP 18; TEMP 97.4; O2SAT 97
[2023-05-17] MEDS: DIVALPROEX SODIUM 500 MG DR TABLET PO SCH ×2 (10:16→17:23)
[2023-05-17] MEDS: MULTIVITAMINS WITH MINERALS, THERAPEUTIC TABLET PO SCH (10:17)
[2023-05-17] MEDS: HALOPERIDOL 5 MG TABLET PO SCH (20:26)
[2023-05-17 21:20] VITALS: BP 145/94; PULSE 90; RESP 18; TEMP 97.7; O2SAT 99
[2023-05-18 08:00] VITALS: BP 155/71; PULSE 83; RESP 18; TEMP 98.2; O2SAT 100
[2023-05-18] MEDS: DIVALPROEX SODIUM 500 MG DR TABLET PO SCH ×2 (09:02→16:40)
[2023-05-18] MEDS: MULTIVITAMINS WITH MINERALS, THERAPEUTIC TABLET PO SCH (09:03)
[2023-05-18] MEDS: HALOPERIDOL 5 MG TABLET PO SCH (20:18)
[2023-05-18 20:22] VITALS: BP 140/81; PULSE 85; RESP 18; TEMP 98.1; O2SAT 100
[2023-05-19] MEDS: MULTIVITAMINS WITH MINERALS, THERAPEUTIC TABLET PO SCH (09:21)
[2023-05-19] MEDS: DIVALPROEX SODIUM 500 MG DR TABLET PO SCH ×2 (09:21→16:16)
[2023-05-19 09:29] VITALS: BP 167/91; PULSE 84; RESP 17; TEMP 98; O2SAT 98
[2023-05-19] MEDS: HALOPERIDOL 5 MG TABLET PO SCH (20:48)
[2023-05-19 20:57] VITALS: BP 143/79; PULSE 83; RESP 18; TEMP 98.2; O2SAT 100
[2023-05-20 08:01] VITALS: BP 159/90; PULSE 84; RESP 17; TEMP 97.5; O2SAT 100
[2023-05-20] MEDS: DIVALPROEX SODIUM 500 MG DR TABLET PO SCH ×2 (10:41→17:24)
[2023-05-20] MEDS: MULTIVITAMINS WITH MINERALS, THERAPEUTIC TABLET PO SCH (10:41)
[2023-05-20 20:30] VITALS: BP 159/79; PULSE 83; RESP 17; TEMP 97.7; O2SAT 98
[2023-05-20] MEDS: HALOPERIDOL 5 MG TABLET PO SCH (21:12)
[2023-05-21] MEDS: MULTIVITAMINS WITH MINERALS, THERAPEUTIC TABLET PO SCH (09:03)
[2023-05-21] MEDS: DIVALPROEX SODIUM 500 MG DR TABLET PO SCH ×2 (09:03→16:20)
[2023-05-21 10:13] VITALS: BP 140/87; PULSE 76; RESP 18; TEMP 97.7; O2SAT 100
[2023-05-21 20:05] VITALS: BP 136/72; PULSE 81; RESP 18; TEMP 98.6; O2SAT 100
[2023-05-21] MEDS: HALOPERIDOL 5 MG TABLET PO SCH (21:05)
[2023-05-22 09:18] VITALS: BP 143/71; PULSE 85; RESP 17; TEMP 97.4
[2023-05-22] MEDS: MULTIVITAMINS WITH MINERALS, THERAPEUTIC TABLET PO SCH (11:28)
[2023-05-22] MEDS: DIVALPROEX SODIUM 500 MG DR TABLET PO SCH ×2 (11:28→16:40)
[2023-05-22 20:35] VITALS: BP 117/57; PULSE 83; RESP 18; TEMP 97.6; O2SAT 98
[2023-05-22] MEDS: HALOPERIDOL 5 MG TABLET PO SCH (21:46)
[2023-05-23 08:56] VITALS: BP 120/90; PULSE 98; RESP 18; TEMP 97.8
[2023-05-23] MEDS: MULTIVITAMINS WITH MINERALS, THERAPEUTIC TABLET PO SCH (09:19)
[2023-05-23] MEDS: DIVALPROEX SODIUM 500 MG DR TABLET PO SCH ×2 (09:19→17:30)
[2023-05-23] MEDS ORDERED: HALO5TAB23 PO (15:07)
[2023-05-23] MEDS ORDERED: DIVA-112 PO (15:07)
[2023-05-23] MEDS ORDERED: MULT-1239 PO (15:07)
[2023-05-23] MEDS: HALOPERIDOL 5 MG TABLET PO SCH (20:35)
[2023-05-23 22:02] VITALS: BP 139/84; PULSE 92; RESP 18; TEMP 98.5; O2SAT 99
[2023-05-24] MEDS: DIVALPROEX SODIUM 500 MG DR TABLET PO SCH ×2 (10:43→16:32)
[2023-05-24] MEDS: MULTIVITAMINS WITH MINERALS, THERAPEUTIC TABLET PO SCH (10:44)
[2023-05-24 12:28] VITALS: BP 144/78; PULSE 89; RESP 18; TEMP 97.8; O2SAT 98
== END 2023-05-24 18:30 | disposition home or self-care (01) | DRG 885 ==
LOC: EMS 12:03 → 3EI 05-11 13:38
PROVIDERS: ADMIT Psychiatry & Neurology Psychiatry; ATTEND Psychiatry & Neurology Psychiatry
DX: F25.1 Schizoaffective disorder, depressive type (principal); R45.851 Suicidal ideations; D50.9 Iron deficiency anemia, unspecified; C50.919 Malignant neoplasm of unspecified site of unspecified female breast; E11.9 Type 2 diabetes mellitus without complications; E87.6 Hypokalemia; F41.9 Anxiety disorder, unspecified; G47.00 Insomnia, unspecified; F31.9 Bipolar disorder, unspecified; I10 Essential (primary) hypertension; Z20.822 Contact with and (suspected) exposure to COVID-19; J44.9 Chronic obstructive pulmonary disease, unspecified; K59.00 Constipation, unspecified; K21.9 Gastro-esophageal reflux disease without esophagitis; Z88.0 Allergy status to penicillin; Z86.73 Personal history of transient ischemic attack (TIA), and cerebral infarction without residual deficits; Z90.11 Acquired absence of right breast and nipple; Z90.49 Acquired absence of other specified parts of digestive tract; Z98.891 History of uterine scar from previous surgery; Z87.891 Personal history of nicotine dependence; Z79.899 Other long term (current) drug therapy
CPT/HCPCS: 80053; 80061; 80164; 80307; 81003; 83036; 83540; 83550; 84443; 85025; 87081; 99285; G0480

== ENCOUNTER 2023-06-21 11:57 | Emergency (ER) | payer OTHER ==
[~2023-06-21] VITALS: Ht 154.9 cm; Wt 49.0 kg
[~2023-06-21 11:57] MED LIST changes: +AMLO-257 PO; -AMLO-258 PO; -CALC-1275 PO; +DIVA125T32 PO; +HALO5TAB23 PO; +LEVO-72 PO; -LOSA-381 PO; +MULT-1239 PO; -XALA2.5OS OS
[2023-06-21 12:06] VITALS: BP 175/84; PULSE 82; RESP 16; TEMP 97.7
[2023-06-21 12:27] LABS: COVID AG,FIA SOURCE NASAL SWAB
[2023-06-21 12:54] LABS: SARS-COV2 (COVID) ANTIGEN,FIA Negative (Negative)
== END 2023-06-21 13:33 | disposition home or self-care (01) ==
LOC: EMS 11:57
DX: Z13.9 Encounter for screening, unspecified (principal); J45.909 Unspecified asthma, uncomplicated; F31.9 Bipolar disorder, unspecified; E11.9 Type 2 diabetes mellitus without complications; F20.9 Schizophrenia, unspecified; I51.89 Other ill-defined heart diseases; Z87.891 Personal history of nicotine dependence; Z90.49 Acquired absence of other specified parts of digestive tract; Z90.11 Acquired absence of right breast and nipple; Z88.0 Allergy status to penicillin; Z20.822 Contact with and (suspected) exposure to COVID-19
CPT/HCPCS: 99283

== ENCOUNTER 2023-06-22 17:49 | Emergency (ER) | payer OTHER ==
[~2023-06-22] VITALS: Ht 157.5 cm; Wt 52.3 kg
[2023-06-22 20:22] LABS: BASOPHILS % (AUTO) 1.7 % (0.0-2.0); EOSINOPHILS % (AUTO) 0.5 % (1.0-6.0); HEMATOCRIT 29.9 % (36-46); HEMOGLOBIN 9.5 g/dL (12.0-16.0); LYMPHOCYTES # (AUTO) 0.7 K/uL (1.0-4.8); LYMPHOCYTES % (AUTO) 10.8 % (22.0-44.0); MEAN CORPUSCULAR HEMOGLOBIN 22.3 pg (26.0-34.0); MEAN CORPUSCULAR HGB CONC 31.9 G/dL (31.0-37.0); MEAN CORPUSCULAR VOLUME 70 fL (80-100); MONOCYTES # (AUTO) 0.4 K/uL (0.1-1.0); MONOCYTES % (AUTO) 6.9 % (2.0-9.0); NEUTROPHILS % (AUTO) 80.1 % (40.0-70.0); PLATELET COUNT (AUTO) 224 K/uL (150-450); RED BLOOD CELL COUNT(AUTO) 4.26 MIL/uL (4.00-5.20); RED CELL DISTRIBUTION WIDTH 15.7 % (11.5-14.5); WHITE BLOOD COUNT (AUTO) 6.3 K/uL (4.5-11.0)
[2023-06-22 20:28] LABS: ANION GAP 7 mmol/L (8-16); CALCIUM, TOTAL 9.5 mg/dL (8.8-10.5); CARBON DIOXIDE 28 mmol/L (22-29); CHLORIDE 105 mmol/L (98-107); CREATININE 0.45 mg/dL (0.60-1.30); GLOMERULAR FILTR. RATE CALC > 60 mL/min (>60); GLUCOSE,RANDOM 105 mg/dL (70-110); POTASSIUM 3.4 mmol/L (3.5-5.1); SODIUM SERUM 140 mmol/L (136-145); UREA NITROGEN, BLOOD 20 mg/dL (7-18)
[2023-06-22 20:34] LABS: PROTHROMBIN TIME 10.9 SEC (9.4-11.6)
[2023-06-22 20:36] LABS: LACTIC ACID 1.4 mmol/L (0.4-2.0)
[2023-06-22 20:37] LABS: TROPONIN I-HIGH SENSITIVITY 48 ng/L (<51)
[2023-06-22 20:43] LABS: ALANINE AMINOTRANSFERASE 25 U/L (12-78); ALBUMIN 3.4 g/dL (3.4-5.0); ALKALINE PHOSPHATASE 109 U/L (46-116); ASPARTATE AMINOTRANSFERASE 18 U/L (15-37); BILIRUBIN,TOTAL 0.3 mg/dL (0.1-1.0); CREATINE KINASE, TOTAL ONLY 56 U/L (26-192)
[2023-06-22 21:06] LABS: AMMONIA 8 umol/L (11-32)
[2023-06-22 21:07] LABS: RBC MORPHOLOGY COMMENT ABNORMAL RBC MORPH
[2023-06-22 22:13] LABS: APPEARANCE,URINE CLEAR (CLEAR); BILIRUBIN,URINE NEGATIVE (NEGATIVE); COLOR,URINE LIGHT YELLOW (YELLOW); GLUCOSE, URINE (UA) NEGATIVE (NEGATIVE); LEUKOCYTE ESTERASE ,URINE NEGATIVE (NEGATIVE); NITRATE,URINE NEGATIVE (NEGATIVE); OCCULT BLOOD,URINE MODERATE (NEGATIVE); PROTEIN,URINE NEGATIVE (NEGATIVE); SPECIFIC GRAVITIY, URINE 1.014 (1.003-1.030); UROBILINOGEN,URINE <=1.0 mg/dL (<=1.0)
[2023-06-22 22:29] LABS: AMPHET/METH SCREEN,URINE NEGATIVE (NEGATIVE); BARBITURATE SCREEN, URINE NEGATIVE (NEGATIVE); BENZODIAZEPINES SCREEN,URINE NEGATIVE (NEGATIVE); CANNABINOID SCREEN,URINE NEGATIVE (NEGATIVE); COCAINE SCREEN,URINE NEGATIVE (NEGATIVE); METHADONE SCREEN, URINE NEGATIVE (NEGATIVE); OPIATE SCREEN,URINE NEGATIVE (NEGATIVE); PHENCYCLIDINE SCREEN,URINE NEGATIVE (NEGATIVE)
[2023-06-22 22:30] LABS: ALCOHOL, URINE DRUG SCREEN NEGATIVE (NEGATIVE)
[2023-06-22 22:31] LABS: BACTERIA,URINE Rare /HPF (None Seen); SQUAMOUS EPITHELIAL CELL,UR Few /LPF (None Seen); WBC,URINE 0-2 /HPF (0-5)
[2023-06-22] MEDS ORDERED: PERTUSS(ACELL),DIPH,TET VAC/PF 0.5 ML SYRINGE IM. ONE (23:30)
[2023-06-22 23:45] VITALS: TEMP 99
[2023-06-23 01:20] VITALS: BP 119/85; PULSE 95; RESP 16
== END 2023-06-23 01:52 | disposition short-term general hospital (02) ==
LOC: EMS 18:12
DX: S01.81XA Laceration without foreign body of other part of head, initial encounter (principal); J45.909 Unspecified asthma, uncomplicated; F31.9 Bipolar disorder, unspecified; E11.9 Type 2 diabetes mellitus without complications; F20.9 Schizophrenia, unspecified; I11.9 Hypertensive heart disease without heart failure; Z87.891 Personal history of nicotine dependence; Z90.49 Acquired absence of other specified parts of digestive tract; Z90.11 Acquired absence of right breast and nipple; Z88.0 Allergy status to penicillin; W19.XXXA Unspecified fall, initial encounter; Y93.89 Activity, other specified; Y92.89 Other specified places as the place of occurrence of the external cause; Y99.8 Other external cause status
CPT/HCPCS: 70450; 70486; 71045; 72125; 80053; 80164; 80307; 81001; 82140; 82550; 83605; 84484; 85025; 85610; 85730; 87040; 90471; 90715; 93005; 99291; 36415-L1; 36415-TC

== ENCOUNTER 2023-07-03 15:17 | Emergency (ER) | payer OTHER ==
[2023-07-03] MEDS ORDERED: PALI234D IM (20:34)
[2023-07-03] MEDS ORDERED: ACETAMINOPHEN 325 MG TABLET PO ONE (20:45)
[2023-07-03 20:58] VITALS: BP 159/68; PULSE 80; RESP 18; TEMP 98.6
[2023-07-03] MEDS ORDERED: ACET-3385 PO (21:05)
== END 2023-07-03 22:04 | disposition home or self-care (01) ==
LOC: EMS 15:20
DX: I10 Essential (primary) hypertension (principal); E11.9 Type 2 diabetes mellitus without complications; J45.909 Unspecified asthma, uncomplicated; F31.9 Bipolar disorder, unspecified; F20.9 Schizophrenia, unspecified; D64.9 Anemia, unspecified; Z86.73 Personal history of transient ischemic attack (TIA), and cerebral infarction without residual deficits; Z87.891 Personal history of nicotine dependence; Z85.9 Personal history of malignant neoplasm, unspecified; Z90.49 Acquired absence of other specified parts of digestive tract; Z88.0 Allergy status to penicillin; Z76.0 Encounter for issue of repeat prescription; Z98.890 Other specified postprocedural states
CPT/HCPCS: 99282; Z7502; Z7610

== ENCOUNTER 2023-10-04 16:23 | Emergency (ER) | payer OTHER ==
[~2023-10-04] VITALS: Ht 162.6 cm; Wt 4.5 kg
[~2023-10-04 16:23] MED LIST changes: +ACET-3385 PO; +ANAS1TAB50 PO; +ASPI-1450 PO; +ATOR40TA71 PO; -LEVO-72 PO; +METO50 PO; -MULT-1239 PO; +MULT-1303 PO; +PALI234D IM
[2023-10-04 16:45] VITALS: TEMP 98.2
[2023-10-04 17:20] LABS: BASOPHILS % (AUTO) 1.1 % (0.0-2.0); EOSINOPHILS % (AUTO) 1.1 % (1.0-6.0); HEMATOCRIT 29.1 % (36-46); HEMOGLOBIN 9.2 g/dL (12.0-16.0); LYMPHOCYTES # (AUTO) 0.6 K/uL (1.0-4.8); LYMPHOCYTES % (AUTO) 10.7 % (22.0-44.0); MEAN CORPUSCULAR HGB CONC 31.6 G/dL (31.0-37.0); MEAN CORPUSCULAR VOLUME 70 fL (80-100); MONOCYTES # (AUTO) 0.9 K/uL (0.1-1.0); MONOCYTES % (AUTO) 17.7 % (2.0-9.0); NEUTROPHILS # (AUTO) 3.7 K/uL (1.8-7.7); NEUTROPHILS % (AUTO) 69.4 % (40.0-70.0); PLATELET COUNT (AUTO) 303 K/uL (150-450); RED BLOOD CELL COUNT(AUTO) 4.19 MIL/uL (4.00-5.20); RED CELL DISTRIBUTION WIDTH 16.3 % (11.5-14.5); WHITE BLOOD COUNT (AUTO) 5.3 K/uL (4.5-11.0)
[2023-10-04 17:33] LABS: ANION GAP 11 mmol/L (8-16); CALCIUM, TOTAL 8.9 mg/dL (8.8-10.5); CARBON DIOXIDE 26 mmol/L (22-29); CHLORIDE 105 mmol/L (98-107); CREATININE 0.56 mg/dL (0.60-1.30); GLOMERULAR FILTR. RATE CALC > 60 mL/min (>60); GLUCOSE,RANDOM 152 mg/dL (70-110); POTASSIUM 3.7 mmol/L (3.5-5.1); SODIUM SERUM 142 mmol/L (136-145); UREA NITROGEN, BLOOD 33 mg/dL (7-18)
[2023-10-04 17:39] LABS: ALANINE AMINOTRANSFERASE 29 U/L (12-78); ALKALINE PHOSPHATASE 127 U/L (46-116); ASPARTATE AMINOTRANSFERASE 18 U/L (15-37); BILIRUBIN,TOTAL 0.2 mg/dL (0.1-1.0); TOTAL PROTEIN, SERUM 6.7 g/dL (6.4-8.2)
[2023-10-04 17:46] LABS: ALCOHOL, BLOOD (SERUM) < 3 mg/dL (0-10)
[2023-10-04] MEDS: HALOPERIDOL 5 MG TABLET PO ONE (21:28)
[2023-10-04] MEDS: DiphenhydrAMINE HCL 25 MG CAPSULE PO ONE (21:28)
[2023-10-05 00:51] VITALS: BP 140/73; PULSE 88; RESP 16
== END 2023-10-05 00:53 | disposition home or self-care (01) ==
LOC: EMS 17:03
DX: F25.0 Schizoaffective disorder, bipolar type (principal); J45.909 Unspecified asthma, uncomplicated; E11.9 Type 2 diabetes mellitus without complications; I11.9 Hypertensive heart disease without heart failure; Z87.891 Personal history of nicotine dependence; Z90.49 Acquired absence of other specified parts of digestive tract; Z90.11 Acquired absence of right breast and nipple; Z88.0 Allergy status to penicillin
CPT/HCPCS: 99284; 80053; 85025; 36415; G0480

== ENCOUNTER 2023-10-22 09:53 | Inpatient (IN) | payer MEDICARE, MEDICAID ==
[~2023-10-22] VITALS: Ht 149.9 cm; Wt 44.6 kg
[2023-10-22] MEDS ORDERED: ZOLPIDEM TARTRATE 10 MG TABLET PO PRN (10:30)
[2023-10-22] MEDS ORDERED: LORazepam 2 MG TABLET PO PRN (10:30)
[2023-10-22 17:32] VITALS: BP 151/73; PULSE 91; RESP 18; TEMP 100.1; O2SAT 98
[2023-10-22] MEDS ORDERED: BISACODYL 10 MG RECTAL RECTAL SUPPOSITORY PR PRN (19:30)
[2023-10-22] MEDS ORDERED: MAGNESIUM HYDROXIDE SUSPENSION 30 ML UDCUP PO PRN (19:30)
[2023-10-22] MEDS ORDERED: ZOLPIDEM TARTRATE 5 MG TABLET PO PRN (19:45)
[2023-10-22 20:19] VITALS: BP 124/82; PULSE 91; RESP 18; TEMP 97.1; O2SAT 98
[2023-10-22] MEDS: ATORVASTATIN CALCIUM 40 MG TABLET PO SCH (21:09)
[2023-10-22 23:16] VITALS: BP 129/57; PULSE 77; RESP 18; TEMP 100.4; O2SAT 98
[2023-10-22] MEDS: ACETAMINOPHEN 325 MG TABLET PO PRN (23:26)
[2023-10-22] MEDS: METOPROLOL TARTRATE 50 MG TABLET PO SCH (23:52)
[2023-10-23 00:16] VITALS: RESP 18; TEMP 99.1
[2023-10-23] MEDS: ASPIRIN 81 MG CHEWABLE TABLET PO SCH (06:50)
[2023-10-23] MEDS ORDERED: LOPERAMIDE HCL 2 MG CAPSULE PO PRN (07:00)
[2023-10-23] MEDS ORDERED: MAGNESIUM HYDROXIDE SUSPENSION 30 ML UDCUP PO PRN (07:00)
[2023-10-23] MEDS ORDERED: IBUPROFEN 400 MG TABLET PO PRN (07:00)
[2023-10-23] MEDS ORDERED: PETROLATUM,WHITE 28 GM JELLY TP PRN (07:00)
[2023-10-23] MEDS ORDERED: GuaiFENesin/D-METHORPHAN [SUGAR-FREE] 200-20MG/10 ML SYRUP UDCUP PO PRN (07:00)
[2023-10-23] MEDS ORDERED: ALBUTEROL SULFATE HFA 90 MCG/PUFF 8 GM INHALER IH PRN (07:00)
[2023-10-23] MEDS ORDERED: NICOTINE 14 MG/24 HOUR PATCH TD PRN (07:00)
[2023-10-23] MEDS ORDERED: ACETAMINOPHEN 325 MG TABLET PO PRN (07:00)
[2023-10-23] MEDS ORDERED: AZITHROMYCIN 500 MG TABLET PO SCH (09:00)
[2023-10-23 09:18] VITALS: BP 140/58; PULSE 89; RESP 18; TEMP 98; O2SAT 98
[2023-10-23] MEDS: AmLODIPine BESYLATE 5 MG TABLET PO SCH (09:29)
[2023-10-23] MEDS: PANTOPRAZOLE SODIUM 40 MG DR TABLET PO SCH (09:30)
[2023-10-23] MEDS: METOPROLOL TARTRATE 50 MG TABLET PO SCH (09:30)
[2023-10-23] MEDS: LEVOFLOXACIN 750 MG TABLET PO SCH (09:31)
[2023-10-23] MEDS: ANASTROZOLE 1 MG TABLET PO SCH (09:32)
[2023-10-23] MEDS: DOCUSATE SODIUM 100 MG/10 ML LIQUID UDCUP PO SCH (09:33)
[2023-10-23] MEDS: METHIMAZOLE 5 MG TABLET PO SCH (09:34)
[2023-10-23] MEDS: CHOLECALCIFEROL (VIT D3) 400 UNITS [10 MCG] TABLET PO SCH (13:03)
[2023-10-23 20:42] VITALS: BP 133/69; PULSE 82; RESP 18; TEMP 98.5; O2SAT 98
[2023-10-23 21:35] LABS: APPEARANCE,URINE CLEAR (CLEAR); BILIRUBIN,URINE NEGATIVE (NEGATIVE); COLOR,URINE LIGHT YELLOW (YELLOW); GLUCOSE, URINE (UA) NEGATIVE (NEGATIVE); KETONES,URINE NEGATIVE (NEGATIVE); LEUKOCYTE ESTERASE ,URINE NEGATIVE (NEGATIVE); NITRATE,URINE NEGATIVE (NEGATIVE); OCCULT BLOOD,URINE NEGATIVE (NEGATIVE); PROTEIN,URINE TRACE mg/dL (NEGATIVE); SPECIFIC GRAVITIY, URINE 1.024 (1.003-1.030); UROBILINOGEN,URINE <=1.0 mg/dL (<=1.0)
[2023-10-23 21:39] LABS: ALCOHOL, URINE DRUG SCREEN NEGATIVE (NEGATIVE); AMPHET/METH SCREEN,URINE NEGATIVE (NEGATIVE); BARBITURATE SCREEN, URINE NEGATIVE (NEGATIVE); BENZODIAZEPINES SCREEN,URINE NEGATIVE (NEGATIVE); CANNABINOID SCREEN,URINE NEGATIVE (NEGATIVE); COCAINE SCREEN,URINE NEGATIVE (NEGATIVE); METHADONE SCREEN, URINE NEGATIVE (NEGATIVE); OPIATE SCREEN,URINE POSITIVE (NEGATIVE); PHENCYCLIDINE SCREEN,URINE NEGATIVE (NEGATIVE)
[2023-10-24 07:46] LABS: BASOPHILS % (AUTO) 0.8 % (0.0-2.0); EOSINOPHILS % (AUTO) 0.1 % (1.0-6.0); HEMATOCRIT 29.4 % (36-46); HEMOGLOBIN 9.4 g/dL (12.0-16.0); LYMPHOCYTES # (AUTO) 2.6 K/uL (1.0-4.8); LYMPHOCYTES % (AUTO) 57.6 % (22.0-44.0); MEAN CORPUSCULAR HGB CONC 31.9 G/dL (31.0-37.0); MEAN CORPUSCULAR VOLUME 69 fL (80-100); MONOCYTES # (AUTO) 0.5 K/uL (0.1-1.0); MONOCYTES % (AUTO) 11.4 % (2.0-9.0); NEUTROPHILS # (AUTO) 1.4 K/uL (1.8-7.7); NEUTROPHILS % (AUTO) 30.1 % (40.0-70.0); PLATELET COUNT (AUTO) 225 K/uL (150-450); RED BLOOD CELL COUNT(AUTO) 4.26 MIL/uL (4.00-5.20); RED CELL DISTRIBUTION WIDTH 16.3 % (11.5-14.5); WHITE BLOOD COUNT (AUTO) 4.6 K/uL (4.5-11.0)
[2023-10-24 08:00] LABS: ANION GAP 9 mmol/L (8-16); CALCIUM, TOTAL 9.3 mg/dL (8.8-10.5); CARBON DIOXIDE 26 mmol/L (22-29); CHLORIDE 106 mmol/L (98-107); CREATININE 0.43 mg/dL (0.60-1.30); GLOMERULAR FILTR. RATE CALC > 60 mL/min (>60); GLUCOSE,RANDOM 101 mg/dL (70-110); POTASSIUM 3.6 mmol/L (3.5-5.1); SODIUM SERUM 141 mmol/L (136-145); UREA NITROGEN, BLOOD 18 mg/dL (7-18)
[2023-10-24 08:08] VITALS: BP 108/71; PULSE 73; RESP 18; TEMP 98; O2SAT 73
[2023-10-24] MEDS: MAG HYDROX/ALUMINUM HYD/SIMETH ES 30 ML SUSPENSION UDCUP PO PRN (12:49)
[2023-10-24 20:00] VITALS: BP 134/69; PULSE 85; RESP 18; TEMP 98.1; O2SAT 97
[2023-10-25] MEDS: LORazepam 1 MG TABLET PO PRN (02:32)
[2023-10-25 08:36] VITALS: BP 154/61; PULSE 89; RESP 18; TEMP 97.8; O2SAT 98
[2023-10-25 16:15] VITALS: BP 138/73; PULSE 87; RESP 18
[2023-10-25 20:38] VITALS: BP 144/81; PULSE 82; RESP 18; TEMP 98.1; O2SAT 98
[2023-10-25] MEDS: HALOPERIDOL 5 MG TABLET PO PRN (20:49)
[2023-10-26 09:15] VITALS: BP 132/71; PULSE 81; RESP 16; TEMP 97.2; O2SAT 96
[2023-10-26 22:11] VITALS: BP 115/72; PULSE 62; RESP 18; TEMP 97.4; O2SAT 97
[2023-10-27 09:07] VITALS: BP 148/64; PULSE 79; RESP 19; TEMP 98.1; O2SAT 98
[2023-10-27 21:41] VITALS: BP 132/68; PULSE 74; RESP 18; TEMP 98.6; O2SAT 99
[2023-10-28 09:13] VITALS: BP 122/73; PULSE 71; RESP 18; TEMP 97.7; O2SAT 98
[2023-10-28 16:05] VITALS: BP_SYST 118; BP_SYST 128; BP_DIAS 68; PULSE 72; RESP 18
[2023-10-28 21:23] VITALS: BP 122/50; PULSE 75; RESP 18; TEMP 98.3; O2SAT 98
[2023-10-29] MEDS ORDERED: CHOL400T56 PO (09:25)
[2023-10-29] MEDS ORDERED: LEVO750T68 PO (09:26)
[2023-10-29] MEDS ORDERED: METH-386 PO (09:26)
[2023-10-29] MEDS ORDERED: DOCU-385 PO (09:26)
[2023-10-29] MEDS ORDERED: PANT-31 PO (09:27)
[2023-10-29 10:11] VITALS: BP 122/72; PULSE 92; RESP 18; TEMP 96.8; O2SAT 95
[2023-10-29 21:06] VITALS: BP 142/63; PULSE 77; RESP 18; TEMP 98; O2SAT 96
[2023-10-30 10:38] VITALS: BP 153/74; PULSE 91; RESP 18; TEMP 98.2; O2SAT 98
== END 2023-10-30 16:26 | disposition home or self-care (01) | DRG 885 ==
LOC: 3EI 16:30
PROVIDERS: ADMIT Psychiatry & Neurology Psychiatry; ATTEND Psychiatry & Neurology Psychiatry
DX: F25.9 Schizoaffective disorder, unspecified (principal); E43 Unspecified severe protein-calorie malnutrition; G93.40 Encephalopathy, unspecified; Z68.1 Body mass index [BMI] 19.9 or less, adult; R29.6 Repeated falls; E78.5 Hyperlipidemia, unspecified; I10 Essential (primary) hypertension; E11.9 Type 2 diabetes mellitus without complications; J45.909 Unspecified asthma, uncomplicated; E03.9 Hypothyroidism, unspecified; R13.10 Dysphagia, unspecified; Z79.899 Other long term (current) drug therapy; Z79.82 Long term (current) use of aspirin; Z88.0 Allergy status to penicillin; Z86.73 Personal history of transient ischemic attack (TIA), and cerebral infarction without residual deficits; Z85.3 Personal history of malignant neoplasm of breast; Z90.11 Acquired absence of right breast and nipple
CPT/HCPCS: 71046; 80048; 80307; 81003; 85025; 87081; 92526; 92610; 97162; Q9967; 36415-L1; 36415-TC

== ENCOUNTER 2023-12-30 06:39 | Emergency (ER) | payer MEDICARE, OTHER ==
[~2023-12-30] VITALS: Ht 165.1 cm; Wt 44.5 kg
[~2023-12-30 06:39] MED LIST changes: -ACET-3385 PO; +CHOL400T56 PO; -DIVA125T32 PO; +DOCU-385 PO; -HALO5TAB23 PO; +LEVO750T68 PO; +METH-386 PO; -MULT-1303 PO; -PALI234D IM; +PANT-31 PO
[2023-12-30 06:43] VITALS: TEMP 98.2
[2023-12-30 07:44] LABS: ANION GAP 5 mmol/L (8-16); CALCIUM, TOTAL 9.3 mg/dL (8.8-10.5); CARBON DIOXIDE 30 mmol/L (22-29); CHLORIDE 111 mmol/L (98-107); CREATININE 0.49 mg/dL (0.60-1.30); GLOMERULAR FILTR. RATE CALC > 60 mL/min (>60); GLUCOSE,RANDOM 139 mg/dL (70-110); POTASSIUM 3.3 mmol/L (3.5-5.1); SODIUM SERUM 146 mmol/L (136-145); UREA NITROGEN, BLOOD 18 mg/dL (7-18)
[2023-12-30 07:58] LABS: HEMATOCRIT 27.6 % (36-46); HEMOGLOBIN 8.9 g/dL (12.0-16.0); MEAN CORPUSCULAR HEMOGLOBIN 22.4 pg (26.0-34.0); MEAN CORPUSCULAR HGB CONC 32.1 G/dL (31.0-37.0); MEAN CORPUSCULAR VOLUME 70 fL (80-100); PLATELET COUNT (AUTO) 192 K/uL (150-450); RED BLOOD CELL COUNT(AUTO) 3.96 MIL/uL (4.00-5.20); RED CELL DISTRIBUTION WIDTH 15.7 % (11.5-14.5)
[2023-12-30] MEDS: SODIUM CHLORIDE 0.9% 500 ML IV ONE (08:56)
[2023-12-30] MEDS: POTASSIUM CHLORIDE 10% 40 MEQ/30 ML LIQUID UDCUP PO ONE (08:56)
[2023-12-30 09:31] LABS: BAND NEUTROPHILS % (MANUAL) 0 % (0-5)
[2023-12-30 09:35] LABS: LYMPHOCYTES % (MANUAL) 37 % (22-44); MONOCYTES % (MANUAL) 5 % (2-9); RBC MORPHOLOGY COMMENT ABNORMAL RBC MORPH; SEGMENTED NEUTROPHILS % 58 % (40-70); TOTAL CELLS COUNTED 100
[2023-12-30 13:00] VITALS: BP 129/76; PULSE 74; RESP 16
== END 2023-12-30 15:01 | disposition home or self-care (01) ==
LOC: EMS 06:39
DX: R53.1 Weakness (principal); J45.909 Unspecified asthma, uncomplicated; F31.9 Bipolar disorder, unspecified; F20.9 Schizophrenia, unspecified; I11.9 Hypertensive heart disease without heart failure; Z87.891 Personal history of nicotine dependence; Z90.49 Acquired absence of other specified parts of digestive tract; Z90.11 Acquired absence of right breast and nipple; Z98.890 Other specified postprocedural states; Z88.0 Allergy status to penicillin
CPT/HCPCS: 99285; 96360; 71045; 80048; 85025; 36415; 93005; J7030

== ENCOUNTER 2024-01-03 15:48 | Emergency (ER) | payer OTHER ==
[~2024-01-03] VITALS: Ht 162.6 cm; Wt 55.0 kg
[2024-01-03 15:51] VITALS: TEMP 98
[2024-01-03] MEDS ORDERED: BRIM5DRO9 OU (16:00)
[2024-01-03] MEDS ORDERED: ATOR-2 PO (16:00)
[2024-01-03] MEDS ORDERED: PALI156D IM (16:00)
[2024-01-03] MEDS ORDERED: AMLO-386 PO (16:00)
[2024-01-03] MEDS ORDERED: OMEP20CA12 PO (16:00)
[2024-01-03] MEDS ORDERED: ZOLP-162 PO (16:00)
[2024-01-03] MEDS ORDERED: PALI234D IM (17:06)
[2024-01-03] MEDS: ACETAMINOPHEN 500 MG TABLET PO ONE (17:14)
[2024-01-03] MEDS ORDERED: HALO2 PO (21:15)
[2024-01-03] MEDS: RisperiDONE 1 MG TABLET PO ONE (21:31)
[2024-01-03 21:50] VITALS: BP 120/65; PULSE 73; RESP 16
== END 2024-01-03 21:52 | disposition home or self-care (01) ==
LOC: EMS 15:48
DX: S00.83XA Contusion of other part of head, initial encounter (principal); H40.9 Unspecified glaucoma; G47.00 Insomnia, unspecified; F25.1 Schizoaffective disorder, depressive type; J32.9 Chronic sinusitis, unspecified; D64.9 Anemia, unspecified; J45.909 Unspecified asthma, uncomplicated; F31.9 Bipolar disorder, unspecified; I10 Essential (primary) hypertension; Z86.73 Personal history of transient ischemic attack (TIA), and cerebral infarction without residual deficits; Z87.891 Personal history of nicotine dependence; Z90.49 Acquired absence of other specified parts of digestive tract; Z88.0 Allergy status to penicillin; X58.XXXA Exposure to other specified factors, initial encounter; Y93.89 Activity, other specified; Y92.89 Other specified places as the place of occurrence of the external cause; Y99.8 Other external cause status
CPT/HCPCS: 70450; 99284

== ENCOUNTER 2024-01-16 16:32 | Emergency (ER) | payer OTHER ==
[~2024-01-16] VITALS: Ht 165.1 cm; Wt 45.0 kg
[~2024-01-16 16:32] MED LIST changes: -AMLO-257 PO; +AMLO-386 PO; -ASPI-1450 PO; +ATOR-2 PO; -ATOR40TA71 PO; +BRIM5DRO9 OU; -CHOL400T56 PO; -DOCU-385 PO; +HALO2 PO; -LEVO750T68 PO; -METH-386 PO; +OMEP20CA12 PO; +PALI234D IM; -PANT-31 PO; +ZOLP-162 PO
[2024-01-16 16:44] VITALS: BP 119/79; PULSE 90; RESP 18; TEMP 97.9
[2024-01-16 17:15] LABS: APPEARANCE,URINE CLEAR (CLEAR); BILIRUBIN,URINE NEGATIVE (NEGATIVE); COLOR,URINE LIGHT YELLOW (YELLOW); GLUCOSE, URINE (UA) NEGATIVE (NEGATIVE); KETONES,URINE NEGATIVE (NEGATIVE); LEUKOCYTE ESTERASE ,URINE TRACE (NEGATIVE); NITRATE,URINE NEGATIVE (NEGATIVE); OCCULT BLOOD,URINE NEGATIVE (NEGATIVE); PROTEIN,URINE TRACE mg/dL (NEGATIVE); SPECIFIC GRAVITIY, URINE 1.023 (1.003-1.030); UROBILINOGEN,URINE <=1.0 mg/dL (<=1.0)
[2024-01-16 17:23] LABS: ANION GAP 10 mmol/L (8-16); CALCIUM, TOTAL 9.8 mg/dL (8.8-10.5); CARBON DIOXIDE 28 mmol/L (22-29); CHLORIDE 105 mmol/L (98-107); CREATININE 0.48 mg/dL (0.60-1.30); GLOMERULAR FILTR. RATE CALC > 60 mL/min (>60); GLUCOSE,RANDOM 104 mg/dL (70-110); HEMATOCRIT 31.2 % (36-46); HEMOGLOBIN 9.7 g/dL (12.0-16.0); MEAN CORPUSCULAR HEMOGLOBIN 21.8 pg (26.0-34.0); MEAN CORPUSCULAR HGB CONC 31.1 G/dL (31.0-37.0); MEAN CORPUSCULAR VOLUME 70 fL (80-100); PLATELET COUNT (AUTO) 240 K/uL (150-450); POTASSIUM 4.4 mmol/L (3.5-5.1); RED BLOOD CELL COUNT(AUTO) 4.45 MIL/uL (4.00-5.20); RED CELL DISTRIBUTION WIDTH 16.2 % (11.5-14.5); SODIUM SERUM 143 mmol/L (136-145); UREA NITROGEN, BLOOD 24 mg/dL (7-18); WHITE BLOOD COUNT (AUTO) 3.8 K/uL (4.5-11.0)
[2024-01-16 17:29] LABS: ALANINE AMINOTRANSFERASE 71 U/L (12-78); ALBUMIN 3.5 g/dL (3.4-5.0); ALKALINE PHOSPHATASE 175 U/L (46-116); ASPARTATE AMINOTRANSFERASE 35 U/L (15-37); BILIRUBIN,TOTAL 0.6 mg/dL (0.1-1.0); TOTAL PROTEIN, SERUM 7.2 g/dL (6.4-8.2)
[2024-01-16 17:42] LABS: BACTERIA,URINE Rare /HPF (None Seen); RBC,URINE None Seen /HPF (0-2); WBC,URINE 0-2 /HPF (0-5)
[2024-01-16 18:10] LABS: BAND NEUTROPHILS % (MANUAL) 2 % (0-5); BASOPHILS % (MANUAL) 1 % (0-2); LYMPHOCYTES % (MANUAL) 27 % (22-44); MONOCYTES % (MANUAL) 9 % (2-9); SEGMENTED NEUTROPHILS % 61 % (40-70); TOTAL CELLS COUNTED 100
[2024-01-16 18:12] LABS: RBC MORPHOLOGY COMMENT ABNORMAL R
== END 2024-01-16 19:25 | disposition left against medical advice (07) ==
LOC: EMS 16:32
DX: N39.0 Urinary tract infection, site not specified (principal); Z53.21 Procedure and treatment not carried out due to patient leaving prior to being seen by health care provider
CPT/HCPCS: 80053; 81001; 85025

== ENCOUNTER 2024-03-15 13:33 | Emergency (ER) | payer OTHER ==
[~2024-03-15] VITALS: Ht 157.5 cm; Wt 56.0 kg
[2024-03-15 14:46] LABS: ANION GAP 9 mmol/L (8-16); CALCIUM, TOTAL 8.6 mg/dL (8.8-10.5); CARBON DIOXIDE 25 mmol/L (22-29); CHLORIDE 107 mmol/L (98-107); CREATININE 0.41 mg/dL (0.60-1.30); GLOMERULAR FILTR. RATE CALC > 60 mL/min (>60); GLUCOSE,RANDOM 137 mg/dL (70-110); POTASSIUM 3.6 mmol/L (3.5-5.1); SODIUM SERUM 141 mmol/L (136-145); UREA NITROGEN, BLOOD 23 mg/dL (7-18)
[2024-03-15 14:47] LABS: B-TYPE NATRIURETIC PEPTIDE 535 pg/mL (0-100)
[2024-03-15 14:50] LABS: BASOPHILS % (AUTO) 0.2 % (0.0-2.0); EOSINOPHILS % (AUTO) 1.1 % (1.0-6.0); HEMATOCRIT 29.2 % (36-46); LYMPHOCYTES # (AUTO) 1.7 K/uL (1.0-4.8); LYMPHOCYTES % (AUTO) 36.2 % (22.0-44.0); MEAN CORPUSCULAR HEMOGLOBIN 21.9 pg (26.0-34.0); MEAN CORPUSCULAR HGB CONC 30.8 G/dL (31.0-37.0); MEAN CORPUSCULAR VOLUME 71 fL (80-100); MONOCYTES # (AUTO) 0.9 K/uL (0.1-1.0); MONOCYTES % (AUTO) 18.9 % (2.0-9.0); NEUTROPHILS % (AUTO) 43.6 % (40.0-70.0); PLATELET COUNT (AUTO) 175 K/uL (150-450); RED BLOOD CELL COUNT(AUTO) 4.11 MIL/uL (4.00-5.20); RED CELL DISTRIBUTION WIDTH 17.5 % (11.5-14.5); WHITE BLOOD COUNT (AUTO) 4.6 K/uL (4.5-11.0)
[2024-03-15 14:51] LABS: INR 1.1 (0.9-1.1); PROTHROMBIN TIME 11.2 SEC (9.4-11.6)
[2024-03-15 14:52] LABS: ALANINE AMINOTRANSFERASE 55 U/L (12-78); ALKALINE PHOSPHATASE 195 U/L (46-116); ASPARTATE AMINOTRANSFERASE 31 U/L (15-37); BILIRUBIN,TOTAL 0.3 mg/dL (0.1-1.0); CREATINE KINASE, TOTAL ONLY 48 U/L (26-192); RBC MORPHOLOGY COMMENT ABNORMAL RBC MORPH; TOTAL PROTEIN, SERUM 6.3 g/dL (6.4-8.2)
[2024-03-15 14:54] LABS: TROPONIN I-HIGH SENSITIVITY 47 ng/L (<51)
[2024-03-15 15:34] LABS: APPEARANCE,URINE CLEAR (CLEAR); BILIRUBIN,URINE NEGATIVE (NEGATIVE); COLOR,URINE YELLOW (YELLOW); GLUCOSE, URINE (UA) NEGATIVE (NEGATIVE); KETONES,URINE NEGATIVE (NEGATIVE); LEUKOCYTE ESTERASE ,URINE NEGATIVE (NEGATIVE); NITRATE,URINE NEGATIVE (NEGATIVE); OCCULT BLOOD,URINE NEGATIVE (NEGATIVE); PROTEIN,URINE TRACE mg/dL (NEGATIVE); SPECIFIC GRAVITIY, URINE 1.027 (1.003-1.030); UROBILINOGEN,URINE <=1.0 mg/dL (<=1.0)
[2024-03-15] MEDS: FUROSEMIDE 20 MG TABLET PO ONE (16:34)
[2024-03-15 17:36] LABS: TROPONIN I-HIGH SENSITIVITY 54 ng/L (<51)
[2024-03-15 21:17] LABS: TROPONIN I-HIGH SENSITIVITY 50 ng/L (<51)
[2024-03-15 21:35] VITALS: BP 149/78; PULSE 69; RESP 16; TEMP 97.7; O2SAT 98
== END 2024-03-15 22:01 | disposition home or self-care (01) ==
LOC: EMS 13:38
DX: F41.9 Anxiety disorder, unspecified (principal); M79.18 Myalgia, other site; F20.9 Schizophrenia, unspecified; J45.909 Unspecified asthma, uncomplicated; I10 Essential (primary) hypertension; R55 Syncope and collapse; Z88.0 Allergy status to penicillin
CPT/HCPCS: 70450; 71045; 80053; 81003; 82550; 83880; 84484; 85025; 85610; 85730; 93005; 99285; 36415-L1; 36415-TC